=== PATIENT | female | born 1970 | race Caucasian/White ===

== ENCOUNTER → 2018-05-07 11:30 | Outpatient (CLI) | payer BC, SELFPAY ==
--- NOTE | 2018-05-07 11:35 | XR_ITS ---
XR chest 2V HISTORY: ITS.REASON: COUGH, SORE THROAT, FACIAL PAIN ORDERING PHYSICIAN: Perla Berman PATIENT AGE: 48 years COMPARISON: 08/26/2016 FINDINGS: The cardiomediastinal silhouette and pulmonary vascularity are within normal limits. The lungs are clear without infiltrates, suspicious nodules, or pleural effusions. No acute bony abnormalities. IMPRESSION: Negative chest, no acute finding
--- NOTE | 2018-05-07 11:35 | XR_ITS ---
XR sinus min 3V CLINICAL INDICATION: ITS.REASON: COUGH, SORE THROAT, FACIAL PAIN ORDERING PHYSICIAN: Perla Berman PATIENT AGE: 48 years Comparison: None FINDINGS: There is an air-fluid level in the right maxillary sinus. There is moderate mucosal thickening of the left maxillary sinus. The frontal and sphenoid sinuses have an unremarkable appearance. IMPRESSION: Maxillary sinusitis
[2018-05-07 12:01] LABS: Adenovirus,PCR Not Detected (NotDetected); Bordetella Pertussis Not Detected (NotDetected); Chlamydophila Pneumoniae, PCR Not Detected (NotDetected); Coronavirus 229E Not Detected (NotDetected); Coronavirus NL63 Not Detected (NotDetected); Coronavirus OC43 Not Detected (NotDetected); Coronovirus HKU1,PCR Not Detected (NotDetected); Human Metapneumovirus Not Detected (NotDetected); Influenza A, PCR Not Detected (NotDetected); Influenza AH1, 2009 Not Detected (NotDetected); Influenza AH1, PCR Not Detected (NotDetected); Influenza AH3,PCR Not Detected (NotDetected); Influenza B, PCR Not Detected (NotDetected); Mycoplasma Pneumoniae, PCR Not Detected (NotDected); Parainfluenza 1, PCR Not Detected (NotDetected); Parainfluenza 2, PCR Not Detected (NotDetected); Parainfluenza 3, PCR Not Detected (NotDetected); Parainfluenza 4, PCR Not Detected (NotDetected); Respiratory Syncytial Virus Not Detected (NotDetected)
[2018-05-07 18:16] LABS: Rhinovirus/Enterovirus Detected (NotDetected)
== END ==
PROVIDERS: PCP Nurse Practitioner Family; Visit Provider Nurse Practitioner Family
DX: R05 Cough (principal); J02.9 Acute pharyngitis, unspecified; R51 Headache
CPT/HCPCS: 70220; 71046; 87486; 87581; 87633; 87798

== ENCOUNTER → 2018-09-26 08:55 | Outpatient (CLI) | payer BC, SELFPAY ==
--- NOTE | 2018-09-26 08:59 | US_ITS ---
US Arterial Ankle Brachial Ind History: Bilateral leg pain at rest and with exercise, previous smoker, breast pain, claudication ORDERING PHYSICIAN: Bianca Wong PATIENT AGE: 48 years TECHNIQUE: Segmental pressures obtained of both right and left leg. These are compared to brachial blood pressure to yield index at each level sampled including summary NANNETTE. The data sheets from the procedure are available in PACS FINDINGS Rest study only performed today No prior studies available for comparison. Blood pressures reported are in millimeters mercury. RIGHT LEG NANNETTE = 1.3. RIGHT LEG TBI=0.8 Brachial BP: 110 Thigh BP: 126 Calf BP: 140 Ankle PT: 137 Ankle DP : 132 Digit =87 LEFT LEG NANNETTE = 1.2 LEFT LEG TBI= 0.8 Brachial BPD: 98 Thigh BP: 131 Calf BP: 131 Ankle PT:133 Ankle DP: 120 Digit = 82 Pulses and waveforms: Normal IMPRESSION: The ABIs and TBI's as reported above are within normal limits. Waveforms and pulses are also unremarkable. There is some discrepancy in the brachial blood pressure with the left being 12 point slower than the right. This could be seen with a stenotic lesion of the left subclavian, axillary, or brachial arteries. Suggest rechecking brachial blood pressures. If there remains discrepancy then CT angiogram of the subclavian and axillary arteries may be of further value.
== END ==
PROVIDERS: PCP Nurse Practitioner Family; Visit Provider Nurse Practitioner Family
DX: I70.223 Atherosclerosis of native arteries of extremities with rest pain, bilateral legs (principal)
CPT/HCPCS: 93922

== ENCOUNTER → 2018-10-07 10:33 | Outpatient (CLI) | payer BC, SELFPAY ==
--- NOTE | 2018-10-07 10:42 | CT_ITS ---
CT angio chest HISTORY: Discrepancy in blood pressure in the upper extremities, anomalous subclavian artery ITS.REASON: ANOMALOUS ORIGIN OF SUBCLAVIAN ARTERY ORDERING PHYSICIAN: Bianca Wong PATIENT AGE: 48 years COMPARISON: 09/26/2018 TECHNIQUE: Axial images obtained following the administration of 75 mL of Isovue 370 . Sagittal, and coronal reformatted images are also generated and reviewed. All CT scans at the facility use one or more dose reduction, viz: automated exposure control, ma/kV adjustment per patient size (including targeted exams where dose is matched to indication, i.e. head), or iterative reconstruction technique. FINDINGS: The aortic arch and great vessels have an unremarkable appearance. There is no evidence of subclavian artery stenosis. Only a small amount of calcific plaque is present at the origin of the left subclavian artery. The left axillary artery and proximal brachial artery have an unremarkable appearance as well. There is some mild bronchial thickening with patchy density in the left upper lobe posteriorly which suggests an area of infiltrate. No evidence of thoracic outlet obstruction of the subclavian or axillary artery. No acute bony anomalies. IMPRESSION: 1. Negative CT angiogram of the great vessels and left subclavian and axillary artery. No evidence of left subclavian, axillary or proximal brachial stenosis. No evidence of aberrant subclavian artery. 2. Patchy infiltrate with mild bronchial thickening in the left upper lobe posteriorly
== END ==
PROVIDERS: PCP Nurse Practitioner Family; Visit Provider Nurse Practitioner Family
DX: Q25.48 Anomalous origin of subclavian artery (principal)
CPT/HCPCS: 71275; Q9967

== ENCOUNTER → 2018-11-13 09:59 | Outpatient (CLI) | payer BC, SELFPAY ==
--- NOTE | 2018-11-13 10:03 | MR_ITS ---
MR cervical spine wo con, MR 3-d myelogram/MRCP HISTORY: PT states neck pain and left shoulder pain X 3-4 months. LT arm numbness and tingling. ITS.REASON: CERVICALGIA ORDERING PHYSICIAN: Bianca Wong PATIENT AGE: 48 years Comparison: None TECHNIQUE: Standard multiplanar multiecho sequences are performed without contrast. 3-D MIP and myelographic images are also rendered and reviewed FINDINGS: There is normal alignment. There is mild right-sided cerebellar ectopia of approximately 3 mm. Tiny area of slight increased T2 signal the franklyn on the right nonspecific C2-C3: Unremarkable. C3-C4: Mild left-sided foraminal narrowing from facet and uncovertebral hypertrophy C4-C5: Unremarkable. C5-C6: Minimal right foraminal narrowing. C6-C7: Minimal bulging disc with minimal degenerative disc disease with 1 to 2 mm anterolisthesis of C6. C7-T1: Unremarkable. No canal stenosis or disc herniation. Unremarkable signal intensity of the cervical cord. IMPRESSION: 1. Mild cervical spondylosis as detailed above. 2. No canal stenosis or disc herniation
== END ==
PROVIDERS: PCP Nurse Practitioner Family; Visit Provider Nurse Practitioner Family
DX: M54.2 Cervicalgia (principal)
CPT/HCPCS: 72141; 76376

== ENCOUNTER → 2018-12-16 12:09 | Outpatient (POV) | payer BC, SELFPAY | PROVIDERS: Visit Provider Specialist | DX: M54.2 Cervicalgia (principal) | CPT/HCPCS: 95886; 95908 ==

== ENCOUNTER → 2019-11-27 17:01 | Outpatient (CLI) | payer BC, SELFPAY | PROVIDERS: Visit Provider Podiatrist | DX: L08.9 Local infection of the skin and subcutaneous tissue, unspecified (principal); Z83.3 Family history of diabetes mellitus | CPT/HCPCS: 87102; 87206; 87220 ==

== ENCOUNTER → 2019-12-08 12:17 | Outpatient (CLI) | payer BC, SELFPAY ==
--- NOTE | 2019-12-08 12:22 | XR_ITS ---
PROCEDURE: XR FOOT WT BEARING RT 3V CLINICAL INDICATION: PAIN COMPARISON: No exams were available for comparison FINDINGS: No fracture or dislocation. No lytic or blastic change. There is normal mineralization. There is mild osteoarthritis at the 1st metatarsophalangeal joint and talonavicular joint. 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 A small degenerative plantar calcaneal spur is noted. Other findings: IMPRESSION: No acute bone findings. Dictated by: Hayes Aayla 12/08/2019 14:34 Electronically signed by Hayse Ayala in [place] 12/08/2019 14:34
--- NOTE | 2019-12-08 12:22 | XR_ITS ---
PROCEDURE: XR FOOT WT BEARING LT 3V CLINICAL INDICATION: PAIN COMPARISON: No exams were available for comparison FINDINGS: No fracture or dislocation. No lytic or blastic change. There is normal mineralization. There is mild osteoarthritis at 1st metatarsophalangeal and talonavicular joints. A 3 millimeters sclerotic focus involving the 3rd cuneiform is likely a benign bone island. Other findings:There is Freiberg's infraction of the distal 2nd metatarsal. IMPRESSION: No acute findings. Dictated by: Hayes Ayala 12/08/2019 14:31 Electronically signed by Hayes Ayala in [place] 12/08/2019 14:31
--- NOTE | 2019-12-08 12:22 | XR_ITS ---
PROCEDURE: XR ANKLE WT BEARING LT MIN 3V CLINICAL INDICATION: PAIN COMPARISON: No exams were available for comparison FINDINGS: There is no acute fracture dislocation or destructive bone lesion. Ankle mortise is intact. IMPRESSION: No acute findings. Dictated by: Hayes Ayala 12/08/2019 14:35 Electronically signed by Hayes Ayala in [place] 12/08/2019 14:35
--- NOTE | 2019-12-08 12:22 | XR_ITS ---
PROCEDURE: XR ANKLE WT BEARING RT MIN 3V CLINICAL INDICATION: PAIN COMPARISON: No exams were available for comparison FINDINGS: There is no acute fracture dislocation or destructive lesion. A small degenerative plantar calcaneal spur is noted. Soft tissue swelling is seen over the lateral malleolus. IMPRESSION: No acute bone pathology. Dictated by: Hayes Ayala 12/08/2019 14:29 Electronically signed by Hayes Ayala in [place] 12/08/2019 14:29
== END ==
PROVIDERS: PCP Emergency Medicine; Visit Provider Podiatrist
DX: R52 Pain, unspecified (principal); M79.672 Pain in left foot; M79.671 Pain in right foot; M25.572 Pain in left ankle and joints of left foot; M25.571 Pain in right ankle and joints of right foot
CPT/HCPCS: 73610; 73630

== ENCOUNTER → 2019-12-19 15:40 | Outpatient (CLI) | payer BC, SELFPAY ==
[2019-12-19 18:05] LABS: Hemoglobin A1C 5.5 % (4.0-6.0)
== END ==
PROVIDERS: Visit Provider Nurse Practitioner Family
DX: E11.9 Type 2 diabetes mellitus without complications (principal)
CPT/HCPCS: 83036

== ENCOUNTER → 2020-01-08 11:07 | Outpatient (CLI) | payer BC, SELFPAY ==
--- NOTE | 2020-01-08 11:30 | XR_ITS ---
PROCEDURE: XR LUMBAR SPINE MIN 4V CLINICAL INDICATION: back pain COMPARISON: AGCHEST CT angio chest from 10/07/2018 FINDINGS: Minimal lumbar curvature convex right. There is spina bifida occulta of S1 as a normal variant. Mild facet arthritic changes are present at L5-S1. There is normal alignment. No acute fracture or dislocation. There is minimal vascular calcification and there are surgical clips in the right upper quadrant. 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 IMPRESSION: No acute finding. Mild facet arthritic changes at L5-S1 Dictated by: Dash Duarte MD 01/08/2020 11:57 Electronically signed by Dash Duarte MD in [place] 01/08/2020 11:57
[2020-01-08 12:15] LABS: Basophils % 0.4 % (0.1-2.0); Eosinophils # 0.1 K/mm3 (0.0-0.4); Eosinophils % 1.4 % (0.1-12.0); Hematocrit 42.2 % (37.0-47.0); Hemoglobin 13.3 g/dL (12.2-16.2); Lymphocytes # 2.9 K/mm3 (0.7-4.5); Lymphocytes % 29.4 % (10-50); Mean Corpuscular HGB Conc 31.5 g/dL (31.8-35.4); Mean Corpuscular Hemoglobin 27.4 pg (27.0-31.2); Mean Corpuscular Volume 87.2 fl (81-99); Mean Platelet Volume 8.1 fl (7.4-10.4); Monocytes # 0.5 K/mm3 (0.1-1.0); Monocytes % 5.1 % (1.7-9.3); Neutrophils # 6.2 K/mm3 (1.8-7.8); Neutrophils % 63.6 % (37.0-80.0); Platelet Count 268 K/mm3 (142-424); Red Blood Count 4.84 M/mm3 (4.20-5.40); White Blood Count 9.7 K/mm3 (4.8-10.8)
[2020-01-08 12:22] LABS: Anion Gap 11.1 mEq/L (5-15); Blood Urea Nitrogen 14 mg/dl (7-17); Calcium 9.3 mg/dl (8.4-10.2); Carbon Dioxide 28 mmol/L (22.0-30.0); Chloride 104 mmol/L (98-107); Chol/HDL Ratio 2.2 (1-3.5); Cholesterol 135 mg/dl (140-200); Estimated Glomerular Filt Rate 76 ml/min (>60); GFR (African American) 92 ML/MIN (>60); Glucose 103 mg/dl (74-100); HDL Cholesterol 61 mg/dl (40-60); Potassium 4.1 mmoL/L (3.5-5.1); Sodium 139 mmol/L (136-145); Triglycerides 134 mg/dl (30-150); VLDL Cholesterol 27 mg/dL (0-40)
[2020-01-08 12:33] LABS: Direct LDL Cholesterol 75.28 mg/dL (100-129)
[2020-01-08 12:39] LABS: T4 (Thyroxine) 9.7 ug/dl (5.53-11.0)
[2020-01-08 12:53] LABS: Thyroid Stimulating Hormone 0.66 uIU/mL (0.465-4.68)
== END ==
PROVIDERS: Visit Provider Nurse Practitioner Family
DX: E11.9 Type 2 diabetes mellitus without complications (principal); E66.9 Obesity, unspecified; M54.5 Low back pain; M54.9 Dorsalgia, unspecified
CPT/HCPCS: 36415; 72110; 80048; 80061; 84436; 84443; 85025

== ENCOUNTER → 2020-01-12 11:03 | Outpatient (POV) | payer BC, SELFPAY | PROVIDERS: PCP Nurse Practitioner Family; Visit Provider Specialist | DX: M79.604 Pain in right leg (principal); M79.605 Pain in left leg | CPT/HCPCS: 95886; 95909 ==

== ENCOUNTER → 2020-02-23 08:16 | Outpatient (CLI) | payer MEDICAID, SELFPAY ==
--- NOTE | 2020-02-23 08:19 | XR_ITS ---
PROCEDURE: XR WRIST RT MIN 3V CLINICAL INDICATION: CTS COMPARISON: No exams were available for comparison FINDINGS: No fracture or dislocation. No lytic or blastic change. There is minimal cortical regularity involving the distal and lateral aspect of the scaphoid nonspecific. Minimal osteoarthritic change 1st metacarpal carpal joint. IMPRESSION: Minimal degenerative changes, no acute finding Dictated by: Dash Duarte MD 02/23/2020 16:55 Electronically signed by Dash Duarte MD in [place] 02/23/2020 16:55
== END ==
PROVIDERS: PCP Nurse Practitioner Family; Visit Provider Orthopaedic Surgery
DX: G56.01 Carpal tunnel syndrome, right upper limb (principal)
CPT/HCPCS: 73110

== ENCOUNTER → 2020-03-03 10:28 | Outpatient (CLI) | payer MEDICAID, SELFPAY ==
[2020-03-03 11:37] LABS: Basophils % 0.4 % (0.1-2.0); Eosinophils # 0.2 K/mm3 (0.0-0.4); Eosinophils % 2.2 % (0.1-12.0); Hematocrit 42.5 % (37.0-47.0); Hemoglobin 13.9 g/dL (12.2-16.2); Lymphocytes # 2.8 K/mm3 (0.7-4.5); Lymphocytes % 35.5 % (10-50); Mean Corpuscular HGB Conc 32.6 g/dL (31.8-35.4); Mean Corpuscular Hemoglobin 28.8 pg (27.0-31.2); Mean Corpuscular Volume 88.1 fl (81-99); Mean Platelet Volume 8.3 fl (7.4-10.4); Monocytes # 0.4 K/mm3 (0.1-1.0); Monocytes % 4.4 % (1.7-9.3); Neutrophils # 4.6 K/mm3 (1.8-7.8); Neutrophils % 57.5 % (37.0-80.0); Platelet Count 249 K/mm3 (142-424); Red Blood Count 4.82 M/mm3 (4.20-5.40); Red Cell Distribution Width 15.1 % (11.5-17.5)
[2020-03-03 12:03] LABS: Anion Gap 12.4 mEq/L (5-15); Blood Urea Nitrogen 12 mg/dl (7-17); Calcium 9.9 mg/dl (8.4-10.2); Carbon Dioxide 28 mmol/L (22.0-30.0); Chloride 102 mmol/L (98-107); Estimated Glomerular Filt Rate 59 ml/min (>60); GFR (African American) 71 ML/MIN (>60); Glucose 131 mg/dl (74-100); Potassium 4.4 mmoL/L (3.5-5.1); Sodium 138 mmol/L (136-145)
[2020-03-03 16:00] LABS: Coronavirus 19 IgG Antibody Negative (Negative)
[2020-03-03 16:01] LABS: Coronavirus 19 IgM Antibody Negative (Negative)
== END ==
PROVIDERS: Visit Provider Orthopaedic Surgery
DX: Z01.818 Encounter for other preprocedural examination (principal)
CPT/HCPCS: 36415; 80048; 85025; 86328

== ENCOUNTER 2020-03-04 10:50 | Day surgery (SDC) | payer MEDICAID, SELFPAY ==
--- NOTE | 2020-03-02 09:00 | SUR.PREOP ---
03/02/2020 @ 0900--PHONE CALL MADE TO PATIENT. PATIENT UNDERSTANDS THAT LAB WORK AND COVID TESTING NEEDS TO BE COMPLETED @ 1100 ON 03/03/2020. PATIENT UNDERSTANDS IF LAB WORK AND COVID-19 TESTS ARE NOT COMPLETED BY 12PM ON THAT DATE, THE SURGERY SCHEDULED WILL BE CANCELLED AND RESCHEDULED FOR ANOTHER TIME.
[2020-03-02 09:51] VITALS: BMI 34.9
[2020-03-04 11:04] VITALS: BP 113/77; PULSE 76; RESP 20; TEMP 36.2; O2SAT 98
--- NOTE | 2020-03-04 12:06 | P.PN_ITS ---
[facility] Anesthesia Checklist - Patient Identification Patient Identification: Arm Band, Verbal (Name & ) - Structural Data Admitted From: Home Planned Operative Procedure/s: r ctr Consent for Planned Operative Procedure(s) Verified: Yes Verified Documents: History and Physical - NPO Status Verified Time NPO: 00:00 - Additional verifications Patient : No Anesthesia Reactions: No Hx Blood Transfusions: No Blood Transfusion Reaction: No Cephalosporin Allergy: No Previous Colonoscopy: Yes - Cardiovascular Assessment Heart Sounds: S1 & S2 Pulse Strength: Baseline Pulse Rhythm: Regular Peripheral Edema: No - Airway Assessment C-Spine Mobility Assessed: Yes TMJ Mobility Assessed: Yes Dentition: Dentures-good fit - Neurological Assessment Level of Consciousness: Awake, Alert, Appropriate Hx Seizures: No - Anesthesia Plan Anesthesia Risk discussed: Yes Anesthesia Plan: Verified ASA Class: III Anesthesia Type: MAC [facility] History I have reviewed the patient's past medical history: Yes Medical History: Reports:: Asthma, Chronic Obstructive Pulmonary Disease (COPD), Gastroesophageal Reflux Disease(GERD), Hyperlipidemia, Hypertension, Lung Disease, Migraine Denies:: Cancer, Diabetes Mellitus Type 1, Diabetes Mellitus Type 2, Internal Pacemaker, MRSA, Seizures *Have you ever received a pneumonia vaccine?: Yes *Have you received a flu vaccine this season?: Yes Other Medical History: Reports: Sinus Problems, Other. Denies: Blood Transfusion Reaction Anesthesia experience/problems:: none Laterality Cases: Left: Carpal Tunnel Release Other Surgeries: Yes: Appendectomy, Cholecystectomy, Colonoscopy, EGD, Hysterectomy-Total, Other. No: Pacemaker Amputation: No Fractures: No - *Social History Educational Level: Attended High School Smoking Status: Former smoker Alcohol Intake: never Alcohol Intake Frequency:: other Substance Use Type: denies use *Occupational Status:: unemployed *Travel in the last 8 weeks: None Family Hx:: Diabetes, Cancer, Heart Attack, Stroke, Hypertension, Hyperlipidemia, Asthma
[2020-03-04 14:10] VITALS: BP 116/75; PULSE 85; RESP 18; TEMP 36.2; O2SAT 95
--- NOTE | 2020-03-04 14:10 | SUR.PHASEII ---
Large blue bruise noted to upper, inner R arm shaped like tourniquet from OR when arm secured to table. pt C/O soreness. Encouraged use of Ice to area for comfort at home, verbalized understanding. Also pt C/O lower back pain, Dr. Godinez aware of back pain. Encouraged repositiong and improved pain. Says deal with back pain at home.
[2020-03-04 14:20] VITALS: BP 108/69; PULSE 64; RESP 18; O2SAT 98
[2020-03-04 14:30] VITALS: BP 104/76; PULSE 65; RESP 18; O2SAT 99
--- NOTE | 2020-03-04 14:54 | SUR.OPER ---
Time out and start time r/t time out given before local injection at 1308. Time of incision was 1329. IPC only applied to right leg r/t BP cuff on left calf.
[2020-03-04 14:58] VITALS: BP 113/73; PULSE 63; RESP 18; O2SAT 99
--- NOTE | 2020-03-04 17:34 | HMH.OPNOTE ---
Date of procedure: 03/04/20 Pre-op Diagnosis:: Right carpal tunnel syndrome Post-op Diagnosis:: Right carpal tunnel syndrome Procedure performed:: Right carpal tunnel release Surgeon:: Madyson Godinez MD Stroke Program Coordinator(s):: LILY Frazier VENEER SAWYER:: Scott Sommer Anesthesia: MAC, local Estimated blood loss (mL): 5 Clinical Note:: 49yo [id number] female with a chief complaint of right hand pain, numbness and tingling. She underwent carpal tunnel release and de Quervain's release on the left hand within the last year at . She did well after that surgery but is having persistent symptoms on the right side. They have been present for several years but have worsened in severity over recent months. She has tried bracing on the right hand without significant relief. She is not currently working; she left her job to help take care of her brother who is on dialysis. Her own medical history is significant for COPD and borderline diabetes. She is a former smoker and quit 3 years ago. She is allergic to morphine and penicillin. Home medicines include include albuterol, atorvastatin, Breo, gabapentin, pantoprazole, sumatriptan. She is not on a beta-graham or any anticoagulation. Symptoms are predominantly over the radial side of the right hand, with nearly constant numbness. She has had increasing difficulty with lifting objects and manipulating small things like coins or buttons. EMG-NCS RUE at [facility] performed 01/12/20 was consistent with median nerve compression at the wrist (carpal tunnel syndrome), electrophysiologically moderate with chronic neuropathic changes in the R APB muscle. I discussed treatment options with the patient, including both operative and nonoperative treatments, with the respective risks and benefits. Her carpal tunnel symptoms have been present for several years and have not improved with bracing; I do not feel they are likely to improve with continued conservative treatment. The patient would like to have carpal tunnel release performed on this hand. I discussed the risks of surgery with the patient, including but not limited to: bleeding, infection, neurovascular damage, wound dehiscence, persistence of symptoms despite surgery, recurrence of CTS and need for revision surgery in the future. The patient vocalized understanding and provided informed consent for the procedure. Operative findings:: median nerve compression at R wrist Operative note:: The patient was identified in preoperative holding and the R wrist signed by myself. I reviewed the consent with the patient, answering all questions. She was then seen by anesthesia and the decision made to perform the surgery under local analgesia with intravenous sedation (MAC). The patient was then taken to the OR and placed supine on the operative table with a hand table attached under the right upper extremity. 900mg clindamycin was was infused and intravenous sedation administered. Timeout was performed, identifying the correct patient, correct procedure, and correct site. The volar aspect of the right wrist was prepped with chlorhexidine and local anesthetic administered at the site of desired carpal tunnel incision. This was done with a mixture of 0.5% marcaine and 1% lidocaine, neither with epinephrine, in a 50:50 mixture, 10cc total. A non-sterile tourniquet was then placed on the upper R arm and the arm prepped and draped in the usual sterile fashion. The procedure was begun by exsanguinating the patient's R upper extremity with an Esmarch and elevating the tourniquet to 250 mmHg. The planned surgical incision was drawn in marking pen, using anatomic landmarks, specifically the intersection of Martinez's cardinal line and the radial border of the ring finger, extending proximally to the wrist flexion crease. Incision was made over this line using a 15 blade. After the skin was incised, tenotomy scissors were used to bluntly spread the subcutaneous tissue. Tissue was spread
== END 2020-03-04 14:45 | disposition home or self-care (01) ==
LOC: OR 10:51
PROVIDERS: PCP Nurse Practitioner Family; Visit Provider Orthopaedic Surgery
PROC: (CPT 64721; principal; 2020-03-04 13:00)
DX: G56.01 Carpal tunnel syndrome, right upper limb (principal)
CPT/HCPCS: 64721; 96374

== ENCOUNTER 2020-07-26 08:54 | Emergency (ER) | payer MEDICAID, SELFPAY ==
[2020-07-26] VITALS (7 sets, daily range): BP systolic 117–158; BP diastolic 87–107; PULSE 92–116; RESP 18; TEMP 36.9; O2SAT 97–99; BMI 33.4
--- NOTE | 2020-07-26 09:15 | XR_ITS ---
PROCEDURE: XR KNEE RT 3V CLINICAL INDICATION: fall pain COMPARISON: No exams were available for comparison FINDINGS: No fracture or dislocation. No lytic or blastic change. There is normal mineralization. Minimal osteoarthritic changes involve the medial compartment and patellofemoral joint. Other findings:None. IMPRESSION: No acute findings. Dictated by: Dash Duarte MD 07/26/2020 12:17 Dash Duarte MD in [place] 07/26/2020 12:17
--- NOTE | 2020-07-26 09:15 | XR_ITS ---
PROCEDURE: XR ANKLE RT MIN 3V CLINICAL INDICATION: fall pain Posttraumatic pain COMPARISON: CR XR ANKLE WT BEARING RT MIN 3V from 12/08/2019 CR XR FOOT WT BEARING RT 3V from 12/08/2019 CR XR ANKLE WT BEARING LT MIN 3V from 12/08/2019 FINDINGS: No fracture or dislocation. No lytic or blastic change. There is an os trigonum as a normal variant. IMPRESSION: No acute findings. Dictated by: Dash Duarte MD 07/26/2020 10:40 Dash Duarte MD in [place] 07/26/2020 10:40
--- NOTE | 2020-07-26 09:43 | PC.NURSE ---
pt in radiology
--- NOTE | 2020-07-26 10:00 | HMH.EDFALL ---
ED Disposition Clinical Impression: Sprained ankle Qualifiers: Encounter type: initial encounter Involved ligament of ankle: unspecified ligament Laterality: right Qualified Code(s): S93.401A - Sprain of unspecified ligament of right ankle, initial encounter Knee sprain Qualifiers: Encounter type: initial encounter Involved ligament of knee: unspecified ligament Laterality: right Qualified Code(s): S83.91XA - Sprain of unspecified site of right knee, initial encounter Disposition: Home, Self-Care Condition on Discharge: Fair Instructions: DI for Knee Sprain, DI for Ankle Sprain Additional Instructions: To let you know that we will check x-rays of your ankle as well as knee and see no acute fractures or dislocations however you could have sprains that will not show up in x-rays rest ice elevation and anti-inflammatory medications are advised please follow-up as needed Prescriptions: Ibuprofen [Motrin 600mg Tablet] 600 mg PO Q6HP PRN #20 tab PRN Reason: Mild To Moderate Pain Transmission Status: Pending to [facility] methylPREDNISolone [Medrol 4mg tab] 4 mg PO DIRECTED #21 tab Transmission Status: Pending to [facility] Diclofenac Sodium [Voltaren 100gm Topical Gel] 1 applicatio TP Q4-6H PRN #100 gm PRN Reason: Moderate Pain [facility] Referrals: Michelle Lazaro APRN [Primary Care Provider] - Forms: Work/School Release Time of Disposition: 11:41 - Critical Care Critical Care Time: No Attestation: On 07/26/20, the high probability of a clinically significant, sudden or life threatening deterioration of the following system(s) required my full and direct attention, intervention and personal management. The time I documented below is in addition to time spent performing reported procedures but includes the following listed in this critical care notation. Medical Decision Making - Medical Records Medical records reviewed: Yes: I reviewed the patient's medical records. MR Comment: 50-year-old female here with a complaint that she fell and twisted her knee and ankle right ankle and would like to have it examined. X-rays of the knee as well as the right ankle see no acute fractures or dislocations a sprain however could not be ruled out on her shots of Toradol and Depo-Medrol plan is to discharge her home with Theron bandages for the right knee as well as the right ankle also rest ice elevation and anti-inflammatory medications are being advised we will also give her a prescription for Medrol Dosepak will keep her off from work today she wants to go back to work after that - [place] Inquiry Pt receiving controlled substance: No Vital Signs: 07/26/20 09:10 07/26/20 09:30 07/26/20 10:00 Temperature 98.4 F Temperature Source Oral Pulse Rate [Left Radial] 116 H 92 H 102 H Respiratory Rate 18 Blood Pressure [Left Arm] 117/87 158/107 H 137/91 H Blood Pressure Mean [Left Arm] 97 124 106 Blood Pressure Source [Left Arm] Automatic Cuff Automatic Cuff Automatic Cuff Blood Pressure Position [Left Arm] Sitting Sitting 02 Sat by Pulse Oximetry 97 97 98 Oxygen Delivery Method Room Air Room Air Room Air 07/26/20 10:30 07/26/20 11:00 Temperature Temperature Source Pulse Rate [Left Radial] 100 H 103 H Respiratory Rate Blood Pressure [Left Arm] 122/99 H 120/100 H Blood Pressure Mean [Left Arm] 106 106 Blood Pressure Source [Left Arm] Blood Pressure Position [Left Arm] Sitting Sitting 02 Sat by Pulse Oximetry 98 98 Oxygen Delivery Method Room Air Room Air Orders (Tests/Meds): ED MEDICATIONS Discontinued Medications Generic Name Dose Route Start Last Admin Trade Name Freq PRN Reason Stop Dose Admin Ketorolac Tromethamine 60 mg 07/26/20 10:58 07/26/20 11:12 Ketorolac 60mg/2ml Vial IM 07/26/20 10:59 60 mg ONCE ONE Administration Methylprednisolone Acetate 80 mg 07/26/20 10:59 07/26/20 11:14 Methylprednisol
--- NOTE | 2020-07-26 10:03 | PC.NURSE ---
pt has returned from radiology
--- NOTE | 2020-07-26 11:36 | PC.NURSE ---
olman wrap applied to rt knee and rt ankle
== END 2020-07-26 11:53 | disposition home or self-care (01) ==
PROVIDERS: Emergency Provider Emergency Medicine; PCP Nurse Practitioner Family
DX: S93.401A Sprain of unspecified ligament of right ankle, initial encounter (principal); S83.91XA Sprain of unspecified site of right knee, initial encounter; W01.0XXA Fall on same level from slipping, tripping and stumbling without subsequent striking against object, initial encounter; Y92.017 Garden or yard in single-family (private) house as the place of occurrence of the external cause; J45.909 Unspecified asthma, uncomplicated; E78.5 Hyperlipidemia, unspecified; I10 Essential (primary) hypertension; K21.9 Gastro-esophageal reflux disease without esophagitis; G43.709 Chronic migraine without aura, not intractable, without status migrainosus; F17.290 Nicotine dependence, other tobacco product, uncomplicated; Z88.0 Allergy status to penicillin; Z88.5 Allergy status to narcotic agent
CPT/HCPCS: 73562; 73610; 96372; 99283; J1040

== ENCOUNTER 2020-08-12 12:27 | Emergency (ER) | payer MEDICAID, SELFPAY ==
[2020-08-12 12:40] VITALS: BP 122/86; PULSE 86; RESP 16; TEMP 36.6; O2SAT 98; BMI 31.4
--- NOTE | 2020-08-12 12:50 | HMH.EDUTC ---
[facility] [place] Disposition Clinical Impression: Exposure to COVID-19 virus Disposition: Home, Self-Care Condition on Discharge: Good Instructions: Preventing the Spread of Coronavirus Discharge Instructions Additional Instructions: *Monitor Temp, Over the counter Motrin or Tylenol as directed/as needed Tylenol every 4 hours and Motrin every 6 hours (as long as your family doctor has told you that you can take it) for fever or pain. and straight to ER if unable to lower temp less than 101.0 after medication given *Warm salt water gargles may help to soothe the throat *Throat Lozenges *Warm fluids like tea with honey may help to soothe the throat *Sleep elevated *Humidifier/Vaporizer Follow up IMMEDIATELY for new or worsening symptoms or no Noticeable improvement over the next 48-72 hours. 911 for difficulty breathing or swallowing You were tested for today for COVID19 your test result should be back in the next 24-48 hours, you may call to the [facility] to see if your test results are back in the next 48 hours [phone] [facility] hours are 9am-9pm You was given a handout with instructions for Self Quarantine and Self isolation for while you wait on test results and what to do if they are positive If you are positive the Health Dept will be contacting you also Referrals: Michelle Lazaro APRN [Primary Care Provider] - As needed Forms: Work/School Release Time of Disposition: 12:56 Medical Decision Making - Irving Inquiry Pt receiving controlled substance: No Irving was queried for this patient: No Vital Signs: 08/12/20 12:40 Temperature 97.8 F Temperature Source Oral Pulse Rate [Right] 86 Respiratory Rate 16 Blood Pressure [Right Arm] 122/86 Blood Pressure Mean [Right Arm] 98 Blood Pressure Source [Right Arm] Automatic Cuff Blood Pressure Position [Right Arm] Sitting 02 Sat by Pulse Oximetry 98 Oxygen Delivery Method Room Air Orders (Tests/Meds): ORDERS Category Date Time Status Covid-19 Nasal PCR Sendout Ry Stat Lab 08/12/20 12:35 Ordered [facility] [place] HPI - General Stated complaint: covid exposure Time Seen by Provider: 08/12/20 12:50 Mode of Arrival: Ambulatory Source of Information: Patient Limitations: No Limitations Description of Symptoms (Recalled from Triage Doc. by RN): direct exposure to covid. 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 - Related Data Home Medications Medication Instructions Recorded Confirmed Multivit-Minerals/Folic/Ginkgo 1 each PO DAILY 03/02/20 07/28/20 [One Daily For Women 50+ Adv Tb] Previous Rx's Medication Instructions Recorded albuterol sulfate 90 mcg/actuation 1 inh INHALATION Q4-6H PRN #1 each 02/05/20 breath activated powder inhaler diclofenac sodium 1 % topical gel 4 g TOPICAL QID PRN 30 Days #100 g 02/23/20 budesonide-formoterol HFA 80 2 puff INHALATION BID #6.9 g 05/07/20 mcg-4.5 mcg/actuation aerosol inhaler phentermine 37.5 mg capsule 37.5 mg PO DAILY #30 cap 07/02/20 fluticasone propionate 50 See Rx Instructions .ROUTE 07/14/20 mcg/actuation nasal .COMPLEX #16 gram spray,suspension Ibuprofen [Motrin 600mg 600 mg PO Q6HP PRN #20 tab 07/26/20 Tablet] gabapentin 400 mg capsule 400 mg PO TID 30 Days #90 cap 07/28/20 Allergies Allergy/AdvReac Type Severity Reaction Status Date / Time morphine [MORPHINE] Allergy Severe S-DIFF. Verified 07/28/20 13:34 BREATHING Penicillins [PENICILLINS] Allergy Unknown V
[2020-08-12 13:01] VITALS: BP 132/70; PULSE 74; RESP 16; TEMP 36.7; O2SAT 98
[2020-08-13 13:32] LABS: Covid-19 Nasal PCR Sendout Lex NOT DETECTED
== END 2020-08-12 13:02 | disposition home or self-care (01) ==
PROVIDERS: Emergency Provider Nurse Practitioner; PCP Nurse Practitioner Family
DX: Z20.828 Contact with and (suspected) exposure to other viral communicable diseases (principal); J44.9 Chronic obstructive pulmonary disease, unspecified; K21.9 Gastro-esophageal reflux disease without esophagitis; E78.5 Hyperlipidemia, unspecified; I10 Essential (primary) hypertension; F17.290 Nicotine dependence, other tobacco product, uncomplicated; Z88.0 Allergy status to penicillin; Z88.5 Allergy status to narcotic agent; Z79.899 Other long term (current) drug therapy
CPT/HCPCS: 99201; U0004

== ENCOUNTER → 2020-12-10 15:04 | Outpatient (CLI) | payer MEDICAID, SELFPAY ==
[2020-12-10 15:11] LABS: Basophils # 0.1 K/mm3 (0-0.2); Basophils % 0.6 % (0.1-2.0); Eosinophils # 0.2 K/mm3 (0.0-0.4); Eosinophils % 1.9 % (0.1-12.0); Hematocrit 47.1 % (37.0-47.0); Hemoglobin 14.9 g/dL (12.2-16.2); Lymphocytes # 3.1 K/mm3 (0.7-4.5); Lymphocytes % 32.4 % (10-50); Mean Corpuscular HGB Conc 31.6 g/dL (31.8-35.4); Mean Corpuscular Hemoglobin 28.8 pg (27.0-31.2); Mean Corpuscular Volume 91.1 fl (81-99); Mean Platelet Volume 8.3 fl (7.4-10.4); Monocytes # 0.5 K/mm3 (0.1-1.0); Neutrophils # 5.8 K/mm3 (1.8-7.8); Neutrophils % 60.1 % (37.0-80.0); Platelet Count 298 K/mm3 (142-424); Red Blood Count 5.17 M/mm3 (4.20-5.40); Red Cell Distribution Width 13.1 % (11.5-17.5); White Blood Count 9.6 K/mm3 (4.8-10.8)
[2020-12-10 15:30] LABS: Creatinine,Urine Random 53 mg/dL (Not Estab.); Microalbumin/Creatinine Ratio 12.4
[2020-12-10 15:34] LABS: Alanine Aminotransferase 23 U/L (12-78); Albumin Level 4.3 g/dl (3.5-5.0); Albumin/Globulin Ratio 1.3 (1.1-1.8); Alkaline Phosphatase 89 U/L (38-126); Anion Gap 15.4 mEq/L (5-15); Aspartate Amino Transferase 34 U/L (14-36); Bilirubin,Total 0.4 mg/dl (0.2-1.3); Blood Urea Nitrogen 15 mg/dl (7-17); Carbon Dioxide 22 mmol/L (22.0-30.0); Chloride 106 mmol/L (98-107); Chol/HDL Ratio 4.5 (1-3.5); Cholesterol 212 mg/dl (140-200); Estimated Glomerular Filt Rate 76 ml/min (>60); GFR (African American) 92 ML/MIN (>60); Globulin 3.2 g/dL (1.3-3.2); Glucose 94 mg/dl (74-100); HDL Cholesterol 47 mg/dl (40-60); Potassium 4.4 mmoL/L (3.5-5.1); Sodium 139 mmol/L (136-145); Total Protein,Serum 7.5 g/dl (6.3-8.2); Triglycerides 226 mg/dl (30-150); VLDL Cholesterol 45 mg/dL (0-40)
[2020-12-10 15:51] LABS: 25-OH Vitamin D, Total 28.6 ng/mL (30-100)
[2020-12-10 15:52] LABS: T4 (Thyroxine) 10.2 ug/dl (5.53-11.0)
[2020-12-10 16:05] LABS: Thyroid Stimulating Hormone 1.35 uIU/mL (0.465-4.68)
[2020-12-10 17:29] LABS: Hemoglobin A1C 5.2 % (4.0-6.0)
== END ==
PROVIDERS: Visit Provider Nurse Practitioner Family
DX: E11.9 Type 2 diabetes mellitus without complications (principal); E66.9 Obesity, unspecified; E55.9 Vitamin D deficiency, unspecified; Z79.899 Other long term (current) drug therapy
CPT/HCPCS: 80053; 80061; 82043; 82306; 82570; 83036; 84436; 84443; 85025

== ENCOUNTER → 2020-12-22 08:08 | Outpatient (CLI) | payer MEDICAID, SELFPAY ==
--- NOTE | 2020-12-22 08:09 | CA_ITS ---
APPROVED REPORT Exam: Exercise Treadmill Technologist: Ami Camacho Ht: 5 ft 9 in Wt: 208 lbs BSA: 2.10 m2 HR: 94 bpm BP: 127/84 mmHg Indications: Chest pain Medical History Medications: Gabapentin,,,,, SyMBICORT,,,,, Albuterol,,,,, Ibuprofen,,,,, FluTICASONE,,,,, ADIPEX,,,,, Multivitamin,,,,, Stress Test Details Test: Manual Treadmill HR Resting HR: 100 bpm Max Heart Rate (APMHR): 169.394329 bpm Max HR Achieved: 129 bpm Target HR (85% APMHR): 143.736182 bpm % of APMHR: 76.33 Recovery HR: 93 bpm BP Resting BP: 127.0/84.0 mmHg Max BP: 129.0/89.0 mmHg Recovery BP: 120.0/88.0 mmHg ECG Resting ECG: Normal sinus rhythm Clinical Exercise duration: 04:17 min Highest Stage Achieved: Exercise capacity: 4.6 METs Stress ECG Conclusion Speed had to be decreased to 1.2 mph and grade to 0% for patient to walk more than 1:30 (started out in Stage I Rian Protocol). Patient exercised 4:17 on manual protocol. Test stopped due to shortness of air, fatigue. Symptoms: complained of chest heaviness, shortness of air, leg pain Arrhythmias/Ectopy: None ST-T Changes: Normal ST response to exercise. Conclusion: Normal GXT to heart rate achieved (only 76% of PM). Very poor exercise tolerance. GXT only (no imaging). Test Summary RECOVERY . . . . . . . . REST . . . . . . . Standing REST 02:58 0.0 0.0 100 . 127/ 84 . . Stage 1 . . . . . . . Protocol changed to Manual Treadmill Stage 1 01:00 5.0 1.7 121 . . . . Stage 1 02:00 0.0 1.2 127 . . . . Stage 1 03:00 0.0 1.2 120 . . . . Stage 1 04:00 0.0 1.2 118 . . . . Stage 1 04:17 0.0 1.2 117 . . . Stop exercise at 04:17 RECOVERY 01:00 0.0 0.0 121 . 108/ 80 . . RECOVERY 02:00 0.0 0.0 104 . 108/ 80 . . RECOVERY 03:00 0.0 0.0 97 . 129/ 89 . . RECOVERY . . . . . . . chest pressure RECOVERY 04:00 0.0 0.0 96 . 129/ 89 . . RECOVERY 05:00 0.0 0.0 97 . 129/ 89 . . RECOVERY 05:34 0.0 0.0 94 . 120/ 88 . . Electronically signed by : Dillan Avalos, 12/23/2020 13:56:29
== END ==
PROVIDERS: PCP Nurse Practitioner Family; Visit Provider Nurse Practitioner Family
DX: R07.9 Chest pain, unspecified (principal)
CPT/HCPCS: 93017

== ENCOUNTER → 2020-12-27 14:11 | Outpatient (CLI) | payer MEDICAID, SELFPAY ==
--- NOTE | 2020-12-27 14:13 | CA_ITS ---
APPROVED REPORT EXAM: Comprehensive 2D, Doppler, and color-flow Echocardiogram Cath Lab Manager: Delmis Prince RVT Ht: 5 ft 9 in Wt: 208lbs BSA: 2.10 BP: 110/80 mmHg Indications: CP,EX SMOKER,OBESITY,HTN,HLD,GERD 2D Dimensions LVOT 1.91 cm (M/F) 1.5-2.5 M-Mode Dimensions RVDd 2.58 cm (0.9-2.6) LA Diam 2.94 cm (1.9-4.0) LVDd 4.59 cm (3.5-5.7) Ao Diam 2.52 cm (2.0-3.7) LVDs 3.35 cm (3.5-5.7) IVSd 0.40 cm (0.6-1.1) PWd 0.50 cm (0.6-1.1) EF (Teich) 52.70% FS 27.00% EDV (Teich) 96.80 mL TAPSE 1.52 (<1.7) ESV (Teich) 45.80 mL LV Diastology E Decel Time 233.00 (160-240 msec) E/A Ratio 0.9 MED E' 6.60 (< 7 cm/sec) E'/MED E' Ratio 7.65 (>14) LAT E' 11.10 (<10 cm/sec) E/LAT E' Ratio 4.55 (>14) Mitral Valve MV E Max Tyrone. 50.00 (40-130 cm/s) MV A Velocity 54.00 (40-130 cm/s) E/A Ratio 0.94 MV Decel. Time 233.00 (160-240 ms) MV PHT 68.00 ms Pulmonary Valve PV Peak Velocity 59.00 (50-150 cm/s) Left Ventricle Left atrium is mildly enlarged, left ventricle is normal size, mild concentric left ventricular hypertrophy, visually estimated ejection fraction 55% with no regional wall motion abnormality. Grade 1 diastolic dysfunction seen without tissue Doppler evidence of raise left atrial pressure. Right Ventricle Right atrium and right ventricle are mildly enlarged with normal contractility. Aortic Valve Aortic valve is minimally thickened and fibrosed, there is no aortic stenosis or aortic insufficiency. Mitral Valve Mitral valve is grossly normal, there is trace mitral regurgitation. Tricuspid Valve Tricuspid grossly normal, there is trace tricuspid regurgitation, tricuspid regurgitation jet velocity is inadequate for calculation of the right ventricular systolic pressure. Pulmonic Valve Pulmonic valve is poorly visualized. Great Vessels Aortic root is normal size. Pericardium No significant pericardial effusion noted. Conclusion 1. Mild biatrial enlargement, normal left ventricular size, mild concentric left ventricular hypertrophy, visually estimated ejection fraction 55% with no regional wall motion abnormality, grade 1 diastolic dysfunction seen without tissue Doppler evidence of raise left atrial pressure. 2. Trace mitral and tricuspid regurgitation. 3. No significant pericardial effusion noted. Electronically signed by : Tahir Godfrey, 12/27/2020 21:18:03
== END ==
PROVIDERS: PCP Nurse Practitioner Family; Visit Provider Nurse Practitioner Family
DX: R07.9 Chest pain, unspecified (principal)
CPT/HCPCS: 93306

== ENCOUNTER → 2020-12-30 14:27 | Outpatient (CLI) | payer MEDICAID, SELFPAY ==
[2020-12-30 16:34] LABS: Coronavirus 19 IgG Antibody Negative (Negative); Coronavirus 19 IgM Antibody Negative (Negative)
== END ==
PROVIDERS: PCP Nurse Practitioner Family; Visit Provider Internal Medicine Cardiovascular Disease
DX: Z01.812 Encounter for preprocedural laboratory examination (principal); Z20.822 Contact with and (suspected) exposure to COVID-19
CPT/HCPCS: 36415; 86328; U0003

== ENCOUNTER → 2021-03-18 10:42 | Outpatient (CLI) | payer MEDICAID, SELFPAY ==
--- NOTE | 2021-03-18 10:43 | MM_ITS ---
PROCEDURE: MM DIG SCREENING MAMM BI W/CAD Digital Breast Tomosynthesis Included CLINICAL INDICATION: breast cancer screening COMPARISON: MG MA MAMMO SCRN DIGITL BILAT from 09/27/2015 MG Screening-Bilateral Mammography from 09/22/2019 TECHNIQUE: Standard CC and MLO images and 3D Tomosynthesis was obtained. R2 CAD reviewed. FINDINGS: Dense fibroglandular tissue located in the upper outer aspect of both breasts. No malignant appearing mass or malignant-appearing microcalcification. 9 mm nodular density upper aspect left breast central 1/3 seen only on the MLO view possibly due to overlapping fibroglandular tissue. Spot compression views straight mL and rolled CC views suggested along with left breast ultrasound. On the 3D tomography images there is a 6 mm opacity in the retroareolar region on the MLO view for which spot compression MLO and CC views are suggested.The right breast has an unremarkable appearance. IMPRESSION: Incomplete evaluation of the left breast. Additional images suggested. Unremarkable right breast. BI-RAD Category: 0 Need Additional Imaging Evaluation FOLLOW-UP: IMM Immediate Follow-up Recommended (A letter has been sent to the patient regarding results of the study.) Dictated by: Dash Duarte MD 04/08/2021 17:30 Dash Duarte MD in [place] 04/08/2021 17:30
== END ==
PROVIDERS: PCP Nurse Practitioner Family; Visit Provider Nurse Practitioner Family
DX: Z12.31 Encounter for screening mammogram for malignant neoplasm of breast (principal)
CPT/HCPCS: 77063; 77067

== ENCOUNTER → 2021-05-02 13:34 | Outpatient (CLI) | payer MEDICAID, SELFPAY ==
--- NOTE | 2021-05-02 13:35 | MM_ITS ---
PROCEDURE: MM DIG MAMM DX UNILAT LT CAD Digital Breast Tomosynthesis Included Left breast ultrasound complete CLINICAL INDICATION: abn mamm Follow-up abnormal screening mammogram COMPARISON: MG MA MAMMO SCRN DIGITL BILAT from 09/27/2015 MG Screening-Bilateral Mammography from 09/22/2019 MG MM DIG SCREENING MAMM BI W/CAD from 03/18/2021 US US BREAST LT COMPLETE from 05/02/2021 TECHNIQUE: Standard CC and MLO images and 3D Tomosynthesis was obtained. R2 CAD reviewed. FINDINGS: Asymmetric nodular densities in the upper left breast retroareolar region appear to compress out.. There is a small asymmetric density with faint calcification in the upper aspect of the left breast posterior 1/3 as seen on the spot compression view probably unchanged and probably benign. Left breast ultrasound: No solid or cystic nodules demonstrated IMPRESSION: No suspicious abnormalities apparent. Probably benign 3 mm nodular opacity upper left breast posterior 1/3. Recommend six-month mammographic follow-up regarding asymmetric densities and the small small parenchymal opacity with faint calcification. BI-RAD Category: 3 Probably Benign Finding Short Term Follow-Up FOLLOW-UP: 6M 6 Month Follow-up (A letter has been sent to the patient regarding results of the study.) Dictated by: Dash Duarte MD 05/06/2021 09:56 Dash Duarte MD in [place] 05/06/2021 09:56
== END ==
PROVIDERS: PCP Nurse Practitioner Family; Visit Provider Nurse Practitioner Family
DX: R92.8 Other abnormal and inconclusive findings on diagnostic imaging of breast (principal)
CPT/HCPCS: 76641; 77061; 77065; G0279

== ENCOUNTER → 2021-05-18 19:36 | Outpatient (CLI) | payer MEDICAID, SELFPAY | PROVIDERS: Visit Provider Nurse Practitioner Family | DX: Z20.822 Contact with and (suspected) exposure to COVID-19 (principal); U07.1 COVID-19 | CPT/HCPCS: U0003 ==

== ENCOUNTER → 2021-05-27 14:39 | Outpatient (CLI) | payer MEDICAID, SELFPAY ==
[2021-05-27 16:08] LABS: Basophils % 0.6 % (0.1-2.0); Eosinophils # 0.1 K/mm3 (0.0-0.4); Eosinophils % 1.7 % (0.1-12.0); Hematocrit 46.1 % (37.0-47.0); Hemoglobin 15.5 g/dL (12.2-16.2); Lymphocytes # 2.8 K/mm3 (0.7-4.5); Lymphocytes % 41.4 % (10-50); Mean Corpuscular HGB Conc 33.6 g/dL (31.8-35.4); Mean Corpuscular Hemoglobin 29.7 pg (27.0-31.2); Mean Corpuscular Volume 88.2 fl (81-99); Mean Platelet Volume 8.9 fl (7.4-10.4); Monocytes # 0.5 K/mm3 (0.1-1.0); Monocytes % 7.1 % (1.7-9.3); Neutrophils # 3.4 K/mm3 (1.8-7.8); Neutrophils % 49.2 % (37.0-80.0); Platelet Count 341 K/mm3 (142-424); Red Blood Count 5.23 M/mm3 (4.20-5.40); Red Cell Distribution Width 13.2 % (11.5-17.5); White Blood Count 6.8 K/mm3 (4.8-10.8)
[2021-05-27 16:13] LABS: Alanine Aminotransferase 24 U/L (12-78); Albumin Level 3.8 g/dl (3.5-5.0); Albumin/Globulin Ratio 1.2 (1.1-1.8); Alkaline Phosphatase 93 U/L (38-126); Aspartate Amino Transferase 30 U/L (14-36); Bilirubin,Total 0.5 mg/dl (0.2-1.3); Blood Urea Nitrogen 14 mg/dl (7-17); Calcium 9.2 mg/dl (8.4-10.2); Carbon Dioxide 20 mmol/L (22.0-30.0); Chloride 108 mmol/L (98-107); Chol/HDL Ratio 4.7 (1-3.5); Cholesterol 207 mg/dl (140-200); Estimated Glomerular Filt Rate 105 ml/min (>60); GFR (African American) 127 ML/MIN (>60); Globulin 3.1 g/dL (1.3-3.2); Glucose 99 mg/dl (74-100); HDL Cholesterol 44 mg/dl (40-60); Sodium 141 mmol/L (136-145); Total Protein,Serum 6.9 g/dl (6.3-8.2); Triglycerides 166 mg/dl (30-150); VLDL Cholesterol 33 mg/dL (0-40)
[2021-05-27 16:24] LABS: Direct LDL Cholesterol 132.35 mg/dL (100-129)
[2021-05-27 16:30] LABS: 25-OH Vitamin D, Total 35.1 ng/mL (30-100)
[2021-05-27 16:31] LABS: T4 (Thyroxine) 13.5 ug/dl (5.53-11.0)
[2021-05-27 16:44] LABS: Thyroid Stimulating Hormone 1.02 uIU/mL (0.465-4.68)
[2021-05-27 17:26] LABS: Hemoglobin A1C 5.4 % (4.0-6.0)
== END ==
PROVIDERS: Visit Provider Nurse Practitioner Family
DX: E11.9 Type 2 diabetes mellitus without complications (principal); E66.9 Obesity, unspecified; I10 Essential (primary) hypertension; J44.9 Chronic obstructive pulmonary disease, unspecified; Z68.30 Body mass index [BMI] 30.0-30.9, adult
CPT/HCPCS: 80053; 80061; 82306; 83036; 84436; 84443; 85025

== ENCOUNTER → 2021-10-17 16:00 | Outpatient (CLI) | payer MEDICAID, SELFPAY ==
[2021-10-17 15:03] LABS: Amphetamine/Metha Screen,Urine Negative ng/ml (<1000)
[2021-10-17 15:04] LABS: Barbiturates Screen,Urine Negative ng/ml (<200); Benzodiazepines Screen,Urine Negative ng/ml (<200)
[2021-10-17 15:05] LABS: Cannabinoid Screen,Urine Negative ng/ml (<50)
[2021-10-17 15:06] LABS: Cocaine Screen,Urine Negative ng/ml (<300)
[2021-10-17 15:07] LABS: Methadone Screen,Urine Negative ng/ml (<300); Opiate Screen,Urine Negative ng/ml (<300)
[2021-10-17 15:09] LABS: Phencyclidine Screen,Urine Negative ng/ml (<25)
== END ==
PROVIDERS: Visit Provider Nurse Practitioner Family
DX: Z79.899 Other long term (current) drug therapy (principal)
CPT/HCPCS: 80305

== ENCOUNTER → 2021-11-03 13:39 | Outpatient (CLI) | payer MEDICAID, SELFPAY ==
--- NOTE | 2021-11-03 13:40 | MM_ITS ---
PROCEDURE INFORMATION: Exam: MG Left Diagnostic Breast Tomosynthesis Exam date and time: 11/03/2021 1:40 PM Age: 51 years old Clinical indication: 6 mth f/u lt breast density TECHNIQUE: Imaging protocol: Left Diagnostic tomosynthesis and 2D mammography including computer-aided detection (CAD) when performed. Unilateral or bilateral exam. COMPARISON: 1. MG MM DIG MAMM DX UNILAT LT CAD 05/02/2021 1:50 PM 2. MG MM DIG SCREENING MAMM BI W/CAD 03/18/2021 10:44 AM FINDINGS: MAMMOGRAPHY: The breast tissue is heterogeneously dense, which may obscure small masses. There is no stellate mass, architectural distortion or suspicious microcalcifications in either breast to suggest malignancy. No skin thickening or axillary adenopathy. Additional spot compression views of the posterior left upper breast do not demonstrate any persistent masses. IMPRESSION: No mammographic evidence of malignancy. Annual bilateral mammographic screening is recommended in March 2022 unless otherwise clinically indicated. ASSESSMENT: BI-RADS Category 1: Negative
== END ==
PROVIDERS: PCP Nurse Practitioner Family; Visit Provider Nurse Practitioner Family
DX: R92.8 Other abnormal and inconclusive findings on diagnostic imaging of breast (principal)
CPT/HCPCS: 77061; 77065; G0279

== ENCOUNTER → 2021-11-23 07:47 | Outpatient (CLI) | payer SELFPAY ==
--- NOTE | 2021-11-23 07:47 | CT_ITS ---
FINAL REPORT CLINICAL HISTORY: calcium score FINDINGS: CT CORONARY CALCIUM SCORE W/O TECHNIQUE: Thin-section axial images were obtained through the heart and coronary arteries per CT coronary calcium score protocol. This study was performed with techniques to keep radiation doses as low as reasonably achievable (ALARA). Individualized dose reduction techniques using automated exposure control or adjustment of mA and/or kV according to the patient's size were employed. FINDINGS: On the axial images, there is calcification within the right coronary artery. This gives a coronary artery calcium score of 18 based on the Agatston scale. This coronary artery calcium score places the patient within the 85th percentile based on age and gender. The heart size is normal. There is no pleural or pericardial effusion. Limited evaluation of the lungs reveal no suspicious nodule. There is a calcified granuloma in the left lung base. There is fatty infiltration of the liver. IMPRESSION: Coronary artery calcium score of 18 which places the patient within the 85th percentile based on age and gender.. Reviewed, Interpreted and Dictated by Asif Tran III, MD Transcribed by Dara Luu Authenticated by Asif Tran III, MD on 11/23/2021 09:45:42 AM [facility]
== END ==
PROVIDERS: PCP Nurse Practitioner Family; Visit Provider Internal Medicine Cardiovascular Disease
DX: Z13.6 Encounter for screening for cardiovascular disorders (principal); I10 Essential (primary) hypertension
CPT/HCPCS: 75571

== ENCOUNTER → 2021-11-23 09:09 | Outpatient (CLI) | payer SELFPAY ==
--- NOTE | 2021-11-23 09:15 | CT_ITS ---
FINAL REPORT TECHNIQUE: Axial images were obtained from the lung apex to the mid abdomen by computed tomography. Coronal reformatted images were obtained. This study was performed with techniques to keep radiation doses as low as reasonably achievable, (ALARA). Individualized dose reduction techniques using automated exposure control or adjustment of mA and/or kV according to the patient''s size were employed. CLINICAL HISTORY: C/O CHEST TIGHTNESS COMPARISON: October 07, 2018 FINDINGS: There is no axillary adenopathy. There are calcified left hilar lymph nodes. There is no mediastinal adenopathy. Heart size is normal. There is no pericardial or pleural effusion. Limited images of the upper abdomen show postoperative changes from cholecystectomy. The liver is fatty infiltrated. No suspicious infiltrate or nodule is identified. There are mild changes of emphysema. There is mild scarring at the lung bases. There is calcified granuloma in the left lung base IMPRESSION: Fatty infiltrated liver. Mild changes of emphysema with mild scarring at the lung bases. Reviewed, Interpreted and Dictated by Asif Tran III, MD Transcribed by Dara Luu Authenticated by Asif Tran III, MD on 11/23/2021 10:55:[address] [facility]
== END ==
PROVIDERS: PCP Nurse Practitioner Family; Visit Provider Internal Medicine Cardiovascular Disease
DX: R94.31 Abnormal electrocardiogram [ECG] [EKG] (principal)
CPT/HCPCS: 71250

== ENCOUNTER → 2022-01-05 09:41 | Outpatient (CLI) | payer MEDICAID, SELFPAY ==
[2022-01-05 10:30] VITALS: BP 112/82; PULSE 82; PULSE 86; PULSE 92; RESP 16; O2SAT 98
[2022-01-05 10:54] LABS: Basophils # 0.1 K/mm3 (0-0.2); Basophils % 0.5 % (0.1-2.0); Eosinophils # 0.1 K/mm3 (0.0-0.4); Eosinophils % 1.3 % (0.1-12.0); Hematocrit 44.6 % (37.0-47.0); Hemoglobin 14.4 g/dL (12.2-16.2); Lymphocytes % 31.6 % (10-50); Mean Corpuscular HGB Conc 32.2 g/dL (31.8-35.4); Mean Corpuscular Hemoglobin 29.1 pg (27.0-31.2); Mean Corpuscular Volume 90.3 fl (81-99); Mean Platelet Volume 7.6 fl (7.4-10.4); Monocytes # 0.5 K/mm3 (0.1-1.0); Monocytes % 5.6 % (1.7-9.3); Neutrophils # 5.7 K/mm3 (1.8-7.8); Neutrophils % 61.1 % (37.0-80.0); Platelet Count 278 K/mm3 (142-424); Red Blood Count 4.93 M/mm3 (4.20-5.40); Red Cell Distribution Width 13.3 % (11.5-17.5); White Blood Count 9.4 K/mm3 (4.8-10.8)
[2022-01-05 11:26] LABS: Alanine Aminotransferase 23 U/L (12-78); Albumin Level 3.9 g/dl (3.5-5.0); Alkaline Phosphatase 85 U/L (38-126); Aspartate Amino Transferase 33 U/L (14-36); Bilirubin,Direct 0.2 mg/dl (0.0-0.4); Bilirubin,Indirect 0.6 mg/dL (0.0-0.9); Bilirubin,Total 0.8 mg/dl (0.2-1.3); Bilirubin,Unconjugated 0.6 mg/dL (0.0-1.1); Chol/HDL Ratio 2.4 (1-3.5); Cholesterol 136 mg/dl (140-200); HDL Cholesterol 57 mg/dl (40-60); Total Protein,Serum 6.6 g/dl (6.3-8.2); Triglycerides 85 mg/dl (30-150); VLDL Cholesterol 17 mg/dL (0-40)
[2022-01-05 11:37] LABS: Direct LDL Cholesterol 58.35 mg/dL (100-129)
[2022-01-13 03:42] LABS: D001-IgE D pteronyssinus <0.10 kU/L (Class 0); D002-IgE D farinae <0.10 kU/L (Class 0); E001-IgE Cat Dander <0.10 kU/L (Class 0); E005-IgE Dog Dander <0.10 kU/L (Class 0); E072-IgE Mouse Urine <0.10 kU/L (Class 0); G002-IgE Bermuda Grass <0.10 kU/L (Class 0); G006-IgE Timothy Grass <0.10 kU/L (Class 0); I006-IgE Cockroach, German <0.10 kU/L (Class 0); Immunoglobulin E, Total 6 IU/mL (6-495); M001-IgE Penicillium chrysogen <0.10 kU/L (Class 0); M002-IgE Cladosporium herbarum <0.10 kU/L (Class 0); M003-IgE Aspergillus fumigatus <0.10 kU/L (Class 0); M006-IgE Alternaria alternata <0.10 kU/L (Class 0); T001-IgE Maple/Box Elder <0.10 kU/L (Class 0); T003-IgE Common Silver Birch <0.10 kU/L (Class 0); T006-IgE Cedar, Mountain <0.10 kU/L (Class 0); T007-IgE Oak, White <0.10 kU/L (Class 0); T008-IgE Elm, American <0.10 kU/L (Class 0); T010-IgE Walnut <0.10 kU/L (Class 0); T011-IgE Maple Leaf Sycamore <0.10 kU/L (Class 0); T014-IgE Cottonwood <0.10 kU/L (Class 0); T015-IgE Ash, White <0.10 kU/L (Class 0); T022-IgE Pecan, Hickory <0.10 kU/L (Class 0); T070-IgE White Mulberry <0.10 kU/L (Class 0); W001-IgE Ragweed, Short <0.10 kU/L (Class 0); W011-IgE Thistle, Russian <0.10 kU/L (Class 0); W014-IgE Pigweed, Common <0.10 kU/L (Class 0); W018-IgE Sheep Sorrel <0.10 kU/L (Class 0)
== END ==
PROVIDERS: Internal Medicine Cardiovascular Disease; PCP Nurse Practitioner Family; Visit Provider Internal Medicine Pulmonary Disease
DX: R06.00 Dyspnea, unspecified (principal); R07.9 Chest pain, unspecified; J45.909 Unspecified asthma, uncomplicated; E78.5 Hyperlipidemia, unspecified; R94.31 Abnormal electrocardiogram [ECG] [EKG]
CPT/HCPCS: 36415; 80061; 80076; 82785; 85025; 86003; 94060; 94618; 94640; 94726; 94729

== ENCOUNTER 2022-01-16 10:52 | Emergency (ER) | payer MEDICAID, SELFPAY ==
[2022-01-16 10:53] VITALS: BP 143/95; PULSE 84; RESP 16; TEMP 36.7; O2SAT 99; BMI 32.3
[2022-01-16 11:01] VITALS: BP 143/95; PULSE 89; RESP 19; O2SAT 100
[2022-01-16 11:30] VITALS: BP 150/98; PULSE 83; RESP 18; O2SAT 99
--- NOTE | 2022-01-16 11:58 | HMH.EDGENADL ---
ED Disposition Clinical Impression: Tick bite of back Qualifiers: Encounter type: initial encounter Qualified Code(s): S30.860A - Insect bite (nonvenomous) of lower back and pelvis, initial encounter; W57.XXXA - Bitten or stung by nonvenomous insect and other nonvenomous arthropods, initial encounter Disposition: Home, Self-Care Condition on Discharge: Fair Instructions: How to Remove a Tick Additional Instructions: Return to the emergency department immediately if you feel worse in any way. Follow-up with your primary care doctor in about 2 to 3 days if you do not feel better. Take all medications as prescribed. The antibiotic I am prescribing you makes you burn more easily in the sun. Therefore I highly recommend that you stay out of the sun and use sunblock. Prescriptions: Doxycycline Hyclate [Doxycycline Hyclate 100mg Tablet] 100 mg PO BID #20 tab Transmission Status: Pending to [facility] Referrals: Dillan Avalos MD [Primary Care Provider] - - Critical Care Critical Care Time: No Attestation: On 01/16/22, the high probability of a clinically significant, sudden or life threatening deterioration of the following system(s) required my full and direct attention, intervention and personal management. The time I documented below is in addition to time spent performing reported procedures but includes the following listed in this critical care notation. Medical Decision Making - Medical Records Medical records reviewed: Yes: I reviewed the patient's medical records. - Irving Inquiry Pt receiving controlled substance: No Vital Signs: 01/16/22 10:53 01/16/22 11:01 01/16/22 11:30 Temperature 98.0 F Temperature Source Oral Pulse Rate 89 83 Pulse Rate [Left Radial] 84 Respiratory Rate 16 19 18 Blood Pressure 143/95 H 150/98 H Blood Pressure [Left Arm] 143/95 H Blood Pressure Mean 109 Blood Pressure Mean [Left Arm] 111 Blood Pressure Source [Left Arm] Automatic Cuff Blood Pressure Position Sitting Blood Pressure Position [Left Arm] Sitting 02 Sat by Pulse Oximetry 99 100 99 Oxygen Delivery Method Room Air Room Air Medical Decision Narrative: The patient's history and physical examination are consistent with a recent tick/arthropod bite. There may be some mild cellulitis surrounding the area. The patient will be discharged home in stable condition with a prescription for doxycycline and instructions to follow-up with her primary care physician in a few days. General Adult HPI - General Chief complaint: Recheck/Abnormal Lab/Rx Stated complaint: tick bite Time Seen by Provider: 01/16/22 11:58 Mode of Arrival: Ambulatory Limitations: No Limitations Description of Symptoms (Recalled from ER Triage Doc. by RN): Pt c/o redness/swelling on upper back r/t tick bite on . Pt also states that she has had a small knot to lt shoulder that has moved closer to the neck. - History of Present Illness HPI narrative: The patient presents to the emergency department complaining of some neck pain after having been bitten by a tick approximately 5 days ago. Her removed the tick. Therefore the tick bite is confirmed. Not just suspected. The patient denies any fevers. - Related Data Home Medications Medication Instructions Recorded Confirmed Multivit-Minerals/Folic/Ginkgo 1 each PO DAILY 03/02/20 01/16/22 [One Daily For Women 50+ Adv Tb] Previous Rx's Medication Instructions Recorded loratadine 10 mg tablet 10 mg PO DAILY #90 tab 10/25/21 blood sugar diagnostic See Rx Instructions .ROUTE 11/08/21 .MEDSUPPLY #10 each blood-glucose meter See Rx Instructions .ROUTE 11/08/21 .MEDSUPPLY #1 each lancets 30 gauge See Rx Instructions .ROUTE 11/08/21 .MEDSUPPLY #100 each famotidine 20 mg tablet 20 mg PO HS #90 tab 11/11/21 fluticasone propionate 50 1 spray INTRANASAL DAILY #16 g 11/11/21 mcg/actuation nasal spray,suspension pantoprazole 40
[2022-01-16 12:00] VITALS: BP 151/94; PULSE 88; RESP 16; O2SAT 100
[2022-01-16 12:15] VITALS: BP 150/92; PULSE 88; RESP 16; TEMP 37; O2SAT 98
== END 2022-01-16 12:17 | disposition home or self-care (01) ==
PROVIDERS: Emergency Provider Emergency Medicine; PCP Internal Medicine Adolescent Medicine
DX: S30.860A Insect bite (nonvenomous) of lower back and pelvis, initial encounter (principal); W57.XXXA Bitten or stung by nonvenomous insect and other nonvenomous arthropods, initial encounter; J45.909 Unspecified asthma, uncomplicated; I10 Essential (primary) hypertension; E78.5 Hyperlipidemia, unspecified; K21.9 Gastro-esophageal reflux disease without esophagitis; Z79.899 Other long term (current) drug therapy
CPT/HCPCS: 99283

== ENCOUNTER → 2022-05-30 15:38 | Outpatient (CLI) | payer MEDICAID, SELFPAY ==
[2022-05-30 16:19] LABS: Basophils # 0.1 K/mm3 (0-0.2); Basophils % 1.4 % (0.1-2.0); Eosinophils # 0.2 K/mm3 (0.0-0.4); Hematocrit 46.9 % (37.0-47.0); Hemoglobin 14.7 g/dL (12.2-16.2); Lymphocytes # 2.8 K/mm3 (0.7-4.5); Lymphocytes % 32.9 % (10-50); Mean Corpuscular HGB Conc 31.4 g/dL (31.8-35.4); Mean Corpuscular Hemoglobin 29.3 pg (27.0-31.2); Mean Corpuscular Volume 93.4 fl (81-99); Mean Platelet Volume 9.5 fl (7.4-10.4); Monocytes # 0.5 K/mm3 (0.1-1.0); Monocytes % 5.6 % (1.7-9.3); Neutrophils % 58.1 % (37.0-80.0); Platelet Count 328 K/mm3 (142-424); Red Blood Count 5.02 M/mm3 (4.20-5.40); Red Cell Distribution Width 14.4 % (11.5-17.5); White Blood Count 8.5 K/mm3 (4.8-10.8)
[2022-05-30 17:04] LABS: Alanine Aminotransferase 25 U/L (12-78); Albumin Level 3.9 g/dl (3.5-5.0); Albumin/Globulin Ratio 1.3 (1.1-1.8); Alkaline Phosphatase 104 U/L (38-126); Anion Gap 15.3 mEq/L (5-15); Aspartate Amino Transferase 35 U/L (14-36); Bilirubin,Total 0.3 mg/dl (0.2-1.3); Blood Urea Nitrogen 17 mg/dl (7-17); Calcium 9.1 mg/dl (8.4-10.2); Carbon Dioxide 24 mmol/L (22.0-30.0); Chloride 104 mmol/L (98-107); Cholesterol 169 mg/dl (140-200); Estimated Glomerular Filt Rate 88 ml/min (>60); GFR (African American) 106 ML/MIN (>60); Globulin 2.9 g/dL (1.3-3.2); Glucose 98 mg/dl (74-100); HDL Cholesterol 57 mg/dl (40-60); Potassium 4.3 mmoL/L (3.5-5.1); Sodium 139 mmol/L (136-145); Total Protein,Serum 6.8 g/dl (6.3-8.2); Triglycerides 153 mg/dl (30-150); VLDL Cholesterol 31 mg/dL (0-40)
[2022-05-30 17:15] LABS: Direct LDL Cholesterol 89.28 mg/dL (100-129)
[2022-05-30 17:20] LABS: 25-OH Vitamin D, Total 16.9 ng/mL (30-100)
[2022-05-30 17:35] LABS: Thyroid Stimulating Hormone 0.65 uIU/mL (0.465-4.68)
[2022-05-30 17:54] LABS: Vitamin B12 970 pg/mL (239-931)
[2022-06-05 13:22] LABS: Lyme B. burgdorferi PCR Blood Negative (Negative)
== END ==
PROVIDERS: PCP Physician Assistant; Visit Provider Physician Assistant
DX: R53.83 Other fatigue (principal); E66.9 Obesity, unspecified; Z68.38 Body mass index [BMI] 38.0-38.9, adult; Z79.899 Other long term (current) drug therapy
CPT/HCPCS: 80053; 80061; 82306; 82607; 84443; 85025; 87476

== ENCOUNTER → 2022-06-02 13:07 | Outpatient (CLI) | payer MEDICAID, SELFPAY ==
[2022-06-07 15:10] LABS: Lyme B. burgdorferi PCR Blood Negative (Negative)
== END ==
PROVIDERS: PCP Physician Assistant; Visit Provider Physician Assistant
DX: R53.83 Other fatigue (principal); W57.XXXD Bitten or stung by nonvenomous insect and other nonvenomous arthropods, subsequent encounter; S20.469D Insect bite (nonvenomous) of unspecified back wall of thorax, subsequent encounter
CPT/HCPCS: 36415; 87476

== ENCOUNTER 2022-08-20 22:01 | Emergency (ER) | payer MEDICAID, SELFPAY ==
--- NOTE | 2022-08-20 21:59 | ECG_ITS ---
APPROVED REPORT Exam: Resting ECG HR:109 bpm ECG Measurements Heart Rate 109 AXES TX 141 P 57 QRSd 76 QRS 55 QT 318 T 61 QTc 382 Conclusion SINUS TACHYCARDIA LOW QRS VOLTAGE IN PRECORDIAL LEADS [QRS DEFLECTION < 1.0 mV IN CHEST LEADS] MINIMAL ST DEPRESSION [0.025+ mV ST DEPRESSION] ABNORMAL RHYTHM ECG UNCONFIRMED REPORT Electronically signed by : Dillan Avalos MD 08/21/2022 19:56:35
[2022-08-20 22:02] VITALS: BP 134/95; PULSE 115; RESP 18; TEMP 37.1; O2SAT 98; BMI 33.4
--- NOTE | 2022-08-20 22:10 | XR_ITS ---
PROCEDURE INFORMATION: Exam: XR Chest Exam date and time: 08/20/2022 11:12 PM Age: 52 years old Clinical indication: Cough with hemorrhage; Additional info: Cp TECHNIQUE: Imaging protocol: Radiologic exam of the chest. Views: 2 views. COMPARISON: CT CHEST WO CON 11/23/2021 9:23 AM FINDINGS: Lungs: Unremarkable. No consolidation. Pleural spaces: Unremarkable. No pleural effusion. No pneumothorax. Heart/Mediastinum: Unremarkable. No cardiomegaly. Vasculature: Unremarkable. Bones/joints: Unremarkable. IMPRESSION: No acute findings.
--- NOTE | 2022-08-20 22:11 | HMH.EDCP ---
Discharge Plan Disposition Patient Disposition: Home, Self-Care Chief Complaint: Chest Pain Prescriptions Prescriptions: No Action albuterol sulfate 90 mcg/actuation aerosol powdr breath activated 2 inh INHALATION Q4-6H PRN (Reason: shortness of breath or wheezing) 90 Days Qty: 3 3RF fluticasone propionate 50 mcg/actuation spray,suspension 2 spray INTRANASAL DAILY 90 Days Qty: 15.8 3RF Rx Instructions: administer into each nostril Linzess 145 mcg capsule 145 mcg PO DAILY Qty: 30 2RF pantoprazole 40 mg tablet,delayed release (DR/EC) 40 mg PO DAILY Qty: 90 3RF rosuvastatin 20 mg tablet See Rx Instructions .ROUTE .COMPLEX Qty: 30 5RF Dose Instruction: TAKE ONE TABLET BY MOUTH ONCE A DAY Rx Instructions: TAKE ONE TABLET BY MOUTH ONCE A DAY azelastine 205.5 mcg (0.15 %) spray,non-aerosol 1 spray INTRANASAL HS 90 Days Qty: 30 2RF Rx Instructions: administer into each nostril budesonide-formoterol [Symbicort] 160-4.5 mcg/actuation HFA aerosol inhaler 2 puff INHALATION BID 90 Days Qty: 10.2 3RF famotidine [Pepcid] 20 mg tablet 20 mg PO HS Qty: 90 3RF (DME) lancets [Droplet Lancets] 30 gauge misc See Rx Instructions .ROUTE .MEDSUPPLY Qty: 100 0RF Rx Instructions: As directed phentermine [Adipex-P] 37.5 mg tablet 37.5 mg PO DAILY Qty: 30 0RF Rx Instructions: must administer 30 minutes before or 1-2 hours after breakfast loratadine [Claritin] 10 mg tablet 10 mg PO DAILY Qty: 90 3RF aspirin 81 mg tablet,delayed release (DR/EC) See Rx Instructions .ROUTE .COMPLEX Qty: 30 3RF Dose Instruction: TAKE ONE TABLET BY MOUTH ONCE A DAY Rx Instructions: TAKE ONE TABLET BY MOUTH ONCE A DAY ergocalciferol (vitamin D2) 1,250 mcg (50,000 unit) capsule 1,250 mcg PO WEEKLY Qty: 14 3RF gabapentin 400 mg capsule 400 mg PO TID 30 Days Qty: 90 0RF (DME) OneTouch Ultra Test Strip See Rx Instructions .ROUTE .COMPLEX Qty: 50 0RF Dose Instruction: USE DIRECTED Rx Instructions: USE DIRECTED (DME) lancets [OneTouch Delica Plus Lancet] 33 gauge misc See Rx Instructions .ROUTE .COMPLEX Qty: 100 0RF Dose Instruction: USE DIRECTED Rx Instructions: USE DIRECTED cholecalciferol (vitamin D3) 25 mcg (1,000 unit) tablet See Rx Instructions .ROUTE .COMPLEX Qty: 30 0RF Dose Instruction: TAKE ONE TABLET BY MOUTH ONCE A DAY Rx Instructions: TAKE ONE TABLET BY MOUTH ONCE A DAY [id number] 1 EACH tablet 1 each PO DAILY Clinical Impressions Clinical Impression: Chest pain, COVID-19 Stand Alone Forms Stand Alone Forms: Work/School Release Instructions Patient Instructions: DI for COVID-19 (Suspected or Confirmed ) Discharge ED Provider: Augustin Medina Chest Pain HPI General Chief Complaint: Chest Pain Stated Complaint: CP Time Seen by Provider: 08/20/22 22:11 Mode of Arrival: Ambulatory Source of Information: Patient and Medical Record Limitations: No Limitations Description of Symptoms (Recalled from ER Triage Doc. by RN): pt c/o chest tightness in center of chest and under lt breast that radiates up neck and down lt arm that began this afternoon. pt states yesterday she ran a fever and body aches. History of Present Illness HPI narrative: pt with fever and body aches yesterday and now with chest pain with rad to neck and back - MD complaint: chest pain indicative of cardiac Onset (ago): hour(s) Duration: intermittent Activity at onset: during rest Pain location: left chest Severity: moderate Quality: sharp Pain radiation: LUE and neck Risk Factors for CAD: Hypertension and Family Hx of CAD Treatments prior to or on arrival for Cardiac Chest Pain: none JOSE Score for Non-Stemi Age of Patient: 50-59 years old Heart Rate: 90-109 bpm Systolic Blood Pressure: 100-119 mmHg Serum Creatinine: 1.20-1.59 mg/dl CHF Killip Class: I-No C
[2022-08-20 22:14] LABS: Influenza A, PCR Not Detected (NotDetected); Influenza B, PCR Not Detected (NotDetected)
[2022-08-20 22:21] LABS: Basophils # 0.1 K/mm3 (0-0.2); Basophils % 0.8 % (0.1-2.0); Blood Urea Nitrogen 21 mg/dl (7-17); Calcium 9.7 mg/dl (8.4-10.2); Carbon Dioxide 26 mmol/L (22.0-30.0); Chloride 106 mmol/L (98-107); Creatinine Clearance Estimated 85 mL/min (50-200); Eosinophils # 0.2 K/mm3 (0.0-0.4); Eosinophils % 1.4 % (0.1-12.0); Estimated Glomerular Filt Rate 47 ml/min (>60); GFR (African American) 57 ML/MIN (>60); Glucose 104 mg/dl (74-100); Hematocrit 44.8 % (37.0-47.0); Hemoglobin 14.6 g/dL (12.2-16.2); Lymphocytes # 1.4 K/mm3 (0.7-4.5); Lymphocytes % 12.1 % (10-50); Mean Corpuscular HGB Conc 32.6 g/dL (31.8-35.4); Mean Corpuscular Hemoglobin 28.4 pg (27.0-31.2); Mean Platelet Volume 8.1 fl (7.4-10.4); Monocytes # 0.6 K/mm3 (0.1-1.0); Monocytes % 5.4 % (1.7-9.3); Neutrophils % 80.3 % (37.0-80.0); Platelet Count 259 K/mm3 (142-424); Red Blood Count 5.15 M/mm3 (4.20-5.40); Red Cell Distribution Width 13.7 % (11.5-17.5); Sodium 140 mmol/L (136-145); White Blood Count 11.3 K/mm3 (4.8-10.8)
[2022-08-20 22:31] VITALS: BP 123/93; PULSE 107; RESP 14; O2SAT 95
[2022-08-20 22:35] LABS: Troponin I < 0.01 ng/ml (0.00-0.034)
[2022-08-20 22:43] LABS: Coronavirus 19, PCR Detected (NotDetected)
[2022-08-20 23:00] VITALS: BP 122/80; PULSE 101; RESP 16; O2SAT 97
--- NOTE | 2022-08-20 23:13 | PC.NURSE ---
Dr. Medina at
[2022-08-20 23:30] VITALS: BP 100/61; PULSE 99; RESP 18; O2SAT 96
--- NOTE | 2022-08-21 00:52 | PC.NURSE ---
second trop drawn and sent to lab
[2022-08-21 01:19] LABS: Troponin I < 0.01 ng/ml (0.00-0.034)
[2022-08-21 01:41] VITALS: BP 111/62; PULSE 90; PULSE 99; RESP 16; TEMP 37.1; O2SAT 97
== END 2022-08-21 02:10 | disposition home or self-care (01) ==
PROVIDERS: Emergency Provider Emergency Medicine; PCP Physician Assistant
DX: U07.1 COVID-19 (principal); R07.89 Other chest pain; R50.9 Fever, unspecified; M54.2 Cervicalgia; M54.50 Low back pain, unspecified; M79.10 Myalgia, unspecified site; I10 Essential (primary) hypertension; K59.00 Constipation, unspecified; G62.9 Polyneuropathy, unspecified; J44.9 Chronic obstructive pulmonary disease, unspecified; E66.9 Obesity, unspecified; F17.290 Nicotine dependence, other tobacco product, uncomplicated; Z79.51 Long term (current) use of inhaled steroids; Z79.82 Long term (current) use of aspirin; Z79.899 Other long term (current) drug therapy; Z88.0 Allergy status to penicillin; Z88.5 Allergy status to narcotic agent; Z68.35 Body mass index [BMI] 35.0-35.9, adult; Z82.49 Family history of ischemic heart disease and other diseases of the circulatory system
CPT/HCPCS: 71046; 80048; 84484; 85025; 93005; 99284; C9803; U0003; U0005

== ENCOUNTER → 2022-08-23 10:16 | Outpatient (CLI) | payer MEDICAID, SELFPAY ==
[2022-08-23 14:57] LABS: Amphetamine/Metha Screen,Urine Negative ng/ml (<1000)
[2022-08-23 14:59] LABS: Barbiturates Screen,Urine Negative ng/ml (<200)
[2022-08-23 15:00] LABS: Benzodiazepines Screen,Urine Negative ng/ml (<200)
[2022-08-23 15:01] LABS: Cannabinoid Screen,Urine Negative ng/ml (<50); Cocaine Screen,Urine Negative ng/ml (<300)
[2022-08-23 15:02] LABS: Methadone Screen,Urine Negative ng/ml (<300); Opiate Screen,Urine Negative ng/ml (<300)
[2022-08-23 15:03] LABS: Phencyclidine Screen,Urine Negative ng/ml (<25)
== END ==
PROVIDERS: PCP Physician Assistant; Visit Provider Physician Assistant
DX: Z79.899 Other long term (current) drug therapy (principal)
CPT/HCPCS: 80305

== ENCOUNTER → 2022-09-29 12:44 | Outpatient (CLI) | payer MEDICAID, SELFPAY ==
--- NOTE | 2022-09-29 12:47 | US_ITS ---
FINAL REPORT CLINICAL HISTORY: CLAUDICATION,BURNING CRYSTAL FEET,REST PAIN,EX SMOKER,HTN FINDINGS: COMPLETE ANKLE/BRACHIAL INDICES BILATERAL Complete a ankle/branchial indices were obtained. The right NANNETTE is 0.91. The left NANNETTE is 0.91. There is decreased pressure in the left brachial vein compared to the right region of uncertain etiology. IMPRESSION: ABIs are borderline bilaterally. Decreased pressure in the left brachial in comparison to the right. If there is concern for subclavian steal, consider CTA. Reviewed, Interpreted and Dictated by Anabell Mora MD Transcribed by Brenda Emerson Authenticated and . [facility]
== END ==
PROVIDERS: PCP Physician Assistant; Visit Provider Physician Assistant
DX: G62.9 Polyneuropathy, unspecified (principal)
CPT/HCPCS: 93923

== ENCOUNTER → 2022-10-24 12:45 | Outpatient (CLI) | payer MEDICAID, SELFPAY ==
--- NOTE | 2022-10-24 13:07 | CT_ITS ---
FINAL REPORT TECHNIQUE: Thin section axial images are obtained through the brain after intravenous contrast injection. Multiplanar reconstructions were obtained from the axial data. Exam was performed using dose reduction technique per the ALARA principal. CLINICAL HISTORY: abnl ana rosa suggestive of subclavian steal FINDINGS: The intracerebral portions of the carotid arteries are patent. The anterior and middle cerebral arteries are patent. The basilar artery is patent but small. There is persistent origin of the bilateral cafe cook.. There is no significant stenosis, aneurysm, or AVM. IMPRESSION: No evidence of vessel occlusion, significant stenosis, or aneurysm. Authenticated and [facility]
--- NOTE | 2022-10-24 13:07 | CT_ITS ---
FINAL REPORT TECHNIQUE: Thin section axial CT with IV contrast supplemented with multiplanar reconstruction under CT angiogram protocol. This study was performed with techniques to keep radiation doses as low as reasonably achievable (ALARA). Individualized dose reduction techniques using automated exposure control or adjustment of mA and/or kV according to the patient''s size were employed. NASCET criteria was utilized during interpretation. CLINICAL HISTORY: abnl ana rosa suggestive of subclavian steal FINDINGS: Aortic arch: Arch shows no significant narrowing. There is 3 vessel configuration to the arch. Great vessel origins are widely patent. Specifically, the subclavian arteries are patent without stenosis. Right carotid: No significant stenosis is seen of the cervical common or internal carotid artery. Left carotid: No significant stenosis is seen of the cervical common or internal carotid artery. Vertebral: The vertebral arteries are code dominant. No significant stenosis is present. Other: There are multiple small cervical lymph nodes bilaterally abnormal in number rather than size, favor reactive. There is an air-fluid level in the left sphenoid sinus. There is no acute osseous abnormality. IMPRESSION: No evidence of subclavian steal. Patent vertebral and subclavian arteries. No subclavian stenosis. Mild prominent bilateral cervical nodes, favor reactive. Reviewed, Interpreted and Dictated by Anabell Mora MD Transcribed by Brenda Emerson Authenticated and . [facility]
[2022-10-24 13:23] LABS: Blood Urea Nitrogen 11 mg/dl (7-17); Estimated Glomerular Filt Rate 75 ml/min (>60); GFR (African American) 91 ML/MIN (>60)
== END ==
PROVIDERS: PCP Physician Assistant; Visit Provider Internal Medicine Cardiovascular Disease
DX: R06.00 Dyspnea, unspecified (principal); I10 Essential (primary) hypertension; I51.89 Other ill-defined heart diseases; R68.89 Other general symptoms and signs
CPT/HCPCS: 36415; 70496; 70498; 82565; 84520; Q9967

== ENCOUNTER 2022-11-01 08:24 | Emergency (ER) | payer MEDICAID, SELFPAY ==
[2022-11-01] VITALS (9 sets, daily range): BP systolic 111–127; BP diastolic 69–88; PULSE 66–92; RESP 17–18; TEMP 36.6; O2SAT 96–99; BMI 36.1
--- NOTE | 2022-11-01 08:22 | ECG_ITS ---
APPROVED REPORT Exam: Resting ECG HR:90 bpm ECG Measurements Heart Rate 90 AXES IL 141 P 48 QRSd 80 QRS 19 QT 357 T 57 QTc 405 Conclusion SINUS RHYTHM LOW QRS VOLTAGE IN PRECORDIAL LEADS [QRS DEFLECTION < 1.0 mV IN CHEST LEADS] MINIMAL ST DEPRESSION [0.025+ mV ST DEPRESSION] BORDERLINE ECG UNCONFIRMED REPORT Electronically signed by : Dillan Avalos MD 11/01/2022 14:12:36
--- NOTE | 2022-11-01 08:31 | XR_ITS ---
FINAL REPORT CLINICAL HISTORY: CHEST PAIN COMPARISON: 08/21/2022 FINDINGS: A single portable view of the chest was obtained. The heart size and pulmonary vascularity are within normal limits. The mediastinum is within normal limits. No acute pulmonary abnormality is identified. The bony thorax is intact. IMPRESSION: No active cardiopulmonary disease. Reviewed, Interpreted and Dictated by Asif Tran III, MD Transcribed by Maria D Mccollum Authenticated and [facility]
[2022-11-01 08:37] LABS: Basophils # 0.1 K/mm3 (0-0.2); Basophils % 1.2 % (0.1-2.0); Eosinophils # 0.4 K/mm3 (0.0-0.4); Eosinophils % 3.8 % (0.1-12.0); Hematocrit 44.4 % (37.0-47.0); Hemoglobin 14.5 g/dL (12.2-16.2); Lymphocytes # 3.4 K/mm3 (0.7-4.5); Lymphocytes % 34.1 % (10-50); Mean Corpuscular HGB Conc 32.7 g/dL (31.8-35.4); Mean Corpuscular Volume 88.7 fl (81-99); Mean Platelet Volume 8.1 fl (7.4-10.4); Monocytes # 0.6 K/mm3 (0.1-1.0); Monocytes % 5.7 % (1.7-9.3); Neutrophils # 5.4 K/mm3 (1.8-7.8); Neutrophils % 55.3 % (37.0-80.0); Platelet Count 264 K/mm3 (142-424); Red Blood Count 5.01 M/mm3 (4.20-5.40); Red Cell Distribution Width 13.9 % (11.5-17.5); White Blood Count 9.8 K/mm3 (4.8-10.8)
--- NOTE | 2022-11-01 08:46 | PC.NURSE ---
XR AT BEDSIDE
[2022-11-01 08:52] LABS: Chloride 113 mmol/L (98-107); Potassium 4.1 mmoL/L (3.5-5.1); Sodium 142 mmol/L (136-145)
[2022-11-01 08:55] LABS: Anion Gap 10.1 mEq/L (5-15); Blood Urea Nitrogen 17 mg/dl (7-17); Calcium 8.5 mg/dl (8.4-10.2); Carbon Dioxide 23 mmol/L (22.0-30.0); Creatinine Clearance Estimated 158 mL/min (50-200); Estimated Glomerular Filt Rate 88 ml/min (>60); GFR (African American) 106 ML/MIN (>60); Glucose 133 mg/dl (74-100)
[2022-11-01 09:11] LABS: Troponin I < 0.01 ng/ml (0.00-0.034)
--- NOTE | 2022-11-01 09:15 | PC.NURSE ---
ROUNDED ON PT, NO NEEDS AT THIS TIME. FAMILY AT BEDSIDE
--- NOTE | 2022-11-01 09:26 | HMH.EDGENADL ---
Discharge Plan Disposition Patient Disposition: Home, Self-Care Condition: Good Prescriptions Prescriptions: No Action albuterol sulfate 90 mcg/actuation aerosol powdr breath activated 2 inh INHALATION Q4-6H PRN (Reason: shortness of breath or wheezing) 90 Days Qty: 3 3RF fluticasone propionate 50 mcg/actuation spray,suspension 2 spray INTRANASAL DAILY 90 Days Qty: 15.8 3RF Rx Instructions: administer into each nostril gabapentin 400 mg capsule 400 mg PO TID 30 Days Qty: 90 2RF pantoprazole 40 mg tablet,delayed release (DR/EC) 40 mg PO DAILY Qty: 90 3RF rosuvastatin 20 mg tablet See Rx Instructions .ROUTE .COMPLEX Qty: 30 5RF Dose Instruction: TAKE ONE TABLET BY MOUTH ONCE A DAY Rx Instructions: TAKE ONE TABLET BY MOUTH ONCE A DAY azelastine 205.5 mcg (0.15 %) spray,non-aerosol 1 spray INTRANASAL HS 90 Days Qty: 30 2RF Rx Instructions: administer into each nostril budesonide-formoterol [Symbicort] 160-4.5 mcg/actuation HFA aerosol inhaler 2 puff INHALATION BID 90 Days Qty: 10.2 3RF famotidine [Pepcid] 20 mg tablet 20 mg PO HS Qty: 90 3RF (DME) lancets [Droplet Lancets] 30 gauge misc See Rx Instructions .ROUTE .MEDSUPPLY Qty: 100 0RF Rx Instructions: As directed loratadine [Claritin] 10 mg tablet 10 mg PO DAILY Qty: 90 3RF ergocalciferol (vitamin D2) 1,250 mcg (50,000 unit) capsule 1,250 mcg PO WEEKLY Qty: 14 3RF (DME) lancets [OneTouch Delica Plus Lancet] 33 gauge misc See Rx Instructions .ROUTE .COMPLEX Qty: 100 0RF Dose Instruction: USE DIRECTED Rx Instructions: USE DIRECTED Linzess 145 mcg capsule See Rx Instructions .ROUTE .COMPLEX Qty: 30 3RF Dose Instruction: TAKE ONE CAPSULE BY MOUTH ONCE A DAY Rx Instructions: TAKE ONE CAPSULE BY MOUTH ONCE A DAY tizanidine 4 mg tablet See Rx Instructions .ROUTE .COMPLEX Qty: 30 3RF Dose Instruction: TAKE ONE TABLET BY MOUTH EVERY 8 HOURS NEEDED FOR MUSCLE SPASTICITY Rx Instructions: TAKE ONE TABLET BY MOUTH EVERY 8 HOURS NEEDED FOR MUSCLE SPASTICITY cholecalciferol (vitamin D3) 25 mcg (1,000 unit) tablet See Rx Instructions .ROUTE .COMPLEX Qty: 30 3RF Dose Instruction: TAKE ONE TABLET BY MOUTH ONCE A DAY Rx Instructions: TAKE ONE TABLET BY MOUTH ONCE A DAY (DME) OneTouch Ultra Test Strip See Rx Instructions .ROUTE .COMPLEX Qty: 50 3RF Dose Instruction: USE DIRECTED Rx Instructions: USE DIRECTED aspirin 81 mg tablet,delayed release (DR/EC) See Rx Instructions .ROUTE .COMPLEX Qty: 90 1RF Dose Instruction: TAKE ONE TABLET BY MOUTH ONCE A DAY Rx Instructions: TAKE ONE TABLET BY MOUTH ONCE A DAY [id number] 1 EACH tablet 1 each PO DAILY Activity Restrictions/Add. Instructions Additional Instructions/Restrictions: Tylenol or ibuprofen for pain. Additional instructions for CHEST PAIN: See your physician as soon as possible for further evaluation. Return immediately if worsening chest pain, vomiting, shortness of breath, fever, coughing of blood. Clinical Impressions Clinical Impression: Atypical chest pain Instructions Patient Instructions: DI for Atypical Chest Pain Discharge ED Provider: Juan Cobian General Adult HPI General Chief complaint: Chest Pain Stated complaint: chest pain Time Seen by Provider: 11/01/22 09:26 Mode of Arrival: Ambulatory Limitations: No Limitations Description of Symptoms (Recalled from ER Triage Doc. by RN): PT REPORTS MIDSTERNAL CHEST PAIN THAT RADIATES UNDER LEFT BREAST THAT STARTED THIS AM. PAIN IS ACHY. DENIES NAUSEA. C/O RIGHT SHOULDER PAIN THAT OCCURED THIS AM AFTER STRETCHING IN BED. PT WITH HX OF COPD AND ASTHMA, NO INCREASED SHORTNESS OF BREATH History of Present Illness HPI narrative: Patient states that she stretched this morning and her posterior right shoulder popped in
--- NOTE | 2022-11-01 09:38 | PC.NURSE ---
DR TUTTLE AT BEDSIDE TO EVALUATE PT
--- NOTE | 2022-11-01 09:50 | PC.NURSE ---
pt medicated per mar, given warm blanket, call light within reach, family at BS
--- NOTE | 2022-11-01 10:10 | PC.NURSE ---
PT ASSISTED TO BR
--- NOTE | 2022-11-01 10:10 | PC.NURSE ---
Unhooked patient, gone to bathroom
--- NOTE | 2022-11-01 10:49 | PC.NURSE ---
per ER MD plan to get a second troponin on pt, updated pt on POC second troponin due at 1145 pt verbalized understanding of POC call light within reach, states no needs at this time
[2022-11-01 12:25] LABS: Troponin I < 0.01 ng/ml (0.00-0.034)
--- NOTE | 2022-11-01 12:34 | PC.NURSE ---
DR TUTTLE AT BEDSIDE TO UPDATE PT
== END 2022-11-01 12:50 | disposition home or self-care (01) ==
PROVIDERS: Emergency Provider Emergency Medicine; PCP Physician Assistant
DX: R07.89 Other chest pain (principal); J44.9 Chronic obstructive pulmonary disease, unspecified; J45.909 Unspecified asthma, uncomplicated; K59.00 Constipation, unspecified; K21.9 Gastro-esophageal reflux disease without esophagitis; I10 Essential (primary) hypertension; M54.16 Radiculopathy, lumbar region; G62.9 Polyneuropathy, unspecified; Z87.891 Personal history of nicotine dependence; Z82.49 Family history of ischemic heart disease and other diseases of the circulatory system
CPT/HCPCS: 71045; 80048; 84484; 85025; 93005; 96374; 99285

== ENCOUNTER → 2022-11-13 11:39 | Outpatient (CLI) | payer MEDICAID, SELFPAY | PROVIDERS: PCP Physician Assistant; Visit Provider Physician Assistant | DX: R07.9 Chest pain, unspecified (principal) | CPT/HCPCS: 78452; 93017; A9502; J2785 ==

== ENCOUNTER → 2022-11-27 13:27 | Outpatient (CLI) | payer MEDICAID, SELFPAY ==
--- NOTE | 2022-11-27 13:27 | CA_ITS ---
FINAL REPORT TECHNIQUE: Bilateral lower extremity venous duplex was performed with augmentation and compression. CLINICAL HISTORY: edema FINDINGS: Proper flow is seen throughout the deep venous systems bilaterally. There is no evidence of deep venous thrombosis. IMPRESSION: No evidence of deep venous thrombosis. Reviewed, Interpreted and Dictated by West Thompson MD Transcribed by Olivia Hollins Authenticated and [facility]
--- NOTE | 2022-11-27 13:27 | CA_ITS ---
APPROVED REPORT EXAM: Comprehensive 2D, Doppler, and color-flow Echocardiogram Bank Examiner: Annetta Daniel RT(R) Ht: 5 ft 8 in Wt: 240lbs BSA: 2.21 BP: 122/89 mmHg Indications: Chest Pain, COPD, Shortness of Breath, Obesity, Hyperlipidemia, Hypertension/HDD, Ex smoker, edema 2D Dimensions LVOT 1.85 cm (M/F) 1.5-2.5 M-Mode Dimensions RVDd 2.38 cm (0.9-2.6) LA Diam 3.41 cm (1.9-4.0) LVDd 4.00 cm (3.5-5.7) Ao Diam 2.47 cm (2.0-3.7) LVDs 3.06 cm (3.5-5.7) IVSd 1.02 cm (0.6-1.1) PWd 0.85 cm (0.6-1.1) EF (Teich) 47.60% FS 23.50% EDV (Teich) 70.00 mL ESV (Teich) 36.70 mL LV Diastology E Decel Time 207.00 (160-240 msec) E/A Ratio 1.0 Mitral Valve MV E Max Tyrone. 56.00 (40-130 cm/s) MV A Velocity 55.00 (40-130 cm/s) E/A Ratio 1.02 MV Decel. Time 207.00 (160-240 ms) MV PHT 61.00 ms Left Ventricle Left atrium is mildly enlarged, left ventricle is normal size mild concentric left ventricular hypertrophy, estimated ejection fraction of 55% with no regional wall motion abnormality, Doppler evidence of impaired LV relaxation seen. Right Ventricle Right atrium and right ventricle are mildly enlarged with normal contractility. Aortic Valve Aortic valve is minimally thickened and fibrosed there is no aortic stenosis or aortic insufficiency. Mitral Valve Mitral valve is grossly normal, there is trace mitral regurgitation. Tricuspid Valve Tricuspid valve grossly normal, there is trace tricuspid regurgitation, tricuspid regurgitation jet velocity is inadequate for calculation of the right ventricular systolic pressure. Pulmonic Valve Pulmonic valve is poorly visualized. Great Vessels Aortic root is normal size. Inferior vena cava is poorly visualized. Pericardium No significant pericardial effusion noted. Conclusion 1. Mild biatrial enlargement, normal left ventricular size, estimated ejection fraction 55% with no regional wall motion abnormality, Doppler evidence of impaired LV relaxation seen. 2. Mildly enlarged right ventricle with normal contractility. 3. Trace mitral and tricuspid regurgitation. 4. No significant pericardial effusion noted. 5. Inferior vena cava is poorly visualized. Electronically signed by : Tahir Godfrey MD 11/27/2022 16:16:08
[2022-11-27 14:38] LABS: Anion Gap 13.1 mEq/L (5-15); Blood Urea Nitrogen 21 mg/dl (7-17); Carbon Dioxide 26 mmol/L (22.0-30.0); Chloride 105 mmol/L (98-107); Estimated Glomerular Filt Rate 75 ml/min (>60); GFR (African American) 91 ML/MIN (>60); Glucose 109 mg/dl (74-100); Potassium 4.1 mmoL/L (3.5-5.1); Sodium 140 mmol/L (136-145)
== END ==
PROVIDERS: PCP Physician Assistant; Visit Provider Nurse Practitioner Family
DX: R06.02 Shortness of breath (principal); R60.0 Localized edema
CPT/HCPCS: 36415; 80048; 93306; 93970

== ENCOUNTER → 2022-12-04 13:55 | Outpatient (CLI) | payer MEDICAID, SELFPAY ==
[2022-12-04 15:12] LABS: Anion Gap 15.3 mEq/L (5-15); Blood Urea Nitrogen 17 mg/dl (7-17); Calcium 9.6 mg/dl (8.4-10.2); Carbon Dioxide 28 mmol/L (22.0-30.0); Chloride 100 mmol/L (98-107); Estimated Glomerular Filt Rate 65 ml/min (>60); GFR (African American) 79 ML/MIN (>60); Glucose 83 mg/dl (74-100); Potassium 4.3 mmoL/L (3.5-5.1); Sodium 139 mmol/L (136-145)
== END ==
PROVIDERS: PCP Physician Assistant; Visit Provider Physician Assistant
DX: I11.9 Hypertensive heart disease without heart failure (principal)
CPT/HCPCS: 80048

== ENCOUNTER → 2023-01-16 08:09 | Outpatient (CLI) | payer MEDICAID, SELFPAY ==
--- NOTE | 2023-01-16 08:10 | CT_ITS ---
FINAL REPORT TECHNIQUE: Axial images were obtained from the lung apex to the mid abdomen by computed tomography. This study was performed with techniques to keep radiation doses as low as reasonably achievable (ALARA). Individualized dose reduction techniques using automated exposure control or adjustment of mA and/or kV according to the patient's size were employed. CLINICAL HISTORY: lung cancer screening former smoker quit 8 years ago, 1ppd x32 years when smoking COMPARISON: 11/23/2021 FINDINGS: CHEST CT LOW DOSE CTDI vol (mGy): 2.90 DLP (mGy-cm): 101.60 There is no axillary adenopathy. There is no hilar or mediastinal adenopathy. The heart is normal in size. There is no pericardial or pleural effusion. Lung window images demonstrate no suspicious infiltrate or nodule. Limited images of the upper abdomen are unremarkable. IMPRESSION: Lung RADS category 1. Recommend 12 month follow-up low-dose chest CT. Reviewed, Interpreted and Dictated by Xochilt Cárdenas MD Transcribed by Brenda Emerson Authenticated and [facility]
== END ==
PROVIDERS: PCP Physician Assistant; Visit Provider Internal Medicine Pulmonary Disease
DX: Z87.891 Personal history of nicotine dependence (principal); Z12.2 Encounter for screening for malignant neoplasm of respiratory organs
CPT/HCPCS: 71271

== ENCOUNTER → 2023-05-30 11:10 | Outpatient (CLI) | payer MEDICAID, SELFPAY ==
[2023-05-30 20:37] LABS: Amphetamine/Metha Screen,Urine Negative ng/ml (<1000)
[2023-05-30 20:38] LABS: Barbiturates Screen,Urine Negative ng/ml (<200); Benzodiazepines Screen,Urine Negative ng/ml (<200)
[2023-05-30 20:39] LABS: Cannabinoid Screen,Urine Negative ng/ml (<50)
[2023-05-30 20:41] LABS: Cocaine Screen,Urine Negative ng/ml (<300); Methadone Screen,Urine Negative ng/ml (<300)
[2023-05-30 20:42] LABS: Opiate Screen,Urine Negative ng/ml (<300)
[2023-05-30 20:43] LABS: Phencyclidine Screen,Urine Negative ng/ml (<25)
== END ==
PROVIDERS: PCP Physician Assistant; Visit Provider Physician Assistant
DX: G62.9 Polyneuropathy, unspecified (principal); Z79.899 Other long term (current) drug therapy
CPT/HCPCS: 80305

== ENCOUNTER → 2023-08-27 13:25 | Outpatient (CLI) | payer MEDICAID, SELFPAY ==
[2023-08-27 21:32] LABS: Benzodiazepines Screen,Urine Negative ng/ml (<200)
[2023-08-27 21:33] LABS: Amphetamine/Metha Screen,Urine Negative ng/ml (<1000); Barbiturates Screen,Urine Negative ng/ml (<200)
[2023-08-27 21:34] LABS: Methadone Screen,Urine Negative ng/ml (<300)
[2023-08-27 21:37] LABS: Opiate Screen,Urine Negative ng/ml (<300); Phencyclidine Screen,Urine Negative ng/ml (<25)
[2023-08-27 21:43] LABS: Cannabinoid Screen,Urine Negative ng/ml (<50)
[2023-08-27 21:47] LABS: Cocaine Screen,Urine Negative ng/ml (<300)
== END ==
PROVIDERS: PCP Family Medicine; Visit Provider Family Medicine
DX: F41.9 Anxiety disorder, unspecified (principal); Z79.899 Other long term (current) drug therapy
CPT/HCPCS: 80305

== ENCOUNTER 2023-10-01 13:55 | Outpatient (CLI) | payer MEDICAID, SELFPAY ==
[2023-10-01 15:15] LABS: Anion Gap 11.7 mEq/L (5-15); Blood Urea Nitrogen 20 mg/dl (7-17); Calcium 8.8 mg/dl (8.4-10.2); Carbon Dioxide 26 mmol/L (22.0-30.0); Chloride 108 mmol/L (98-107); Estimated Glomerular Filt Rate 58 ml/min (>60); GFR (African American) 70 ML/MIN (>60); Glucose 99 mg/dl (74-100); Potassium 3.7 mmoL/L (3.5-5.1); Sodium 142 mmol/L (136-145)
[2023-10-01 23:15] LABS: Amphetamine/Metha Screen,Urine Negative ng/ml (<1000); Barbiturates Screen,Urine Negative ng/ml (<200); Benzodiazepines Screen,Urine Negative ng/ml (<200); Cannabinoid Screen,Urine Negative ng/ml (<50); Cocaine Screen,Urine Negative ng/ml (<300); Methadone Screen,Urine Negative ng/ml (<300); Opiate Screen,Urine Negative ng/ml (<300); Phencyclidine Screen,Urine Negative ng/ml (<25)
== END 2023-10-01 23:59 ==
PROVIDERS: Family Medicine; PCP Physician Assistant; Visit Provider Nurse Practitioner Family
DX: I10 Essential (primary) hypertension (principal); F41.9 Anxiety disorder, unspecified; Z79.899 Other long term (current) drug therapy
CPT/HCPCS: 36415; 80048; 80307

== ENCOUNTER 2023-11-13 12:57 | Outpatient (CLI) | payer MEDICAID, SELFPAY ==
[2023-11-13 14:22] LABS: Blood Urea Nitrogen 15 mg/dl (7-17); Carbon Dioxide 27 mmol/L (22.0-30.0); Chloride 102 mmol/L (98-107); Estimated Glomerular Filt Rate 75 ml/min (>60); GFR (African American) 90 ML/MIN (>60); Glucose 92 mg/dl (74-100); Sodium 140 mmol/L (136-145)
== END 2023-11-13 23:59 ==
LOC: LAB 12:58
PROVIDERS: PCP Physician Assistant; Visit Provider Nurse Practitioner Family
DX: R60.0 Localized edema (principal)
CPT/HCPCS: 36415; 80048

== ENCOUNTER 2023-12-06 21:46 | Observation (INO) | payer MEDICAID, SELFPAY ==
--- NOTE | 2023-12-06 21:50 | ECG_ITS ---
APPROVED REPORT Exam: Resting ECG HR:100 bpm ECG Measurements Heart Rate 100 AXES [place] 143 P 54 QRSd 85 QRS 27 QT 348 T 58 QTc 405 Conclusion SINUS TACHYCARDIA LOW QRS VOLTAGE IN PRECORDIAL LEADS [QRS DEFLECTION < 1.0 mV IN CHEST LEADS] ABNORMAL RHYTHM ECG Electronically signed by : ROLLY MONTAÑO, 12/06/2023 23:34:32
[2023-12-06 21:52] VITALS: BP 117/83; PULSE 99; RESP 20; TEMP 36.6; O2SAT 95; BMI 30.4
--- NOTE | 2023-12-06 22:06 | XR_ITS ---
PROCEDURE INFORMATION: Exam: XR Chest Exam date and time: 12/06/2023 10:05 PM Age: 53 years old Clinical indication: Pain; Chest pressure; Additional info: Cp TECHNIQUE: Imaging protocol: Radiologic exam of the chest. Views: 1 view. COMPARISON: CT LUNG SCREENING 01/16/2023 8:16 AM FINDINGS: Lungs: Unremarkable. No consolidation. Pleural spaces: Unremarkable. No pleural effusion. No pneumothorax. Heart/Mediastinum: Unremarkable. No cardiomegaly. Bones/joints: Unremarkable. IMPRESSION: No acute findings.
[2023-12-06 22:10] LABS: Basophils # 0.2 K/mm3 (0-0.2); Basophils % 1.5 % (0.1-2.0); Eosinophils # 0.4 K/mm3 (0.0-0.4); Hematocrit 43.9 % (37.0-47.0); Hemoglobin 14.4 g/dL (12.2-16.2); Lymphocytes # 4.4 K/mm3 (0.7-4.5); Lymphocytes % 37.3 % (10-50); Mean Corpuscular HGB Conc 32.9 g/dL (31.8-35.4); Mean Corpuscular Hemoglobin 29.3 pg (27.0-31.2); Mean Corpuscular Volume 88.9 fl (81-99); Mean Platelet Volume 8.1 fl (7.4-10.4); Monocytes # 0.7 K/mm3 (0.1-1.0); Monocytes % 5.9 % (1.7-9.3); Neutrophils # 6.2 K/mm3 (1.8-7.8); Neutrophils % 52.4 % (37.0-80.0); Platelet Count 296 K/mm3 (142-424); Red Blood Count 4.94 M/mm3 (4.20-5.40); Red Cell Distribution Width 13.8 % (11.5-17.5); White Blood Count 11.9 K/mm3 (4.8-10.8)
--- NOTE | 2023-12-06 22:15 | ED_ITS ---
Discharge Plan Disposition Patient Disposition: Admitted Clinical Impressions Clinical Impression: Chest pain, Acute hypokalemia, Weakness Discharge ED Provider: Prem Driscoll HPI General Chief Complaint: Chest Pain Stated Complaint: CP Time Seen by Provider: 12/06/23 21:50 Mode of Arrival: Ambulatory Source of Information: Patient Limitations: No Limitations Description of Symptoms (Recalled from ER Triage Doc. by RN): Pt ambulatory to ED with C/O intermittent midsternal CP and SOA X3 days. Pt reports that she has fluid around her heart. Pain does not radiate. pt has not taken medication for pain. History of Present Illness HPI narrative: Patient is a 53-year-old female with past medical history of hypertension, hyperlipidemia, COPD not on home oxygen, xxp-zehwzsp-lwpncyyjr diabetes, diastolic heart failure who presents emergency department for evaluation of multiple complaints. Over the last 3 days patient has had myalgias, waxing and waning chest pain, weakness, nausea causing her to present here for continued evaluation. Patient was seen at outside hospital and diagnosed with viral syndrome however due to persistent symptoms she presents here. It is hard to tell if patient has diarrhea as she takes Linzess at baseline. Nonbloody bowel movements. Related Data Home Medications Medication Instructions Recorded Confirmed multivitamin with [id number] 1 each PO DAILY Supplement 03/02/20 11/13/23 400 mcg-120 mg tablet Previous Rx's Medication Instructions Recorded aspirin 81 mg tablet,delayed See Rx Instructions .Route 08/27/23 release .COMPLEX #100 tabs azelastine 205.5 mcg (0.15 %) 1 spray intranasal HS 90 days #30 08/27/23 nasal spray mL blood sugar diagnostic ([employer] World[employer] ServicesTouch #50 strips 08/27/23 Ultra Test strips) famotidine 20 mg tablet (Pepcid) 20 mg PO HS #90 tabs 08/27/23 gabapentin 400 mg capsule 400 mg PO TID Pain 30 days #90 caps 08/27/23 lancets 30 gauge (Droplet Lancets) #100 ea 08/27/23 lancets 33 gauge (OneTouch Delica #100 ea 08/27/23 Plus Lancet) loratadine 10 mg tablet (Claritin) 10 mg PO DAILY #90 tabs 08/27/23 furosemide 40 mg tablet (Lasix) 80 mg (2 x 40 mg) PO DAILY #180 10/01/23 tabs metformin 500 mg tablet 500 mg PO BID #60 tabs 10/01/23 spironolactone 25 mg tablet 50 mg (2 x 25 mg) PO DAILY #180 10/01/23 (Aldactone) tabs budesonide-formoterol HFA 160 See Rx Instructions .Route 11/12/23 mcg-4.5 mcg/actuation aerosol .COMPLEX #10.2 grams inhaler (Symbicort) linaclotide 145 mcg capsule See Rx Instructions .Route 11/12/23 (Linzess) .COMPLEX #30 caps pantoprazole 40 mg tablet,delayed See Rx Instructions .Route 11/12/23 release .COMPLEX #30 tabs cariprazine 1.5 mg capsule 1.5 mg PO DAILY #30 caps 11/13/23 (Vraylar) cholecalciferol (vitamin D3) 25 See Rx Instructions .Route 12/05/23 mcg (1,000 unit) tablet .COMPLEX #30 tabs ergocalciferol (vitamin D2) 1,250 See Rx Instructions .Route 12/05/23 mcg (50,000 unit) capsule .COMPLEX #4 caps rosuvastatin 20 mg tablet See Rx Instructions .Route 12/05/23 .COMPLEX #30 tabs tizanidine 4 mg tablet See Rx Instructions .Route 12/05/23 .COMPLEX #30 tabs Allergies Allergy/AdvReac Type Severity Reaction Status Date / Time morphine [MORPHINE] Allergy Severe S-DIFF. Verified 11/13/23 14:31 BREATHING Penicillins [PENICILLINS] Allergy Unknown Verified 11/13/23 14:31 [facility] Disclaimer: The information contained in this section may have been updated after the patient was seen, as this information can be updated by other users. Medical History Abnormal ankle brachial index (NANNETTE) Abnormal electrocardiography Anxiety Chest pain Chronic cough Constipation COPD (chronic obstructive pulmonary disease) Dizziness Dyspnea Dyspnea on exertion Edema of both lower extremities Ex-smoker Family history of asthma Family history of heart disease Gastroesophageal reflux disease History of rectal bleeding HTN (hypertension) Hyperlipidemia Hypertensive heart disease Leg edema Lumbar radicular pain Mild persistent asthma Neuropathy Nightmare Non-seasonal allergic rhinitis Obesity, Class II, BMI 35-39.9 Screening for lung cancer SOB (shortness of breath) on exertion Stopped smoking with greater than 30 pack year history Surgical History History of carpal tunnel release History of colonoscopy Family History Other Asthma Cancer Diabetes Family history of asthma Heart attack Hyperlipidemia Hypertension Stroke Social History Smoking Status: Never smoker alcohol intake: never substance use type: denies use current occupational status: unemployed Travel in the last 8 weeks: None caffeine: Yes ROS Obtained: Yes Systems reviewed as appropriate & no additional complaints except as documented Physical Exam General General appearance: alert and in no apparent distress Head Head exam: atraumatic and normocephalic Eye Eye exam: Present PERRL and EOMI ENT ENT exam: Present mucous membranes moist Neck Neck exam: Present normal inspection Chest Chest inspection: Present normal inspection and symmetric chest wall rise Respiratory Respiratory exam: Present normal lung sounds bilaterally; Absent respiratory distress Cardiovascular Cardiovascular exam: Present regular rate and normal rhythm Abdominal Exam Abdominal exam: Present soft; Absent tenderness Extremities Exam Extremities exam: Present normal inspection Neurological Exam Neurological exam: Present alert Psychiatric Psychiatric exam: Present normal affect Skin Skin exam: Present warm and dry HEART Score HEART Score HEART Score assessment performed?: Yes History (anamnesis): Slightly suspicious ECG: Normal Age: 45-65 years Risk factors: Atherosclerosis history Troponin: </= normal limit HEART Score: 3 Critical Care Critical Care Time Critical Care Time: Yes Attestation: On 12/06/23, the high probability of a clinically significant, sudden or life threatening deterioration of the following system(s) required my full and direct attention, intervention and personal management. The time I documented below is in addition to time spent performing reported procedures but includes the following listed in this critical care notation. Total Time Total Critical Care Time: 30 Medical Decision Making [place] Inquiry Pt receiving controlled substance: No Vital Signs Vital Signs: 12/06/23 21:52 12/06/23 23:18 Temperature 97.9 F 97.9 F Temperature Source Oral Oral Pulse Rate 81 Pulse Rate [Left Radial] 99 H Respiratory Rate 20 20 Blood Pressure 99/66 L Blood Pressure [Right Arm] 117/83 Blood Pressure Mean [Right Arm] 94 Blood Pressure Source Automatic Cuff Blood Pressure Source [Right Arm] Automatic Cuff Blood Pressure Position [Right Arm] Sitting 02 Sat by Pulse Oximetry 95 Oxygen Delivery Method Room Air Room Air Lab Data Labs: Lab Results 12/06/23 21:54: WBC 11.9 H, RBC 4.94, Hgb 14.4, Hct 43.9, MCV 88.9, MCH 29.3, MCHC 32.9, RDW 13.8, Plt Count 296, MPV 8.1, Neut % (Auto) 52.4, Lymph % (Auto) 37.3, Hendry % (Auto) 5.9, Eos % (Auto) 3.0, Baso % (Auto) 1.5, Neut # (Auto) 6.2, Lymph # (Auto) 4.4, Hendry # (Auto) 0.7, Eos # (Auto) 0.4, Baso # (Auto) 0.2, D- Dimer 0.73 H, Sodium 138, Potassium 2.8 L*, Chloride 102, Carbon Dioxide 31 H, Anion Gap 7.8, BUN 19 H, Creatinine 0.90, Estimated Creat Clear 102, Estimated GFR 65, Est GFR ( Amer) 79, Glucose 120 H, Calcium 9.5, Total Bilirubin 0.4, AST 45 H, ALT 40, Alkaline Phosphatase 101, Total Creatine Kinase 73, Troponin I < 0.01, Total Protein 7.3, Albumin 4.1, Globulin 3.2, Albumin/Globulin Ratio 1.3, Lipase 228 12/06/23 21:54 12/06/23 21:54 Response Orders (Tests/Meds): ED MEDICATIONS Generic Name Dose Route Start Last Admin Trade Name Freq PRN Reason Stop Dose Admin Acetaminophen 650 mg 12/06/23 22:55 Acetaminophen 325mg Tab PO 01/05/24 22:54 Q4HP PRN Fever or Mild Pain (1-3) Enoxaparin Sodium 40 mg 12/07/23 09:00 Enoxaparin 40mg/0.4ml Syringe SQ 01/06/24 08:59 DAILY CASSIE Potassium Chloride/Water 100 mls @ 50 mls/hr 12/06/23 22:30 12/06/23 22:51 Potassium Chloride 20meq/100ml Ivpb IV 12/07/23 02:29 50 mls/hr Q2H CASSIE Administration Nicotine 21 mg 12/06/23 22:55 Nicotine 21mg/24hr Patch TD 01/05/24 22:54 DAILYP PRN Nicotine Cravings Ondansetron HCl 4 mg 12/06/23 22:55 Ondansetron 4mg/2ml Vial IV 01/05/24 22:54 Q8HP PRN Nausea Pantoprazole Sodium 40 mg 12/07/23 09:00 Pantoprazole 40mg Tablet PO 01/06/24 08:59 DAILY CASSIE Discontinued Medications Generic Name Dose Route Start Last Admin Trade Name Freq PRN Reason Stop Dose Admin Acetaminophen 1,000 mg 12/06/23 22:13 12/06/23 22:17 Acetaminophen 1,000mg/100ml Vial IV 12/06/23 22:14 1,000 mg ONCE ONE Administration Aspirin 324 mg 12/06/23 22:13 12/06/23 22:18 Aspirin 81mg Chewable Tablet PO 12/06/23 22:14 324 mg ONCE ONE Administration Belladonna Alkaloids 60 ml 12/06/23 22:15 12/06/23 22:29 Belladonna Alkaloids 60 Ml Ml PO 12/06/23 22:16 60 ml ONCE ONE Administration Lactated Ringer's 500 mls @ 999 mls/hr 12/06/23 22:14 12/06/23 22:18 Lactated Ringer's 500ml IV 12/06/23 22:44 999 mls/hr .Q31M ONE Administration Ondansetron HCl 4 mg 12/06/23 22:13 12/06/23 22:18 Ondansetron 4mg/2ml Vial IV 12/06/23 22:14 4 mg ONCE ONE Administration Potassium Chloride 40 meq 12/06/23 22:27 12/06/23 22:51 Potassium Chloride 20meq Tab PO 12/06/23 22:28 40 meq ONCE ONE Administration ORDERS Category Date Time Status CXR --portable [XR chest portable] Stat Exams 12/06/23 22:06 Completed POCUS Point of Care (ER Only) Stat Exams 12/06/23 22:04 Taken CBC w/Auto Diff [Complete Blood Count Auto Diff] Stat Lab 12/06/23 21:54 Completed CK [Creatine Kinase] Stat Lab 12/06/23 21:54 Completed CMP [Comprehensive Metabolic Panel] Stat Lab 12/06/23 21:54 Completed Complete Blood Count Auto Diff AMLAB Lab 12/07/23 06:00 Ordered Comprehensive Metabolic Panel AMLAB Lab 12/07/23 06:00 Ordered D-Dimer Stat Lab 12/06/23 21:54 Completed Lipase Stat Lab 12/06/23 21:54 Completed Magnesium AMLAB Lab 12/07/23 06:00 Ordered Rapid PCR Covid and Flu A/B Stat Lab 12/06/23 23:14 Ordered Trop I [Troponin I] Stat Lab 12/06/23 21:54 Completed Troponin I Q3H Lab 12/07/23 01:15 Ordered Troponin I Q3H Lab 12/07/23 04:15 Ordered CA echo doppler complete Routine Y 12/06/23 22:57 Ordered ECG Data Tracing #1: ECG Narrative: Independently interpreted by me, rate is 100, rhythm is regular, axis is normal, no ST elevation in anatomical contiguous leads, QTc 405. MDM Narrative Medical Decision Narrative: Patient is a 53-year-old female with past medical history described above presents emergency department for evaluation of chest pain, myalgias, nausea. Patient is hemodynamically stable and nontoxic-appearing upon arrival, borderline tachycardia. Patient has borderline tachycardia at baseline per chart review. Differential diagnosis includes viral syndrome, ACS, pulmonary embolism, among others. Workup will be conducted with hematologic labs, chest x-ray, EKG, troponin, D-dimer. Initial interventions include IV Tylenol, aspirin, Zofran, 500 cc crystalloid bolus. Initial workup reviewed by me, hematologic labs remarkable for severe hypokalemia which will be repleted orally and IV. D-dimer is elevated however pulmonary emboli can be excluded per years criteria, initial troponin undetectably low. Given her global weakness in the setting of hypokalemia the case was discussed with hospital medicine who admit the patient their service for continued evaluation at this time.
[2023-12-06] MEDS: ACETAMINOPHEN 1,000MG/100ML VIAL 1000 MG IV (22:17)
[2023-12-06 22:18] LABS: Chloride 102 mmol/L (98-107); Sodium 138 mmol/L (136-145)
[2023-12-06] MEDS: ASPIRIN 81MG CHEWABLE TABLET 324 MG PO (22:18)
[2023-12-06] MEDS: RINGERS SOLUTION,LACTATED 500 ML 999 ML IV (22:18)
[2023-12-06] MEDS: ONDANSETRON 4MG/2ML VIAL 4 MG IV (22:18)
[2023-12-06 22:20] LABS: Alanine Aminotransferase 40 U/L (12-78); Alkaline Phosphatase 101 U/L (38-126); Aspartate Amino Transferase 45 U/L (14-36); Bilirubin,Total 0.4 mg/dl (0.2-1.3); Blood Urea Nitrogen 19 mg/dl (7-17); Creatinine Clearance Estimated 102 mL/min (50-200); Estimated Glomerular Filt Rate 65 ml/min (>60); GFR (African American) 79 ML/MIN (>60)
[2023-12-06 22:21] LABS: Albumin Level 4.1 g/dl (3.5-5.0); Albumin/Globulin Ratio 1.3 (1.1-1.8); Anion Gap 7.8 mEq/L (5-15); Calcium 9.5 mg/dl (8.4-10.2); Carbon Dioxide 31 mmol/L (22.0-30.0); Globulin 3.2 g/dL (1.3-3.2); Glucose 120 mg/dl (74-100); Total Protein,Serum 7.3 g/dl (6.3-8.2)
[2023-12-06 22:25] LABS: Potassium 2.8 mmoL/L (3.5-5.1)
[2023-12-06 22:26] LABS: Creatine Kinase 73 U/L (30-135)
[2023-12-06 22:27] LABS: Lipase 228 U/L (23-300)
[2023-12-06] MEDS: BELLADONNA ALKALOIDS 60 ML ML PO (22:29)
[2023-12-06 22:34] LABS: D-Dimer 0.73 ug/mL (0.0-0.5); Troponin I < 0.01 ng/ml (0.00-0.034)
[2023-12-06] MEDS: KCl 20mEq/100ml 100 ML 50 MEQ IV (22:51)
[2023-12-06] MEDS: POTASSIUM CHLORIDE 20MEQ TAB 40 MEQ PO (22:51)
--- NOTE | 2023-12-06 22:57 | P.HP_ITS ---
History of Present Illness *Admission Date: 12/06/23 *Reason for visit:: weakness *History of present illness: This is a 53-year-old female with PMHx of hypertension, hyperlipidemia, COPD not on home oxygen, jmb-tguebej-thedldama diabetes, diastolic heart failure who presented emergency department for evaluation of multiple complaints. Over the last 3 days patient has had myalgias, waxing and waning chest pain, weakness, nausea causing her to present here for continued evaluation. Patient was seen at outside hospital and diagnosed with viral syndrome however due to persistent symptoms she presents here. Patient reported being on Linzess at baseline, for chronic constipation, therefore being having excessive lose stools. Nonbloody bowel movements. Admitted for further treatment. [facility] Disclaimer: The information contained in this section may have been updated after the patient was seen, as this information can be updated by other users. Medical History Abnormal ankle brachial index (NANNETTE) Abnormal electrocardiography Anxiety Chest pain Chronic cough Constipation COPD (chronic obstructive pulmonary disease) Dizziness Dyspnea Dyspnea on exertion Edema of both lower extremities Ex-smoker Family history of asthma Family history of heart disease Gastroesophageal reflux disease History of rectal bleeding HTN (hypertension) Hyperlipidemia Hypertensive heart disease Leg edema Lumbar radicular pain Mild persistent asthma Neuropathy Nightmare Non-seasonal allergic rhinitis Obesity, Class II, BMI 35-39.9 Screening for lung cancer SOB (shortness of breath) on exertion Stopped smoking with greater than 30 pack year history Surgical History History of carpal tunnel release History of colonoscopy Family History Other Asthma Cancer Diabetes Family history of asthma Heart attack Hyperlipidemia Hypertension Stroke Social History (Updated 12/06/23 @ 23:51 by Luz Gavin RN) Smoking Status: Never smoker alcohol intake: never substance use type: denies use current occupational status: unemployed Travel in the last 8 weeks: Inside the [place] caffeine: Yes Review of Systems Review of Systems Review of systems:: pertinent systems reviewed and negative unless documented below Meds Home Medications and Allergies Home Medications Medication Instructions Recorded Confirmed Type multivitamin with [id number] 1 each PO DAILY Supplement 03/02/20 12/06/23 History 400 mcg-120 mg tablet azelastine 205.5 mcg (0.15 %) 1 spray intranasal HS 90 days #30 08/27/23 12/06/23 Rx nasal spray mL famotidine 20 mg tablet (Pepcid) 20 mg PO HS #90 tabs 08/27/23 12/06/23 Rx gabapentin 400 mg capsule 400 mg PO TID Pain 30 days #90 caps 08/27/23 12/06/23 Rx loratadine 10 mg tablet (Claritin) 10 mg PO DAILY #90 tabs 08/27/23 12/06/23 Rx cariprazine 1.5 mg capsule 1.5 mg PO DAILY #30 caps 11/13/23 12/06/23 Rx (Vraylar) furosemide 40 mg tablet (Lasix) 80 mg PO DAILY 12/06/23 12/06/23 History spironolactone 25 mg tablet 50 mg PO DAILY 12/06/23 12/06/23 History (Aldactone) aspirin 81 mg tablet,delayed 81 mg PO DAILY 12/07/23 12/07/23 History release budesonide-formoterol HFA 160 2 puff inhalation BID 12/07/23 12/07/23 History mcg-4.5 mcg/actuation aerosol inhaler (Symbicort) cholecalciferol (vitamin D3) 25 1,000 unit PO DAILY 12/07/23 12/07/23 History mcg (1,000 unit) tablet ergocalciferol (vitamin D2) 1,250 50,000 unit PO WEEKLY 12/07/23 12/07/23 History mcg (50,000 unit) capsule linaclotide 145 mcg capsule 145 mcg PO DAILY 12/07/23 12/07/23 History (Linzess) metformin 500 mg tablet 500 mg PO BID 12/07/23 12/07/23 History pantoprazole 40 mg tablet,delayed 40 mg PO HS 12/07/23 12/07/23 History release potassium chloride 20 mEq 20 meq PO DAILY 5 days #5 tabs 12/07/23 Rx tablet,extended release(part/cryst) (Klor-Con M) rosuvastatin 20 mg tablet 20 mg PO HS 12/07/23 12/07/23 History tizanidine 4 mg tablet 4 mg PO Q8HP PRN muscle spasms 12/07/23 12/07/23 History New Prescriptions to Start Prescriptions: potassium chloride [Klor-Con M20] Alessio Wooten Allergies Allergy/AdvReac Type Severity Reaction Status Date / Time morphine [MORPHINE] Allergy Severe S-DIFF. Verified 11/13/23 14:31 BREATHING Penicillins [PENICILLINS] Allergy Unknown Verified 11/13/23 14:31 Exam Data for Last 24 hours Vital signs and Labs for Last 24 Hours: Temp Pulse Resp BP Pulse Ox O2 Del Method 97.9 F 99 H 20 117/83 95 Room Air 12/06/23 21:52 12/06/23 21:52 12/06/23 21:52 12/06/23 21:52 12/06/23 21:52 12/06/23 21:52 Laboratory Results - last 24 hr 12/06/23 21:54: WBC 11.9 H, RBC 4.94, Hgb 14.4, Hct 43.9, MCV 88.9, MCH 29.3, MCHC 32.9, RDW 13.8, Plt Count 296, MPV 8.1, Neut % (Auto) 52.4, Lymph % (Auto) 37.3, Emmons % (Auto) 5.9, Eos % (Auto) 3.0, Baso % (Auto) 1.5, Neut # (Auto) 6.2, Lymph # (Auto) 4.4, Emmons # (Auto) 0.7, Eos # (Auto) 0.4, Baso # (Auto) 0.2, D- Dimer 0.73 H, Sodium 138, Potassium 2.8 L*, Chloride 102, Carbon Dioxide 31 H, Anion Gap 7.8, BUN 19 H, Creatinine 0.90, Estimated Creat Clear 102, Estimated GFR 65, Est GFR ( Amer) 79, Glucose 120 H, Calcium 9.5, Total Bilirubin 0 .4, AST 45 H, ALT 40, Alkaline Phosphatase 101, Total Creatine Kinase 73, Troponin I < 0.01, Total Protein 7.3, Albumin 4.1, Globulin 3.2, Albumin/Globulin Ratio 1.3, Lipase 228 I & O for Last 24 hours: Intake & Output 12/03/23 12/04/23 12/05/23 12/06/23 23:59 23:59 23:59 23:59 Weight 90.718 kg Constitutional Constitutional: mild distress and cooperative *Routine HEENT Exam Head: Present normocephalic Eye: Present EOMI and PERRL ENT: Present mucous membranes moist *Routine Neck Exam Neck: Present supple; Absent lymphadenopathy *Routine Respiratory Exam Respiratory: Present CTA bilaterally *Routine Cardiovascular Exam Cardiovascular: Present RRR, Normal S1, Normal S2 and tachycardia *Routine Abdominal Exam Abdominal: Present soft and normoactive bowel sounds; Absent tenderness *Routine Rectal Exam Rectal:: deferred *Routine Genitalia Exam Genitalia:: deferred *Routine Extremities Exam Extremities: Absent cyanosis, clubbing or edema *Routine Skin Exam Skin: Present warm; Absent rash *Routine Neurological Exam Neurological: Present alert, oriented X3, moving all extremities and normal speech Routine Psychiatric Exam Psychiatric: Present good insight H&P: Result Imaging and Cardiology Chest x-ray: Status: image reviewed by me, Preliminary report and final report EKG: Status: image reviewed by me, Preliminary report and final report Assessment and Plan *Assessment and plan (1) Acute hypokalemia: Status: Acute Category: Medical Code(s): E87.6 - Hypokalemia (2) Weakness: Status: Acute Category: Medical Code(s): R53.1 - Weakness (3) HTN (hypertension): Status: Acute Qualifiers: Hypertension type: essential hypertension Qualified Code(s): I10 - Essential (primary) hypertension Category: Medical Code(s): I10 - Essential (primary) hypertension (4) COPD (chronic obstructive pulmonary disease): Status: Chronic Qualifiers: COPD type: unspecified COPD Qualified Code(s): J44.9 - Chronic obstructive pulmonary disease, unspecified Category: Medical Code(s): J44.9 - Chronic obstructive pulmonary disease, unspecified (5) Diet-controlled type 2 diabetes mellitus: Status: Chronic Category: Medical Code(s): E11.9 - Type 2 diabetes mellitus without complications (6) Major depression: Status: Chronic Qualifiers: Active/Remission status: remission status unspecified Major depression recurrence: unspecified whether recurrent Qualified Code(s): F32.9 - Major depressive disorder, single episode, unspecified Category: Medical Code(s): F32.9 - Major depressive disorder, single episode, unspecified (7) BMI 34.0-34.9,adult: Status: Chronic Category: Medical Code(s): Z68.34 - Body mass index [BMI] 34.0-34.9, adult Plan 53-year-old female with PMHx of hypertension, hyperlipidemia, COPD not on home oxygen, dcq-arjmqcd-jqqhgolqk diabetes, diastolic heart failure who presented emergency department for evaluation of multiple complaints. Over the last 3 days patient has had myalgias, waxing and waning chest pain, weakness, nausea. presented with tachycardia and chest pressure. Initial work up pasitive for hypokalemia. the rest of the labs and imaging are inactionable. Findings were discussed with ER. Since patient had significant cardiac history. Medicine was consulted for admission. Agreed to admit patient. Plan as follow: -Acute symptomatic hypokalemia, likely secondary to excessive loss, either by diuresis or loose stool: Generalized weakness: Tachycardia Admit patient for continued management. Dispo MedSurg Start continuous cardiac monitoring Replace electrolytes per protocol. Potassium chloride IV infusion x 3 Hold diuresis Repeat labs in the morning. Monitor CMP. Watch for another electrolyte imbalance Monitor for heart rate and vital signs per unit. We deferred the cardiac consult at this time since condition might be related to low potassium -Other chronic conditions hypertension, diastolic CHF, COPD: Diet-controlled diabetes. History of major depression: Conditions reviewed. Stable. Reconcile and review home regimen medication Containing echocardiogram to assess CHF Patient have a follow-up with GI later on this month for colonoscopy to address bowel movement changes Abnormal BMI: Educated on weight management Lovenox for DVT prophylaxis. On Protonix Full code Rounded on patient after nurse practitioner. Personally examined and interviewed patient. Agree with exam findings and care plan as documented.
--- NOTE | 2023-12-06 22:58 | PC.NURSE ---
Admitting notified for admission: OBS, 212, Hospitalist, Dx: Hypokalemia
[2023-12-06 23:02] LABS: Coronavirus 19, PCR Not Detected (NotDetected); Influenza A, PCR Not Detected (NotDetected); Influenza B, PCR Not Detected (NotDetected)
--- NOTE | 2023-12-06 23:11 | PC.NURSE ---
attempted to call report to 2nd floor at this time. no answer
--- NOTE | 2023-12-06 23:17 | PC.NURSE ---
attempted to call report to second floor again
[2023-12-06 23:18] VITALS: BP 104/73; PULSE 81; RESP 14; TEMP 36.5; O2SAT 97
--- NOTE | 2023-12-06 23:24 | PC.NURSE ---
report called to dipak no on 2nd floor at this time
[2023-12-07] VITALS: PULSE 100
--- NOTE | 2023-12-07 | PC.NURSE ---
Contacted EQ, METAL ROLLING MILL OPERATOR at this time to report pt complaint of IV potassium burning, EQ advised to run IV infusion at 15ml a hr for comfort
[2023-12-07 00:09] VITALS: BP 104/73; PULSE 97; RESP 15; TEMP 36.3; O2SAT 98; BMI 32.5
--- NOTE | 2023-12-07 00:50 | PC.NURSE ---
Pt c/o IV potassium burning, IV pump set to 10 ml a hour at this time.
[2023-12-07 01:37] LABS: Troponin I < 0.01 ng/ml (0.00-0.034)
[2023-12-07 04:00] VITALS: BP 109/78; PULSE 60; PULSE 68; RESP 20; TEMP 36.5; O2SAT 98; BMI 32.5
[2023-12-07] MEDS: KCl 20mEq/100ml 100 ML 50 MEQ IV (04:34)
[2023-12-07 04:36] LABS: Basophils # 0.1 K/mm3 (0-0.2); Basophils % 1.3 % (0.1-2.0); Eosinophils # 0.3 K/mm3 (0.0-0.4); Eosinophils % 2.8 % (0.1-12.0); Hematocrit 39.1 % (37.0-47.0); Lymphocytes # 4.2 K/mm3 (0.7-4.5); Lymphocytes % 46.9 % (10-50); Mean Corpuscular HGB Conc 32.6 g/dL (31.8-35.4); Mean Corpuscular Hemoglobin 28.8 pg (27.0-31.2); Mean Corpuscular Volume 88.3 fl (81-99); Mean Platelet Volume 8.3 fl (7.4-10.4); Monocytes # 0.5 K/mm3 (0.1-1.0); Monocytes % 6.1 % (1.7-9.3); Neutrophils # 3.8 K/mm3 (1.8-7.8); Neutrophils % 42.9 % (37.0-80.0); Platelet Count 242 K/mm3 (142-424); Red Blood Count 4.43 M/mm3 (4.20-5.40); Red Cell Distribution Width 13.9 % (11.5-17.5); White Blood Count 8.9 K/mm3 (4.8-10.8)
[2023-12-07 04:42] LABS: Hemoglobin 12.7 g/dL (12.2-16.2)
[2023-12-07 04:44] LABS: Alanine Aminotransferase 29 U/L (12-78); Albumin Level 3.4 g/dl (3.5-5.0); Albumin/Globulin Ratio 1.2 (1.1-1.8); Alkaline Phosphatase 77 U/L (38-126); Anion Gap 7.8 mEq/L (5-15); Aspartate Amino Transferase 34 U/L (14-36); Bilirubin,Total 0.5 mg/dl (0.2-1.3); Blood Urea Nitrogen 19 mg/dl (7-17); Calcium 8.9 mg/dl (8.4-10.2); Carbon Dioxide 27 mmol/L (22.0-30.0); Chloride 106 mmol/L (98-107); Creatinine Clearance Estimated 110 mL/min (50-200); Estimated Glomerular Filt Rate 65 ml/min (>60); GFR (African American) 79 ML/MIN (>60); Globulin 2.8 g/dL (1.3-3.2); Glucose 133 mg/dl (74-100); Magnesium 2.1 mg/dl (1.6-2.3); Potassium 3.8 mmoL/L (3.5-5.1); Sodium 137 mmol/L (136-145); Total Protein,Serum 6.2 g/dl (6.3-8.2)
[2023-12-07 04:55] LABS: Troponin I < 0.01 ng/ml (0.00-0.034)
[2023-12-07 05:51] LABS: Hemoglobin A1C 5.3 % (4.0-6.0)
--- NOTE | 2023-12-07 06:17 | PC.NURSE ---
Pt is alert and oriented x4, and currently tolerating RA. Pt was admitted to the unit with hypokalemia and has c/o IV burning at times from potassium admin. EQ, DATA REPORTING ANALYST has been made aware of pt complaints and advised to lower rate to 15ml hr for comfort. Pt denies any other pain. New IV placed in right wrist as existing IV had become uncomfortable and pt stated it burned. Pt is independent and denies needs.
[2023-12-07 08:00] VITALS: BP 107/70; PULSE 76; PULSE 90; RESP 22; TEMP 36.6; O2SAT 97
--- NOTE | 2023-12-07 08:00 | HMH.PHAINT1 ---
Pharmacy Intervention Comments: home medication list verified using list from outpatient pharmacy
--- NOTE | 2023-12-07 09:47 | EXP.DC.SUM ---
General Admission date:: 12/06/23 Discharge date: 12/07/23 HPI HPI HPI: This is a 53-year-old female with PMHx of hypertension, hyperlipidemia, COPD not on home oxygen, [id number] diabetes, diastolic heart failure who presented emergency department for evaluation of multiple complaints. Over the last 3 days patient has had myalgias, waxing and waning chest pain, weakness, nausea causing her to present here for continued evaluation. Patient was seen at outside hospital and diagnosed with viral syndrome however due to persistent symptoms she presents here. Patient reported being on Linzess at baseline, for chronic constipation, therefore being having excessive lose stools. Nonbloody bowel movements. Admitted for further treatment. Hospital Course Hospital Course Hospital Course: 53-year-old female with PMHx of hypertension, hyperlipidemia, COPD not on home oxygen, [id number] diabetes, diastolic heart failure who presented emergency department for evaluation of multiple complaints. Over the last 3 days patient has had myalgias, waxing and waning chest pain, weakness, nausea. presented with tachycardia and chest pressure. Initial work up pasitive for hypokalemia. the rest of the labs and imaging are inactionable. Findings were discussed with ER. Given gross abnormality and need to monitor serial troponins, patient admitted for further medical management. Potassium normalized by morning. Symptoms improved. Stable to discharge home with close outpatient follow-up. Problems addressed as follows: - Acute symptomatic hypokalemia, likely secondary to excessive loss, either by diuresis or loose stool: - Generalized weakness: - Tachycardia Patient admitted for monitoring overnight. Serial troponins negative. Diuretics were held. Electrolytes replaced. Potassium improved by morning to 3.8. Magnesium is 2.1. Given improvement, make adjustments to medications with holding of diuretics. Will continue oral supplementation daily for a week. Recommend close follow-up with cardiology and PCP this coming week for further evaluation. Continue remainder of patient's home medications. Of note, chest pain reproducible on exam. Continuing home patient's chronic addition to including CAD, hypertension, COPD, diabetes, constipation, GERD, hyperlipidemia. Patient has a follow-up with GI later on this month for colonoscopy to address bowel movement changes Exam Data for Last 24 hours Vital signs and Labs for Last 24 Hours: Temp Pulse Resp BP Pulse Ox O2 Del Method 97.9 F 76 22 107/70 L 97 Room Air 12/07/23 08:00 12/07/23 08:00 12/07/23 08:00 12/07/23 08:00 12/07/23 08:00 12/07/23 09:00 Laboratory Results - last 24 hr 12/06/23 21:54: WBC 11.9 H, RBC 4.94, Hgb 14.4, Hct 43.9, MCV 88.9, MCH 29.3, MCHC 32.9, RDW 13.8, Plt Count 296, MPV 8.1, Neut % (Auto) 52.4, Lymph % (Auto) 37.3, [place] % (Auto) 5.9, Eos % (Auto) 3.0, Baso % (Auto) 1.5, Neut # (Auto) 6.2, Lymph # (Auto) 4.4, [place] # (Auto) 0.7, Eos # (Auto) 0.4, Baso # (Auto) 0.2, D-Dimer 0.73 H, Sodium 138, Potassium 2.8 L*, Chloride 102, Carbon Dioxide 31 H, Anion Gap 7.8, BUN 19 H, Creatinine 0.90, Estimated Creat Clear 102, Estimated GFR 65, Est GFR ( Amer) 79, Glucose 120 H, Calcium 9.5, Total Bilirubin 0.4, AST 45 H, ALT 40, Alkaline Phosphatase 101, Total Creatine Kinase 73, Troponin I < 0.01, Total Protein 7.3, Albumin 4.1, Globulin 3.2, Albumin/Globulin Ratio 1.3, Lipase 228 12/06/23 22:58: SARS-CoV-2 (PCR) Not detected, Influenza A Untype (PCR) Not detected, Influenza Type B (PCR) Not detected 12/07/23 01:05: Troponin I < 0.01 12/07/23 04:20: WBC 8.9 D, RBC 4.43, Hgb 12.7 D, Hct 39.1, MCV 88.3, MCH 28.8, MCHC 32.6, RDW 13.9, Plt Count 242, MPV 8.3, Neut % (Auto) 42.9, Lymph % (Auto) 46.9, [place] % (Auto) 6.1, Eos % (Auto) 2.8, Baso % (Auto) 1.3, Neut # (Auto) 3.8, Lymph # (Auto) 4.2, [place] # (Auto) 0.5, Eos # (Auto) 0.3, Baso # (Auto) 0.1, Sodium 137, Potassium 3.8 D, Chloride 106, Carbon Dioxide 27, Anion Gap 7.8, BUN 19 H, Creatinine 0.90, Estimated Creat Clear 110, Estimated GFR 65, Est GFR ( Amer) 79, Glucose 133 H, Hemoglobin A1c 5.3, Calcium 8.9, Magnesium 2.1, Total Bilirubin 0.5, AST 34, ALT 29 D, Alkaline Phosphatase 77, Troponin I < 0.01, Total Protein 6.2 L, Albumin 3.4 L D, Globulin 2.8, Albumin/Globulin Ratio 1.2 I & O for Last 24 hours: Intake & Output 12/04/23 12/05/23 12/06/23 12/07/23 23:59 23:59 23:59 23:59 Intake Total 390 / 390 Output Total 0 / 0 Balance 390 / 390 Weight 90.718 kg 97.55 kg Constitutional Constitutional: no acute distress, obese and cooperative *Routine HEENT Exam Head: Present normocephalic Eye: Present EOMI and PERRL ENT: Present mucous membranes moist *Routine Neck Exam Neck: Present supple; Absent lymphadenopathy Routine Chest/Breast/Axilla Exam Chest wall: Present tenderness (minor in upper chest bilaterally) *Routine Respiratory Exam Respiratory: Present CTA bilaterally; Absent rhonchi, wheezes or crackles *Routine Cardiovascular Exam Cardiovascular: Present RRR *Routine Abdominal Exam Abdominal: Present soft and normoactive bowel sounds; Absent tenderness *Routine Rectal Exam Patient deferred: visual exam *Routine Exam Patient deferred: external exam *Routine Extremities Exam Extremities: Absent cyanosis, clubbing or edema *Routine Skin Exam Skin: Present warm; Absent rash *Routine Neurological Exam Neurological: Present alert, oriented X3 and moving all extremities; Absent altered mental status Routine Psychiatric Exam Psychiatric: Present normal affect Results Data Completed and Pending Labs on day of discharge: Labs from last 24 hours 12/07/23 12/07/23 12/06/23 04:20 01:05 22:58 WBC 8.9 D RBC 4.43 Hgb 12.7 D Hct 39.1 MCV 88.3 MCH 28.8 MCHC 32.6 RDW 13.9 Plt Count 242 MPV 8.3 Neut % (Auto) 42.9 Lymph % (Auto) 46.9 [place] % (Auto) 6.1 Eos % (Auto) 2.8 Baso % (Auto) 1.3 Neut # (Auto) 3.8 Lymph # (Auto) 4.2 [place] # (Auto) 0.5 Eos # (Auto) 0.3 Baso # (Auto) 0.1 D-Dimer Sodium 137 Potassium 3.8 D Chloride 106 Carbon Dioxide 27 Anion Gap 7.8 BUN 19 H Creatinine 0.90 Estimated Creat Clear 110 Estimated GFR 65 Est GFR ( Amer) 79 Glucose 133 H Hemoglobin A1c 5.3 Calcium 8.9 Magnesium 2.1 Total Bilirubin 0.5 AST 34 ALT 29 D Alkaline Phosphatase 77 Total Creatine Kinase Troponin I < 0.01 < 0.01 Total Protein 6.2 L Albumin 3.4 L D Globulin 2.8 Albumin/Globulin Ratio 1.2 Lipase SARS-CoV-2 (PCR) Not detected Influenza A Untype (PCR) Not detected Influenza Type B (PCR) Not detected 12/06/23 21:54 WBC 11.9 H RBC 4.94 Hgb 14.4 Hct 43.9 MCV 88.9 MCH 29.3 MCHC 32.9 RDW 13.8 Plt Count 296 MPV 8.1 Neut % (Auto) 52.4 Lymph % (Auto) 37.3 [place] % (Auto) 5.9 Eos % (Auto) 3.0 Baso % (Auto) 1.5 Neut # (Auto) 6.2 Lymph # (Auto) 4.4 [place] # (Auto) 0.7 Eos # (Auto) 0.4 Baso # (Auto) 0.2 D-Dimer 0.73 H Sodium 138 Potassium 2.8 L* Chloride 102 Carbon Dioxide 31 H Anion Gap 7.8 BUN 19 H Creatinine 0.90 Estimated Creat Clear 102 Estimated GFR 65 Est GFR ( Amer) 79 Glucose 120 H Hemoglobin A1c Calcium 9.5 Magnesium Total Bilirubin 0.4 AST 45 H ALT 40 Alkaline Phosphatase 101 Total Creatine Kinase 73 Troponin I < 0.01 Total Protein 7.3 Albumin 4.1 Globulin 3.2 Albumin/Globulin Ratio 1.3 Lipase 228 SARS-CoV-2 (PCR) Influenza A Untype (PCR) Influenza Type B (PCR) DS: Diagnosis Discharge Diagnosis (1) Acute hypokalemia: Status: Acute Code(s): E87.6 - Hypokalemia (2) Weakness: Status: Acute Code(s): R53.1 - Weakness (3) HTN (hypertension): Status: Acute Code(s): I10 - Essential (primary) hypertension Qualifiers: Hypertension type: essential hypertension Qualified Code(s): I10 - Essential (primary) hypertension (4) COPD (chronic obstructive pulmonary disease): Status: Chronic Code(s): J44.9 - Chronic obstructive pulmonary disease, unspecified Qualifiers: COPD type: unspecified COPD Qualified Code(s): J44.9 - Chronic obstructive pulmonary disease, unspecified (5) Diet-controlled type 2 diabetes mellitus: Status: Chronic Code(s): E11.9 - Type 2 diabetes mellitus without complications (6) Major depression: Status: Chronic Code(s): F32.9 - Major depressive disorder, single episode, unspecified Qualifiers: Active/Remission status: remission status unspecified Major depression recurrence: unspecified whether recurrent Qualified Code(s): F32.9 - Major depressive disorder, single episode, unspecified (7) Class 1 obesity: Status: Acute Code(s): E66.9 - Obesity, unspecified (8) Hyperlipidemia: Status: Acute Code(s): E78.5 - Hyperlipidemia, unspecified Qualifiers: Hyperlipidemia type: mixed hyperlipidemia Qualified Code(s): E78.2 - Mixed hyperlipidemia Meds Home Medications and Allergies Home Medications Medication Instructions Recorded Confirmed Type multivitamin with [id number] 1 each PO DAILY Supplement 03/02/20 12/06/23 History 400 mcg-120 mg tablet azelastine 205.5 mcg (0.15 %) 1 spray intranasal HS 90 days #30 08/27/23 12/06/23 Rx nasal spray mL famotidine 20 mg tablet (Pepcid) 20 mg PO HS #90 tabs 08/27/23 12/06/23 Rx gabapentin 400 mg capsule 400 mg PO TID Pain 30 days #90 caps 08/27/23 12/06/23 Rx loratadine 10 mg tablet (Claritin) 10 mg PO DAILY #90 tabs 08/27/23 12/06/23 Rx cariprazine 1.5 mg capsule 1.5 mg PO DAILY #30 caps 11/13/23 12/06/23 Rx (Vraylar) furosemide 40 mg tablet (Lasix) 80 mg PO DAILY 12/06/23 12/06/23 History spironolactone 25 mg tablet 50 mg PO DAILY 12/06/23 12/06/23 History (Aldactone) aspirin 81 mg tablet,delayed 81 mg PO DAILY 12/07/23 12/07/23 History release budesonide-formoterol HFA 160 2 puff inhalation BID 12/07/23 12/07/23 History mcg-4.5 mcg/actuation aerosol inhaler (Symbicort) cholecalciferol (vitamin D3) 25 1,000 unit PO DAILY 12/07/23 12/07/23 History mcg (1,000 unit) tablet ergocalciferol (vitamin D2) 1,250 50,000 unit PO WEEKLY 12/07/23 12/07/23 History mcg (50,000 unit) capsule linaclotide 145 mcg capsule 145 mcg PO DAILY 12/07/23 12/07/23 History (Linzess) metformin 500 mg tablet 500 mg PO BID 12/07/23 12/07/23 History pantoprazole 40 mg tablet,delayed 40 mg PO HS 12/07/23 12/07/23 History release potassium chloride 20 mEq 20 meq PO DAILY 5 days #5 tabs 12/07/23 Rx tablet,extended release(part/cryst) (Klor-Con M) rosuvastatin 20 mg tablet 20 mg PO HS 12/07/23 12/07/23 History tizanidine 4 mg tablet 4 mg PO Q8HP PRN muscle spasms 12/07/23 12/07/23 History New Prescriptions to Start Prescriptions: potassium chloride [Klor-Con M20] Alessio Wooten Allergies Allergy/AdvReac Type Severity Reaction Status Date / Time morphine [MORPHINE] Allergy Severe S-DIFF. Verified 11/13/23 14:31 BREATHING Penicillins [PENICILLINS] Allergy Unknown Verified 11/13/23 14:31 Discharge Plan Disposition Patient Disposition: Home, Self-Care Condition: Good Follow up Plan Follow up with: Daphne Gonzalez APRN [Nurse Practitioner] - 12/17/23 11:00 am Bhumi Wild PA [Primary Care Provider] - 12/17/23 2:45 pm Prescriptions/Medication Reconciliation: New potassium chloride [Klor-Con M20] 20 mEq Tablet,Er Particles/Crystals 20 meq PO DAILY 5 Days Qty: 5 0RF Continued Vraylar 1.5 mg capsule 1.5 mg PO DAILY Qty: 30 2RF loratadine [Claritin] 10 mg tablet 10 mg PO DAILY Qty: 90 3RF azelastine 205.5 mcg (0.15 %) spray,non-aerosol 1 spray INTRANASAL HS 90 Days Qty: 30 2RF Rx Instructions: administer into each nostril famotidine [Pepcid] 20 mg tablet 20 mg PO HS Qty: 90 3RF gabapentin 400 mg capsule 400 mg PO TID 30 Days Qty: 90 2RF [id number] 1 EACH tablet 1 each PO DAILY spironolactone [Aldactone] 25 mg tablet 50 mg PO DAILY aspirin 81 mg Tablet,Delayed Release (Dr/Ec) 81 mg PO DAILY metformin 500 mg tablet 500 mg PO BID tizanidine 4 mg tablet 4 mg PO Q8HP PRN (Reason: muscle spasms) Patient Comments: TAKE ONE TABLET BY MOUTH EVERY 8 HOURS NEEDED FOR MUSCLE SPASTICITY ergocalciferol (vitamin D2) 1,250 mcg (50,000 unit) capsule 50,000 unit PO WEEKLY rosuvastatin 20 mg tablet 20 mg PO HS Patient Comments: TAKE ONE TABLET BY MOUTH ONCE A DAY cholecalciferol (vitamin D3) 25 mcg (1,000 unit) tablet 1,000 unit PO DAILY Linzess 145 mcg capsule 145 mcg PO DAILY Patient Comments: TAKE ONE CAPSULE BY MOUTH ONCE A DAY pantoprazole 40 mg tablet,delayed release (DR/EC) 40 mg PO HS Rx Instructions: TAKE ONE TABLET BY MOUTH ONCE A DAY FOR GERD budesonide-formoterol [Symbicort] 160-4.5 mcg/actuation HFA aerosol inhaler 2 puff inhalation BID Rx Instructions: INHALE 2 PUFFSBY MOUTH 2 TIMES A DAY Held furosemide [Lasix] 40 mg tablet 80 mg PO DAILY Hold Instructions: pending follow-up with Cardiology Problem Reconciliation Problems Reviewed?: Yes Patient Discharge Instructions ACTIVITY: Continue current activity DIET: continue same diet Patient Instructions: DI for Hypokalemia Providers Primary Care Provider: Bhumi Wild Admit Provider: Alessio Wooten Attending Provider: Alessio Wooten
[2023-12-07] MEDS: POTASSIUM CHLORIDE 20MEQ TAB 20 MEQ PO (10:38)
--- NOTE | 2023-12-07 22:57 | CA_ITS ---
APPROVED REPORT EXAM: Comprehensive 2D, Doppler, and color-flow Echocardiogram [employer] Coach: Alda Carbajal CRT Ht: 5 ft 8 in Wt: 215lbs BSA: 2.11 BP: 99/66 mmHg Indications: Chest Pain, Congestive Heart Failure, Shortness of Breath, Diabetes, Obesity, Hyperlipidemia, Hypertension/HDD M-Mode Dimensions RVDd 2.92 cm (0.9-2.6) LA Diam 3.02 cm (1.9-4.0) LVDd 4.31 cm (3.5-5.7) LVDs 2.14 cm (3.5-5.7) IVSd 1.00 cm (0.6-1.1) PWd 0.75 cm (0.6-1.1) EF (Teich) 81.90% FS 50.30% EDV (Teich) 83.50 mL TAPSE 2.21 (<1.7) ESV (Teich) 15.10 mL LV Diastology E Decel Time 150 (160-240 msec) E/A Ratio 1.07 MED A' 5.70 cm/s LAT A' 8.80 cm/s Aortic Valve AO Peak GR. 5.10 mmHg Mitral Valve MV E Max [place]. 74.0 (40-130 cm/s) MV A Velocity 69.0 (40-130 cm/s) E/A Ratio 1.07 MV PHT 44.0 ms Pulmonary Valve PV Peak Velocity 147.0 (50-150 cm/s) Tricuspid Valve TR P. Velocity 166.00 cm/s RAP Estimate 10.00 mmHg RVSP 21.10 mmHg Left Ventricle The left ventricle is normal size. The left ventricular systolic function is normal. The left ventricular ejection fraction is within the normal range. There is normal left ventricular wall thickness. There is normal LV segmental wall motion. The left ventricular diastolic function is normal. LVEF is 60%. Right Ventricle The right ventricle is normal size. The right ventricular systolic function is normal. Atria The left atrium size is normal. The right atrium size is normal. There is no Doppler evidence of interatrial shunt. Aortic Valve The aortic valve opens well. There is no aortic valvular stenosis. No aortic regurgitation is present. Mitral Valve The mitral valve is normal in structure. No evidence of mitral valve stenosis. Mild mitral regurgitation. Tricuspid Valve The tricuspid valve leaflets are thin and pliable. Trace tricuspid regurgitation. There is insufficient TR jet to estimate RVSP. Pulmonic Valve The pulmonary valve is normal in structure. Trace pulmonic regurgitation. Great Vessels The aortic root is normal in size. The ascending aorta is not well-visualized. IVC is normal in size and collapses >50% with inspiration. Pericardium There is no pericardial effusion. Other Information Study Quality: Fair Conclusion Normal biventricular systolic function. Mild MR. Electronically signed by : Josefina Garcia MD 12/10/2023 09:28:16
== END 2023-12-07 11:18 | disposition home or self-care (01) ==
LOC: ER 22:06 → 2ND 23:00 → ER 12-07 04:48 → 2ND 12-07 04:48
PROVIDERS: Nurse Practitioner Family; Admitting Provider Internal Medicine Adolescent Medicine; Emergency Provider Emergency Medicine; PCP Physician Assistant; Visit Provider Internal Medicine Adolescent Medicine
DX: E87.6 Hypokalemia (principal); I11.0 Hypertensive heart disease with heart failure; J44.9 Chronic obstructive pulmonary disease, unspecified; E11.9 Type 2 diabetes mellitus without complications; F32.9 Major depressive disorder, single episode, unspecified; E78.5 Hyperlipidemia, unspecified; E66.9 Obesity, unspecified; Z68.34 Body mass index [BMI] 34.0-34.9, adult; Z79.899 Other long term (current) drug therapy; Z79.4 Long term (current) use of insulin; I50.30 Unspecified diastolic (congestive) heart failure; R06.02 Shortness of breath
CPT/HCPCS: 36415; 71045; 80053; 82550; 83036; 83690; 83735; 84484; 85025; 85378; 87636; 93005; 93306; 99291; G0378; J0131; J2405

== ENCOUNTER 2023-12-17 11:51 | Outpatient (CLI) | payer MEDICAID, SELFPAY ==
[2023-12-17 12:34] LABS: Anion Gap 14.1 mEq/L (5-15); Blood Urea Nitrogen 16 mg/dl (7-17); Calcium 10.1 mg/dl (8.4-10.2); Carbon Dioxide 25 mmol/L (22.0-30.0); Chloride 104 mmol/L (98-107); Estimated Glomerular Filt Rate 65 ml/min (>60); GFR (African American) 79 ML/MIN (>60); Glucose 91 mg/dl (74-100); Potassium 4.1 mmoL/L (3.5-5.1); Sodium 139 mmol/L (136-145)
== END 2023-12-17 23:59 ==
LOC: LAB 11:51
PROVIDERS: PCP Physician Assistant; Visit Provider Nurse Practitioner
DX: E87.6 Hypokalemia (principal); R60.0 Localized edema
CPT/HCPCS: 36415; 80048; 83735

== ENCOUNTER 2023-12-17 15:17 | Outpatient (CLI) | payer MEDICAID, SELFPAY ==
--- NOTE | 2023-12-17 15:20 | XR_ITS ---
FINAL REPORT CLINICAL HISTORY: low back pain s/p fall FINDINGS: LUMBAR SPINE Five views demonstrate no acute fracture. There are mild degenerative changes. Mild leftward curvature is identified. There is no malalignment. IMPRESSION: No acute process. Reviewed, Interpreted and Dictated by Asif Tran III, MD Transcribed by Brenda Emerson Authenticated and [facility]
--- NOTE | 2023-12-17 15:20 | XR_ITS ---
FINAL REPORT CLINICAL HISTORY: right hip pain fall FINDINGS: RIGHT HIP Three views were obtained. There is no acute fracture or dislocation. There are mild degenerative changes. No soft tissue abnormality is identified. IMPRESSION: No acute process. Reviewed, Interpreted and Dictated by Asif Tran III, MD Transcribed by Brenda Emerson Authenticated and [facility]
== END 2023-12-17 23:59 | disposition home or self-care (01) ==
LOC: RAD 15:18
PROVIDERS: PCP Physician Assistant; Visit Provider Physician Assistant
DX: M54.50 Low back pain, unspecified (principal); M25.551 Pain in right hip
CPT/HCPCS: 72110; 73502

== ENCOUNTER 2024-01-21 09:54 | Outpatient (CLI) | payer MEDICAID, SELFPAY ==
[2024-01-21 11:21] LABS: Chloride 104 mmol/L (98-107); Potassium 4.3 mmoL/L (3.5-5.1); Sodium 139 mmol/L (136-145)
[2024-01-21 11:23] LABS: Blood Urea Nitrogen 16 mg/dl (7-17); Estimated Glomerular Filt Rate 75 ml/min (>60); GFR (African American) 90 ML/MIN (>60)
[2024-01-21 11:24] LABS: Anion Gap 11.3 mEq/L (5-15); Calcium 9.6 mg/dl (8.4-10.2); Carbon Dioxide 28 mmol/L (22.0-30.0); Glucose 93 mg/dl (74-100)
== END 2024-01-21 23:59 | disposition home or self-care (01) ==
LOC: LAB 09:55
PROVIDERS: PCP Physician Assistant; Visit Provider Nurse Practitioner Family
DX: R60.0 Localized edema (principal); E87.6 Hypokalemia
CPT/HCPCS: 36415; 80048

== ENCOUNTER 2024-03-26 20:08 | Emergency (ER) | payer MEDICAID, SELFPAY ==
--- NOTE | 2024-03-26 20:06 | ECG_ITS ---
APPROVED REPORT Exam: Resting ECG HR:85 bpm ECG Measurements Heart Rate 85 AXES PA 133 P 47 QRSd 80 QRS 34 QT 380 T 46 QTc 422 Conclusion SINUS RHYTHM LOW QRS VOLTAGE IN PRECORDIAL LEADS [QRS DEFLECTION < 1.0 mV IN CHEST LEADS] BORDERLINE ECG UNCONFIRMED REPORT Electronically signed by : Alessio Kaiser, 03/26/2024 23:06:02
[2024-03-26 20:09] VITALS: BP 115/81; PULSE 82; RESP 18; TEMP 36.9; O2SAT 98; BMI 35.4
--- NOTE | 2024-03-26 20:14 | ED_ITS ---
<Statement entered by Yun Kaiser MD - 03/26/24 22:58> I was consulted by the JACKIE, and we discussed the complexity of the problems being addressed. I approved the treatment and management plan for this patient's care in the emergency department, thus performing a substantive portion of the medical decision making. Yun Kaiser MD, ALYCE, FACEP Discharge Plan Disposition Patient Disposition: Home, Self-Care Condition: Good Chief Complaint: Chest Pain Prescriptions Prescriptions: No Action Vraylar 1.5 mg capsule 1.5 mg PO DAILY Qty: 30 2RF cefuroxime axetil 500 mg tablet 500 mg PO BID albuterol sulfate 1.25 mg/3 mL solution for nebulization 1.25 mg inhalation QID PRN (Reason: shortness of breath or wheezing) Qty: 90 0RF loratadine [Claritin] 10 mg tablet 10 mg PO DAILY Qty: 90 3RF azelastine 205.5 mcg (0.15 %) spray,non-aerosol 1 spray INTRANASAL HS 90 Days Qty: 30 2RF Rx Instructions: administer into each nostril famotidine [Pepcid] 20 mg tablet 20 mg PO HS Qty: 90 3RF furosemide [Lasix] 80 mg tablet 80 mg PO DAILY Qty: 90 1RF metoprolol succinate [Toprol XL] 25 mg tablet extended release 24 hr 25 mg PO DAILY Qty: 30 5RF ergocalciferol (vitamin D2) 1,250 mcg (50,000 unit) capsule See Rx Instructions .ROUTE .COMPLEX Qty: 14 3RF Dose Instruction: TAKE ONE CAPSULE BY MOUTH EVERY WEEK Rx Instructions: TAKE ONE CAPSULE BY MOUTH EVERY WEEK tizanidine 4 mg tablet See Rx Instructions .ROUTE .COMPLEX Qty: 30 2RF Dose Instruction: TAKE ONE TABLET BY MOUTH EVERY 8 HOURS NEEDED FOR MUSCLE SPASTICITY Rx Instructions: TAKE ONE TABLET BY MOUTH EVERY 8 HOURS NEEDED FOR MUSCLE SPASTICITY rosuvastatin 20 mg tablet See Rx Instructions .ROUTE .COMPLEX Qty: 90 3RF Dose Instruction: TAKE ONE TABLET BY MOUTH ONCE A DAY Rx Instructions: TAKE ONE TABLET BY MOUTH ONCE A DAY Linzess 145 mcg capsule See Rx Instructions .ROUTE .COMPLEX Qty: 30 3RF Dose Instruction: TAKE ONE CAPSULE BY MOUTH ONCE A DAY Rx Instructions: TAKE ONE CAPSULE BY MOUTH ONCE A DAY (DME) OneTouch Ultra Test Strip See Rx Instructions .ROUTE .COMPLEX Qty: 50 0RF Dose Instruction: USE DIRECTED Rx Instructions: USE DIRECTED metformin 500 mg tablet See Rx Instructions .ROUTE .COMPLEX Qty: 60 5RF Dose Instruction: TAKE ONE TABLET BY MOUTH 2 TIMES A DAY Rx Instructions: TAKE ONE TABLET BY MOUTH 2 TIMES A DAY cholecalciferol (vitamin D3) 25 mcg (1,000 unit) tablet See Rx Instructions .ROUTE .COMPLEX Qty: 90 3RF Dose Instruction: TAKE ONE TABLET BY MOUTH ONCE A DAY Rx Instructions: TAKE ONE TABLET BY MOUTH ONCE A DAY gabapentin 400 mg capsule 400 mg PO TID Qty: 90 0RF [id number] 1 EACH tablet 1 each PO DAILY spironolactone [Aldactone] 25 mg tablet 50 mg PO DAILY aspirin 81 mg Tablet,Delayed Release (Dr/Ec) 81 mg PO DAILY pantoprazole 40 mg tablet,delayed release (DR/EC) 40 mg PO HS Rx Instructions: TAKE ONE TABLET BY MOUTH ONCE A DAY FOR GERD budesonide-formoterol [Symbicort] 160-4.5 mcg/actuation HFA aerosol inhaler 2 puff inhalation BID Rx Instructions: INHALE 2 PUFFSBY MOUTH 2 TIMES A DAY potassium chloride [Klor-Con M20] 20 mEq Tablet,Er Particles/Crystals 20 meq PO DAILY 5 Days Qty: 5 0RF Referrals Follow up/Referrals: Provider,Referral, MD [Primary Care Provider] - See instructions Activity Restrictions/Add. Instructions Additional Instructions/Restrictions: Please keep your appointment tomorrow for your nuc med stress test. Follow-up with your PCP as scheduled. Return to ER for any worsening signs or symptoms as needed Clinical Impressions Clinical Impression: Chest pain Qualifiers: Chest pain type: unspecified Qualified Code(s): R07.9 - Chest pain, unspecified Instructions Patient Instructions: DI for Chest Pain Discharge ED Provider: Yun Kaiser HPI General Chief Complaint: Chest Pain Stated Complaint: CP Time Seen by Provider: 03/26/24 20:13 History of Present Illness HPI narrative: Patient presents for evaluation of chest pain. Patient states that she began having back pain between her shoulder blades that then rotated to the anterior chest. Patient then reported numbness in her left upper arm and lower extremity that is since resolved. Patient reports nausea but no vomiting. She has had a significant cardiac history of chest pain but has had multiple echocardiograms and cardiology workups that thus far have revealed no cardiac disease. She is scheduled for a nuclear medicine stress test tomorrow. She currently denies shortness of breath fever chills hemoptysis hematochezia melena nausea vomit diarrhea. Related Data Home Medications Medication Instructions Recorded Confirmed multivitamin with [id number] 1 each PO DAILY Supplement 03/02/20 03/17/24 400 mcg-120 mg tablet spironolactone 25 mg tablet 50 mg PO DAILY 12/06/23 03/17/24 (Aldactone) aspirin 81 mg tablet,delayed 81 mg PO DAILY 12/07/23 03/17/24 release budesonide-formoterol HFA 160 2 puff inhalation BID 12/07/23 03/17/24 mcg-4.5 mcg/actuation aerosol inhaler (Symbicort) pantoprazole 40 mg tablet,delayed 40 mg PO HS 12/07/23 03/17/24 release cefuroxime axetil 500 mg tablet 500 mg PO BID 12/17/23 03/17/24 Previous Rx's Medication Instructions Recorded azelastine 205.5 mcg (0.15 %) 1 spray intranasal HS 90 days #30 08/27/23 nasal spray mL famotidine 20 mg tablet (Pepcid) 20 mg PO HS #90 tabs 08/27/23 loratadine 10 mg tablet (Claritin) 10 mg PO DAILY #90 tabs 08/27/23 cariprazine 1.5 mg capsule 1.5 mg PO DAILY #30 caps 11/13/23 (Vraylar) potassium chloride 20 mEq 20 meq PO DAILY 5 days #5 tabs 12/07/23 tablet,extended release(part/cryst) (Klor-Con M) albuterol sulfate 1.25 mg/3 mL 1.25 mg (3 mL) inhalation QID PRN 12/17/23 solution for nebulization shortness of breath or wheezing #90 mL furosemide 80 mg tablet (Lasix) 80 mg PO DAILY #90 tabs 01/16/24 ergocalciferol (vitamin D2) 1,250 See Rx Instructions .Route 02/07/24 mcg (50,000 unit) capsule .COMPLEX #14 caps rosuvastatin 20 mg tablet See Rx Instructions .Route 02/07/24 .COMPLEX #90 tabs tizanidine 4 mg tablet See Rx Instructions .Route 02/07/24 .COMPLEX #30 tabs linaclotide 145 mcg capsule See Rx Instructions .Route 02/25/24 (Linzess) .COMPLEX #30 caps blood sugar diagnostic (OneTouch #50 strips 03/10/24 Ultra Test strips) cholecalciferol (vitamin D3) 25 See Rx Instructions .Route 03/10/24 mcg (1,000 unit) tablet .COMPLEX #90 tabs metformin 500 mg tablet See Rx Instructions .Route 03/10/24 .COMPLEX #60 tabs metoprolol succinate 25 mg 25 mg PO DAILY #30 tabs 03/17/24 tablet,extended release 24 hr (Toprol XL) gabapentin 400 mg capsule 400 mg PO TID #90 caps 03/20/24 Allergies Allergy/AdvReac Type Severity Reaction Status Date / Time morphine [MORPHINE] Allergy Severe S-DIFF. Verified 03/17/24 09:11 BREATHING Penicillins [PENICILLINS] Allergy Unknown Verified 03/17/24 09:11 [facility] Disclaimer: The information contained in this section may have been updated after the patient was seen, as this information can be updated by other users. Medical History Anxiety Nightmare Edema of both lower extremities Dizziness Screening for lung cancer Chronic cough Mild persistent asthma Non-seasonal allergic rhinitis Stopped smoking with greater than 30 pack year history Family history of asthma Dyspnea on exertion Hyperlipidemia Hypertensive heart disease SOB (shortness of breath) on exertion Leg edema Abnormal ankle brachial index (NANNETTE) History of rectal bleeding Constipation Abnormal electrocardiography Family history of heart disease Ex-smoker Gastroesophageal reflux disease COPD (chronic obstructive pulmonary disease) HTN (hypertension) Dyspnea Chest pain Lumbar radicular pain Neuropathy Obesity, Class II, BMI 35-39.9 Surgical History History of colonoscopy History of carpal tunnel release Family History Other Asthma Cancer Diabetes Family history of asthma Heart attack Hyperlipidemia Hypertension Stroke Social History Smoking Status: Former smoker tobacco type: e-cigarettes alcohol intake: never substance use type: denies use current occupational status: unemployed Travel in the last 8 weeks: Inside the [place] caffeine: Yes ROS Obtained: Yes Systems reviewed as appropriate & no additional complaints except as documented Physical Exam General General appearance: alert and in no apparent distress Respiratory Respiratory exam: Present normal lung sounds bilaterally Cardiovascular Cardiovascular exam: Present regular rate and normal rhythm Neurological Exam Neurological exam: Present alert and oriented X3 HEART Score HEART Score HEART Score assessment performed?: Yes History (anamnesis): Slightly suspicious ECG: Non-specific disturbance Age: 45-65 years Risk factors: 1-2 risk factors Troponin: </= normal limit HEART Score: 3 Critical Care Critical Care Time Critical Care Time: No Medical Decision Making Medical Records Medical records reviewed: Yes I reviewed the patient's medical records. [place] Inquiry Pt receiving controlled substance: No Vital Signs Vital Signs: 03/26/24 20:09 03/26/24 21:01 03/26/24 21:34 Temperature 98.4 F Temperature Source Oral Pulse Rate 75 76 Pulse Rate [Left] 82 Respiratory Rate 18 21 Blood Pressure 109/66 L Blood Pressure [Right Arm] 115/81 Blood Pressure Mean [Right Arm] 92 02 Sat by Pulse Oximetry 98 96 Oxygen Delivery Method Room Air Lab Data Lab results reviewed: Yes I reviewed the patient's lab results. Labs: Lab Results 03/26/24 20:05: WBC 12.6 H, RBC 4.87, Hgb 14.1, Hct 41.4, MCV 85.0, MCH 28.9, MCHC 34.0, RDW 15.1, Plt Count 280, MPV 7.9, Neut % (Auto) 58.8, Lymph % (Auto) 30.6, [place] % (Auto) 6.0, Eos % (Auto) 3.6, Baso % (Auto) 0.9, Neut # (Auto) 7.4, Lymph # (Auto) 3.9, [place] # (Auto) 0.8, Eos # (Auto) 0.5 H, Baso # (Auto) 0.1, Sodium 139, Potassium 3.5, Chloride 105, Carbon Dioxide 26, Anion Gap 11.5, BUN 23 H, Creatinine 1.00, Estimated Creat Clear 107, Estimated GFR 58 L, Est GFR ( Amer) 70, Glucose 99, Calcium 9.4, Magnesium 1.7, Total Bilirubin 0.4, AST 31, ALT 25, Alkaline Phosphatase 90, Troponin I < 0.01, Total Protein 7.2, Albumin 3.8, Globulin 3.4 H, Albumin/Globulin Ratio 1.1 03/26/24 20:05 03/26/24 20:05 Response Orders (Tests/Meds): ED MEDICATIONS Discontinued Medications Generic Name Dose Route Start Last Admin Trade Name Willian PRN Reason Stop Dose Admin Acetaminophen 1,000 mg 03/26/24 20:14 03/26/24 20:56 Acetaminophen 1,000mg/100ml Vial IV 03/26/24 20:15 1,000 mg ONCE ONE Administration Belladonna Alkaloids 60 ml 03/26/24 20:14 03/26/24 20:50 Belladonna Alkaloids 60 Ml Ml PO 03/26/24 20:15 60 ml ONCE ONE Administration Lactated Ringer's 1,000 mls @ 999 mls/hr 03/26/24 20:14 03/26/24 20:55 Lactated Ringer's 1000 Ml Bag IV 03/26/24 21:14 999 mls/hr .Q1H1M ONE Administration Ketorolac Tromethamine 15 mg 03/26/24 20:14 03/26/24 20:53 Ketorolac 30mg/Ml Vial IV 03/26/24 20:15 15 mg ONCE ONE Administration Ondansetron HCl 4 mg 03/26/24 20:14 03/26/24 20:53 Ondansetron 4mg/2ml Vial IV 03/26/24 20:15 4 mg ONCE ONE Administration ORDERS Category Date Time Status CBC w/Auto Diff [Complete Blood Count Auto Diff] Stat Lab 03/26/24 20:05 Completed CMP [Comprehensive Metabolic Panel] Stat Lab 03/26/24 20:05 Completed Magnesium Stat Lab 03/26/24 20:05 Completed Trop I [Troponin I] Stat Lab 03/26/24 20:05 Completed Troponin I Q3H Lab 03/26/24 23:15 Ordered Troponin I Q3H Lab 03/27/24 02:15 Ordered MDM Narrative Medical Decision Narrative: In summary patient is a 53-year-old female who presents to the emergency department for evaluation of chest pain. Patient is hemodynamically stable upon arrival, afebrile. Physical exam is unremarkable and nonfocal including on repeat producible chest pain on palpation normal breath sounds normal heart sounds.. Differential diagnosis includes ACS versus GERD versus ulcer disease etc. Initial workup will be conducted with hematologic labs twelve-lead EKG plain film chest x-ray. Initial interventions include crystalloid bolus Toradol Tylenol GI cocktail. Results of initial intervention show that her hematologic labs are nonactionable and patient has a negative troponin and normal EKG normal plain film chest x-ray via my informal interpretation. Upon reevaluation patient reports that her discomfort is still present but no worse. Given this I had interactive discussion with the patient and the patient directed decision making she feels comfortable going home with follow-up tomorrow for her nuclear medicine stress test and thus is appropriate for discharge now.
[2024-03-26 20:29] LABS: Basophils # 0.1 K/mm3 (0-0.2); Basophils % 0.9 % (0.1-2.0); Eosinophils # 0.5 K/mm3 (0.0-0.4); Eosinophils % 3.6 % (0.1-12.0); Hematocrit 41.4 % (37.0-47.0); Hemoglobin 14.1 g/dL (12.2-16.2); Lymphocytes # 3.9 K/mm3 (0.7-4.5); Lymphocytes % 30.6 % (10-50); Mean Corpuscular Hemoglobin 28.9 pg (27.0-31.2); Mean Platelet Volume 7.9 fl (7.4-10.4); Monocytes # 0.8 K/mm3 (0.1-1.0); Neutrophils # 7.4 K/mm3 (1.8-7.8); Neutrophils % 58.8 % (37.0-80.0); Platelet Count 280 K/mm3 (142-424); Red Blood Count 4.87 M/mm3 (4.20-5.40); Red Cell Distribution Width 15.1 % (11.5-17.5); White Blood Count 12.6 K/mm3 (4.8-10.8)
[2024-03-26 20:35] LABS: Chloride 105 mmol/L (98-107)
[2024-03-26 20:36] LABS: Potassium 3.5 mmoL/L (3.5-5.1); Sodium 139 mmol/L (136-145)
[2024-03-26 20:38] LABS: Alanine Aminotransferase 25 U/L (12-78); Alkaline Phosphatase 90 U/L (38-126); Anion Gap 11.5 mEq/L (5-15); Aspartate Amino Transferase 31 U/L (14-36); Bilirubin,Total 0.4 mg/dl (0.2-1.3); Blood Urea Nitrogen 23 mg/dl (7-17); Carbon Dioxide 26 mmol/L (22.0-30.0); Creatinine Clearance Estimated 107 mL/min (50-200); Estimated Glomerular Filt Rate 58 ml/min (>60); GFR (African American) 70 ML/MIN (>60)
[2024-03-26 20:39] LABS: Albumin Level 3.8 g/dl (3.5-5.0); Albumin/Globulin Ratio 1.1 (1.1-1.8); Calcium 9.4 mg/dl (8.4-10.2); Globulin 3.4 g/dL (1.3-3.2); Glucose 99 mg/dl (74-100); Magnesium 1.7 mg/dl (1.6-2.3); Total Protein,Serum 7.2 g/dl (6.3-8.2)
[2024-03-26] MEDS: BELLADONNA ALKALOIDS 60 ML ML PO (20:50)
[2024-03-26 20:51] LABS: Troponin I < 0.01 ng/ml (0.00-0.034)
[2024-03-26] MEDS: KETOROLAC 30MG/ML VIAL 15 MG IV (20:53)
[2024-03-26] MEDS: ONDANSETRON 4MG/2ML VIAL 4 MG IV (20:53)
[2024-03-26] MEDS: LACTATED RINGERS 1000ML 1,000 ML 999 ML IV (20:55)
[2024-03-26] MEDS: ACETAMINOPHEN 1,000MG/100ML VIAL 1000 MG IV (20:56)
[2024-03-26 21:01] VITALS: PULSE 75
[2024-03-26 21:34] VITALS: BP 109/66; PULSE 76; RESP 21; O2SAT 96
[2024-03-26 22:24] VITALS: BP 110/56; PULSE 78; RESP 18; TEMP 36.7; O2SAT 100
== END 2024-03-26 22:27 | disposition home or self-care (01) ==
PROVIDERS: Physician Assistant; Emergency Provider Student in an Organized Health Care Education/Training Program
DX: R07.9 Chest pain, unspecified (principal); R11.0 Nausea; I10 Essential (primary) hypertension; E78.5 Hyperlipidemia, unspecified; J44.9 Chronic obstructive pulmonary disease, unspecified; K21.9 Gastro-esophageal reflux disease without esophagitis; Z87.891 Personal history of nicotine dependence
CPT/HCPCS: 80053; 83735; 84484; 85025; 93005; 96361; 96374; 96375; 99284; J0131; J1885; J2405; J7120

== ENCOUNTER 2024-03-27 07:04 | Outpatient (CLI) | payer MEDICAID, SELFPAY ==
[2024-03-27] VITALS (13 sets, daily range): BP systolic 79–244; BP diastolic 39–115; PULSE 50–70; RESP 16–18; TEMP 36.1; O2SAT 94–98; BMI 35.4
[2024-03-27] MEDS: METOPROLOL TARTRATE 25MG TABLET 25 MG (07:30)
[2024-03-27] MEDS: NITROGLYCERIN 0.4MG SL TABLET SL (08:18)
[2024-03-27] MEDS: 0.9 % SODIUM CHLORIDE 50 ML VIAL IV (08:43)
[2024-03-27] MEDS: SODIUM CHLORIDE 0.9% 10ML SYR (RAD ONLY) 10 ML IV (08:43)
[2024-03-27] MEDS: IOPAMIDOL-370 (76%);100ML BOTTLE 85 ML IV (08:43)
--- NOTE | 2024-03-27 08:59 | PC.NURSE ---
patient taken to CT scanner at 0812. pre procedure BP 135/115. nitroglycerin .8mg given at 0818 per protocol. post nitro BP 244/173. patient remains asymptomatic. no c/o of chest pain or dizziness. patient is alert and oriented. RN to monitor patient in CT scanner. post procedure BP 124/67. patient to remain in observation with RN to monitor symptoms and BP.
== END 2024-03-27 09:30 | disposition home or self-care (01) ==
PROVIDERS: PCP Physician Assistant; Visit Provider Physician Assistant
DX: R06.09 Other forms of dyspnea (principal); R07.89 Other chest pain
CPT/HCPCS: 75574; Q9967

== ENCOUNTER 2024-12-19 09:25 | Outpatient (CLI) | payer MEDICAID, SELFPAY ==
--- NOTE | 2024-12-19 09:27 | MM_ITS ---
PROCEDURE INFORMATION: Exam: MG Bilateral Screening 3D Mammography Exam date and time: 12/19/2024 9:49 AM Age: 54 years old Clinical indication: Screening examination TECHNIQUE: Imaging protocol: Bilateral Screening tomosynthesis and 2D mammography including computer-aided detection (CAD) when performed. COMPARISON: 1. MG MM DIG MAMM DX UNILAT LT CAD 11/03/2021 1:34 PM 2. MG MM DIG MAMM DX UNILAT LT CAD 05/02/2021 1:50 PM FINDINGS: MAMMOGRAPHY: Breast composition: There are scattered areas of fibroglandular density. Mass: None. Architectural distortion: None. Calcifications: No suspicious calcifications. Asymmetric density: None. Skin thickening: None. Axillary adenopathy: None. IMPRESSION: No mammographic evidence of malignancy. Annual screening is recommended unless otherwise clinically indicated. ASSESSMENT: BI-RADS Category 1: Negative.
== END 2024-12-19 23:59 | disposition home or self-care (01) ==
LOC: RAD 09:25
PROVIDERS: PCP Physician Assistant; Visit Provider Physician Assistant
DX: Z12.31 Encounter for screening mammogram for malignant neoplasm of breast (principal)
CPT/HCPCS: 77063; 77067

== ENCOUNTER 2024-12-31 09:00 | Outpatient (RCR) | payer MEDICAID, SELFPAY | END 2024-12-31 23:59 | disposition home or self-care (01) | LOC: PT 09:00 | PROVIDERS: PCP Physician Assistant; Visit Provider Physician Assistant | DX: S82.852A Displaced trimalleolar fracture of left lower leg, initial encounter for closed fracture (principal) | CPT/HCPCS: 97110; 97163 ==

== ENCOUNTER 2025-01-29 09:00 | Outpatient (RCR) | payer MEDICAID, SELFPAY | END 2025-01-29 23:59 | disposition home or self-care (01) | LOC: PT 09:00 | PROVIDERS: PCP Physician Assistant; Visit Provider Physician Assistant | DX: S82.852A Displaced trimalleolar fracture of left lower leg, initial encounter for closed fracture (principal) | CPT/HCPCS: 97110; 97140; 97164 ==

== ENCOUNTER 2025-02-24 13:43 | Outpatient (RCR) | payer MEDICAID, SELFPAY | END 2025-02-24 23:59 | disposition home or self-care (01) | LOC: PT 13:43 | PROVIDERS: Visit Provider Physician Assistant | DX: R60.0 Localized edema (principal) | CPT/HCPCS: 97163 ==

== ENCOUNTER 2025-03-09 11:00 | Outpatient (RCR) | payer MEDICAID, SELFPAY | END 2025-03-09 23:59 | disposition home or self-care (01) | LOC: PT 11:00 | PROVIDERS: Visit Provider Physician Assistant | DX: S82.852A Displaced trimalleolar fracture of left lower leg, initial encounter for closed fracture (principal); X58.XXXA Exposure to other specified factors, initial encounter | CPT/HCPCS: 97014; 97110; 97140; 97164; 97530; G0283 ==

== ENCOUNTER 2025-03-19 11:00 | Outpatient (RCR) | payer MEDICAID, SELFPAY | END 2025-03-19 23:59 | disposition home or self-care (01) | LOC: PT 11:00 | PROVIDERS: Visit Provider Physician Assistant | DX: S82.852A Displaced trimalleolar fracture of left lower leg, initial encounter for closed fracture (principal) | CPT/HCPCS: 97110; 97140; 97164; 97530 ==

== ENCOUNTER 2025-04-08 09:00 | Outpatient (RCR) | payer MEDICAID, SELFPAY | END 2025-04-08 23:59 | disposition home or self-care (01) | LOC: PT 09:00 | PROVIDERS: Visit Provider Physician Assistant | DX: R60.0 Localized edema (principal) | CPT/HCPCS: 97140 ==

== ENCOUNTER → 2025-04-13 09:32 | Outpatient (RCR) | payer MEDICAID, SELFPAY | LOC: PT 09:32 | PROVIDERS: Visit Provider Physician Assistant | DX: G89.29 Other chronic pain (principal); M25.561 Pain in right knee | CPT/HCPCS: 97760 ==

== ENCOUNTER 2025-04-14 09:34 | Outpatient (CLI) | payer MEDICAID, SELFPAY ==
[2025-04-14 10:21] LABS: Hematocrit 41.9 % (37.0-47.0); Hemoglobin 13.6 g/dL (12.2-16.2); Immature Granulocytes % 0.2 %; Mean Corpuscular HGB Conc 32.5 g/dL (31.8-35.4); Mean Corpuscular Hemoglobin 26.4 pg (27.0-31.2); Mean Corpuscular Volume 81.2 fl (81-99); Nucleated Red Blood Cells % 0 %; Platelet Count 295 K/mm3 (142-424); Red Blood Count 5.16 M/mm3 (4.20-5.40); Red Cell Distribution Width-SD 44.9 fL; White Blood Count 8.5 K/mm3 (4.8-10.8)
[2025-04-14 10:41] LABS: Albumin Level 3.5 g/dl (3.5-5.0); Chloride 105 mmol/L (98-107); Sodium 138 mmol/L (136-145)
[2025-04-14 10:42] LABS: Potassium 3.9 mmoL/L (3.5-5.1)
[2025-04-14 10:44] LABS: Alanine Aminotransferase 36 U/L (12-78); Alkaline Phosphatase 106 U/L (38-126); Anion Gap 10.9 mEq/L (5-15); Aspartate Amino Transferase 38 U/L (14-36); Bilirubin,Direct 0.1 mg/dl (0.0-0.4); Bilirubin,Indirect 0.2 mg/dL (0.0-0.9); Bilirubin,Total 0.3 mg/dl (0.2-1.3); Bilirubin,Unconjugated 0.2 mg/dL (0.0-1.1); Blood Urea Nitrogen 18 mg/dl (7-17); Calcium 9.8 mg/dl (8.4-10.2); Carbon Dioxide 26 mmol/L (22.0-30.0); Cholesterol 191 mg/dl (140-200); Creatinine,Serum 0.90 mg/dl (0.52-1.04); Estimated Glomerular Filt Rate 65 ml/min (>60); GFR (African American) 78 ML/MIN (>60); Glucose 113 mg/dl (74-100); Total Protein,Serum 7.3 g/dl (6.3-8.2); Triglycerides 153 mg/dl (30-150)
[2025-04-14 10:45] LABS: HDL Cholesterol 41 mg/dl (40-60); Magnesium 2.0 mg/dl (1.6-2.3)
[2025-04-14 10:50] LABS: NT Pro Brain Natriuretic Pep. 40.9 pg/mL (0-125)
[2025-04-14 10:58] LABS: Free T4 (Free Thyroxine) 1.35 ng/dl (0.78-2.19)
[2025-04-14 12:00] LABS: Thyroid Stimulating Hormone 1.24 uIU/mL (0.465-4.68)
== END 2025-04-14 23:59 | disposition home or self-care (01) ==
PROVIDERS: PCP Physician Assistant; Visit Provider Physician Assistant
DX: I11.9 Hypertensive heart disease without heart failure (principal); R60.0 Localized edema; E78.2 Mixed hyperlipidemia; R42 Dizziness and giddiness
CPT/HCPCS: 36415; 80048; 80061; 80076; 83735; 83880; 84439; 84443; 85025

== ENCOUNTER 2025-05-04 10:00 | Outpatient (RCR) | payer MEDICAID, SELFPAY | END 2025-05-04 23:59 | disposition home or self-care (01) | LOC: PT 10:00 | PROVIDERS: Visit Provider Physician Assistant | DX: R60.0 Localized edema (principal) | CPT/HCPCS: 97140; 97164; 97760 ==

== ENCOUNTER 2025-06-03 08:00 | Outpatient (RCR) | payer MEDICAID, SELFPAY | END 2025-06-03 23:59 | disposition home or self-care (01) | LOC: PT 08:00 | PROVIDERS: PCP Physician Assistant; Visit Provider Physician Assistant | DX: R60.0 Localized edema (principal) | CPT/HCPCS: 97140; 97164 ==

== ENCOUNTER 2025-06-25 09:00 | Outpatient (RCR) | payer MEDICAID, SELFPAY | END 2025-06-25 23:59 | disposition home or self-care (01) | LOC: PT 09:00 | PROVIDERS: PCP Physician Assistant; Visit Provider Physician Assistant | DX: I89.0 Lymphedema, not elsewhere classified (principal) | CPT/HCPCS: 97140 ==

== ENCOUNTER 2025-06-25 09:48 | Outpatient (CLI) | payer MEDICAID, SELFPAY ==
--- OUTSIDE RECORDS SUMMARY | 2025-06-25 10:01 | XMS_ITS | Continuity of Care Document ---
Author Organization [place] - [employer] [employer] [facility] Address [address] [place] [address] Assessment No assessment recorded. Plan of Treatment Reminders Order Date Submit Date Provider Last Modified By Organization Details Last Modified Time Details Appointments FOLLOW UP 15 2024 10:45A M Bhumi Wild PA-C Not available Not available Not available Lab HbA1c (hemoglob in A1c), blood 2024 025 [email or web address] [facility], [address] [facility] ([facility] [place], [address], 05/21/2025 11:48:51 Referral lymphedem a consult 2024 025 ZOEMary [facility], [address], [place], [address], 06/05/2025 09:14:19 Procedures None recorded. Surgeries None recorded. Imaging None recorded. Medication Orders None recorded. Patient TargetsNo targets recorded. Patient Instructions Encounter Date Encounter Id Patient Instructions Last Modified By Organization Details Last Modified Time 05/19/2025 [id number] type 2 diabetes: care instructions [email or web address] Not available 05/21/2025 11:48:51 Reason for Referral Lymphedema Consult for Lymph edema of bilateral lower limbs Referring Physician: Bhumi Wild, Family Medicine, Encounter Date: 05/19/2025 Results Created Date Observation Date Name Description Value Unit Range Abnormal Flag Note LastModifiedBy Organization Detail LastModifiedTime 05/19/2005/19/2025 HbA1c (hemo globi n A1c), blood HbA1c 5.6 Not Available [place] [address] [facility], [place], [address], 05/19/2025 11:19:30 Result Notes None recorded. Problems Name Problem SNOMED Code Status Onset Date Resolution Date Notes Provider Name and Address Organization Details Recorded Time Gastroes ophageal reflux disease without esophagi tis 643404310 Active 2018 Not Available [facility] 21:06:22 Precordi al pain [id number] Completed 201811/15/2018 Problem Code: R07.2; Problem Code Type: ICD-10; Not Available [facility] 21:06:22 Acute pharyngi tis 406075364 Completed 201811/13/2024 ANA M Sanchez [address] [place] [address], [address] , [facility] 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 955474186 Active 2018 Problem Code: Q25.48; Problem Code Type: ICD-10; Not Available [facility] 21:06:23 Asthenia 74426781 Active 2018 Problem Code: R53.1; Problem Code Type: ICD-10; Not Available [facility] 21:06:22 Mixed hyperlip idemia 135824375 Active 2018 Problem Code: E78.2; Problem Code Type: ICD-10; Not Available [facility] 21:06:22 Abnormal weight gain 788928037 Active 2018 Problem Code: R63.5; Problem Code Type: ICD-10; Not Available [facility] 21:06:23 Median nerve entrapme nt 926821754 Active 2018 Not Available [facility] 21:06:22 Melena 8105506 Active 2018 Problem Code: K92.1; Problem Code Type: ICD-10; Not Available [facility] 2 21:06:22 Acute sinusiti s 48922883 Completed 201811/13/2024 Problem Code: J01.90; Problem Code Type: ICD-10; ANA M Sanchez [address] [place] [address], [address] , [employer] 5 17:43:02 Heartbur n 37971527 Active 2018 Problem Code: R12; Problem Code Type: ICD-10; Not Available [facility] 2 21:06:22 Neck pain 79774787 Active 2018 Not Available [facility] 2 21:06:22 Influenz a vaccine needed 09046380101 06 Active 2018 Problem Code: Z23; Problem Code Type: ICD-10; Not Available [facility] 2 21:06:23 Restless legs syndrome 45086897 Active 2018 Problem Code: G25.81; Problem Code Type: ICD-10; Not Available [facility] 2 21:06:22 Body mass index 30+ - obesity 158738183 Active 2018 Problem Code: Z68.37; Problem Code Type: ICD-10; Not Available [facility] 2 21:06:23 Closed trimalle olar fracture of left ankle 97888657917 580785 Active 2023 ANA M Sanchez [address] [place] [address], [address] , [employer] 4 09:19:19 Hyperlip idemia 96573735 Active 2023 ANA M Sanchez [address] [place] [address], [address] , [employer] 5 17:43:42 Constipa tion 44696170 Active 2023 ANA M Sanchez [address] [place] [address], [address] , [employer] 5 17:43:15 Vitamin D deficien 38795760 Active 2023 ANA M Sanchez [address] [place] [address], [address] , [place] [employer] 5 17:43:25 Osteoart hritis 507788719 Active 2023 ANA M Sanchez [address] [place] [address], [address] , [place] [employer] 5 17:43:28 Essentia l hyperten idno 28679603 Active 2023 ANA M Sanchez [address] [place] [address], [address] , [place] [employer] 5 17:43:36 Type 2 diabetes mellitus without complica tion 769059682 Active 2023 ANA M Sanchez [address] [place] [address], [address] , [employer] 5 17:43:27 Chronic obstruct duglas pulmonar y disease 43063307 Active 2023 ANA M Sanchez [address] [place] [address], [address] , [employer] 5 17:43:20 Spasm of back muscles 775474646 Active 2023 ANA M Sanchez [address] [place] [address], [address] , [employer] 4 09:40:02 Congesti ve heart failure 32615330 Active 2023 ANA M Sanchez [address] [place] [address], [address] , [employer] 5 17:43:18 Gastroes ophageal reflux disease 463090984 Active 2023 ANA M Sanchez [address] [place] [address], [address] , [employer] 5 17:43:39 Allergic rhinitis 12231572 Active 2023 ANA M Sanchez [address] [place] [address], [address] , [employer] 17:43:22 Depressi ve disorder 30138248 Active 2023 ANA M Sanchez [address] [place] [address], [address] [place] [address] , [employer] 17:43:13 Neuropat hy 484026183 Active 2023 ANA M Sanchez [address] [place] [address], [address] [place] [address] , [employer] 17:43:31 Pain of left ankle joint 74214748150 296168 Active 2024 ANA M Sanchez [address] [place] [address], [address] [place] [address] , [employer] 10:44:58 Hypergly cemia 82677760 Active 2024 ANA M Sanchez [address] [place] [address], [address] [place] [address] , [employer] 10:45:16 Snoring 63943089 Active 2024 ANA M Sanchez [address] [place] [address], [address] [place] [address] , [employer] 10:46:49 Edema of lower extremit y 017303569 Active 2024 ANA M Sanchez [address] [place] [address], [address] [place] [address] , [employer] 13:48:46 Instabil ity of joint of right knee 95196842323 07249 Active 2024 ANA M Sanchez [address] [place] [address], [address] [place] [address] , [employer] 10:26:38 Pain of knee region 4950925794 Active 2024 ANA M Sanchez [address] [place] [address], [address] [place] [address] , [employer] 14:09:23 Lymphede ma of bilatera l lower limbs 46897994702 757728 Active 2024 ANA M Sanchez [address] [place] [address], [address] , [email or web address] 10:49:47 Notes:*Problem Name: Other s pecified disorders of tendon, left wrist *Problem Status: Chronic *Comments: *Problem Code: M67.834 *Problem Code Type: ICD-10 *Note Date: 05/06/2019 *Problem Name: Strain of muscle, fascia and tendon of long head of biceps, left arm, subsequent encounter *Problem Status: Chronic *Comments: *Problem Code: S46.112D *Problem Code Type: ICD-10 *Note Date: 04/08/2019 Problem Notes None recorded. Procedures Surgical History Date Name Laterality Status Provider Name and Address Organization Details Recorded Time 12/20/19 25 Most Recent Mammogram completed [facility] [employer] 02/09/2025 13:29:03 09/16/19 19 appendectomy completed Not Available [facility] 05/16/2022 22:56:05 09/16/19 19 hysterectomy completed Not Available [facility] 05/16/2022 22:56:05 09/16/19 19 cholecystectomy completed Not Available [facility] 05/16/2022 22:56:06 Appendectomy completed [employer] 07/29/2024 08:52:18 Hysterectomy completed [employer] 07/29/2024 08:52:18 Tubal Ligation completed [employer] 07/29/2024 08:52:18 Gallbladder Surgery completed [employer] 07/29/2024 08:52:18 Imaging Results None recorded. Procedure Notes None recorded. Medical Equipment None Reported. Allergies Allergen ID Allergen Name Allergen Category Reaction Reaction Severity Criticality Documentation Date Start Date Code Code System Note Provider Name and Address Organization Details Recorded Time 13030 morphine sulfate medicatio n other Not available Not available 05/16/2022 [id number] RxNorm Not Available [facility] 22:56:50 90196 Product containin g penicilli n (product) medicatio n other Not available Not available 05/16/2022 02915 8001 SNOMED Daphnejanis henning [facility] [employer], [facility]. 4 08:52:15 Medications Name Sig Start Date Stop Date Status Note LastModified by Organization Details LastModified Time furosemide 40 mg tablet TAKE TWO TABLETS BY MOUTH ONCE A DAY 02/09 completed Not Available Not Available Not Available atorvastati n 40 mg tablet Take 1 tablet every day by oral route at bedtime. active Not Available Not Available No t Available metformin 500 mg tablet 11/13 completed Not Available Not Available Not Available promethazin e-DM 6.25 mg-15 mg/5 mL oral syrup Take 1 teaspoon by mouth q 4 to 6 hr 11/30 completed Not Available Not Available Not Available cetirizine 10 mg tablet take 1 tablet (10 mg) by oral route once daily 08/13 completed Not Available Not Available Not Available ibuprofen 800 mg tablet Take 1 tablet(s) by mouth q8h prn 07/01 completed Not Available Not Available Not Available tizanidine 4 mg tablet take 1 tablet (4 mg) by oral route q hs active Not Available Not Available No t Available albuterol sulfate 1.25 mg/3 mL solution for nebulizatio n 08/13 completed Not Available Not Available Not Available hydrocodone 5 mg-acetamin ophen 325 mg tablet TAKE ONE TABLET BY MOUTH EVERY SIX HOURS NEEDED 11/13 completed Not Available Not Available Not Available gabapentin 400 mg capsule TAKE ONE CAPSULE BY MOUTH 3 TIMES A DAY FOR NERVE PAIN active Not Available Not Available No t Available prednisone 5 mg tablet 10 pills po today and decrease by one pill each day 12/12 completed Not Available Not Available Not Available Requip 1 mg tablet 1 po q HS 05/27 completed Not Available Not Available Not Available phentermine 37.5 mg tablet 08/13 completed Not Available Not Available Not Available dextrometho carlin-kayf enesin 10 mg-100 mg/5 mL oral syrup Take 1 teaspoon by mouth q4h prn for cough 04/01 completed Not Available Not Available Not Available aspirin 81 mg tablet,faby yed release TAKE ONE TABLET BY MOUTH ONCE A DAY FOR HEART HEALTH active Not Available Not Available No t Available spironolact one 25 mg tablet TAKE TWO TABLETS BY MOUTH ONCE A DAY active Not Available Not Available No t Available oxycodone-a cetaminophe n 5 mg-325 mg tablet TAKE ONE TABLET BY MOUTH EVERY 4 HOURS NEEDED FOR PAIN 12/09 completed Not Available Not Available Not Available potassium chloride ER 20 mEq tablet,exte nded release(par t/cryst) TAKE ONE TABLET BY MOUTH EVERY DAY FOR 5 DAYS 08/13 completed Not Available Not Available Not Available famotidine 20 mg tablet Take 1 tablet twice a day by oral route as directed for 90 days, for heartburn . 08/13 completed Not Available Not Available Not Available lorazepam 0.5 mg tablet 08/13 completed Not Available Not Available Not Available OneTouch Ultra Test strips USE DIRECTED active Not Available Not Available No t Available Requip 0.5 mg tablet take one a day at q hs then take 2 a day after a week 02/27 completed Not Available Not Available Not Available ropinirole 2 mg tablet TAKE ONE TABLET BY MOUTH ONCE A DAY 1 TO 3 HOURS BEFORE BEDTIME active Not Available Not Available No t Available pantoprazol e 40 mg tablet,faby yed release TAKE 1 TABLET BY MOUTH ONCE A DAY FOR HEARTBURN active Not Available Not Available No t Available ranitidine 150 mg tablet take 1 tablet (150 mg) by oral route 2 times per day 08/13 completed Not Available Not Available Not Available gabapentin 300 mg capsule TAKE ONE CAPSULE BY MOUTH THREE TIMES DAILY 08/13 completed Not Available Not Available Not Available diclofenac sodium 75 mg tablet,faby yed release TAKE 1 TABLET BY MOUTH 2 TIMES A DAY active Not Available Not Available No t Available bumetanide 1 mg tablet Take 1 tablet every day by oral route for 30 days, for fluid. 2024 active Not Available Not Available Not Avai lable bisacodyl 5 mg tablet,faby yed release 07/29 completed Not Available Not Available Not Available ranitidine 150 mg capsule take 1 capsule (150 mg) by oral route 2 times per day 08/13 completed Not Available Not Available Not Available furosemide 20 mg tablet 07/29 completed Not Available Not Available Not Available metoprolol succinate ER 25 mg tablet,exte nded release 24 hr TAKE 1 TABLET BY MOUTH ONCE A DAY FOR HIGH BLOOD PRESSURE active Not Available Not Available No t Available ergocalcife rol (vitamin D2) 1,250 mcg (50,000 unit) capsule Take 1 capsule every week by oral route as directed for 90 days, for Vitamin D deficienc y. 2023 active Not Available Not Available Not Avai lable cefuroxime axetil 500 mg tablet 07/29 completed Not Available Not Available Not Available polyethylen e glycol 3350 17 gram/dose oral powder 08/13 completed Not Available Not Available Not Available cefdinir 300 mg capsule 2 po after the evening meal 04/01 completed Not Available Not Available Not Available metformin ER 500 mg tablet,exte nded release 24 hr Take 1 tablet every day by oral route as directed for 90 days, for diabetes. 08/13 completed Not Available Not Available Not Available loratadine 10 mg tablet TAKE ONE TABLET BY MOUTH ONCE A DAY active Not Available Not Available No t Available rosuvastati n 20 mg tablet active Not Available Not Available Not Available rosuvastati n 40 mg tablet TAKE 1 TABLET BY MOUTH ONCE A DAY active Not Available Not Available No t Available oxycodone 5-325mg 07/29 completed Not Available Not Available Not Available cholecalcif donato (vitamin D3) 25 mcg (1,000 unit) tablet TAKE ONE TABLET BY MOUTH ONCE A DAY active Not Available Not Available No t Available Symbicort 160 mcg-4.5 mcg/actuati on HFA aerosol inhaler 08/13 completed Not Available Not Available Not Available Havrix (PF) 1,440 BRIDGER unit/mL intramuscul ar suspension one injection now IM and repeat in 6 month 05/06 completed Not Available Not Available Not Available Linzess 145 mcg capsule TAKE 1 CAPSULE BY MOUTH ONCE A DAY FOR CONSTIPAT ION active Not Available Not Available No t Available Vraylar 1.5 mg capsule Take 1 capsule every day by oral route as directed for 90 days, for depressio n. 08/13 completed Not Available Not Available Not Available Proctosol HC 2.5 % topical cream perineal applicator apply a thin layer to the affected area(s) by topical route 4 times per day 08/13 completed Not Available Not Available Not Available OneTouch Delica Plus Lancet 33 gauge active Not Available Not Available Not Available Ozempic 0.25 mg or 0.5 mg (2 mg/3 mL) subcutaneou s pen injector inject 0.5 MG SUBCUTANE OUSLY ONCE WEEKLY active Not Available Not Available No t Available Zepbound 2.5 mg/0.5 mL subcutaneou s pen injector Inject 0.5 mL every week by subcutane ous route for 28 days, for weight loss. 02/09 completed Not Available Not Available Not Available Vitals Date Recorded Body height Body mass index (BMI) Body weight Heart rate Oxygen saturation Oxygen saturation in Arterial blood by Pulse oximetry Systolic And Diastolic Provider Name and Address Organization Details Last Updated DateTime 5 172.72 cm 37.9 kg/m2 868688. 3 g 91 /min 95 % 95 % 112/79 mm[Hg] Wendy [facility] 5 10:39:50 Social History Question Answer Notes LastModified by Organizat ion Details LastModified Time Tobacco Smoking Status Former Smoker Mitchell guerrero: 'Tobacco /Alcohol /Supplem ents'; Mitchell [email or web address]: 'Former Smoker'; Not Available [facility] 05/16/2022 22:58:54 Do You Have An Advance Directive? No [email or web address] Information not available 07/29/2024 Is Your Home Air Conditioned? Yes Information not available 07/29/2024 Do You Wear A Helmet When Biking? Yes [email or web address] Information not available 07/29/2024 Are You Blind Or Do You Have Difficulty Seeing? No [email or web address] Information not available 07/29/2024 What Is Your Level Of Caffeine Consumption? Occasional [email or web address] Information not available 07/29/2024 What Type Of Terminal Computer Operator Do You Use? None [email or web address] Information not available 07/29/2024 In The 14 Days Before Symptom Onset, Have You Had Close Contact With A [facility] COVID-19 While That Case Was Ill? No [email or web address] Information not available 07/29/2024 In The 14 Days Before Symptom Onset, Have You Had Close Contact With A Person Who Is Under Investigation For COVID-19 While That Person Was Ill? No [email or web address] Information not available 07/29/2024 Have You Been To An Area Known To Be High Risk For COVID-19? No [email or web address] Information not available 07/29/2024 Are You Deaf Or Do You Have Serious Difficulty Hearing? Yes Information not available 07/29/2024 What Type Of Diet Are You Following? REGULAR Information not available 07/29/2024 Have There Been Any Changes To Your Family Or Social Situation? No [email or web address] Information not available 07/29/2024 When Did You Quit Smoking? 11-15yearssincel octavia Stop Date 2014 Information not available 02/09/2025 Are There Any Guns Present In Your Home? Yes [email or web address] Information not available 07/29/2024 Which Of Your Hands Is Dominant? Right [email or web address] Information not available 07/29/2024 What Is Your Home Situation? Other Information not available 07/29/2024 Do You Have A Medical Power Of Personnel Coordinator? No Information not available 07/29/2024 What Was The Date Of Your Most Recent Tobacco Screening? 05/19/2025 Information not available 05/19/2025 Do You Have Any Pets? Yes [email or web address] Information not available 07/29/2024 What Is Your Relationship Status? [email or web address] Information not available 07/29/2024 Have You Repeated Any Grades? No [email or web address] Information not available 07/29/2024 Do You Use Your Seat Belt Or Car Seat Routinely? Yes [email or web address] Information not available 07/29/2024 Are You Sexually Active? No [email or web address] Information not available 07/29/2024 Do You Have Any Siblings? Yes [email or web address] Information not available 07/29/2024 Do You Have Smoke And Carbon Monoxide Detectors In Your Home? Yes [email or web address] Information not available 07/29/2024 At What Age Did You Start Smoking Tobacco? 12 Information not available 02/09/2025 Are You Passively Exposed To Smoke? No [email or web address] Information not available 07/29/2024 Are There Any Smokers In Your House? No [email or web address] Information not available 07/29/2024 Do You Participate In Social Media? Yes Information not available 11/13/2024 Do You Use Sunscreen Routinely? No [email or web address] Information not available 07/29/2024 Has Tobacco Cessation Counseling Been Provided? No Information not available 11/13/2024 Have You Recently Traveled Abroad? No Information not available 07/29/2024 Do You Have Difficulty Walking Or Climbing Stairs? No Information not available 07/29/2024 Are You Currently In School? No Information not available 11/13/2024 What Contraceptive Method Was Reported At Start Of This Visit? Female Sterilization Information not available 11/13/2024 Do You Have Any Dietary Restrictions? No Information not available 11/13/2024 Sex: Female Functional Status Question Answer Note LastModified by Organizat ion Details LastModified Time Do you use any illicit or recreational drugs? No Information not available 11/13/2024 Do you or have you ever used any other forms of tobacco or nicotine? Yes [email or web address] Information not available 05/19/2025 Do you or have you ever used smokeless tobacco? Never used smokeless tobacco SocialHistor yQuestion: 'Tobacco/Alc ohol/Supplem ents'; SocialHistor yResponse: 'Current smokeless tobacco user (eg, chew, snuff) (PV)1'; Information not available 11/13/2024 Are you currently employed? No [email or web address] Information not available 07/29/2024 Do you have transportation difficulties? No Information not available 11/13/2024 Are you able to walk independently without assistance or assistive devices? [email or web address] Information not available 11/13/2024 Do you have difficulty doing errands alone? No [email or web address] Information not available 07/29/2024 Are you able to care for yourself independently? Yes [email or web address] Information not available 07/29/2024 Do you have difficulty dressing, bathing, grooming, or toileting? No [email or web address] Information not available 07/29/2024 Do you or have you ever used e-cigarettes or vape? Current user of electronic cigarettes [email or web address] Information not available 05/19/2025 What is your exercise level? None Information not available 07/29/2024 Mental Status Question Answer Note LastModified by Organizat ion Details LastModified Time Do you feel stressed (tense, restless, nervous, or anxious, or unable to sleep at night)? [id number] Information not available 11/13/2024 Do you have difficulty concentrating, remembering or making decisions? No [email or web address] Information no t available 07/29/2024 Are you or have you been involved with bullying? No [email or web address] Information not available 07/29/2024 Family History Relationship Description Onset Age of this Age Resolved Age Notes LastModified by Organization Details LastModified Time Unspecified Relation Family history of cirrhosis of liver Relati ve: ''; Not available 07/29/2024 08:52:15 Unspecified Relation Family history of diabetes mellitus type 2 Relati ve: ''; [email or web address] Not available 07/29/2024 08:52:15 Unspecified Relation Family history of alcoholism Relati ve: ''; Not available 07/29/2024 08:52:15 Unspecified Relation Family history of Hypertension Relati ve: ''; [email or web address] Not available 07/29/2024 08:52:15 Unspecified Relation Family history of Hypothyroidi sm Relati ve: ''; [email or web address] Not available 07/29/2024 08:52:15 Unspecified Relation Family history of Myocardial infarction Relati ve: ''; [email or web address] Not available 07/29/2024 08:52:15 Unspecified Relation Asthma [email or web address] Not available 024 08:52:15 Mother Arthritis Not availab le 07/29/2024 08:52:15 Brother Malignant neoplasm of colon [email or web address] Not available 2023 08:52:15 Brother Arthritis [email or web address] Not availa ble 07/29/2024 08:52:15 Father Arthritis [email or web address] Not availab le 07/29/2024 08:52:15 Father Heart disease [email or web address] Not available 2023 08:52:15 Notes:*Procedure Description : Documented family medical history in father*Relative: Father *Procedure Description: Documented family medical history in sister*Relative: Sister *Procedure Description: Documented family medical history in brother*Relative: Brother Medical History Condition Response Depression Y COPD Y Headaches Y Asthma Y Heart Disease Y Gynecological History Statement/Question Response Menses Monthly N Date of Last Pap Smear Current Control Method Hysterectom y Most Recent Mammogram 12/19/2024 Obstetrics History GPAL:G 3 P 2 0 1 2 Type Value Multiple Births 0 Full Term 2 Induced 0 Spontaneous 1 Premature 0 Living 2 Ectopics 0 Total 3 Immunizations Vaccine Type Date Status Note Provider Nam e and Address Organization Details Recorded Time Hep A, adult 05/06/2019 completed Not Available [employer] 05/16/2022 23:31:17 Past Encounters Encounter ID Performer Location Encounter Start Date Encounter Closed Date Diagnosis/Indication Diagnosis SNOMED-CT Code Diagnosis ICD10 Code Diagnosis IMO Codes Diagnosis Note [id number] ANA M Sanchez [address] [address] 05/19/2025 10:27:20 05/19/2025 10:57:53 Lymphedema of bilateral lower limbs [id number] I89.0 [id number] Type 2 zahra betes mellitus without complication [id number] E11.9 Health Concerns Section Related Observation LastModified by Organization Detai ls LastModified Time None Recorded Concern Status LastModified by Organization Details LastModified Time None Recorded Payers Encounter Date Sequence Insurance Name Policy Number Policy Schwartz Covered Member ID Schwartz Member ID Guarantor Name 05/19/2025 1 [facility] (MEDICAID REPLACEMENT - HMO) Kylah Hickman [id number] Kylah Gabriela Hickman Notes Date Note Type Note Provider Name and Address Organization Details Recorded Time 05/19/2025 text/html ROS as noted in the HPI Patient presents for followup.Had left ankle fracture approximately one year ago with ORIF. She has been going to PT to gain strength and ROM back. Has lymphedema bilaterally. Has been doing PT and using lymphedema pump at PT with great relief but edema recurs at home. Needs lymphedema pumps at home to maintain. ANA M Sanchez [address] [place] [address], [id number], [facility] [employer] 05/21/2025 11:49:29 OBGyn Episode No OBEpisode recorded.
--- OUTSIDE RECORDS SUMMARY | 2025-06-25 10:02 | XMS_ITS | Data Portability ---
Author Organization [facility] Awan ADMIN Address [address] [place] [address] Care Team Providers Care Owner Consulting Engineer Name Role Phone CYNTHIA FELIPE Community Relations Director [facility] Primary Care Provide r Assessment No assessment recorded. Plan of Treatment Reminders Order Date Submit Date Provider Last Modified By Organization Details Last Modified Time Details Appointments None recorded. Lab None recorded. Referral None recorded. Procedures None recorded. Surgeries None recorded. Imaging XR, foot 2024 025 [email or web address] [facility], [address] [place] [address] [place], [address], 5 09:13:11 XR, ankle 2024 025 [email or web address] [facility], [address] [place] [address] [place], [address], 5 09:49:32 XR, ankle 2024 025 [email or web address] [facility], [address] [place] [address] [place], [address], 5 08:45:27 XR, ankle 2024 025 alis [facility], [address] [place] [address] [place], [address], 5 15:29:54 Medication Orders hydrocodone 5 mg-acetamin ophen 325 mg tablet 2023 024 ZOE [facility] Giovanni [address] [place] [address] [place], [id number], 4 17:03:19 hydrocodone 5 mg-acetamin ophen 325 mg tablet 2023 024 ZOE [facility] Giovanni [address] [place] [address] , [place], [id number], 4 13:37:11 Patient TargetsNo targets recorded. Patient InstructionsNo instructions recorded. Reason for Referral None Reported. Results Created Date Observation Date Name Description Value Unit Range Abnormal Flag Note LastModifiedBy Organization Detail LastModifiedTime 07/24/2007/24/2024 CBC W/O DIFF note See Note Order ing Provi marlen: Kermit Murillo MD Not Available [address] , [place], [address], 07/24/2024 22:38:22 07/24/20 24 07/24/2024 CBC W/O DIFF white blood cell 13.4 10e3/ uL 4.5-13 .0 high Not Available [address] , [place], [address], 07/24/2024 22:38:22 07/24/20 24 07/24/2024 CBC W/O DIFF red blood cell 4.74 10e6/ uL 3.80-5 .10 normal Not Available [address] [place]mann, [place], [address], 07/24/2024 22:38:22 07/24/20 24 07/24/2024 CBC W/O DIFF hemoglobin 13.4 g/dL 11.5-1 5.3 normal Not Available [address] [place], [place], [address], 07/24/2024 22:38:22 07/24/20 24 07/24/2024 CBC W/O DIFF hematocrit 39.6 % 34.0-4 6.0 normal Not Available [address] [place], [place], [address], 07/24/2024 22:38:22 07/24/20 24 07/24/2024 CBC W/O DIFF mean cell volume 84 fL 78.0-9 8.0 normal Not Available [address] [place], [place], [address], 07/24/2024 22:38:22 07/24/20 24 07/24/2024 CBC W/O DIFF mean cell HGB 28.3 pg 25.0-3 5.0 normal Not Available [address] [place], [place], [address], 07/24/2024 22:38:22 07/24/20 24 07/24/2024 CBC W/O DIFF mean cell HGB concentratio n 33.8 g/dL 31.0-3 6.0 normal Not Available [address] [place], [place], [address], 07/24/2024 22:38:22 07/24/20 24 07/24/2024 CBC W/O DIFF red cell distribution width 13.9 % 11.0-1 5.0 normal Not Available [address] [place], [place], [address], 07/24/2024 22:38:22 07/24/20 24 07/24/2024 CBC W/O DIFF platelet count 284 10e3/ uL 150-40 0 normal Not Available [address] [place], [place], [address], 07/24/2024 22:38:22 07/24/20 24 07/24/2024 CBC W/O DIFF performing lab see note - [facility] [address] [facility] [address] Not Available [address] [place], [place], [address], 07/24/2024 22:38:22 07/24/20 24 07/24/2024 GLYCO HEMOG LOBIN (HGB A1C) note See Note Order ing Provi marlen: Kermit Murillo MD Not Available [address] [place], [place], [address], 07/24/2024 22:38:23 07/24/20 24 07/24/2024 GLYCO HEMOG LOBIN (HGB A1C) glycohemoglo bin (HGB A1C) 5.5 % 4.5-6. 2 normal Predi abete s: 5.7 - 6.4 Diabe alisa: >6.4 Glyce bette contr ol for adult s with diabe alisa: <7.0 Not Available [address] [place], [place], [address], 07/24/2024 22:38:23 07/24/20 24 07/24/2024 GLYCO HEMOG LOBIN (HGB A1C) performing lab see note ML - [facility] [address] [facility] [address] [facility] [address] Not Available [address] [place], [place], [address], 07/24/2024 22:38:23 07/24/20 24 07/24/2024 ELECT ROLYT ES PANEL note See Note Order ing Provi marlen: Kermit Murillo MD Not Available [address] [place], [place], [address], 07/24/2024 22:38:24 07/24/20 24 07/24/2024 ELECT ROLYT ES PANEL sodium 140 mmol/ L 136-14 5 normal Not Available [address] [place], [place], [address], 07/24/2024 22:38:24 07/24/20 24 07/24/2024 ELECT ROLYT ES PANEL potassium 3.4 mmol/ L 3.5-5. 1 low Not Available [address] , [place], [address], 07/24/2024 22:38:24 07/24/20 24 07/24/2024 ELECT ROLYT ES PANEL chloride 99 mmol/ L 98-107 normal Not Available [address] , [place], [address], 07/24/2024 22:38:24 07/24/20 24 07/24/2024 ELECT ROLYT ES PANEL carbon dioxide 30 mmol/ L 24-33 normal Not Available [address] , [place], [address], 07/24/2024 22:38:24 07/24/20 24 07/24/2024 ELECT ROLYT ES PANEL anion gap 14.4 mmol/ L 10-20 normal Not Available [address] , [place], [address], 07/24/2024 22:38:24 07/24/20 24 07/24/2024 ELECT ROLYT ES PANEL performing lab see note - [address] [facility] [address] Not Available [address] , [place], [address], 07/24/2024 22:38:24 07/24/20 24 07/24/2024 BLOOD UREA NITRO GEN note See Note Order ing Provi marlen: Kermit Murillo MD Not Available [address] , [place], [address], 07/24/2024 22:38:24 07/24/20 24 07/24/2024 BLOOD UREA NITRO GEN blood urea nitrogen 22 mg/dL 7-18 high Not Available [address] , [place], [address], 07/24/2024 22:38:24 07/24/20 24 07/24/2024 BLOOD UREA NITRO GEN performing lab see note ML - [facility] [address] [facility] [address] Not Available [address] , [place], [address], 07/24/2024 22:38:24 07/24/20 24 07/24/2024 CREAT ININE W/GFR note See Note Order ing Provi marlen: Kermit Murillo MD Not Available [address] , [place], [address], 07/24/2024 22:38:25 07/24/20 24 07/24/2024 CREAT ININE W/GFR creatinine 1.18 mg/dL 0.55-1 .02 high Not Available [address] , [place], [address], 07/24/2024 22:38:25 07/24/20 24 07/24/2024 CREAT ININE W/GFR GFR (estimated) 55 mL/mi n >60 low [IM GINA NT]: The 2020 CKD-E PI equat ion is now the recom asad d stand lara. This versi on does not inclu de race, as do the 2008 and 2011 CKD-E PI creat inine and creat inine -cyst atin C equat ions. Stephanie e note that the eGFR now repor nurys is gener ated by the new 2020 CKD-E PI equat ion, which decre ases the eGFR for black s by up to 10% and incre ases the eGFR for non-b lacks by up to 10% in socrates rison to the old equat ion. To socrates re a legac y eGFR to a curre nt value , a 2009 CKD-E PI calcu lator is easil y seadarcie hable on the inter net. Calcu lated GFR: This calcu lated GFR is advoc ated by the Natio nal Kidne y Found ation to be used as an indic ator of Chron ic Kidne y Disea se (CKD) . 5 Stage s of Chron ic Kidne y Disea se. Stage 1 90 mL/mi n or more Healt hy kidne ys or Kidne y damag e with robert l or high GFR detai ls Stage 2 60 to 89 mL/mi n Kidne y damag e and mild decre ase in GFR detai ls Stage 3 30 to 59 mL/mi n Moder ate decre ase in GFR detai ls Stage 4 15 to 29 mL/mi n Sever e decre ase in GFR detai ls Stage 5 Less than 15 mL/mi n On dialy sis or Kidne y failu re Patie nt's clini antonio statu s must be consi dered for the care of your patie nt. Not Available [address] , [place], [address], 07/24/2024 22:38:25 07/24/20 24 07/24/2024 CREAT ININE W/GFR performing lab see note ML - [facility] [facility] [address] [facility] [address] [facility] [address] Not Available [address] , [place], [address], 07/24/2024 22:38:25 08/04/20 24 08/04/2024 GLUCO SE POINT OF CARE note See Note Order ing Provi marlen: Kermit Murillo MD Not Available [address] , [place], [address], 08/04/2024 10:29:24 08/04/20 24 08/04/2024 GLUCO SE POINT OF CARE glucose point of care 87 mg/dL 70-99 normal Not Available [address] , [place], [address], 08/04/2024 10:29:24 08/04/20 24 08/04/2024 GLUCO SE POINT OF CARE performing lab see note [facility] - [facility] [address] [place] [address] Not Available [address] [place], [address], 08/04/2024 10:29:24 07/24/20 24 07/24/2024 XR, chest , 2 view [place] [facility] [place] [facility] Ce Name: HALI OLIVER Formerly [facility] [employer] [address] Phys: [place]idi [place] [address] : 1969 Age: 54 Sex: F Acct: [id number] Loc: CAPRICE PHONE #: [phone] Exam Date: 2023 Status : PRE [facility] FAX #: Rad# [id number] Unit# [id number] Admit Date: 2023 EXAMS: CPT CODE: [id number] 969 CHEST 2 VIEWS 24217 PA AND LATERA L CHEST, 2023: CLINIC AL HISTOR Y: Preope rative examin ation for left ankle ORIF. Former smoker COMPAR CAROLYNN: None. FINDIN GS: The cardio medias tinal silhou ette is within normal limits . The lungs are clear bilate rally withou t pleura l fluid or focal consol idatio n. No acute osseou s abnorm ality is identi fied. IMPRES BRITTON: 1. No eviden ce of acute cardio pulmon kristle diseas e. Electr onical ly Signed by TERRENCE GARVEY MD on 2023 at 1408 Report ed and signed by: TERRENCE GARVEY MD CC: NO PRIMAR Y CARE PHYSIC AIMEE; Danish Murillo MD Dictat ed Date/T key: 2023 (4147) Techno logist : ALEJANDRA AKIN RT(R)( M)(CT) (MR) Transc ribed Date/T key: 2023 (1407) Transc riptio nist: DR.HAG MICHAEL Saha onic Signat ure Date/T key: 2023 (1408) Printe d Date/T key: 2023 (1412) BATCH NO: N/A PAGE 1 Signed Report CC'ed Logic: Orderi ng Provid er: CHIDI LYNCH Attend ing Provid er: CHIDI LYNCH Referr ing Provid er: CHIDI LYNCH Consul ting Provid er: PHYSIC AIMEE NICKY [facility] [address] , [place], [address], 07/25/2024 07:33:56 07/25/20 24 07/25/2024 - C-arm < 1 hour [place] [facility] [place] [facility] Name: HALI OLIVER Formerly [facility] [address]ica [employer] [address] Phys: Chidi DENG,[place] [address] : 1969 Age: 54 Sex: F Acct: [id number] Loc: Scott.DS PHONE #: [phone] Exam Date: 2023 Status : REG [facility] FAX #: Rad# [id number] Unit# [id number] Admit Date: 2023 EXAMS: CPT CODE: [id number] 044 C-ARM < 1 HOUR 15037 CLINIC AL INFORM ATION: Closed reduct ion ankle fractu re. COMPAR CAROLYNN: . FINDIN GS: C-arm fluoro scopy was provid ed by radiol ogy techno logist . 3 images presen nurys for review showin g closed reduct ion of a bimall eolar ankle fractu re. Alignm ent grossl y normal . Please see the clinic aimee's proced ure report for full detail . Total fluoro scopy time was 2 second s A total of 3 fluoro scopic image( s) are presen nurys for review . This report is genera nurys using voice recogn ition comput er softwa re. Inadve rtent errors may have occurr ed while dictat ing report . Common sense approa ch is apprec iated and do not hesita te to call for clarif icatio n when necess kristel. Electr onical ly Signed by Negin Parsons on 2023 at 1224 Report ed and signed by: VEA Parsons M.D. CC: NO PRIMAR Y CARE PHYSIC AIMEE; Danish Murillo MD Dictat ed Date/T key: 2023 (1224) Techno logist : NICOLE Segura CISNEROS Transc ribed Date/T key: 2023 (1224) Transc riptio nist: DR.HAR OLIVA Saha onic Signat ure Date/T key: 2023 (1224) Printe d Date/T key: 2023 (1228) BATCH NO: N/A PAGE 1 Signed Report CC'ed Logic: Orderi ng Provid er: CHIDI LYNCH Attend ing Provid er: CHIDI LYNCH Referr ing Provid er: CHIDI LYNCH Consul ting Provid er: PHYSIC AIMEE NO [facility] [address] [place], [address], 07/28/2024 07:36:30 08/04/20 24 08/04/2024 - C-arm extre mitie s [place] [facility] Ce Name: HALI OLIVER [address] [place] [address] Drive Phys: Chidi DENG,[place] [address] : 1969 Age: 54 Sex: F Acct: [id number] Loc: G.SURG PHONE #: [phone] Exam Date: 2023 Status : REG [facility] FAX #: Rad# [id number] Unit# [id number] Admit Date: 2023 EXAMS: CPT CODE: [id number] 003 C-ARM EXTREM ITIES 34751 CLINIC AL INFORM ATION: ORIF ankle fractu re COMPAR CAROLYNN: FINDIN GS: C-arm fluoro scopy was provid ed by radiol shnai techno logist . ORIF left ankle perfor med by Dr. Murillo. 3 images presen nurys for review showin g plate and screw repair distal fibula r fractu re with a syndes motic screw in place. 2 cannul ated screws secure the medial malleo carmela. No gross compli cation Please see the clinic aimee's proced ure report for full detail . Total fluoro scopy time was 37 second s A total of 3 fluoro scopic image( s) are presen nurys for review . This report is genera nurys using voice recogn ition comput er softwa re. Inadve rtent errors may have occurr ed while dictat ing report . Common sense approa ch is apprec iated and do not hesita te to call for clarif icatio n when necess kristel. Electr onical ly Signed by Negin Parsons on 2023 at 1519 Report ed and signed by: EVA Parsons M.D. CC: NO PRIMAR Y CARE PHYSIC AIMEE; Danish Murillo MD Dictat ed Date/T key: 2023 (1519) Techno logist : NICOLE CISNEROS Transc ribed Date/T key: 2023 (1519) Transc riptio nist: DR.HAR BAPTISTE Electr onic Signat ure Date/T key: 2023 (1519) Printe d Date/T key: 2023 (1522) BATCH NO: N/A PAGE 1 Signed Report CC'ed Logic: Orderi ng Provid er: CHIDI LYNCH Attend ing Provid er: CHIDI LYNCH Referr ing Provid er: CHIDI LYNCH Consul ting Provid er: PHYSIC AIMEE NICKY madden [address] [place], [address], 08/04/2024 15:27:46 09/18/19 25 XR, ankle No observ ation record ed. ZOE Hernandez [address] [place], [address], 09/18/2024 14:54:32 10/30/19 25 XR, ankle No observ ation record ed. ZOE Daphne [facility] [address] [facility] [place], [address], 10/30/2024 13:22:16 11/15/19 25 11/14/2024 - [facility] Medica l Ce Name: HALI OLIVER Formerly [facility] Medica [employer] Phys: Chidi DENG,[place] [address] : 1969 Age: 54 Sex: F Acct: [id number] Loc: G.SURG PHONE #: [phone] Exam Date: 2024 Status : REG [facility] FAX #: Rad# [id number] Unit# [id number] Admit Date: 2024 EXAMS: CPT CODE: [id number] 855 C-ARM EXTREM ITIES 18971 FL LESS THAN 1 HOUR Reason For Study: HARDWA RE REMOVA L FINDIN GS: Fluoro scopic assist ance was provid ed to the attend ing physic aimee by the radiog raphic techno logist . RADIAT ION DOSE: Radiat ion exposu re in refere nce to Air Kerma: 0.2408 mGy FLUORO SCOPY TIME: 5.3 second s . FLUORO SCOPY FILMS: 2 IMPRES BRITTON: Fluoro scopic assist ance provid ed. Please see operat duglas report . Electr onical ly signed by: Zaira Fung DO 2024 04:46 PM EST RP Workst ation: [id number] Electr onical ly Signed by ZAIRA FUNG DO on 2024 at 1341 Report ed and signed by: Yasmany FUNG DO CC: NO PRIMAR Y CARE PHYSIC AIMEE; Danish Murillo MD Dictat ed Date/T key: 2024 (1341) Techno logist : ONUR ANGULO Transc ribed Date/T key: 2024 (1341) Transc riptio nist: DR.HAL Head onalba Signat ure Date/T key: 2024 (1341) Printe d Date/T key: 2024 (6989) BATCH NO: N/A PAGE 1 Signed Report CC'ed Logic: Orderi ng Provid er: CHIDI LYNCH Attend ing Provid er: MURILLOENS LYNCH Referr ing Provid er: CHIDI LYNCH Consul ting Provid er: PHYSIC AIMEE NO [facility] [address] , [place], [address], 11/17/2024 07:35:32 11/28/19 25 XR, ankle No observ ation record ed. [address] [place], [address], 11/27/2024 09:01:01 11/28/19 25 XR, foot No observ ation record ed. [address] , [place], [address], 11/27/2024 09:06:34 Result Notes None recorded. Problems Name Problem SNOMED Code Status Onset Date Resolution Date Notes Provider Name and Address Organization Details Recorded Time Hematochezi a 182088352 Active 2021 Cynthia Felipe NP [address], [address], [place], [address], [place] - [facility] - [place] & [place] 2 15:54:31 Irritable bowel syndrome characteriz ed by constipatio n 512234978 Active 2021 Cynthia Felipe NP [address], [address], [place], [address], [place] - [facility] - [place] & [place] 2 15:56:34 Altered bowel function 78964281 Active 2021 Cynthia Felipe NP [address], [address], [place], [address], [place] - [facility] - [place] & [place] 2 15:56:34 Gastroesoph ageal reflux disease 671829261 Active 2022 Brittany [place], [place] - [facility] & [place] 3 13:06:43 Chronic obstructive pulmonary disease 65273876 Active 2022 Brittany [place], [place] - [facility] - [facility] & [place] 3 13:06:58 Gastro-esop hageal reflux disease with esophagitis 830250519 Active 2022 Cynthia Felipe NP [address], [address], [place], [address], [place] - [facility] - [facility] & [place] 3 13:40:19 Internal hemorrhoids 49202026 Active 2022 Cynthia Felipe NP [address], [address], [place], [address], [place] [facility] - [facility] & [place] 3 13:40:31 Oropharynge al dysphagia 71740463 Active 2023 Cynthia Felipe NP [address], [address], [place], [address], [place] [facility] - [facility] & [place] 4 13:50:30 Swelling of submandibul ar area Active 2023 Cynthia Felipe NP [address], [address], [place], [address], [place] [facility] - [facility] & [place] 4 13:52:26 Pain of left ankle joint 5737732338818 9103 Active 2023 Danish Murillo MD [address], [place], [address], [place] - [facility] - [facility] & [place] 4 10:26:52 Neuropathic pain 403618198 Active 2023 Danish Murillo MD [address] [facility] [address] [address], [place], [address], [place] - [facility] - [facility] & [place] 4 10:28:34 Notes:Some problems listed i n Document: #[id number] could not be added to this patient's chart. Please review this document and add these problems to the patient's chart manually as needed. Problem Notes None recorded. Procedures Surgical History Date Name Laterality Status Provider Name and Address Organization Details Recorded Time 4 Colonoscopy completed Humera Floyd [facility] & [place] 01/02/2024 15:07:35 2 colonoscopy completed Cynthia Felipe NP [address] [place] [address], [address], [place], [address] & [place] 09/20/2022 13:38:52 Imaging Results None recorded. Procedure Notes None recorded. Medical Equipment None Reported. Allergies Allergen ID Allergen Name Allergen Category Reaction Reaction Severity Criticality Documentation Date Start Date Code Code System Note Provider Name and Address Organization Details Recorded Time 43644 Product containin g penicilli n (product) medicatio n Not available Not available Not available 09/20/2022 80039 8001 SNOMED Brittany henning [facility] & [place] 3 13:06:18 40679 morphine medicatio n Not available Not available Not available 09/20/2022 7052 RxNorm Brittany henning [facility] & [place] 3 13:06:26 Medications Name Sig Start Date Stop Date Status Note LastModified by Organization Details LastModified Time furosemide 40 mg tablet active Not Available Not Available Not Available atorvastati n 40 mg tablet active Not Available Not Available Not Available metformin 500 mg tablet active Not Available Not Available Not Available cetirizine 10 mg tablet active Not Available Not Available Not Available tizanidine 4 mg tablet active Not Available Not Available Not Available albuterol sulfate 1.25 mg/3 mL solution for nebulizatio n active Not Available Not Available Not Available hydrocodone 5 mg-acetamin ophen 325 mg tablet TAKE ONE TABLET BY MOUTH EVERY SIX HOURS NEEDED active Not Available Not Available No t Available gabapentin 400 mg capsule active Not Available Not Available Not Available phentermine 37.5 mg tablet 12/09 completed Not Available Not Available Not Available aspirin 81 mg tablet,faby yed release active Not Available Not Available Not Available spironolact one 25 mg tablet active Not Available Not Available Not Available oxycodone-a cetaminophe n 5 mg-325 mg tablet TAKE ONE TABLET BY MOUTH EVERY 4 HOURS NEEDED FOR PAIN active Not Available Not Available No t Available potassium chloride ER 20 mEq tablet,exte nded release(par t/cryst) TAKE ONE TABLET BY MOUTH EVERY DAY FOR 5 DAYS active Not Available Not Available No t Available famotidine 20 mg tablet active Not Available Not Available Not Available lorazepam 0.5 mg tablet active Not Available Not Available Not Available furosemide 80 mg tablet active Not Available Not Available Not Available OneTouch Ultra Test strips active Not Available Not Available Not Available ropinirole 2 mg tablet active Not Available Not Available Not Available pantoprazol e 40 mg tablet,faby yed release TAKE ONE TABLET BY MOUTH EVERY DAY FOR 90 DAYS active Not Available Not Available No t Available gabapentin 300 mg capsule TAKE ONE CAPSULE BY MOUTH THREE TIMES DAILY active Not Available Not Available No t Available diclofenac sodium 75 mg tablet,faby yed release active Not Available Not Available Not Available bisacodyl 5 mg tablet,faby yed release TAKE TWO TABLETS (10 MG) BY MOUTH ONCE A DAY DIRECTED FOR BOWEL PREP FOR 1 DOSE active Not Available Not Available No t Available furosemide 20 mg tablet 12/09 completed Not Available Not Available Not Available metoprolol succinate ER 25 mg tablet,exte nded release 24 hr active Not Available Not Available Not Available ergocalcife rol (vitamin D2) 1,250 mcg (50,000 unit) capsule active Not Available Not Available Not Available azelastine 137 mcg (0.1 %) nasal spray 12/09 completed Not Available Not Available Not Available cefuroxime axetil 500 mg tablet Take 1 tablet every 12 hours by oral route for 10 days. active Not Available Not Available No t Available polyethylen e glycol 3350 17 gram/dose oral powder Take 17 g by oral route as directed for 2 days. active Not Available Not Available No t Available albuterol sulfate HFA 90 mcg/actuati on aerosol inhaler 12/09 completed Not Available Not Available Not Available fluticasone propionate 50 mcg/actuati on nasal spray,suspe nsion active Not Available Not Available Not Available metformin ER 500 mg tablet,exte nded release 24 hr active Not Available Not Available Not Available doxycycline hyclate 100 mg tablet 12/09 completed Not Available Not Available Not Available loratadine 10 mg tablet active Not Available Not Available Not Available rosuvastati n 20 mg tablet active Not Available Not Available Not Available cholecalcif donato (vitamin D3) 25 mcg (1,000 unit) tablet active Not Available Not Available Not Available Symbicort 160 mcg-4.5 mcg/actuati on HFA aerosol inhaler active Not Available Not Available Not Available Symbicort 80 mcg-4.5 mcg/actuati on HFA aerosol inhaler active Not Available Not Available Not Available azelastine 205.5 mcg (0.15 %) nasal spray active Not Available Not Available Not Available Linzess 145 mcg capsule active Not Available Not Available Not Available Vraylar 1.5 mg capsule active Not Available Not Available N ot Available OneTouch Ultra2 Meter active Not Available Not Available Not Available OneTouch Delica Plus Lancet 33 gauge active Not Available Not Available Not Available Vitals Date Recorded Body height Provider Name an d Address Organization Details Last Updated DateTime 09/18/2024 170.18 cm Jen Cooley [place] - [facility] - [facility] 09/18/2024 15:01:27 Social History None recorded. Functional Status Question Answer Note LastModified by Organizat ion Details LastModified Time What is your occupation? [email or web address] Information not available 07/24/2024 Mental Status None recorded. Family History Relationship Description Onset Age of this Age Resolved Age Notes LastModified by Organization Details LastModified Time Father Coronary arterioscler osis Not available 09/20 13:07:25 Sister Diabetes mellitus [email or web address] Not available 09/20 13:07:58 Sister Diabetes mellitus [email or web address] Not available 09/20 13:07:58 Sister Coronary arterioscler osis [email or web address] Not available 09/20 13:08:06 Sister Coronary arterioscler osis [email or web address] Not available 09/20 13:08:09 Brother Malignant neoplasm of colon [email or web address] Not available 2023 13:40:49 Medical History Condition Response Anemia Y Vision or Eye Problems Y Arthritis Y Ear or Hearing Problems Y GERD/Reflux Y Hyperlipidemia Y Heart Disease Y Headaches Y Back Problems Y Hypertension Y COPD Y Gynecological HistoryNo gynecological history recorded. Obstetrics History GPAL:G 0 P 0 0 0 0 Past Encounters Encounter ID Performer Location Encounter Start Date Encounter Closed Date Diagnosis/Indication Diagnosis SNOMED-CT Code Diagnosis ICD10 Code Diagnosis IMO Codes Diagnosis Note [id number] Cynthia Felipe NP [facility] [address] [place] [id number] 06/28/2022 14:10:05 06/30/2022 09:31:32 Hematochezia 254883970 K92.1 Episodes of hematochez ia off and on for the past 5 months. Most recent episode 6-8 weeks ago. Describes moderate amount mixed with stool. Reports labs to 3 weeks ago with PCP. Will obtain results to review personally . Recommend colonoscop y to further evaluate rule out internal hemorrhoid s, polyps, lesions, other. Last colonoscop y 2019 at outside facility. I do not have those records to review. She follows with Cardiology in [place], will obtain clearance prior to procedure. Altered maurilio wel function 99349666 R19.4 5 month history of change in bowel habits with increased constipati on episodes of diarrhea. Prior to this reports formed bowel movements daily. Recommend colonoscop y as above to further evaluate. Irritable bowel syndrome characterized by constipation 878398743 K58.1 Currently prescribed Linzess 145 mcg with improved symptoms at this time. [id number] Cynthia Felipe NP [facility] [address] [place] [address] [id number] 8 09/20/2022 12:49:16 09/20/2022 14:16:57 Gastro-esophageal reflux disease with esophagitis 558078716 K21.00 Controlled with use of daily PPI. Will send refills today. Internal hemorrhoids 904 58376 K64.8 Colonoscop y from 08/02/2022 with internal hemorrhoid s noted otherwise unremarkab le. Recommend continued treatment with Linzess as prescribed for treatment of constipati on as well as daily use of fiber supplement s. Irritable bowel syndrome characterized by constipation 958029696 K58.1 Controlled with Linzess 145 mcg. [id number] Cynthia Felipe NP [facility] [address] [place] [address] [id number] 8 11/14/2023 13:09:05 11/14/2023 14:05:41 Gastro-esophageal reflux disease with esophagitis 901779739 K21.00 Controlled with use of daily PPI. Will send refills today. Irritable bowel syndrome characterized by constipation 636738714 K58.1 Uncontroll ed with use of Linzess 145 mcg. Recommend trial of Linzess 290 mcg, samples provided to patient clinic today. We will send prescripti on based on response to sample medication . Hematochezia 905018921 K 92.1 Describes passing large amount of blood following bowel movement 1-2 weeks ago. Will obtain labs completed yesterday to review. Colonoscop y from 08/02/2022 with internal hemorrhoid s otherwise unremarkab le. Given recent episode of hematochez ia and family history colon cancer plan for colonoscop y to further evaluate. She follows with Cardiology in [place], will obtain clearance prior to procedure. Family his tory of cancer of colon 186065447 Z80.0 Patient's brother with history colon cancer. Plan for colonoscop y as above to further evaluate. Pt is scheduled for Colon 12/26/2023 @ 12:15 PM Oropharyng eal dysphagia 43113562 R13.12 Continued episodes of oropharyng eal dysphagia. EGD 2019 with empiric dilatation performed. Multiple swallow studies have been unremarkab le. Uncertain etiology. Will refer to ENT given continued complaints of submandibu lar swelling and dysphagia. Swelling o f submandibular area [id number] 9104 R22.1 continued episodes of submandibu lar swelling. Will refer to ENT to further evaluate. Previously evaluated by Dr. Valdez. [id number] Madyson Valdez MD [facility] [address] [place] [address] 12/10/2023 14:58:11 12/10/2023 16:12:27 Chronic rhinitis 17507210 J31.0 [id number] MD DAPHNE Zarco [address] [address] 07/24/2024 09:51:39 07/24/2024 11:01:33 Closed bimalleolar fracture of left ankle 4190709527 5114919 S82.842A [id number] MD DAPHNE Zarco [facility] [address] [place] [address] 9 07/31/2024 09:46:01 07/31/2024 10:41:03 Closed trimalleolar fracture of left ankle 6890871214 4239624 S82.855A [id number] Danish Murillo [facility] [place] [address] 9 08/13/2024 07:53:54 08/13/2024 09:00:27 Closed trimalleolar fracture of left ankle 0433805503 1154400 S82.852D Follow-up orthopedic assessment 486819546 Z47.89 [id number] Danish Murillo MD [facility] [place] [address] 9 08/18/2024 14:20:42 08/18/2024 15:39:29 Follow-up orthopedic assessment 917096846 Z47.[id number] [facility] [address] [place] [address] 9 09/18/2024 14:30:23 09/18/2024 15:08:48 Closed trimalleolar fracture of left ankle 4529521182 7528905 S82.852D Follow-up orthopedic assessment 708841239 Z47.89 [id number] SERAFIN TRAN NP [facility] [place] [address] 9 10/30/2024 12:51:39 10/30/2024 13:36:58 Closed trimalleolar fracture of left ankle 0138353057 [id number] S82.852D Follow-up orthopedic assessment 830692706 Z47.89 [id number] SERAFIN TRAN NP [facility] [address] [place] [address] 9 11/27/2024 08:43:39 11/27/2024 09:28:59 Follow-up orthopedic assessment 047332940 Z47.89 Injury of left foot 1185 266551 7164192 S99.922A 8558822 Fracture o f phalanx of foot 34838464 S92.919A [id number] 4TH TOE Health Concerns Section Related Observation LastModified by Organization Detai ls LastModified Time None Recorded Concern Status LastModified by Organization Details LastModified Time None Recorded Advance Directives Directive None Recorded Payers Insurance Date Sequence Insurance Name Policy Number Policy Schwartz Covered Member ID Schwartz Member ID Guarantor Name 10/15/2022 PAYMENT PLAN Hali Oliver 12/22/2024 1 [employer] [place] (MEDICAID REPLACEMENT - HMO) Hali Oliver [id number] Hali Oliver 11/30/2021 1 [employer] (MEDICARE REPLACEMENT/AD VANTAGE - HMO) Hali Yanes [id number] Raya Vick 03/29/2024 1 [employer] [place] - [place]) Hali Oliver [id number] Hali Oliver Notes Date Note Type Note Provider Name and Address Organization Details Recorded Time 08/13/2024 text/html ROS as noted in the HPI Pt presents today with left ankle swelling and burning on medial and lateral aspects of left ankle and states she feels like there is fluid in her splint. Pt had a left ankle ORIF on 08.04.24. Pt states the burning started about 5 days ago and states the fluid started around 2 days ago. Pt states her pain is so bad she cannot sleep. Pt is still in the same splint she was put in after surgery. Pt is ambulating by wheelchair. Pt was taking Hydrocodone but finished it this morning, she is also taking Gabapentin and Rapid Relief Tylenol.E3AT SERAFIN TRAN NP [address] [place] [address],[address], [place], [address], [place] - [facility] - [place] & [place] 08/13/2024 14:08:45 08/18/2024 text/html 2 weeks post op DOS: 08.04.24 Left trimalleolar ankle fracture with syndesmotic disruption. Patient was here Sunday because she was worried about incision bleeding in splint but looked good upon removal. Patient is here today for suture removal. Sutures intact. No visible signs of infection. Patient is taking Percocet. Wearing cam walker boot NWB. E5AP SERAFIN TRAN NP [address] [facility],[address], [place], [address], [facility] - [facility] & [place] 08/18/2024 15:44:31 09/18/2024 text/html ROS as noted in the HPI Pt is here for 6 weeks f/u of her left ankle ORIF.. She is doing well. Her incisions are w/o s/s of infection. Getting Xrays-E4SF SERAFIN TRAN NP [address] [facility],[address], [place], [address], [facility] - [facility] & [place] 09/18/2024 15:24:10 10/30/2024 text/html 54 y/o female here today for follow up with x-rays 12 weeks post op left ankle ORIF; DOS: 08.04.24. Patient has been ambulating in boot. Patient states she feels like she overdid it one day and had increased pain and swelling. E4AP Danish Murillo MD [address] [place] [address],[address], [place], [address], [facility] - [facility] & [place] 11/04/2024 14:34:10 11/27/2024 text/html ROS as noted in the HPI Pt presents today for 2 week post op DOS- 11/18/2024- syndesmosis screw removal. Pt states her pain is not too bad in her ankle.On 11.21.24 pt hurt her 4th toe when moving furniture. Pt went to [facility] ER and had x-rays: Nondisplaced fracture of proximal phalanx of left lesser toe(s).Pt does not have a disk of images. Pt was told in the ER to joselyn tape her toes together but pt states it hurts too bad to do so. Pt is fully weight-bearing and wearing normal shoes. Pt is taking tylenol and Gabapentin for pain. We will get new x-rays today in office.E3AF SERAFIN TRAN NP [address] [facility],[address], [place], [address], [facility] - [facility] & [place] 11/27/2024 09:50:26 OBGyn Episode No OBEpisode recorded.
--- OUTSIDE RECORDS SUMMARY | 2025-06-25 10:02 | XMS_ITS | Data Portability ---
Author Organization [facility] [facility] Address [address] [place] [address] Assessment Encounter Date Assessment Date Assessment LastModified by Organization Details LastModified Time 08/15/2024 08/15/2024 Patient presented for medication refill. Patient tolerating medication well at current dose without adverse effects. Refilled as below. Discussed plan with patient, who expressed understanding . Follow up as noted below. [email or web address] Not available 08/15/2024 16:48:13 Plan of Treatment Reminders Order Date Submit Date Provider Last Modified By Organization Details Last Modified Time Details Appointments FOLLOW UP 15 2024 10:45A Dagoberto Wild PA-C Not available Not available Not available Lab HbA1c (hemoglob in A1c), blood [address], [address] [facility], [place], [address], 05/21/2025 11:48:51 microalbu min/creat inine, mass ratio, urine [email or web address], [address] [place], [address], 02/09/2025 13:41:47 unlisted lab - toxassure flex 19, [id number] -[id number] 2024 025 ZOE [facility] ([facility], [address] [place] [address], [place], [address], 02/12/2025 10:08:28 HbA1c (hemoglob in A1c), blood [address], [address] [facility], [place], [address], 12/09/2024 10:46:34 Referral [email or web address] a consult [address] [facility], [address], [place], [address], 06/05/2025 09:14:19 lymphedem a consult [address] [facility], [address], [place], [address], 03/03/2025 11:02:19 Procedures None recorded. Surgeries None recorded. Imaging home sleep study 2024 025 [facility], [address] [facility], [place], [address], 01/20/2025 09:25:58 MAMMO, screening , bilateral - first available appt 2024 025 [facility] ([facility]), [address], [place], [place], [address], 12/25/2024 12:28:36 Medication Orders bumetanid e 1 mg tablet 2024 025 [facility], [address] [place] [address] [address], [place], [id number], 02/10/2025 12:16:28 Ozempic 0.25 mg or 0.5 mg (2 mg/3 mL) subcutane ous pen injector 2024 025 [facility], [address] [place] [address] [address], [place], [id number], 02/10/2025 12:16:28 Zepbound 2.5 mg/0.5 mL subcutane ous pen injector 2024 025 [facility], [address] [place] [address] Sarah [place], [id number], 02/09/2025 13:41:21 gabapenti n 400 mg capsule 2024 025 [facility], [address] [place] [address] [place], [id number], 11/13/2024 16:07:54 gabapenti n 400 mg capsule 2023 024 [facility], [address] [place] [address] Sarah [place], [id number], 08/15/2024 16:25:38 Patient TargetsNo targets recorded. Patient Instructions Encounter Date Encounter Id Patient Instructions Last Modified By Organization Details Last Modified Time 08/15/2024 [id number] neuropathic pain : care instructions Not available 08/15/2024 16:24:51 11/13/2024 [id number] mammogram: about this test [email or web address] Not available 11/13/2024 16:40:06 restless legs syndrome: care instructions [email or web address] Not available 11/13/2024 16:06:51 body mass index: care instructions [email or web address] Not available 11/13/2024 17:43:56 learning about healthy weight [email or web address] Not available 11/13/2024 17:43:56 12/09/2024 [id number] learning about high blood sugar Not available 12/09/2024 10:46:34 snoring: care instructions [email or web address] Not available 12/09/2024 10:48:33 02/09/2025 [id number] leg and ankle edema: care instructions [email or web address] Not available 02/09/2025 13:49:14 learning about type 2 diabetes Not available 02/09/2025 13:41:47 type 2 diabetes: care instructions [email or web address] Not available 02/09/2025 13:41:47 05/19/2025 [id number] type 2 diabetes: care instructions [email or web address] Not available 05/21/2025 11:48:51 Reason for Referral Lymphedema Consult for Edema of lower extremity Referring Physician: Bhumi Wild [facility], Encounter Date: 02/09/2025 Lymphedema Consult for Lymph edema of bilateral lower limbs Referring Physician: Bhumi Wild [facility], Encounter Date: 05/19/2025 Results Created Date Observation Date Name Description Value Unit Range Abnormal Flag Note LastModifiedBy Organization Detail LastModifiedTime 12/10/19 25 12/09/2024 HbA1c (hemo globi n A1c), blood HbA1c 5.5 % Not Available [facility] [address] [place], [place] [address]ther [facility], [place], [address], 12/09/2024 10:17:57 02/10/20 25 02/12/2025 TOXAS SURE FLEX 19, UR summary report FINAL ===== ===== ===== ===== ===== ===== ===== ===== ===== ===== ===== ===== ===== === Gabap entin , MS, Ur RFX ToxAs sure Flex 19, Ur ===== ===== ===== ===== ===== ===== ===== ===== ===== ===== ===== ===== ===== === Test Resul t Flag Units Drug Prese nt Gabap entin PRESE NT ===== ===== ===== ===== ===== ===== ===== ===== ===== ===== ===== ===== ===== === Test Resul t Flag Units Ref Range Creat inine 50 mg/dL >=20 ===== ===== ===== ===== ===== ===== ===== ===== ===== ===== ===== ===== ===== === Decla red Medic ation s: Medic ation list was not provi ded. ===== ===== ===== ===== ===== ===== ===== ===== ===== ===== ===== ===== ===== === For clini antonio consu ltati on, pleas e call . ===== ===== ===== ===== ===== ===== ===== ===== ===== ===== ===== ===== ===== === Not Available [facility] ([facility]) [address] [place], [address], 02/12/2025 10:08:28 02/10/2002/12/2025 TOXAS SURE FLEX 19, UR pdf . Not Available [facility] ([facility]) [address] [place], [address], 02/12/2025 10:08:28 02/10/2002/12/2025 TOXAS SURE FLEX 19, UR creatinine 50 mg/dL >=20 REFER ENCE RANGE : Ref Range >=20 Not Available [facility] ([facility]) [address] [place], [address], 02/12/2025 10:08:28 02/10/2002/12/2025 TOXAS SURE FLEX 19, UR amphetamines ia Negati ve NG/mL cutoff :300 Not Available [facility] ([facility]) [address] [place], [address], 02/12/2025 10:08:28 02/10/20 25 02/12/2025 TOXAS SURE FLEX 19, UR benzodiazepi joseph Negati ve Not Available [facility] ([facility]) [address] [place], [address], 02/12/2025 10:08:28 02/10/20 25 02/12/2025 TOXAS SURE FLEX 19, UR diazepam Not Detect ed NG/mg _crea t Not Available [facility] ([facility]) [address] [place], [address], 02/12/2025 10:08:28 02/10/20 25 02/12/2025 TOXAS SURE FLEX 19, UR desmethyldia zepam Not Detect ed NG/mg _crea t Not Available [facility] ([facility]) [address] [place], [address], 02/12/2025 10:08:28 02/10/20 25 02/12/2025 TOXAS SURE FLEX 19, UR oxazepam Not Detect ed NG/mg _crea t Not Available [facility] ([facility]) [address] [place], [address], 02/12/2025 10:08:28 02/10/20 25 02/12/2025 TOXAS SURE FLEX 19, UR temazepam Not Detect ed NG/mg _crea t Expec nurys metab olism of benzo diaze pine class drugs : Paren t Drug Detec nurys Metab olite s ----- ----- - ----- ----- ----- ----- Diaze shree: Desme thyld iazep am, Temaz epam, Oxaze shree Chlor diaze poxid e: Desme thyld iazep am, Oxaze shree Clora zepat e: Desme thyld iazep am, Oxaze shree Halaz epam: Desme thyld iazep am, Oxaze shree Temaz epam: Oxaze shree Oxaze shree: None Not Available [facility] ([facility]) [address] [place], [address], 02/12/2025 10:08:28 02/10/20 25 02/12/2025 TOXAS SURE FLEX 19, UR alprazolam Not Detect ed NG/mg _crea t Not Available [facility] ([facility]) [address] [place], [address], 02/12/2025 10:08:28 02/10/20 25 02/12/2025 TOXAS SURE FLEX 19, UR alpha-hydrox yalprazolam Not Detect ed NG/mg _crea t Not Available [facility] ([facility]) [address] [place], [address], 02/12/2025 10:08:28 02/10/20 25 02/12/2025 TOXAS SURE FLEX 19, UR desalkylflur azepam Not Detect ed NG/mg _crea t Not Available [facility] ([facility]) [address] [place], [address], 02/12/2025 10:08:28 02/10/20 25 02/12/2025 TOXAS SURE FLEX 19, UR lorazepam Not Detect ed NG/mg _crea t Not Available [facility] ([facility]) [address] [place], [address], 02/12/2025 10:08:28 02/10/20 25 02/12/2025 TOXAS SURE FLEX 19, UR alpha-hydrox ytriazolam Not Detect ed NG/mg _crea t Not Available [facility] ([facility]) [address] [place], [address], 02/12/2025 10:08:28 02/10/20 25 02/12/2025 TOXAS SURE FLEX 19, UR clonazepam Not Detect ed NG/mg _crea t Not Available [facility] ([facility]) [address] [place], [address], 02/12/2025 10:08:28 02/10/20 25 02/12/2025 TOXAS SURE FLEX 19, UR 7-aminoclona zepam Not Detect ed NG/mg _crea t Not Available [facility] ([facility]) [address] [place], [address], 02/12/2025 10:08:28 02/10/20 25 02/12/2025 TOXAS SURE FLEX 19, UR midazolam Not Detect ed NG/mg _crea t Not Available [facility] ([facility]) [address] [place], [address], 02/12/2025 10:08:28 02/10/20 25 02/12/2025 TOXAS SURE FLEX 19, UR alpha-hydrox ymidazolam Not Detect ed NG/mg _crea t Not Available [facility] ([facility]) [address] [place], [address], 02/12/2025 10:08:28 02/10/20 25 02/12/2025 TOXAS SURE FLEX 19, UR flunitrazepa m Not Detect ed NG/mg _crea t Not Available [facility] ([facility]) [address] [place], [address], 02/12/2025 10:08:28 02/10/20 25 02/12/2025 TOXAS SURE FLEX 19, UR desmethylflu nitrazepam Not Detect ed NG/mg _crea t Not Available [facility] ([facility]) [address] [place], [address], 02/12/2025 10:08:28 02/10/20 25 02/12/2025 TOXAS SURE FLEX 19, UR cocaine metabolite ia Negati ve NG/mL cutoff :150 Not Available [facility] ([facility]) [address] [place], [address], 02/12/2025 10:08:28 02/10/20 25 02/12/2025 TOXAS SURE FLEX 19, UR ethanol biomarkers ia Negati ve NG/mL cutoff :500 Not Available [facility] ([facility]) [address] [place], [address], 02/12/2025 10:08:28 02/10/20 25 02/12/2025 TOXAS SURE FLEX 19, UR cannabinoids ia Negati ve NG/mL cutoff :20 Not Available [facility] ([facility]) [address] [place], [address], 02/12/2025 10:08:28 02/10/20 25 02/12/2025 TOXAS SURE FLEX 19, UR 6-acetylmorp haroon ia Negati ve NG/mL cutoff :10 Not Available [facility] ([facility]) [address] [place], [address], 02/12/2025 10:08:28 02/10/20 25 02/12/2025 TOXAS SURE FLEX 19, UR opiate class ia Negati ve NG/mL cutoff :100 Not Available [facility] ([facility]) [address] [place], [address], 02/12/2025 10:08:28 02/10/20 25 02/12/2025 TOXAS SURE FLEX 19, UR oxycodone class ia Negati ve NG/mL cutoff :100 Not Available [facility] ([facility]) [address] [place], [address], 02/12/2025 10:08:28 02/10/20 25 02/12/2025 TOXAS SURE FLEX 19, UR methadone ia Negati ve NG/mL cutoff :100 Not Available [facility] ([facility]) [address] [place], [address], 02/12/2025 10:08:28 02/10/20 25 02/12/2025 TOXAS SURE FLEX 19, UR methadone mtb ia Negati ve NG/mL cutoff :100 Not Available [facility] ([facility]) [address] [place], [address], 02/12/2025 10:08:28 02/10/20 25 02/12/2025 TOXAS SURE FLEX 19, UR buprenorphin e ia Negati ve NG/mL cutoff :5.0 Not Available [facility] ([facility]) [address] [place], [address], 02/12/2025 10:08:28 02/10/20 25 02/12/2025 TOXAS SURE FLEX 19, UR fentanyl ia Negati ve NG/mL cutoff :2.0 Not Available [facility] ([facility]) [address] [place], [address], 02/12/2025 10:08:28 02/10/20 25 02/12/2025 TOXAS SURE FLEX 19, UR tapentadol ia Negati ve NG/mL cutoff :200 Not Available [facility] ([facility]) [address] [place], [address], 02/12/2025 10:08:28 02/10/20 25 02/12/2025 TOXAS SURE FLEX 19, UR propoxyphene ia Negati ve NG/mL cutoff :300 Not Available [facility] ([facility]) [address] [place], [address], 02/12/2025 10:08:28 02/10/20 25 02/12/2025 TOXAS SURE FLEX 19, UR tramadol ia Negati ve NG/mL cutoff :200 Not Available [facility] ([facility]) [address] [place], [address], 02/12/2025 10:08:28 02/10/20 25 02/12/2025 TOXAS SURE FLEX 19, UR methylphenid ate ia Negati ve NG/mL cutoff :100 Not Available [facility] ([facility]) [address] [place], [address], 02/12/2025 10:08:28 02/10/20 25 02/12/2025 TOXAS SURE FLEX 19, UR barbiturates ia Negati ve NG/mL cutoff :200 Not Available [facility] ([facility]) [address] [place], [address], 02/12/2025 10:08:28 02/10/20 25 02/12/2025 TOXAS SURE FLEX 19, UR phencyclidin e ia Negati ve NG/mL cutoff :25 Not Available [facility] ([facility]) [address] [place], [address], 02/12/2025 10:08:28 02/10/20 25 02/12/2025 TOXAS SURE FLEX 19, UR gabapentin ia COMMEN T ug/mL cutoff :1.0 Furth er testi ng indic ated Not Available [facility] ([facility]) [address] [place], [address], 02/12/2025 10:08:28 02/10/20 25 02/12/2025 TOXAS SURE FLEX 19, UR anticonvulsa nts +POSIT VLADISLAV+ Not Available [facility] ([facility]) [address] [place], [address], 02/12/2025 10:08:28 02/10/20 25 02/12/2025 TOXAS SURE FLEX 19, UR pregabalin Not Detect ed Not Available [facility] ([facility]) [address] [place], [address], 02/12/2025 10:08:28 02/10/20 25 02/12/2025 TOXAS SURE FLEX 19, UR carisoprodol ia Negati ve NG/mL cutoff :100 Not Available [facility] ([facility]) [address] [place], [address], 02/12/2025 10:08:28 02/10/20 25 02/12/2025 GABAP ENTIN , MS, UR RFX anticonvulsa nts +POSIT VLADISLAV+ Not Available [facility] ([facility]) [address] [facility], [place], [address], 02/12/2025 10:08:29 02/10/20 25 02/12/2025 GABAP ENTIN , MS, UR RFX gabapentin PRESEN T Not Available [facility] ([facility]) [address] [facility], [place], [address], 02/12/2025 10:08:29 02/10/20 25 02/09/2025 micro album in/cr eatin ine, mass ratio , urine Microalbumin 10 mg/L Not Available [facility] [address] [place], [address], 02/09/2025 13:36:26 02/10/20 25 02/09/2025 micro album in/cr eatin ine, mass ratio , urine Creatinine 50 mg/dL Not Available [facility] [address] [place] [address], [address], 02/09/2025 13:36:26 02/10/20 25 02/09/2025 micro album in/cr eatin ine, mass ratio , urine Ratio <30 mg/g Not Available [facility] [address] [place] [address], [address], 02/09/2025 13:36:26 05/19/20 25 05/19/2025 HbA1c (hemo globi n A1c), blood HbA1c 5.6 Not Available [facility] [address] [place] [address], [address], 05/19/2025 11:19:30 11/14/19 25 03/18/2021 MAMMO , scree darcy, bilat eral No observ ation record ed. [email or web address] [facility] [address], [place], [address], 11/18/2024 15:02:10 11/14/19 25 11/03/2021 MAMMO , diagn ostic , digit al, unila teral No observ ation record ed. [email or web address] [facility] (Med Record) [address], [place], [address], 11/14/2024 13:59:28 11/14/19 25 05/02/2021 MAMMO , diagn ostic , digit al, bilat eral No observ ation record ed. [facility] [address], [place], [address], 11/14/2024 13:57:24 11/19/19 25 11/03/2021 MAMMO , diagn ostic , digit al, unila teral No observ ation record ed. [email or web address] [facility] (Med Record) [address], [place], [place], [address], 11/19/2024 09:13:20 12/26/19 25 12/19/2024 MAMMO , scree darcy, bilat eral No observ ation record ed. [facility] (Scheduling) [address], [place], [place], [address], 12/25/2024 16:31:36 01/21/20 25 01/06/2025 home sleep study No observ ation record ed. [facility] [address] [facility] [address], [place], [address], 01/22/2025 10:38:44 01/30/20 25 05/07/2019 colon oscop y proce dure (PROC ) No observ ation record ed. Not Available 2024 17:11:08 Result Notes None recorded. Problems Name Problem SNOMED Code Status Onset Date Resolution Date Notes Provider Name and Address Organization Details Recorded Time Gastroes ophageal reflux disease without esophagi tis 424890907 Active 2018 Not Available [facility] 2 21:06:22 Precordi al pain 32445009 Completed 201811/15/2018 Problem Code: R07.2; Problem Code Type: ICD-10; Not Available [facility] 2 21:06:22 Acute pharyngi tis 595268850 Completed 201811/13/2024 ANA M Sanchez [address] [place] [address], [address] , hetras. 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 085699484 Active 2018 Problem Code: Q25.48; Problem Code Type: ICD-10; Not Available [facility] 2 21:06:23 Asthenia 65366559 Active 2018 Problem Code: R53.1; Problem Code Type: ICD-10; Not Available [facility] 2 21:06:22 Mixed hyperlip idemia 425252683 Active 2018 Problem Code: E78.2; Problem Code Type: ICD-10; Not Available [facility] 2 21:06:22 Abnormal weight gain 704286943 Active 2018 Problem Code: R63.5; Problem Code Type: ICD-10; Not Available [facility] 2 21:06:23 Median nerve entrapme nt 958864365 Active 2018 Not Available [facility] 2 21:06:22 Melena 9350391 Active 2018 Problem Code: K92.1; Problem Code Type: ICD-10; Not Available [facility] 2 21:06:22 Acute sinusiti s 20232181 Completed 201811/13/2024 Problem Code: J01.90; Problem Code Type: ICD-10; ANA M Sanchez [address] [place] [address], [address] , hetras. 5 17:43:02 Heartbur n 07760216 Active 2018 Problem Code: R12; Problem Code Type: ICD-10; Not Available [facility] 2 21:06:22 Neck pain 21568217 Active 2018 Not Available [facility] 21:06:22 Influenz a vaccine needed 82267571326 06 Active 2018 Problem Code: Z23; Problem Code Type: ICD-10; Not Available [facility] 2 21:06:23 Restless legs syndrome 98477537 Active 2018 Problem Code: G25.81; Problem Code Type: ICD-10; Not Available [facility] 21:06:22 Body mass index 30+ - obesity 566127877 Active 2018 Problem Code: Z68.37; Problem Code Type: ICD-10; Not Available [facility] 21:06:23 Closed trimalle olar fracture of left ankle 41535381279 021847 Active 2023 ANA M Sanchez [address] [place] [address], [address] [place] [address] , [employer] 4 09:19:19 Hyperlip idemia 93174254 Active 2023 ANA M Sanchez [address] [place] [address], [address] [place] [address] , [employer] 17:43:42 Constipa tion 82085711 Active 2023 ANA M Sanchez [address] [place] [address], [address] [place] [address] , [employer] 5 17:43:15 Vitamin D deficien cy 92610674 Active 2023 ANA M Sanchez [address] [place] [address], [address] [place] [address] , [employer] 5 17:43:25 Osteoart hritis 762716718 Active 2023 ANA M Sanchez [address] [place] [address], [address] , [employer] 5 17:43:28 Essentia l hyperten dino 59950389 Active 2023 ANA M Sanchez [address] [place] [address], [address] , [place] [employer] 5 17:43:36 Type 2 diabetes mellitus without complica tion 150232453 Active 2023 ANA M Sanchez [address] [place] [address], [address] , [place] [employer] 5 17:43:27 Chronic obstruct vladislav pulmonar y disease 35528948 Active 2023 ANA M Sanchez [address] [place] [address], [address] , [place] [employer] 5 17:43:20 Spasm of back muscles 443343149 Active 2023 ANA M Sanchez [address] [place] [address], [address] , [employer] 4 09:40:02 Congesti ve heart failure 69408895 Active 2023 ANA M Sanchez [address] [place] [address], [address] , [place] [employer] 17:43:18 Gastroes ophageal reflux disease 073736274 Active 2023 ANA M Sanchez [address] [place] [address], [address] , [place] [employer] 5 17:43:39 Allergic rhinitis 67673901 Active 2023 ANA M Sanchez [address] [place] [address], [address] , [employer] 5 17:43:22 Depressi ve disorder 96376022 Active 2023 ANA M Sanchez [address] [place] [address], [address] , [employer] 5 17:43:13 Neuropat hy 584434172 Active 2023 ANA M Sanchez [address] [place] [address], [address] , [employer] 17:43:31 Pain of left ankle joint 45277670528 446016 Active 2024 ANA M Sanchez [address] [place] [address], [address] [place] [address] , [employer] 10:44:58 Hypergly cemia 08438444 Active 2024 ANA M Sanchez [address] [place] [address], [address] [place] [address] , [employer] 10:45:16 Snoring 02457346 Active 2024 ANA M Sanchez [address] [place] [address], [address] [place] [address] , [employer] 10:46:49 Edema of lower extremit y 046315681 Active 2024 ANA M Sanchez [address] [place] [address], [address] [place] [address] , [employer] 13:48:46 Instabil ity of joint of right knee 58164336389 04499 Active 2024 ANA M Sanchez [address] [place] [address], [address] [place] [address] , [employer] 10:26:38 Pain of knee region 6971074437 Active 2024 ANA M Sanchez [address] [place] [address], [address] , [employer] 14:09:23 Lymphede ma of bilatera l lower limbs 23520292939 838304 Active 2024 ANA M Sanchez [address] [place] [address], [address] [place] [address] , [employer] 10:49:47 Notes:*Problem Name: Other s pecified disorders [...] Time 12/20/19 25 Most Recent Mammogram completed [facility] 02/09/2025 13:29:03 09/16/19 19 appendectomy completed Not Available [facility] 05/16/2022 22:56:05 09/16/19 19 hysterectomy completed Not Available [facility] 05/16/2022 22:56:05 09/16/19 19 cholecystectomy completed Not Available [facility] 05/16/2022 22:56:06 Appendectomy completed [facility] 07/29/2024 08:52:18 Hysterectomy completed [facility] 07/29/2024 08:52:18 Tubal Ligation completed [facility] 07/29/2024 08:52:18 Gallbladder Surgery completed [facility] 07/29/2024 08:52:18 Imaging Results None recorded. Procedure Notes None recorded. Medical Equipment None Reported. Allergies Allergen ID Allergen Name Allergen Category Reaction Reaction Severity Criticality Documentation Date Start Date Code Code System Note Provider Name and Address Organization Details Recorded Time 67392 morphine sulfate medicatio n other Not available Not available 05/16/2022 39297 RxNorm Not Available [facility] 2 22:56:50 77862 Product containin g penicilli n (product) medicatio n other Not available Not available 05/16/2022 82634 8001 SNOMED [facility] 4 08:52:15 Medications Name Sig Start Date [...] Not Available Not Available Not Available dextrometho soni enesin 10 mg-100 mg/5 mL oral syrup [...] saturation in Arterial blood by Pulse oximetry Body temperature Systolic And Diastolic Provider Name and Address Organization Details Last Updated DateTime 5 172.72 cm 31.8 kg/m2 98500.8 1 g 92 /min 97 % 97 % 98.1 [degF] 132/82 mm[Hg] [employer] 5 15:44:24 Date Recorded Body height Body mass index (BMI) Body weight Oxygen saturation Oxygen saturation in Arterial blood by Pulse oximetry Heart rate Body temperature Systolic And Diastolic Provider Name and Address Organization Details Last Updated DateTime 5 172.72 cm 38.7 kg/m2 614594. 9 g 98 % 98 % 92 /min 97.9 [degF] 122/84 mm[Hg] [employer] 5 10:11:39 Date Recorded Body height Body mass index (BMI) Body weight Oxygen saturation Oxygen saturation in Arterial blood by Pulse oximetry Heart rate Body temperature Systolic And Diastolic Provider Name and Address Organization Details Last Updated DateTime 5 172.72 cm 39.5 kg/m2 108340. 02 g 97 % 97 % 86 /min 98.1 [degF] 116/80 mm[Hg] [employer] 5 13:26:54 Date Recorded Body height Body mass index (BMI) Body weight Heart rate Oxygen saturation Oxygen saturation in Arterial blood by Pulse oximetry Systolic And Diastolic Provider Name and Address Organization Details Last Updated DateTime 5 172.72 cm 37.9 kg/m2 179048. 3 g 91 /min 95 % 95 % 112/79 mm[Hg] Wendy Santana [employer] 5 10:39:50 Date Recorded Body height Body mass index (BMI) Body weight Heart rate Oxygen saturation Oxygen saturation in Arterial blood by Pulse oximetry Systolic And Diastolic Provider Name and Address Organization Details Last Updated DateTime 4 172.72 cm 30.4 kg/m2 50845.4 7 g 82 /min 96 % 96 % 110/77 mm[Hg] Daphne Bowen [facility] [employer] 4 16:09:56 Social History Question Answer Notes LastModified by Organizat ion Details LastModified Time Tobacco Smoking Status Former Smoker Jadon Weiss cesar: 'Tobacco /Alcohol /Supplem ents'; Mitchell Nicholson bruna: 'Former Smoker'; Not Available [facility] 05/16/2022 22:58:54 Do You Have An Advance Directive? No Information not available 07/29/2024 Is Your Home Air Conditioned? Yes [email or web address] Information not available 07/29/2024 Do You Wear A Helmet When Biking? Yes [email or web address] Information not available 07/29/2024 Are You Blind Or Do You Have Difficulty Seeing? No [email or web address] Information not available 07/29/2024 What Is Your Level Of Caffeine Consumption? Occasional [email or web address] Information not available 07/29/2024 What Type Of Air Pollution Compliance Inspector Do You Use? None [email or web address] Information not available 07/29/2024 In The 14 Days Before Symptom Onset, Have You Had Close Contact With A Laboratory-confi rmed COVID-19 While That Case Was Ill? No [email or web address] Information not available 07/29/2024 In The 14 Days Before Symptom Onset, Have You Had Close Contact With A Person Who Is Under Investigation For COVID-19 While That Person Was Ill? No [email or web address] Information not available 07/29/2024 Have You Been To An Area Known To Be High Risk For COVID-19? No [email or web address] Information not available 07/29/2024 Are You Deaf Or Do You Have Serious Difficulty Hearing? Yes [email or web address] Information not available 07/29/2024 What Type Of Diet Are You Following? REGULAR Information not available 07/29/2024 Have There Been Any Changes To Your Family Or Social Situation? No [email or web address] Information not available 07/29/2024 When Did You Quit Smoking? 11-15yearssinmike dudley Stop Date 2014 Information not available 02/09/2025 Are There Any Guns Present In Your Home? Yes [email or web address] Information not available 07/29/2024 Which Of Your Hands Is Dominant? Right [email or web address] Information not available 07/29/2024 What Is Your Home Situation? Other [email or web address] Information not available 07/29/2024 Do You Have A Medical Power Of [employer]? No [email or web address] Information not available 07/29/2024 What Was The Date Of Your Most Recent Tobacco Screening? 05/19/2025 [email or web address] Information not available 05/19/2025 Do You Have Any Pets? Yes [email or web address] Information not available 07/29/2024 What Is Your Relationship Status? [email or web address] Information not available 07/29/2024 Have You Repeated Any Grades? No Information not available 07/29/2024 Do You Use Your Seat Belt Or Car Seat Routinely? Yes [email or web address] Information not available 07/29/2024 Are You Sexually Active? No [email or web address] Information not available 07/29/2024 Do You Have Any Siblings? Yes [email or web address] Information not available 07/29/2024 Do You Have Smoke And Carbon Monoxide Detectors In Your Home? Yes Information not available 07/29/2024 At What Age Did You Start Smoking Tobacco? 12 Information not available 02/09/2025 Are You Passively Exposed To Smoke? No Information not available 07/29/2024 Are There Any Smokers In Your House? No [email or web address] Information not available 07/29/2024 Do You Participate In Social Media? Yes Information not available 11/13/2024 Do You Use Sunscreen Routinely? No [email or web address] Information not available 07/29/2024 Has Tobacco Cessation Counseling Been Provided? No Information not available 11/13/2024 Have You Recently Traveled Abroad? No [email or web address] Information not available 07/29/2024 Do You Have Difficulty Walking Or Climbing Stairs? No [email or web address] Information not available 07/29/2024 Are You Currently [...] other forms of tobacco or nicotine? Yes [email or web address] Information not available 05/19/2025 Do you or have you ever used smokeless tobacco? Never used smokeless tobacco SocialHistor yQuestion: 'Tobacco/Alc ohol/Supplem ents'; SocialHistor yResponse: 'Current smokeless tobacco user (eg, chew, snuff) (PV)1'; Information not available 11/13/2024 Are you currently employed? No [email or web address] Information not available 07/29/2024 Do you have transportation difficulties? No Information not available 11/13/2024 Are you able to walk independently without assistance or assistive devices? [email or web address] Information not available 11/13/2024 Do you have difficulty doing errands alone? No [email or web address] Information not available 07/29/2024 Are you able to care for yourself independently? Yes [email or web address] Information not available 07/29/2024 Do you have difficulty dressing, bathing, grooming, or toileting? No Information not available 07/29/2024 Do you or have you ever used e-cigarettes or vape? Current user of electronic cigarettes Information not available 05/19/2025 What is your exercise level? None [email or web address] Information not available 07/29/2024 Mental Status Question Answer Note LastModified by Organizat ion Details LastModified Time Do you feel stressed (tense, restless, nervous, or anxious, or unable to sleep at night)? [id number] Information not available 11/13/2024 Do you have difficulty concentrating, remembering or making decisions? No [email or web address] Information no t available 07/29/2024 Are you or have you been involved with bullying? No [email or web address] Information not available 07/29/2024 Family History Relationship Description Onset Age of this Age Resolved Age Notes LastModified by Organization Details LastModified Time Unspecified Relation Family history of cirrhosis of liver Relati ve: ''; [email or web address] Not available 07/29/2024 08:52:15 Unspecified Relation Family history of diabetes mellitus type 2 Relati ve: ''; [email or web address] Not available 07/29/2024 08:52:15 Unspecified Relation Family history of alcoholism Relati ve: ''; [email or web address] Not available 07/29/2024 08:52:15 Unspecified Relation Family history of Hypertension Relati ve: ''; Not available 07/29/2024 08:52:15 Unspecified Relation Family history of Hypothyroidi sm Relati ve: ''; [email or web address] Not available 07/29/2024 08:52:15 Unspecified Relation Family history of Myocardial infarction Relati ve: ''; [email or web address] Not available 07/29/2024 08:52:15 Unspecified Relation Asthma Not available 024 08:52:15 Mother Arthritis [email or web address] Not availab le 07/29/2024 08:52:15 Brother Malignant neoplasm of colon [email or web address] Not available 2023 08:52:15 Brother Arthritis [email or web address] Not availa ble 07/29/2024 08:52:15 Father Arthritis [email or web address] Not availab le 07/29/2024 08:52:15 Father Heart disease Not available 2023 08:52:15 Notes:*Procedure Description : Documented family medical history in father*Relative: Father *Procedure Description: Documented family medical history in sister*Relative: Sister *Procedure Description: Documented family medical history in brother*Relative: Brother Medical History Condition Response Heart Disease Y Headaches Y Depression Y COPD Y Asthma Y Gynecological History Statement/Question Response Menses Monthly [...] ICD10 Code Diagnosis IMO Codes Diagnosis Note [id number] ANA M Sanchez [facility] [address] [place] [address] 07/29/2024 08:28:56 07/29/2024 09:39:18 Closed trimalleolar fracture of left ankle 0819229529 8958042 S82.852A Patient sees ortho again later this week to schedule surgery. Order sent for wheelchair with elevated leg rest. Patient needs this to be mobile within the home and protect fracture pre and post surgery. Gastroesop hageal reflux disease 510593588 K21.9 Hyperlipidemia 90736316 E78.5 Constipation 55285293 K5 9.00 Vitamin D deficiency 347 38070 E55.9 Osteoarthritis 287677552 M19.90 Essential hypertension 22779305 I10 Type 2 zahra betes mellitus without complication 958094233 E11.9 Restless l egs syndrome 25685409 G25.81 Chronic ob structive pulmonary disease 97327096 J44.9 Spasm of back muscles 20 1437867 M62.830 Congestive heart failure 63859634 I50.9 Body mass index 30+ - obesity 040589792 Z68.30 Allergic rhinitis 464233 04 J30.9 Depressive disorder 3548 9007 F32.A [id number] ANA M Sanchez [place] [address] 08/15/2024 15:40:29 08/15/2024 16:24:36 Neuropathy 280362154 G62.9 [id number] ANA M Sanchez [address] [address] 11/13/2024 15:21:34 11/13/2024 17:18:17 Restless legs syndrome 83887530 G25.81 Neuropathy 282755631 G62 .9 Screening mammography 24 247194 Z12.31 Body mass index 30+ - obesity 935672003 Z68.30 Closed tri malleolar fracture of left ankle 3454853952 9420527 S82.852A Given handicap parking placard applicatio n [id number] ANA M Sanhcez [address] [address] 12/09/2024 10:06:10 12/09/2024 10:51:11 Pain of left ankle joint 3374141373 0651596 M25.572 s/p left trimalleol ar fracturePT previously ordered but on waiting list - will try [facility] instead Hyperglycemia 86076634 R 73.9 HgA1c 5.5 Body mass index 30+ - obesity 134152348 Z68.30 Snoring 87451902 R06.83 [id number] AAN M Sanchez [facility] [address] [place] [address] 02/09/2025 13:07:48 02/09/2025 13:48:35 Type 2 diabetes mellitus 93133979 E11.9 80274832 Long-term current use of drug therapy 541132474 Z79.899 31512571 Edema of l ower extremity 174305724 R60.0 80000 Trial Bumex instead of Lasix [id number] ANA M Sanchez [facility] [address] [place] [address] 05/19/2025 10:27:20 05/19/2025 10:57:53 Lymphedema of bilateral lower limbs 4203061176 7566467 I89.0 50713355 Type 2 zahra betes mellitus without complication 285742747 E11.9 Health Concerns Section Related Observation LastModified by Organization Detai ls LastModified Time None Recorded Concern Status LastModified by Organization Details LastModified Time None Recorded Advance Directives Directive N: Payers Insurance Date Sequence Insurance Name Policy Number Policy Schwartz Covered Member ID Schwartz Member ID Guarantor Name 05/25/2025 1 [facility] (MEDICAID REPLACEMENT - HMO) Kylah Hickman [id number] Kylah Hickman Notes Date Note Type Note Provider Name and Address Organization Details Recorded Time 08/15/2024 text/html Patient presents for followup. Due for refills on Gabapentin. History of neuropathy, DM, RLS.Recently had ORIF of the left ankle after falling down the steps of her RV ANA M Sanchez [address] [place] [address], [place], [address], [facility] 08/15/2024 16:48:51 11/13/2024 text/html ROS as noted in the HPI Patient presents for followup.History of neuropathy, RLS. Needs refills on Gabapentin. Had ORIF left ankle. Has surgery tomorrow to have some screws removed. Has started doing some ROM exercise.Has anxiety/depression related to the recent of her nephew. ANA M aSnchez [address] [place], [address], [employer]. 11/13/2024 17:45:26 12/09/2024 text/html ROS as noted in the HPI Patient suffered trimalleolar fracture of the left ankle in July. Underwent ORIF. Has been trying to start weight bearing again. Has significant pain in her left ankle. Would like to start PT.Glucose was high last visit - needs [id number] c/o snoring, apneic episodes, fatigue. ANA M Sanchez [address] [place], [address], [employer], [employer]. 12/09/2024 16:46:12 02/09/2025 text/html ROS as noted in the HPI Patient presents for followup. Suffered left ORIF several months ago. Has a lot of swelling in her left ankle. Going to PT and they recommended lymphedema therapy as well. Does not feel like furosemide is helping.Patient has history of diabetes. Previously on Metformin but it upset her stomach. ANA M Sanchez [address] [place], [address], [employer], [employer]. 02/09/2025 16:49:32 05/19/2025 text/html ROS as noted in the [...] at home to maintain. ANA M Sanchez [address] [place], [address], [employer], [employer]. 05/21/2025 11:49:29 OBGyn Episode No OBEpisode recorded.
[2025-06-25 10:48] LABS: Albumin Level 3.9 g/dl (3.5-5.0)
[2025-06-25 10:51] LABS: Alanine Aminotransferase 38 U/L (12-78); Alkaline Phosphatase 106 U/L (38-126); Aspartate Amino Transferase 46 U/L (14-36); Bilirubin,Direct 0.0 mg/dl (0.0-0.4); Bilirubin,Indirect 0.8 mg/dL (0.0-0.9); Bilirubin,Total 0.8 mg/dl (0.2-1.3); Bilirubin,Unconjugated 0.8 mg/dL (0.0-1.1); Cholesterol 227 mg/dl (140-200); Total Protein,Serum 7.0 g/dl (6.3-8.2); Triglycerides 160 mg/dl (30-150)
[2025-06-25 10:52] LABS: HDL Cholesterol 42 mg/dl (40-60)
== END 2025-06-25 23:59 | disposition home or self-care (01) ==
LOC: LAB 09:49
PROVIDERS: PCP Physician Assistant; Visit Provider Nurse Practitioner Family
DX: E78.5 Hyperlipidemia, unspecified (principal); I11.9 Hypertensive heart disease without heart failure
CPT/HCPCS: 36415; 80061; 80076

== ENCOUNTER 2025-07-18 19:56 | Emergency (ER) | payer MEDICAID, SELFPAY ==
[2025-07-18] VITALS (11 sets, daily range): BP systolic 90–125; BP diastolic 57–74; PULSE 70–91; RESP 13–23; TEMP 36.6–37.1; O2SAT 94–98; BMI 39.0
--- NOTE | 2025-07-18 20:02 | XR_ITS ---
PROCEDURE INFORMATION: Exam: XR Chest Exam date and time: 07/18/2025 8:22 PM Age: 55 years old Clinical indication: Shortness of breath and other: Chest pain; Additional info: Cp SOA TECHNIQUE: Imaging protocol: Radiologic exam of the chest. Views: 1 view. COMPARISON: CR XR CHEST PORTABLE 12/06/2023 10:05 PM FINDINGS: Lungs: The lungs are adequately inflated. No focal consolidation. Pleural spaces: No pneumothorax or pleural effusion. Heart/Mediastinum: The cardiomediastinal silhouette has normal size and contour. Bones/joints: No displaced fracture. Intraperitoneal space: The visualized abdomen is unremarkable. IMPRESSION: No acute cardiopulmonary disease.
--- NOTE | 2025-07-18 20:03 | ED_ITS ---
Discharge Plan Disposition Patient Disposition: Home, Self-Care Prescriptions Prescriptions: No Action Vraylar 1.5 mg capsule 1.5 mg PO DAILY Qty: 30 2RF albuterol sulfate 1.25 mg/3 mL solution for nebulization 1.25 mg inhalation QID PRN (Reason: shortness of breath or wheezing) Qty: 90 0RF bumetanide 1 mg tablet 1 mg PO DAILY Patient Comments: TAKE 1 TABLET BY MOUTH ONCE A DAY FOR FLUID Wegovy 0.25 mg/0.5 mL pen injector 0.5 mg SQ WEEKLY Rx Instructions: administer weeks 1 through 4 of therapy ropinirole 2 mg tablet 2 mg PO HS Patient Comments: TAKE ONE TABLET BY MOUTH ONCE A DAY 1 TO 3 HOURS BEFORE BEDTIME loratadine [Claritin] 10 mg tablet 10 mg PO DAILY Qty: 90 3RF azelastine 205.5 mcg (0.15 %) spray,non-aerosol 1 spray INTRANASAL HS 90 Days Qty: 30 2RF Rx Instructions: administer into each nostril famotidine [Pepcid] 20 mg tablet 20 mg PO HS Qty: 90 3RF metoprolol succinate [Toprol XL] 25 mg tablet extended release 24 hr 25 mg PO DAILY Qty: 30 5RF gabapentin 400 mg capsule 400 mg PO TID Qty: 90 2RF lorazepam [Ativan] 0.5 mg tablet 0.5 mg PO BID PRN (Reason: anxiety) Qty: 30 0RF cholecalciferol (vitamin D3) 25 mcg (1,000 unit) tablet See Rx Instructions .ROUTE .COMPLEX Qty: 90 3RF Dose Instruction: TAKE ONE TABLET BY MOUTH ONCE A DAY Rx Instructions: TAKE ONE TABLET BY MOUTH ONCE A DAY Linzess 145 mcg capsule See Rx Instructions .ROUTE .COMPLEX Qty: 90 0RF Dose Instruction: TAKE ONE CAPSULE BY MOUTH ONCE A DAY Rx Instructions: TAKE ONE CAPSULE BY MOUTH ONCE A DAY tizanidine 4 mg tablet See Rx Instructions .ROUTE .COMPLEX Qty: 90 0RF Dose Instruction: TAKE ONE TABLET BY MOUTH EVERY 8 HOURS NEEDED FOR MUSCLE SPASTICITY Rx Instructions: TAKE ONE TABLET BY MOUTH EVERY 8 HOURS NEEDED FOR MUSCLE SPASTICITY (DME) OneTouch Ultra Test Strip See Rx Instructions .ROUTE .COMPLEX Qty: 50 5RF Dose Instruction: USE DIRECTED Rx Instructions: USE DIRECTED rosuvastatin 40 mg tablet 40 mg PO DAILY Qty: 30 5RF spironolactone 25 mg tablet See Rx Instructions .ROUTE .COMPLEX Qty: 60 8RF Dose Instruction: TAKE TWO TABLETS BY MOUTH ONCE A DAY Rx Instructions: TAKE TWO TABLETS BY MOUTH ONCE A DAY Repatha SureClick 140 mg/mL pen injector 140 mg SQ Q2W Qty: 2 2RF hzytudbzukrw-dco-GK-[id number] 1 EACH tablet 1 each PO DAILY aspirin 81 mg Tablet,Delayed Release (Dr/Ec) 81 mg PO DAILY pantoprazole 40 mg tablet,delayed release (DR/EC) 40 mg PO HS Rx Instructions: TAKE ONE TABLET BY MOUTH ONCE A DAY FOR GERD budesonide-formoterol [Symbicort] 160-4.5 mcg/actuation HFA aerosol inhaler 2 puff inhalation BID Rx Instructions: INHALE 2 PUFFSBY MOUTH 2 TIMES A DAY Referrals Follow up/Referrals: Bhumi Wild PA [Primary Care Provider, Medical] - See instructions Jan Arzate MD [Staff Physician, Cardiology] - See instructions Lenore Andujar MD [Physician, Pulmonology] - See instructions Activity Restrictions/Add. Instructions Additional Instructions/Restrictions: Please follow-up with Dr. Arzate's team regarding your chest pain also there were incidental pulmonary nodules found on your CAT scan please follow-up with her marketing database coordinator who has a pulmonary nodule clinic to follow these incidental findings. Clinical Impressions Clinical Impression: Atypical chest pain, Pulmonary nodule Print Language Print Language: Iranian Discharge ED Provider: Camilo Phelps General Adult HPI <Adilia Contreras APRN - Last Filed: 07/18/25 21:56> General Chief complaint: Chest Pain Stated complaint: Chest Pain Time Seen by Provider: 07/18/25 19:57 History of Present Illness HPI narrative: patient is a 55-year-old female PMHx [place] (2023), hypokalemia, obesity, anxiety, history of tobacco use, hyperlipidemia, hypertensive heart disease, COPD, HTN, diabetes who presents to the ED for complaints of centrally located chest pain that she describes as a burning that started approximately 2 hours prior to arrival. Related Data Home Medications ?Medication ?Instructions ?Recorded ?Confirmed multivitamin with [id number] 1 each PO DAILY Supple ment 03/02/20 04/14/25 400 mcg-120 mg tablet aspirin 81 mg tablet,delayed 81 mg PO DAILY 12/07/23 0 04/14/25 release budesonide-formoterol HFA 160 2 puff inhalation BID 04/14/25 mcg-4.5 mcg/actuation aerosol inhaler (Symbicort) pantoprazole 40 mg tablet,delayed 40 mg PO HS 12/07/23 04/14/25 release bumetanide 1 mg tablet 1 mg PO DAILY 04/14/2504/14 ropinirole 2 mg tablet 2 mg PO HS 04/14/25 04/14/25 semaglutide (weight loss) 0.25 0.5 mg SQ WEEKLY 04/14/25 mg/0.5 mL subcutaneous pen injector (Vidal) Previous Rx's ?Medication ?Instructions ?Recorded azelastine 205.5 mcg (0.15 %) 1 spray intranasal HS 90 days #30 08/27/23 nasal spray mL famotidine 20 mg tablet (Pepcid) 20 mg PO HS #90 tabs 08/27/23 loratadine 10 mg tablet (Claritin) 10 mg PO DAILY #90 tabs 08/27/23 cariprazine 1.5 mg capsule 1.5 mg PO DAILY #30 caps (Vraylar) albuterol sulfate 1.25 mg/3 mL 1.25 mg (3 mL) inhalati on QID PRN 12/17/23 solution for nebulization shortness of breath or wheez ing #90 mL cholecalciferol (vitamin D3) 25 See Rx Instructions .R oute 03/10/24 mcg (1,000 unit) tablet .COMPLEX #90 tabs metoprolol succinate 25 mg 25 mg PO DAILY #30 tabs 05/03 tablet,extended release 24 hr (Toprol XL) gabapentin 400 mg capsule 400 mg PO TID #90 caps 04/14 lorazepam 0.5 mg tablet (Ativan) 0.5 mg PO BID PRN anx iety #30 tabs 04/14/24 linaclotide 145 mcg capsule See Rx Instructions .Route 07/11/24 (Linzess) .COMPLEX #90 caps tizanidine 4 mg tablet See Rx Instructions .Route 1 09/14/23 .COMPLEX #90 tabs blood sugar diagnostic (OneTouch #50 strips 01/07/25 Ultra Test strips) rosuvastatin 40 mg tablet 40 mg PO DAILY #30 tabs 02/01 spironolactone 25 mg tablet See Rx Instructions .Route 06/23/25 .COMPLEX #60 tabs evolocumab 140 mg/mL subcutaneous 140 mg SQ Q2W #2 mL 06/29/25 pen injector (Repatha SureClick) Allergies Allergy/AdvReac Type Severity Reaction Status Date / Time morphine (MORPHINE) Allergy Severe S-DIFF. Verified 04/14/25 08:55 BREATHING Penicillins (PENICILLINS) Allergy Unknown Verified 04/14/25 08:55 PFSH <Adilia Contreras APRN - Last Filed: 07/18/25 21:56> [facility] Disclaimer: The information contained in this section may have been updated after the patient was seen, as this information can be updated by other users. Medical History Anxiety Nightmare Edema of both lower extremities Dizziness Screening for lung cancer Chronic cough Mild persistent asthma Non-seasonal allergic rhinitis Stopped smoking with greater than 30 pack year history Family history of asthma Dyspnea on exertion Hyperlipidemia Hypertensive heart disease SOB (shortness of breath) on exertion Leg edema Abnormal ankle brachial index (NANNETTE) History of rectal bleeding Constipation Abnormal electrocardiography Family history of heart disease Ex-smoker Gastroesophageal reflux disease COPD (chronic obstructive pulmonary disease) HTN (hypertension) Dyspnea Chest pain Lumbar radicular pain Neuropathy Obesity, Class II, BMI 35-39.9 Surgical History History of colonoscopy History of carpal tunnel release Family History Other Asthma Cancer Diabetes Family history of asthma Heart attack Hyperlipidemia Hypertension Stroke Social History Smoking Status: Never smoker alcohol intake: never substance use type: denies use current occupational status: unemployed Travel in the last 8 weeks?: None caffeine: Yes Other Medical History Have you received the Flu Vaccine for this season: No Have you received the Pneumonia Vaccine: No <Adilia Contreras APRN - Last Filed: 07/18/25 21:56> ROS Obtained: Yes Systems reviewed as appropriate & no additional complaints except as documented Physical Exam <Adilia Contreras APRN - Last Filed: 07/18/25 21:56> General General appearance: alert Eye Eye exam: Present PERRL Chest Chest inspection: Present normal inspection Respiratory Respiratory exam: Present normal lung sounds bilaterally Cardiovascular Cardiovascular exam: Present regular rate Abdominal Exam Abdominal exam: Present soft; Absent tenderness Neurological Exam Neurological exam: Present alert, oriented X3 and normal gait; Absent motor sensory deficit Skin Skin exam: Present warm and dry Medical Decision Making <Adilia Contreras APRN - Last Filed: 07/18/25 21:56> Medical Records Screening: Per USPSTF and CDC recommendations, given the prevalence of disease in our region, it is our hospital?s policy to screen for HIV and viral Hepatitis for all patients aged 18 and over and those with ongoing risk factors. [place] Inquiry Pt receiving controlled substance: No Vital Signs: 07/18/25 20:00 07/18/25 20:07 07/18/25 20:30 Temperature 97.9 F Temperature Source Oral Pulse Rate 80 78 Pulse Rate [Right Radial] 80 Respiratory Rate 16 14 Blood Pressure Blood Pressure [Right Arm] 111/73 Blood Pressure Mean [Right Arm] 85 Blood Pressure Source [Right Arm] Automatic Cuff Blood Pressure Position [Right Arm] Supine 02 Sat by Pulse Oximetry 98 97 Oxygen Delivery Method Room Air Room Air 07/18/25 21:00 07/18/25 21:10 07/18/25 21:30 Temperature Temperature Source Pulse Rate 81 76 70 Pulse Rate [Right Radial] Respiratory Rate 13 23 15 Blood Pressure 105/66 L 99/67 L Blood Pressure [Right Arm] Blood Pressure Mean [Right Arm] Blood Pressure Source [Right Arm] Blood Pressure Position [Right Arm] 02 Sat by Pulse Oximetry 97 96 94 L Oxygen Delivery Method Room Air Room Air Room Air 07/18/25 22:15 07/18/25 22:30 07/18/25 23:01 Temperature Temperature Source Pulse Rate 91 H 71 74 Pulse Rate [Right Radial] Respiratory Rate 23 15 19 Blood Pressure 90/60 L 110/71 96/57 L Blood Pressure [Right Arm] Blood Pressure Mean [Right Arm] Blood Pressure Source [Right Arm] Blood Pressure Position [Right Arm] 02 Sat by Pulse Oximetry 95 98 97 Oxygen Delivery Method 07/18/25 23:30 07/18/25 23:52 Temperature 98.7 F Temperature Source Oral Pulse Rate 70 71 Pulse Rate [Right Radial] Respiratory Rate 15 18 Blood Pressure 92/64 L 125/74 Blood Pressure [Right Arm] Blood Pressure Mean [Right Arm] Blood Pressure Source [Right Arm] Blood Pressure Position [Right Arm] 02 Sat by Pulse Oximetry 96 Oxygen Delivery Method Room Air Lab Data Lab Results 07/18/25 20:02: Urine Color Yellow, Urine Appearance Clear, Urine pH 5.5, Ur Specific [place] 1.010, Urine Protein Negative, Urine Glucose (UA) Negative, Urine Ketones Negative, Urine Blood Negative, Urine Nitrate Negative, Urine Bilirubin Negative, Urine Urobilinogen 0.2, Ur Leukocyte Esterase 1+ A, Urine RBC None, Urine WBC Occasional, Ur Squamous Epith Cells Occasional, Urine Bacteria None 07/18/25 20:07: WBC 12.6 H, RBC 4.71, Hgb 13.0, Hct 39.3, MCV 83.4, MCH 27.6, MCHC 33.1, RDW 15.3, Plt Count 293, MPV 10.1, Neut % (Auto) 56.1, Lymph % (Auto) 32.9, [place] % (Auto) 8.0, Eos % (Auto) 2.3, Baso % (Auto) 0.5, Neut # (Auto) 7.1, Lymph # (Auto) 4.2, [place] # (Auto) 1.0, Eos # (Auto) 0.3, Baso # (Auto) 0.1, PT 10.5, INR 0.94, APTT 24.5, D-Dimer 0.94 H, Sodium 140, Potassium 3.7, Chloride 105, Carbon Dioxide 26, Anion Gap 12.7, BUN 19 H, Creatinine 1.30 H, Estimated Creat Clear 84, Estimated GFR 42 L, Est GFR ( Amer) 51 L, Glucose 83, Calcium 8.9, Total Bilirubin 0.6, AST 35, ALT 34, Alkaline Phosphatase 89, Troponin I < 0.01, NT-Pro-B Natriuret Pep 33.4, Total Protein 7.2, Albumin 4.7, Globulin 2.5, Albumin/Globulin Ratio 1.9 H 07/18/25 23:03: Troponin I < 0.01 07/18/25 20:07 07/18/25 20:07 Orders (Tests/Meds): ED MEDICATIONS Discontinued Medications Generic Name Dose Route Start Last Admin Trade Name Willian PRN Reason Stop Dose Admin Acetaminophen 1,000 mg 07/18/25 20:29 07/18/25 20:34 Acetaminophen 500mg Tab PO 07/18/25 20:30 1,000 mg ONCE ONE Administration Belladonna Alkaloids 60 ml 07/18/25 20:28 07/18/25 20:34 Belladonna Alkaloids 60 Ml Ml PO 07/18/25 20:29 60 ml ONCE ONE Administration Diphenhydramine HCl 25 mg 07/18/25 20:28 07/18/25 20:34 Diphenhydramine 50mg/Ml Vial IV 07/18/25 20:29 25 mg ONCE ONE Administration Iopamidol 75 ml 07/18/25 22:29 07/18/25 22:30 Iopamidol-370 (76%);100ml Bottle IV 07/18/25 22:30 75 ml ONCE ONE Administration Ondansetron HCl 4 mg 07/18/25 20:01 07/18/25 20:26 Ondansetron 4mg/2ml Vial IV 07/18/25 20:02 4 mg ONCE ONE Administration Sodium Chloride 10 ml 07/18/25 22:29 07/18/25 22:30 Sodium Chloride 0.9% 10ml Syr (Rad Only) IV 07/18/25 22:30 10 ml ONCE ONE Administration ORDERS Category Date Time Status CT chest w con Stat Cat Scan 07/18/25 21:18 Completed CXR --portable [XR chest portable] Stat Exams 07/18/25 20:02 Completed BNP [NT Pro Brain Natriuretic Pep.] Stat Lab 07/18/25 20:07 Completed CBC w/Auto Diff [Complete Blood Count Auto Diff] Stat Lab 07/18/25 20:07 Completed CMP [Comprehensive Metabolic Panel] Stat Lab 07/18/25 20:07 Completed D-Dimer Stat Lab 07/18/25 20:07 Completed PT/PTT Stat Lab 07/18/25 20:07 Completed Trop I [Troponin I] Stat Lab 07/18/25 20:07 Completed Troponin I Q3H Lab 07/18/25 23:03 Completed Troponin I Q3H Lab 07/19/25 02:15 Ordered Urinalysis and Microscopic Stat Lab 07/18/25 20:02 Completed Urine Culture Stat Micro 07/18/25 20:02 Received HEART Score History (anamnesis): Moderately suspicious ECG: Normal Age: 45-65 years Risk factors: 1-2 risk factors Troponin: </= normal limit HEART Score: 3 Medical Decision Narrative: In summary, patient is a 55-year-old female PMHx [place] (2023), hypokalemia, obesity, anxiety, history of tobacco use, hyperlipidemia, hypertensive heart disease, COPD, HTN, diabetes who presents to the ED for complaints of centrally located chest pain that she describes as a burning that started approximately 2 hours prior to arrival. Patient reports that her chest pain radiates down her left arm. She states she also has a headache. Advises she has had a red bull and Mountain Dew today, has been belching more than normal. Upon initial evaluation she is alert, oriented and cooperative. She is hemodynamically stable. Her physical exam is unremarkable. Differential diagnosis include ACS, dissection, pneumonia, pneumothorax, infectious process, among others. Will symptomatically managed with morphine and Zofran. Labs reviewed. CBC remarkable for WBC 12.6, stable H&H. Dimer 0.94, will proceed with CT of the chest. CMP remarkable for BUN 19, creatinine 1.30. GFR 42. Troponin < 0.01. Upon reassessment, patient's headache and chest pain have resolved, she is sleeping. Waiting on second troponin and CT scan to be performed. Care transferred to attending at this time <Yun Kaiser MD - Last Filed: 07/18/25 22:52> Vital Signs: 07/18/25 20:00 07/18/25 20:07 07/18/25 20:30 Temperature 97.9 F Temperature Source Oral Pulse Rate 80 78 Pulse Rate [Right Radial] 80 Respiratory Rate 16 14 Blood Pressure Blood Pressure [Right Arm] 111/73 Blood Pressure Mean [Right Arm] 85 Blood Pressure Source [Right Arm] Automatic Cuff Blood Pressure Position [Right Arm] Supine 02 Sat by Pulse Oximetry 98 97 Oxygen Delivery Method Room Air Room Air 07/18/25 21:00 07/18/25 21:10 07/18/25 21:30 Temperature Temperature Source Pulse Rate 81 76 70 Pulse Rate [Right Radial] Respiratory Rate 13 23 15 Blood Pressure 105/66 L 99/67 L Blood Pressure [Right Arm] Blood Pressure Mean [Right Arm] Blood Pressure Source [Right Arm] Blood Pressure Position [Right Arm] 02 Sat by Pulse Oximetry 97 96 94 L Oxygen Delivery Method Room Air Room Air Room Air 07/18/25 22:15 07/18/25 22:30 07/18/25 23:01 Temperature Temperature Source Pulse Rate 91 H 71 74 Pulse Rate [Right Radial] Respiratory Rate 23 15 19 Blood Pressure 90/60 L 110/71 96/57 L Blood Pressure [Right Arm] Blood Pressure Mean [Right Arm] Blood Pressure Source [Right Arm] Blood Pressure Position [Right Arm] 02 Sat by Pulse Oximetry 95 98 97 Oxygen Delivery Method 07/18/25 23:30 07/18/25 23:52 Temperature 98.7 F Temperature Source Oral Pulse Rate 70 71 Pulse Rate [Right Radial] Respiratory Rate 15 18 Blood Pressure 92/64 L 125/74 Blood Pressure [Right Arm] Blood Pressure Mean [Right Arm] Blood Pressure Source [Right Arm] Blood Pressure Position [Right Arm] 02 Sat by Pulse Oximetry 96 Oxygen Delivery Method Room Air Lab Data Lab results reviewed: Yes I reviewed the patient's lab results. Lab Results 07/18/25 20:02: Urine Color Yellow, Urine Appearance Clear, Urine pH 5.5, Ur Specific [place] 1.010, Urine Protein Negative, Urine Glucose (UA) Negative, Urine Ketones Negative, Urine Blood Negative, Urine Nitrate Negative, Urine Bilirubin Negative, Urine Urobilinogen 0.2, Ur Leukocyte Esterase 1+ A, Urine RBC None, Urine WBC Occasional, Ur Squamous Epith Cells Occasional, Urine Bacteria None 07/18/25 20:07: WBC 12.6 H, RBC 4.71, Hgb 13.0, Hct 39.3, MCV 83.4, MCH 27.6, MCHC 33.1, RDW 15.3, Plt Count 293, MPV 10.1, Neut % (Auto) 56.1, Lymph % (Auto) 32.9, [place] % (Auto) 8.0, Eos % (Auto) 2.3, Baso % (Auto) 0.5, Neut # (Auto) 7.1, Lymph # (Auto) 4.2, [place] # (Auto) 1.0, Eos # (Auto) 0.3, Baso # (Auto) 0.1, PT 10.5, INR 0.94, APTT 24.5, D-Dimer 0.94 H, Sodium 140, Potassium 3.7, Chloride 105, Carbon Dioxide 26, Anion Gap 12.7, BUN 19 H, Creatinine 1.30 H, Estimated Creat Clear 84, Estimated GFR 42 L, Est GFR ( Amer) 51 L, Glucose 83, Calcium 8.9, Total Bilirubin 0.6, AST 35, ALT 34, Alkaline Phosphatase 89, Troponin I < 0.01, NT-Pro-B Natriuret Pep 33.4, Total Protein 7.2, Albumin 4.7, Globulin 2.5, Albumin/Globulin Ratio 1.9 H 07/18/25 23:03: Troponin I < 0.01 Orders (Tests/Meds): ED MEDICATIONS Discontinued Medications Generic Name Dose Route Start Last Admin Trade Name Freq PRN Reason Stop Dose Admin Acetaminophen 1,000 mg 07/18/25 20:29 07/18/25 20:34 Acetaminophen 500mg Tab PO 07/18/25 20:30 1,000 mg ONCE ONE Administration Belladonna Alkaloids 60 ml 07/18/25 20:28 07/18/25 20:34 Belladonna Alkaloids 60 Ml Ml PO 07/18/25 20:29 60 ml ONCE ONE Administration Diphenhydramine HCl 25 mg 07/18/25 20:28 07/18/25 20:34 Diphenhydramine 50mg/Ml Vial IV 07/18/25 20:29 25 mg ONCE ONE Administration Iopamidol 75 ml 07/18/25 22:29 07/18/25 22:30 Iopamidol-370 (76%);100ml Bottle IV 07/18/25 22:30 75 ml ONCE ONE Administration Ondansetron HCl 4 mg 07/18/25 20:01 07/18/25 20:26 Ondansetron 4mg/2ml Vial IV 07/18/25 20:02 4 mg ONCE ONE Administration Sodium Chloride 10 ml 07/18/25 22:29 07/18/25 22:30 Sodium Chloride 0.9% 10ml Syr (Rad Only) IV 07/18/25 22:30 10 ml ONCE ONE Administration ORDERS Category Date Time Status CT chest w con Stat Cat Scan 07/18/25 21:18 Completed CXR --portable [XR chest portable] Stat Exams 07/18/25 20:02 Completed BNP [NT Pro Brain Natriuretic Pep.] Stat Lab 07/18/25 20:07 Completed CBC w/Auto Diff [Complete Blood Count Auto Diff] Stat Lab 07/18/25 20:07 Completed CMP [Comprehensive Metabolic Panel] Stat Lab 07/18/25 20:07 Completed D-Dimer Stat Lab 07/18/25 20:07 Completed PT/PTT Stat Lab 07/18/25 20:07 Completed Trop I [Troponin I] Stat Lab 07/18/25 20:07 Completed Troponin I Q3H Lab 07/18/25 23:03 Completed Troponin I Q3H Lab 07/19/25 02:15 Ordered Urinalysis and Microscopic Stat Lab 07/18/25 20:02 Completed Urine Culture Stat Micro 07/18/25 20:02 Received HEART Score HEART Score: 3 Medical Decision Narrative: In summary, patient is a 55-year-old female PMHx [place] (2023), hypokalemia, obesity, anxiety, history of tobacco use, hyperlipidemia, hypertensive heart disease, COPD, HTN, diabetes who presents to the ED for complaints of centrally located chest pain that she describes as a burning that started approximately 2 hours prior to arrival. Patient reports that her chest pain radiates down her left arm. She states she also has a headache. Advises she has had a red bull and Mountain Dew today, has been belching more than normal. Upon initial evaluation she is alert, oriented and cooperative. She is hemodynamically stable. Her physical exam is unremarkable. Differential diagnosis include ACS, dissection, pneumonia, pneumothorax, infectious process, among others. Will symptomatically managed with morphine and Zofran. Labs reviewed. CBC remarkable for WBC 12.6, stable H&H. Dimer 0.94, will proceed with CT of the chest. CMP remarkable for BUN 19, creatinine 1.30. GFR 42. Troponin < 0.01. Upon reassessment, patient's headache and chest pain have resolved, she is sleeping. Waiting on second troponin and CT scan to be performed. Care transferred to attending at this time Reassessment this is Dr. Kaiser at 1052 CT scan was performed which I personally interpreted shows no evidence of any acute cardiopulmonary emergency there are some incidental pulmonary nodules patient is been given a referral to her marketing database coordinator to have these followed up on. Awaiting second troponin at which point patient can follow-up outpatient with her real estate closer. Care will be transitioned to Dr. Phelps at 11 PM awaiting second troponin. <Camilo Phelps MD - Last Filed: 07/18/25 23:55> Vital Signs: 07/18/25 20:00 07/18/25 20:07 07/18/25 20:30 Temperature 97.9 F Temperature Source Oral Pulse Rate 80 78 Pulse Rate [Right Radial] 80 Respiratory Rate 16 14 Blood Pressure Blood Pressure [Right Arm] 111/73 Blood Pressure Mean [Right Arm] 85 Blood Pressure Source [Right Arm] Automatic Cuff Blood Pressure Position [Right Arm] Supine 02 Sat by Pulse Oximetry 98 97 Oxygen Delivery Method Room Air Room Air 07/18/25 21:00 07/18/25 21:10 07/18/25 21:30 Temperature Temperature Source Pulse Rate 81 76 70 Pulse Rate [Right Radial] Respiratory Rate 13 23 15 Blood Pressure 105/66 L 99/67 L Blood Pressure [Right Arm] Blood Pressure Mean [Right Arm] Blood Pressure Source [Right Arm] Blood Pressure Position [Right Arm] 02 Sat by Pulse Oximetry 97 96 94 L Oxygen Delivery Method Room Air Room Air Room Air 07/18/25 22:15 07/18/25 22:30 07/18/25 23:01 Temperature Temperature Source Pulse Rate 91 H 71 74 Pulse Rate [Right Radial] Respiratory Rate 23 15 19 Blood Pressure 90/60 L 110/71 96/57 L Blood Pressure [Right Arm] Blood Pressure Mean [Right Arm] Blood Pressure Source [Right Arm] Blood Pressure Position [Right Arm] 02 Sat by Pulse Oximetry 95 98 97 Oxygen Delivery Method 07/18/25 23:30 07/18/25 23:52 Temperature 98.7 F Temperature Source Oral Pulse Rate 70 71 Pulse Rate [Right Radial] Respiratory Rate 15 18 Blood Pressure 92/64 L 125/74 Blood Pressure [Right Arm] Blood Pressure Mean [Right Arm] Blood Pressure Source [Right Arm] Blood Pressure Position [Right Arm] 02 Sat by Pulse Oximetry 96 Oxygen Delivery Method Room Air Lab Data Lab Results 07/18/25 20:02: Urine Color Yellow, Urine Appearance Clear, Urine pH 5.5, Ur Specific [place] 1.010, Urine Protein Negative, Urine Glucose (UA) Negative, Urine Ketones Negative, Urine Blood Negative, Urine Nitrate Negative, Urine Bilirubin Negative, Urine Urobilinogen 0.2, Ur Leukocyte Esterase 1+ A, Urine RBC None, Urine WBC Occasional, Ur Squamous Epith Cells Occasional, Urine Bacteria None 07/18/25 20:07: WBC 12.6 H, RBC 4.71, Hgb 13.0, Hct 39.3, MCV 83.4, MCH 27.6, MCHC 33.1, RDW 15.3, Plt Count 293, MPV 10.1, Neut % (Auto) 56.1, Lymph % (Auto) 32.9, [place] % (Auto) 8.0, Eos % (Auto) 2.3, Baso % (Auto) 0.5, Neut # (Auto) 7.1, Lymph # (Auto) 4.2, [place] # (Auto) 1.0, Eos # (Auto) 0.3, Baso # (Auto) 0.1, PT 10.5, INR 0.94, APTT 24.5, D-Dimer 0.94 H, Sodium 140, Potassium 3.7, Chloride 105, Carbon Dioxide 26, Anion Gap 12.7, BUN 19 H, Creatinine 1.30 H, Estimated Creat Clear 84, Estimated GFR 42 L, Est GFR ( Amer) 51 L, Glucose 83, Calcium 8.9, Total Bilirubin 0.6, AST 35, ALT 34, Alkaline Phosphatase 89, Troponin I < 0.01, NT-Pro-B Natriuret Pep 33.4, Total Protein 7.2, Albumin 4.7, Globulin 2.5, Albumin/Globulin Ratio 1.9 H 07/18/25 23:03: Troponin I < 0.01 Orders (Tests/Meds): ED MEDICATIONS Discontinued Medications Generic Name Dose Route Start Last Admin Trade Name Chevyq PRN Reason Stop Dose Admin Acetaminophen 1,000 mg 07/18/25 20:29 07/18/25 20:34 Acetaminophen 500mg Tab PO 07/18/25 20:30 1,000 mg ONCE ONE Administration Belladonna Alkaloids 60 ml 07/18/25 20:28 07/18/25 20:34 Belladonna Alkaloids 60 Ml Ml PO 07/18/25 20:29 60 ml ONCE ONE Administration Diphenhydramine HCl 25 mg 07/18/25 20:28 07/18/25 20:34 Diphenhydramine 50mg/Ml Vial IV 07/18/25 20:29 25 mg ONCE ONE Administration Iopamidol 75 ml 07/18/25 22:29 07/18/25 22:30 Iopamidol-370 (76%);100ml Bottle IV 07/18/25 22:30 75 ml ONCE ONE Administration Ondansetron HCl 4 mg 07/18/25 20:01 07/18/25 20:26 Ondansetron 4mg/2ml Vial IV 07/18/25 20:02 4 mg ONCE ONE Administration Sodium Chloride 10 ml 07/18/25 22:29 07/18/25 22:30 Sodium Chloride 0.9% 10ml Syr (Rad Only) IV 07/18/25 22:30 10 ml ONCE ONE Administration ORDERS Category Date Time Status CT chest w con Stat Cat Scan 07/18/25 21:18 Completed CXR --portable [XR chest portable] Stat Exams 07/18/25 20:02 Completed BNP [NT Pro Brain Natriuretic Pep.] Stat Lab 07/18/25 20:07 Completed CBC w/Auto Diff [Complete Blood Count Auto Diff] Stat Lab 07/18/25 20:07 Completed CMP [Comprehensive Metabolic Panel] Stat Lab 07/18/25 20:07 Completed D-Dimer Stat Lab 07/18/25 20:07 Completed PT/PTT Stat Lab 07/18/25 20:07 Completed Trop I [Troponin I] Stat Lab 07/18/25 20:07 Completed Troponin I Q3H Lab 07/18/25 23:03 Completed Troponin I Q3H Lab 07/19/25 02:15 Ordered Urinalysis and Microscopic Stat Lab 07/18/25 20:02 Completed Urine Culture Stat Micro 07/18/25 20:02 Received HEART Score HEART Score: 3 Medical Decision Narrative: In summary, patient is a 55-year-old female PMHx [place] (2024), hypokalemia, obesity, anxiety, history of tobacco use, hyperlipidemia, hypertensive heart disease, COPD, HTN, diabetes who presents to the ED for complaints of centrally located chest pain that she describes as a burning that started approximately 2 hours prior to arrival. Patient reports that her chest pain radiates down her left arm. She states she also has a headache. Advises she has had a red bull and Mountain Dew today, has been belching more than normal. Upon initial evaluation she is alert, oriented and cooperative. She is hemodynamically stable. Her physical exam is unremarkable. Differential diagnosis include ACS, dissection, pneumonia, pneumothorax, infectious process, among others. Will symptomatically managed with morphine and Zofran. Labs reviewed. CBC remarkable for WBC 12.6, stable H&H. Dimer 0.94, will proceed with CT of the chest. CMP remarkable for BUN 19, creatinine 1.30. GFR 42. Troponin < 0.01. Upon reassessment, patient's headache and chest pain have resolved, she is sleeping. Waiting on second troponin and CT scan to be performed. Care transferred to attending at this time Reassessment this is Dr. Kaiser at 1052 CT scan was performed which I personally interpreted shows no evidence of any acute cardiopulmonary emergency there are some incidental pulmonary nodules patient is been given a referral to her marketing database coordinator to have these followed up on. Awaiting second troponin at which point patient can follow-up outpatient with her real estate closer. Care will be transitioned to Dr. Phelps at 11 PM awaiting second troponin. On reassessment patient sleeping comfortably and reports symptomatic improvement. Second troponin returned undetectably low. I discussed the findings of her CT scan including the pulmonary nodules and recommended follow- up. Patient was discharged in stable condition. Return precautions given. Critical Care <Adilia Contreras, PHOTOGRAMMETRIC STEREO COMPILER - Last Filed: 07/18/25 21:56> Critical Care Time Critical Care Time: No
--- NOTE | 2025-07-18 20:04 | ECG_ITS ---
APPROVED REPORT Exam: Resting ECG HR:79 bpm ECG Measurements Heart Rate 79 AXES SC 145 P 46 QRSd 76 QRS 34 QT 379 T 65 QTc 413 Conclusion SINUS RHYTHM LOW QRS VOLTAGE IN PRECORDIAL LEADS [QRS DEFLECTION < 1.0 mV IN CHEST LEADS] BORDERLINE ECG UNCONFIRMED REPORT Electronically signed by : Alessio Kaiser, 07/18/2025 23:12:18
--- OUTSIDE RECORDS SUMMARY | 2025-07-18 20:06 | XMS_ITS | Data Portability ---
Author Organization [facility] & [place] A[place] ADMIN Address [address] [place] [address] Care Team Providers Care Chemical Etching Processor Name Role Phone CYNTHIA FELIPE Branding Machine Tender [phone] [facility] Primary Care Provide r Assessment No assessment recorded. Plan of Treatment Reminders Order Date Submit Date Provider Last Modified By Organization Details Last Modified Time Details Appointments None recorded. Lab None recorded. Referral None recorded. Procedures None recorded. Surgeries None recorded. Imaging XR, foot 2024 025 alis [facility], [address] [place] [address] [place], [address], 5 09:13:11 XR, ankle 2024 025 [email or web address] [facility], [address] [place] [address] [place], [address], 5 09:49:32 XR, ankle 2024 025 [email or web address] [facility], [address] [place] [address] [place], [address], 5 08:45:27 XR, ankle 2024 025 alis [facility], [address] [place] [address] [place], [address], 5 15:29:54 Medication Orders hydrocodone 5 mg-acetamin ophen 325 mg tablet 2023 024 ZOE [facility] Giovanni [address] [place] [address] [place], [id number], 4 17:03:19 hydrocodone 5 mg-acetamin ophen 325 mg tablet 2023 024 ZOE [facility] Giovanni [address] [place] [address] , [place], [id number], 4 13:37:11 Patient TargetsNo targets recorded. Patient InstructionsNo instructions recorded. Reason for Referral None Reported. Results Created Date Observation Date Name Description Value Unit Range Abnormal Flag Note LastModifiedBy Organization Detail LastModifiedTime 07/24/2007/24/2024 CBC W/O DIFF note See Note Order ing Provi marlen: Kermit Murillo MD Not Available [address] , [place], [address], 07/24/2024 22:38:22 07/24/20 24 07/24/2024 CBC W/O DIFF white blood cell 13.4 10e3/ uL 4.5-13 .0 high Not Available [address] , [place], [address], 07/24/2024 22:38:22 07/24/20 24 07/24/2024 CBC W/O DIFF red blood cell 4.74 10e6/ uL 3.80-5 .10 normal Not Available [address] Shelley Herrmann, [place], [address], 07/24/2024 22:38:22 07/24/20 24 07/24/2024 CBC W/O DIFF hemoglobin 13.4 g/dL 11.5-1 5.3 normal Not Available [address] Shelley [place]mann, [place], [address], 07/24/2024 22:38:22 07/24/20 24 07/24/2024 CBC W/O DIFF hematocrit 39.6 % 34.0-4 6.0 normal Not Available [address] [place]mann, [place], [address], 07/24/2024 22:38:22 07/24/20 24 07/24/2024 CBC W/O DIFF mean cell volume 84 fL 78.0-9 8.0 normal Not Available [address] [place] Herrmann, [place], [address], 07/24/2024 22:38:22 07/24/20 24 07/24/2024 CBC W/O DIFF mean cell HGB 28.3 pg 25.0-3 5.0 normal Not Available [address] [place] Herrmann, [place], [address], 07/24/2024 22:38:22 07/24/20 24 07/24/2024 CBC W/O DIFF mean cell HGB concentratio n 33.8 g/dL 31.0-3 6.0 normal Not Available [address] Shelley Herrmann, [place], [address], 07/24/2024 22:38:22 07/24/20 24 07/24/2024 CBC W/O DIFF red cell distribution width 13.9 % 11.0-1 5.0 normal Not Available [address] [place] Herrmann, [place], [address], 07/24/2024 22:38:22 07/24/20 24 07/24/2024 CBC W/O DIFF platelet count 284 10e3/ uL 150-40 0 normal Not Available [address] [place]mann, [place], [address], 07/24/2024 22:38:22 07/24/20 24 07/24/2024 CBC W/O DIFF performing lab see note - [facility] [address] [place] [address] Not Available [address] Shelley Herrmann, [place], [address], 07/24/2024 22:38:22 07/24/20 24 07/24/2024 GLYCO HEMOG LOBIN (HGB A1C) note See Note Order ing Provi marlen: Kermit Murillo MD Not Available [address] [place] Herrmann, [place], [address], 07/24/2024 22:38:23 07/24/20 24 07/24/2024 GLYCO HEMOG LOBIN (HGB A1C) glycohemoglo bin (HGB A1C) 5.5 % 4.5-6. 2 normal Predi abete s: 5.7 - 6.4 Diabe alisa: >6.4 Glyce bette contr ol for adult s with diabe alisa: <7.0 Not Available [address] Shel[place] Herrmann, [place], [address], 07/24/2024 22:38:23 07/24/20 24 07/24/2024 GLYCO HEMOG LOBIN (HGB A1C) performing lab see note ML - [facility] [address] [facility] [address] [address] Not Available [address] Shelley Herrmann, [place], [address], 07/24/2024 22:38:23 07/24/20 24 07/24/2024 ELECT ROLYT ES PANEL note See Note Order ing Provi marlen: Kermit Murillo MD Not Available [address] [place] Herrmann, [place], [address], 07/24/2024 22:38:24 07/24/20 24 07/24/2024 ELECT ROLYT ES PANEL sodium 140 mmol/ L 136-14 5 normal Not Available [address] [place] Herrmann, [place], [address], 07/24/2024 22:38:24 07/24/20 24 07/24/2024 ELECT ROLYT ES PANEL potassium 3.4 mmol/ L 3.5-5. 1 low Not Available [address] , [place], [address], 07/24/2024 22:38:24 07/24/20 24 07/24/2024 ELECT ROLYT ES PANEL chloride 99 mmol/ L 98-107 normal Not Available [address] , [place], [address], 07/24/2024 22:38:24 07/24/20 24 07/24/2024 ELECT ROLYT ES PANEL carbon dioxide 30 mmol/ L 24-33 normal Not Available [address] , [place], [address], 07/24/2024 22:38:24 07/24/20 24 07/24/2024 ELECT ROLYT ES PANEL anion gap 14.4 mmol/ L 10-20 normal Not Available [address] , [place], [address], 07/24/2024 22:38:24 07/24/20 24 07/24/2024 ELECT ROLYT ES PANEL performing lab see note - [address] [facility] [address] Not Available [address] , [place], [address], 07/24/2024 22:38:24 07/24/20 24 07/24/2024 BLOOD UREA NITRO GEN note See Note Order ing Provi marlen: Kermit Murillo MD Not Available [address] , [place], [address], 07/24/2024 22:38:24 07/24/20 24 07/24/2024 BLOOD UREA NITRO GEN blood urea nitrogen 22 mg/dL 7-18 high Not Available [address] , [place], [address], 07/24/2024 22:38:24 07/24/20 24 07/24/2024 BLOOD UREA NITRO GEN performing lab see note ML - [facility] [address] [facility] [address] Not Available [address] , [place], [address], 07/24/2024 22:38:24 07/24/20 24 07/24/2024 CREAT ININE W/GFR note See Note Order ing Provi marlen: Kermit Murillo MD Not Available [address] , [place], [address], 07/24/2024 22:38:25 07/24/20 24 07/24/2024 CREAT ININE W/GFR creatinine 1.18 mg/dL 0.55-1 .02 high Not Available [address] , [place], [address], 07/24/2024 22:38:25 07/24/20 24 07/24/2024 CREAT ININE [...] care of your patie nt. Not Available [address] , [place], [address], 07/24/2024 22:38:25 07/24/20 24 07/24/2024 CREAT ININE W/GFR performing lab see note ML - [facility] [address] [facility] [address] [facility] [address] Not Available [address] , [place], [address], 07/24/2024 22:38:25 08/04/20 24 08/04/2024 GLUCO SE POINT OF CARE note See Note Order ing Provi marlen: Kermit Murillo MD Not Available [address] , [place], [address], 08/04/2024 10:29:24 08/04/20 24 08/04/2024 GLUCO SE POINT OF CARE glucose point of care 87 mg/dL 70-99 normal Not Available [address] , [place], [address], 08/04/2024 10:29:24 08/04/20 24 08/04/2024 GLUCO SE POINT OF CARE performing lab see note MWPO - [facility] [address] [place] [address] Not Available [address] [place], [address], 08/04/2024 10:29:24 07/24/20 24 07/24/2024 XR, chest , 2 view [facility] Name: [facility] [address] Phys: [place] [address] : 1969 Age: 54 Sex: F Acct: [id number] Loc: CAPRICE PHONE #: [phone] Exam Date: 2023 Status : [facility] FAX #: Rad# [id number] Unit# [id number] Admit Date: 2023 EXAMS: CPT CODE: [id number] 969 CHEST 2 VIEWS 66623 PA AND LATERA L CHEST, 2023: CLINIC [...] No eviden ce of acute cardio pulmon kristel diseas e. Electr onical ly Signed by TERRENCE GARVEY MD on 2023 at 1408 Report ed and signed by: TERRENCE GARVEY MD CC: NO PRIMAR Y CARE PHYSIC AIMEE; Danish Murillo MD Dictat ed Date/T key: 2023 ([id number]) Techno logist : ALEJANDRA AKIN RT(R)( M)(CT) [...] Consul ting Provid er: PHYSIC AIMEE NICKY [facility] [address] , [place], [address], 07/25/2024 07:33:56 07/25/20 24 07/25/2024 - C-arm < 1 hour [facility] Name[facility] [address] Phys: Chidi DENG,[place] [address] : 1969 Age: 54 Sex: F Acct: [id number] Loc: Scott.DS PHONE #: Exam Date: 2023 Status : [facility] FAX #: [phone] Rad# [id number] Unit# [id number] Admit Date: 2023 EXAMS: CPT CODE: [id number] [id number] C-ARM < 1 HOUR [address]5526 CLINIC AL INFORM ATION: Closed reduct ion [...] at 1224 Report ed and signed by: EVA Parsons [...] Consul ting Provid er: [facility] [address] [place], [address], 07/28/2024 07:36:30 08/04/20 24 08/04/2024 - C-arm extre mitie s [facility] Name: HALI OLIVER [address] [place] [address] Drive Phys: Chidi DENG,[place] [address] : 1969 Age: 54 Sex: F Acct: [id number] Loc: G.SURG PHONE #: [phone] Exam Date: 2023 Status : REG SDC FAX #: Rad# [id number] Unit# [id number] Admit Date: 2023 EXAMS: CPT CODE: [id number] C-ARM EXTREM ITIES 59112 CLINIC AL INFORM ATION: ORIF ankle fractu re COMPAR CAROLYNN: FINDIN GS: C-arm fluoro scopy was provid ed by radiol shani techno logist . ORIF left ankle perfor [...] ting Provid er: PHYSIC AIMEE NICKY madden [address] [place], [address], 08/04/2024 15:27:46 09/18/19 25 XR, ankle No observ ation record ed. ZOE Hernandez [address] [place], [address], 09/18/2024 14:54:32 10/30/19 25 XR, ankle No observ ation record ed. ZOE Daph[facility] [address] [place], [address], 10/30/2024 13:22:16 11/15/19 25 11/14/2024 - [facility] Name[facility] [address] Phys: Chidi DENG,[place] [address] : 1969 Age: 54 Sex: F Acct: [id number] Loc: G.SURG PHONE #: [phone] Exam Date: 2024 Status : REG [facility] FAX #: Rad# [id number] Unit# [id number] Admit Date: 2024 EXAMS: CPT CODE: [id number] 855 C-ARM EXTREM ITIES [address] FL LESS THAN 1 HOUR Reason For [...] 04:46 PM EST RP Workst ation: [id number] Electr onical ly Signed by ZAIRA FUNG [...] 2024 (1341) Printe d Date/T key: 2024 (3679) BATCH NO: N/A PAGE 1 Signed Report CC'ed Logic: Orderi ng Provid er: CHIDI LYCNH Attend ing Provid er: MURILLOENS LYNCH Referr ing Provid er: CHDII LYNCH Consul ting Provid er: PHYSIC AIMEE NO [facility] [address] , [place], [address], 11/17/2024 07:35:32 11/28/19 25 XR, ankle No observ ation record ed. [address] [place], [address], 11/27/2024 09:01:01 11/28/19 25 XR, foot No observ ation record ed. [address] , [place], [address], 11/27/2024 09:06:34 Result Notes None recorded. Problems Name Problem SNOMED Code Status Onset Date Resolution Date Notes Provider Name and Address Organization Details Recorded Time Hematochezi a 915265200 Active 2021 Cynthia Felipe NP [address], [address], [place], [address], [place] [facility] - [place] & [place] 2 15:54:31 Irritable bowel syndrome characteriz ed by constipatio n 679550809 Active 2021 Cynthia Felipe NP [address], [address], [place], [address], [place] [facility] [place] & [place] 2 15:56:34 Altered bowel function 88327005 Active 2021 Cynthia Felipe NP [address], [address], [place], [address], [place] [facility] [place] & [place] 2 15:56:34 Gastroesoph ageal reflux disease 762573970 Active 2022 Brittany henning, [place] [facility] & [place] 3 13:06:43 Chronic obstructive pulmonary disease 26392883 Active 2022 Brittany henning, [place] - [facility] & [place] 3 13:06:58 Gastro-esop hageal reflux disease with esophagitis 578670187 Active 2022 Cynthia Felipe NP [address], [address], [place], [address], [place] [facility] & [place] 3 13:40:19 Internal hemorrhoids 10840159 Active 2022 Cynthia Felipe NP [address], [address], [place], [address], [place] [facility] & [place] 3 13:40:31 Oropharynge al dysphagia 95132162 Active 2023 Cynthia Felipe NP [address], [address], [place], [address], [place] [facility] [place] [facility] & [place] 4 13:50:30 Swelling of submandibul ar area Active 2023 Cynthia Felipe NP [address], [address], [place], [address], [place] [facility] [place] [facility] & [place] 4 13:52:26 Pain of left ankle joint 9666668689177 9103 Active 2023 Danish Murillo MD [address], [place], [address], [place] [facility] [place] [facility] & [place] 4 10:26:52 Neuropathic pain 512689689 Active 2023 Danish Murillo MD [address] [facility] [address], [place], [address], [place] [facility] & [place] 4 10:28:34 Notes:Some problems listed i n Document: #[id number] could not be added to this patient's chart. Please review this document and add these problems to the patient's chart manually as needed. Problem Notes None recorded. Procedures Surgical History Date Name Laterality Status Provider Name and Address Organization Details Recorded Time 4 Colonoscopy completed Humera Floyd [facility] & [place] 01/02/2024 15:07:35 2 colonoscopy completed Cynthia Felipe NP [address] [place] [address], [address], [place], [address] & [place] 09/20/2022 13:38:52 Imaging Results None recorded. Procedure Notes None recorded. Medical Equipment None Reported. Allergies Allergen ID Allergen Name Allergen Category Reaction Reaction Severity Criticality Documentation Date Start Date Code Code System Note Provider Name and Address Organization Details Recorded Time 46751 Product containin g penicilli n (product) medicatio n Not available Not available Not available 09/20/2022 00848 8001 SNOMED Brittany henning [facility] & [place] 3 13:06:18 87093 morphine medicatio n Not available Not available Not available 09/20/2022 7052 RxNorm Brittany henning [facility] & [place] 3 13:06:26 Medications Name Sig Start Date [...] Jen Cooley [place] - [facility] - [facility] 09/18/2024 15:01:27 Social History None recorded. Functional Status Question Answer Note LastModified by Organizat ion Details LastModified Time What is your occupation? [email or web address] Information not available 07/24/2024 Mental Status None recorded. Family History Relationship Description Onset Age of this Age Resolved Age Notes LastModified by Organization Details LastModified Time Father Coronary arterioscler osis [email or web address] Not available 09/20 13:07:25 Sister Diabetes mellitus [email or web address] Not available 09/20 13:07:58 Sister Diabetes mellitus [email or web address] Not available 09/20 13:07:58 Sister Coronary arterioscler osis [email or web address] Not available 09/20 13:08:06 Sister Coronary arterioscler osis [email or web address] Not available 09/20 13:08:09 Brother Malignant neoplasm of colon [email or web address] Not available 2023 13:40:49 Medical History Condition Response Anemia Y Vision or Eye Problems Y Arthritis Y Ear or Hearing Problems Y GERD/Reflux Y Hyperlipidemia Y Heart Disease Y Back Problems Y Headaches Y Hypertension Y COPD Y Gynecological HistoryNo gynecological history recorded. Obstetrics History GPAL:G 0 P 0 0 0 0 Past Encounters Encounter ID Performer Location Encounter Start Date Encounter Closed Date Diagnosis/Indication Diagnosis SNOMED-CT Code Diagnosis ICD10 Code Diagnosis IMO Codes Diagnosis Note [id number] Cynthia Felipe NP [facility] [address] [place] [address] 06/28/2022 14:10:05 06/30/2022 09:31:32 Hematochezia 258071716 K92.1 Episodes of hematochez ia off and [...] to review. She follows with Cardiology in [place], will obtain clearance prior to procedure. Altered maurilio wel function 61314795 R19.4 5 month history of change in bowel habits with increased constipati on episodes of diarrhea. Prior to this reports formed bowel movements daily. Recommend colonoscop y as above to further evaluate. Irritable bowel syndrome characterized by constipation 652025805 K58.1 Currently prescribed Linzess 145 mcg with improved symptoms at this time. [id number] Cynthia Felipe NP [facility] [address] [place] [address] 09/20/2022 12:49:16 09/20/2022 14:16:57 Gastro-esophageal reflux disease with esophagitis 525186144 K21.00 Controlled with use of daily PPI. Will send refills today. Internal hemorrhoids 904 61827 K64.8 Colonoscop y from 08/02/2022 with internal hemorrhoid s noted otherwise unremarkab le. Recommend continued treatment with Linzess as prescribed for treatment of constipati on as well as daily use of fiber supplement s. Irritable bowel syndrome characterized by constipation 640888046 K58.1 Controlled with Linzess 145 mcg. [id number] Cynthia Felipe NP [facility] [address] [place] [address] 11/14/2023 13:09:05 11/14/2023 14:05:41 Gastro-esophageal reflux disease with esophagitis 785805213 K21.00 Controlled with use of daily PPI. Will send refills today. Irritable bowel syndrome characterized by constipation 033742591 K58.1 Uncontroll ed with use of Linzess 145 mcg. Recommend trial of Linzess 290 mcg, samples provided to patient clinic today. We will send prescripti on based on response to sample medication . Hematochezia 706779022 K 92.1 Describes passing large amount of blood following bowel movement 1-2 weeks ago. Will obtain labs completed yesterday to review. Colonoscop y from 08/02/2022 with internal hemorrhoid s otherwise unremarkab le. Given recent episode of hematochez ia and family history colon cancer plan for colonoscop y to further evaluate. She follows with Cardiology in [place], will obtain clearance prior to procedure. Family his tory of cancer of colon 485869038 Z80.0 Patient's brother with history colon cancer. Plan for colonoscop y as above to further evaluate. Pt is scheduled for Colon 12/26/2023 @ 12:15 PM Oropharyng eal dysphagia 96249999 R13.12 Continued episodes of oropharyng eal dysphagia. EGD 2019 with empiric dilatation performed. Multiple swallow studies have been unremarkab le. Uncertain etiology. Will refer to ENT given continued complaints of submandibu lar swelling and dysphagia. Swelling o f submandibular area 1568991516 9104 R22.1 continued episodes of submandibu lar swelling. Will refer to ENT to further evaluate. Previously evaluated by Dr. Valdez. [id number] Madyson Valdez MD [facility] [address] [place] [address] 12/10/2023 14:58:11 12/10/2023 16:12:27 Chronic rhinitis 31049585 J31.0 [id number] MD DAPHNE Zarco [address] [address] 07/24/2024 09:51:39 07/24/2024 11:01:33 Closed bimalleolar fracture of left ankle 4138380120 2126925 S82.842A [id number] MD DAPHNE [facility] [address] [place] [address] 9 07/31/2024 09:46:01 07/31/2024 10:41:03 Closed trimalleolar fracture of left ankle 8876883551 1388959 S82.855A [id number] [facility] [place] [address] 08/13/2024 07:53:54 08/13/2024 09:00:27 Closed trimalleolar fracture of left ankle 7447087453 9579807 S82.852D Follow-up orthopedic assessment 182005448 Z47.89 [id number] Danish Murillo MD [facility] [place] [address] 08/18/2024 14:20:42 08/18/2024 15:39:29 Follow-up orthopedic assessment 918688200 Z47.89 [id number] SERAFIN TRAN [facility] [address] [place] [address] 9 09/18/2024 14:30:23 09/18/2024 15:08:48 Closed trimalleolar fracture of left ankle 6176899709 9276554 S82.852D Follow-up orthopedic assessment 381189679 Z47.89 [id number] SERAFIN TRAN NP [facility] [place] [address] 10/30/2024 12:51:39 10/30/2024 13:36:58 Closed trimalleolar fracture of left ankle 0141701060 [id number] S82.852D Follow-up orthopedic assessment 947395754 Z47.89 [id number] SERAFIN TRAN NP [facility] [address] [place] [address] 9 11/27/2024 08:43:39 11/27/2024 09:28:59 Follow-up orthopedic assessment 752013889 Z47.89 Injury of left foot 1185 118958 2761167 S99.922A 9612793 Fracture o f phalanx of foot 59190127 S92.919A 06712015 4TH TOE Health Concerns Section Related Observation LastModified by Organization Detai ls LastModified Time None Recorded Concern Status LastModified by Organization Details LastModified Time None Recorded Advance Directives Directive None Recorded Payers Insurance Date Sequence Insurance Name Policy Number Policy Schwartz Covered Member ID Schwartz Member ID Guarantor Name 10/15/2022 PAYMENT PLAN Hali Oliver 12/22/2024 1 [employer] [place]MEDICAID REPLAC[place] - [place]MO) Hali Oliver [id number] Hali Oliver 11/30/2021 1 [employer] (MEDICARE REPLACEMENT/AD VANTAGE - HMO) Hali Yanes [id number] Raya Vick 03/29/2024 1 [employer] [place] (MEDICAID [place]AC[place] - HMO) Hali Oliver [id number] Hali Oliver Notes Date Note Type Note [...] and Rapid Relief Tylenol.E3AT SERAFIN TRAN NP [address] [place] [address],[address], [place], [address], [place] - [facility] - [place] & [place] 08/13/2024 14:08:45 08/18/2024 text/html 2 weeks post op DOS: 08.04.24 Left trimalleolar ankle fracture with syndesmotic disruption. Patient was here Sunday because she was worried about incision bleeding in splint but looked good upon removal. Patient is here today for suture removal. Sutures intact. No visible signs of infection. Patient is taking Percocet. Wearing cam walker boot NWB. E5AP SERAFIN TRAN NP [address] [facility],[address], [place], [address], [facility] - [facility] & [place] 08/18/2024 15:44:31 09/18/2024 text/html ROS as noted in the HPI Pt is here for 6 weeks f/u of her left ankle ORIF.. She is doing well. Her incisions are w/o s/s of infection. Getting Xrays-E4SF SERAFIN TRAN NP [address] [facility],[address], [place], [address], [facility] - [facility] & [place] 09/18/2024 15:24:10 10/30/2024 text/html 54 y/o female here today for follow up with x-rays 12 weeks post op left ankle ORIF; DOS: 08.04.24. Patient has been ambulating in boot. Patient states she feels like she overdid it one day and had increased pain and swelling. E4AP Danish Murillo MD [address] [place] [address],[address], [place], [address], [facility] - [facility] & [place] 11/04/2024 14:34:10 11/27/2024 text/html ROS as noted in the HPI Pt presents today for 2 week post op DOS- 11/18/2024- syndesmosis screw removal. Pt states her pain is not too bad in her ankle.On 11.21.24 pt hurt her 4th toe when moving furniture. Pt went to [facility] ER and had x-rays: Nondisplaced fracture [...] today in office.E3AF SERAFIN TRAN NP [address] [facility],[address], [place], [address], [facility] - [facility] & [place] 11/27/2024 09:50:26 OBGyn Episode No OBEpisode recorded.
--- OUTSIDE RECORDS SUMMARY | 2025-07-18 20:06 | XMS_ITS | Continuity of Care Document ---
Author Organization [place] - [employer] [facility] Address [address] [place] [address] Assessment No assessment recorded. Plan of Treatment Reminders Order Date Submit Date Provider Last Modified By Organization Details Last Modified Time Details Appointments FOLLOW UP 15 2024 10:45A M Bhumi Wild PA-C Not available Not available Not available Lab HbA1c (hemoglob in A1c), blood 2024 025 [facility], [address] [facility], [place], [address], 05/21/2025 11:48:51 Referral lymphedem a consult 2024 025 [facility], [address], [place], [address], 06/05/2025 09:14:19 Procedures None recorded. Surgeries None recorded. Imaging None recorded. Medication Orders None recorded. Patient TargetsNo targets recorded. Patient Instructions Encounter Date Encounter Id Patient Instructions Last Modified By Organization Details Last Modified Time 05/19/2025 [id number] type 2 diabetes: care instructions [email or web address] Not available 05/21/2025 11:48:51 Reason for Referral Lymphedema Consult for Lymph edema of bilateral lower limbs Referring Physician: Bhumi Wild, Family Medicine, Encounter Date: 05/19/2025 Results Created Date Observation Date Name Description Value Unit Range Abnormal Flag Note LastModifiedBy Organization Detail LastModifiedTime 05/19/2005/19/2025 HbA1c (hemo globi n A1c), blood HbA1c 5.6 Not Available [place] [address] [facility], [place], [address], 05/19/2025 11:19:30 Result Notes None recorded. Problems Name Problem SNOMED Code Status Onset Date Resolution Date Notes Provider Name and Address Organization Details Recorded Time Gastroes ophageal reflux disease without esophagi tis 831181981 Active 2018 Not Available [facility] 21:06:22 Precordi al pain 47658334 Completed 201811/15/2018 Problem Code: R07.2; Problem Code Type: ICD-10; Not Available [facility] 21:06:22 Acute pharyngi tis 063330553 Completed 201811/13/2024 ANA M Sanchez [address] [place] [address], [address] , [facility] 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 787354735 Active 2018 Problem Code: Q25.48; Problem Code Type: ICD-10; Not Available [facility] 21:06:23 Asthenia 07584520 Active 2018 Problem Code: R53.1; Problem Code Type: ICD-10; Not Available [facility] 21:06:22 Mixed hyperlip idemia 050717276 Active 2018 Problem Code: E78.2; Problem Code Type: ICD-10; Not Available [facility] 21:06:22 Abnormal weight gain 328861439 Active 2018 Problem Code: R63.5; Problem Code Type: ICD-10; Not Available [facility] 21:06:23 Median nerve entrapme nt 336343539 Active 2018 Not Available [facility] 21:06:22 Melena 8935154 Active 2018 Problem Code: K92.1; Problem Code Type: ICD-10; Not Available [facility] 2 21:06:22 Acute sinusiti s 64131855 Completed 201811/13/2024 Problem Code: J01.90; Problem Code Type: ICD-10; ANA M Sanchez [address] [place] [address], [address] , [employer] 5 17:43:02 Heartbur n 89254541 Active 2018 Problem Code: R12; Problem Code Type: ICD-10; Not Available [facility] 2 21:06:22 Neck pain 20922120 Active 2018 Not Available [facility] 2 21:06:22 Influenz a vaccine needed 82118547981 06 Active 2018 Problem Code: Z23; Problem Code Type: ICD-10; Not Available [facility] 2 21:06:23 Restless legs syndrome 40030500 Active 2018 Problem Code: G25.81; Problem Code Type: ICD-10; Not Available [facility] 2 21:06:22 Body mass index 30+ - obesity 702217706 Active 2018 Problem Code: Z68.37; Problem Code Type: ICD-10; Not Available [facility] 2 21:06:23 Closed trimalle olar fracture of left ankle 66301267967 613181 Active 2023 ANA M Sanchez [address] [place] [address], [address] , [facility] 4 09:19:19 Hyperlip idemia 75115862 Active 2023 ANA M Sanchez [address] [place] [address], [address] , [facility] 5 17:43:42 Constipa tion 13519133 Active 2023 ANA M Sanchez [address] [place] [address], [address] , [facility] 5 17:43:15 Vitamin D deficien 27034006 Active 2023 ANA M Sanchez [address] [place] [address], [address] , [place] [employer] 5 17:43:25 Osteoart hritis 541646965 Active 2023 ANA M Sanchez [address] [place] [address], [address] , [place] [employer] 5 17:43:28 Essentia l hyperten dino 16250045 Active 2023 ANA M Sanchez [address] [place] [address], [address] , [place] [employer] 5 17:43:36 Type 2 diabetes mellitus without complica tion 800769528 Active 2023 ANA M Sanchez [address] [place] [address], [address] , [facility] [employer] 5 17:43:27 Chronic obstruct duglas pulmonar y disease 82731057 Active 2023 ANA M Sanchez [address] [place] [address], [address] , [facility] [employer] 5 17:43:20 Spasm of back muscles 437054249 Active 2023 ANA M Sanchez [address] [place] [address], [address] , [facility] [employer] 4 09:40:02 Congesti ve heart failure 74434422 Active 2023 ANA M Sanchez [address] [place] [address], [address] , [facility] 5 17:43:18 Gastroes ophageal reflux disease 029072990 Active 2023 ANA M Sanchez [address] [place] [address], [address] , [facility] 5 17:43:39 Allergic rhinitis 78683109 Active 2023 ANA M Sanchez [address] [place] [address], [address] , [facility] 17:43:22 Depressi ve disorder 06657721 Active 2023 ANA M Sanchez [address] [place] [address], [address] [place] [address] , [employer] 17:43:13 Neuropat hy 671125443 Active 2023 ANA M Sanchez [address] [place] [address], [address] [place] [address] , [employer] 17:43:31 Pain of left ankle joint 70666704308 664172 Active 2024 ANA M Sanchez [address] [place] [address], [address] [place] [address] , [employer] 10:44:58 Hypergly cemia 34524134 Active 2024 ANA M Sanchez [address] [place] [address], [address] [place] [address] , [facility] 10:45:16 Snoring 10039116 Active 2024 ANA M Sanchez [address] [place] [address], [address] [place] [address] , [facility] 10:46:49 Edema of lower extremit y 792371851 Active 2024 ANA M Sanchez [address] [place] [address], [address] [place] [address] , [employer] 13:48:46 Instabil ity of joint of right knee 28340693977 12304 Active 2024 ANA M Sanchez [address] [place] [address], [address] [place] [address] , [facility] 10:26:38 Pain of knee region 7520545314 Active 2024 ANA M Sanchez [address] [place] [address], [address] [place] [address] , [employer] 14:09:23 Lymphede ma of bilatera l lower limbs 28249968367 441070 Active 2024 ANA M Sanchez [address] [place] [address], [address] , [email or web address] 10:49:47 Notes:*Problem Name: Other s pecified disorders [...] Time 12/20/19 25 Most Recent Mammogram completed [facility] 02/09/2025 13:29:03 09/16/19 19 appendectomy completed Not Available [facility] 05/16/2022 22:56:05 09/16/19 19 hysterectomy completed Not Available [facility] 05/16/2022 22:56:05 09/16/19 19 cholecystectomy completed Not Available [facility] 05/16/2022 22:56:06 Appendectomy completed [facility] 07/29/2024 08:52:18 Hysterectomy completed [facility] 07/29/2024 08:52:18 Tubal Ligation completed [facility]. 07/29/2024 08:52:18 Gallbladder Surgery completed [facility]. 07/29/2024 08:52:18 Imaging Results None recorded. Procedure Notes None recorded. Medical Equipment None Reported. Allergies Allergen ID Allergen Name Allergen Category Reaction Reaction Severity Criticality Documentation Date Start Date Code Code System Note Provider Name and Address Organization Details Recorded Time 94899 morphine sulfate medicatio n other Not available Not available 05/16/2022 66958 RxNorm Not Available [facility] 22:56:50 45347 Product containin g penicilli n (product) medicatio n other Not available Not available 05/16/2022 87075 8001 SNOMED Daphnejanis henning [facility] [employer], [facility]. 4 08:52:15 Medications Name Sig Start [...] No t Available bumetanide 1 mg tablet TAKE 1 TABLET BY MOUTH ONCE A DAY FOR fluid active Not Available Not Available No t Available bisacodyl 5 mg tablet,faby yed release 07/29 [...] Not Available Not Available No t Available [employer] SureClick 140 mg/mL subcutaneou s pen injector inject 1 prefilled syringe SUBCUTANE OUSLY ONCE every 2 WEEKS active Not Available Not Available No t [...] Updated DateTime 5 172.72 cm 37.9 kg/m2 511698. 3 g 91 /min 95 % 95 % 112/79 mm[Hg] Wendy Santana [place] [employer] 5 10:39:50 Social History Question Answer Notes LastModified by Organizat ion Details LastModified Time Tobacco Smoking Status Former Smoker [employer] Isela guerrero: 'Tobacco /Alcohol /Supplem ents'; [employer] Bharat [email or web address]: 'Former Smoker'; Not Available [facility] 05/16/2022 22:58:54 Do You Have An Advance Directive? No [email or web address] Information not available 07/29/2024 Is Your Home Air Conditioned? Yes [email or web address] Information not available 07/29/2024 Do You Wear A Helmet When Biking? Yes Information not available 07/29/2024 Are You Blind Or Do You Have Difficulty Seeing? No [email or web address] Information not available 07/29/2024 What Is Your Level Of Caffeine Consumption? Occasional [email or web address] Information not available 07/29/2024 What Type Of Rouge Sifter Do You Use? None [email or web address] Information not available 07/29/2024 In The 14 Days Before Symptom Onset, Have You Had Close Contact With A Laboratory-confi rmed COVID-19 While That Case Was Ill? No [email or web address] Information not available 07/29/2024 In The 14 Days Before Symptom Onset, Have You Had Close Contact With A Person Who Is Under Investigation For COVID-19 While That Person Was Ill? No Information not available 07/29/2024 Have You Been To An Area Known To Be High Risk For COVID-19? No Information not available 07/29/2024 Are You Deaf Or Do You Have Serious Difficulty Hearing? Yes [email or web address] Information not available 07/29/2024 What Type Of Diet Are You Following? REGULAR [email or web address] Information not available 07/29/2024 Have There Been Any Changes To Your Family Or Social Situation? No [email or web address] Information not available 07/29/2024 When Did You Quit Smoking? 11-15yearssincel octavia Stop Date 2014 Information not available 02/09/2025 Are There Any Guns Present In Your Home? Yes [email or web address] Information not available 07/29/2024 Which Of Your Hands Is Dominant? Right [email or web address] Information not available 07/29/2024 What Is Your Home Situation? Other [email or web address] Information not available 07/29/2024 Do You Have A Medical Power Of Handkerchief Folder? No [email or web address] Information not available 07/29/2024 What Was The Date Of Your Most Recent Tobacco Screening? 05/19/2025 [email or web address] Information not available 05/19/2025 Do You Have Any Pets? Yes [email or web address] Information not available 07/29/2024 What Is Your Relationship Status? [email or web address] Information not available 07/29/2024 Have You Repeated Any Grades? No [email or web address] Information not available 07/29/2024 Do You Use Your Seat Belt Or Car Seat Routinely? Yes Information not available 07/29/2024 Are You Sexually Active? No [email or web address] Information not available 07/29/2024 Do You Have Any Siblings? Yes [email or web address] Information not available 07/29/2024 Do You Have Smoke And Carbon Monoxide Detectors In Your Home? Yes Information not available 07/29/2024 At What Age Did You Start Smoking Tobacco? 12 Information not available 02/09/2025 Are You Passively Exposed To Smoke? No [email or web address] Information not available 07/29/2024 Are There Any Smokers In Your House? No Information not available 07/29/2024 Do You Participate In Social Media? Yes Information not available 11/13/2024 Do You Use Sunscreen Routinely? No Information not available 07/29/2024 Has Tobacco Cessation Counseling Been Provided? No Information not available 11/13/2024 Have You Recently Traveled Abroad? No [email or web address] Information not available 07/29/2024 Do You Have Difficulty Walking Or Climbing Stairs? No [email or web address] Information not available 07/29/2024 Are You Currently [...] other forms of tobacco or nicotine? Yes [email or web address] Information not available 05/19/2025 Do you or have you ever used smokeless tobacco? Never used smokeless tobacco SocialHistor yQuestion: 'Tobacco/Alc ohol/Supplem ents'; SocialHistor yResponse: 'Current smokeless tobacco user (eg, chew, snuff) (PV)1'; Information not available 11/13/2024 Are you currently employed? No [email or web address] Information not available 07/29/2024 Do you have transportation difficulties? No Information not available 11/13/2024 Are you able to walk independently without assistance or assistive devices? [email or web address] Information not available 11/13/2024 Do you have difficulty doing errands alone? No [email or web address] Information not available 07/29/2024 Are you able to care for yourself independently? Yes [email or web address] Information not available 07/29/2024 Do you have difficulty dressing, bathing, grooming, or toileting? No [email or web address] Information not available 07/29/2024 Do you or have you ever used e-cigarettes or vape? Current user of electronic cigarettes [email or web address] Information not available 05/19/2025 What is your exercise level? None [email or web address] Information not available 07/29/2024 Mental Status Question Answer Note LastModified by Organizat ion Details LastModified Time Do you feel stressed (tense, restless, nervous, or anxious, or unable to sleep at night)? [id number] Information not available 11/13/2024 Do you have difficulty concentrating, remembering or making decisions? No [email or web address] Information no t available 07/29/2024 Are you or have you been involved with bullying? No [email or web address] Information not available 07/29/2024 Family History Relationship Description Onset Age of this Age Resolved Age Notes LastModified by Organization Details LastModified Time Unspecified Relation Family history of cirrhosis of liver Relati ve: ''; [email or web address] Not available 07/29/2024 08:52:15 Unspecified Relation Family history of diabetes mellitus type 2 Relati ve: ''; [email or web address] Not available 07/29/2024 08:52:15 Unspecified Relation Family history of alcoholism Relati ve: ''; [email or web address] Not available 07/29/2024 08:52:15 Unspecified Relation Family history of Hypertension Relati ve: ''; [email or web address] Not available 07/29/2024 08:52:15 Unspecified Relation Family history of Hypothyroidi sm Relati ve: ''; [email or web address] Not available 07/29/2024 08:52:15 Unspecified Relation Family history of Myocardial infarction Relati ve: ''; [email or web address] Not available 07/29/2024 08:52:15 Unspecified Relation Asthma [email or web address] Not available 024 08:52:15 Mother Arthritis [email or web address] Not availab le 07/29/2024 08:52:15 Brother Malignant neoplasm of colon [email or web address] Not available 2023 08:52:15 Brother Arthritis [email or web address] Not availa ble 07/29/2024 08:52:15 Father Arthritis [email or web address] Not availab le 07/29/2024 08:52:15 Father Heart [...] ICD10 Code Diagnosis IMO Codes Diagnosis Note [id number] ANA M Sanchez [facility] [address] [place] [address] 05/19/2025 10:27:20 05/19/2025 10:57:53 Lymphedema of bilateral lower limbs 8720111514 2110019 I89.0 [id number] Type 2 zahra betes mellitus without complication [id number] E11.9 Health Concerns Section Related Observation LastModified by Organization Detai ls LastModified Time None Recorded Concern Status LastModified by Organization Details LastModified Time None Recorded Payers Encounter Date Sequence Insurance Name Policy Number Policy Schwartz Covered Member ID Schwartz Member ID Guarantor Name 05/19/2025 1 [facility] [email or web address] (MEDICAID REPLACEMENT - HMO) Kylah Hickman [id number] Kylah Hickman Notes Date Note Type Note [...] at home to maintain. ANA M Sanchez [address] [place] [address], [address], [facility] [employer] 05/21/2025 11:49:29 OBGyn Episode No OBEpisode recorded.
--- OUTSIDE RECORDS SUMMARY | 2025-07-18 20:07 | XMS_ITS | Data Portability ---
Author Organization [facility] [employer] [facility] Address [address] [place] [address] Assessment Encounter Date Assessment Date Assessment LastModified by Organization Details LastModified Time 08/15/2024 08/15/2024 Patient presented for medication refill. Patient tolerating medication well at current dose without adverse effects. Refilled as below. Discussed plan with patient, who expressed understanding . Follow up as noted below. [email or web address] Not available 08/15/2024 16:48:13 Plan of Treatment Reminders Order Date Submit Date Provider Last Modified By Organization Details Last Modified Time Details Appointments FOLLOW UP 15 2024 10:45A Dagoberto Wild PA-C Not available Not available Not available Lab HbA1c (hemoglob in A1c), blood [address], [address] [facility], [place], [address], 05/21/2025 11:48:51 microalbu min/creat inine, mass ratio, urine [email or web address], [address] [place], [address], 02/09/2025 13:41:47 unlisted lab - toxassure flex 19, [id number] -P 2024 025 ZOE [facility] ([facility], [address] [place] [address], [place], [address], 02/12/2025 10:08:28 HbA1c (hemoglob in A1c), blood [address], [address] [facility], [place], [address], 12/09/2024 10:46:34 Referral [email or web address] a consult 2024 025 [facility], [address], [place], [address], 06/05/2025 09:14:19 [email or web address] a consult 2024 025 [facility], [address], [place], [address], 03/03/2025 11:02:19 Procedures None recorded. Surgeries None recorded. Imaging home sleep study 2024 025 [facility] Studies, [address] [facility], [place], [address], 01/20/2025 09:25:58 MAMMO, screening , bilateral - first available appt 2024 025 [facility] ([facility]), [address], [place], [place], [address], 12/25/2024 12:28:36 Medication Orders bumetanid e 1 mg tablet 2024 025 [facility], [address] [place] [address] [address], [place], [id number], 02/10/2025 12:16:28 Ozempic 0.25 mg or 0.5 mg (2 mg/3 mL) subcutane ous pen injector 2024 025 [facility], [address] [place] [address] [address], [place], [id number], 02/10/2025 12:16:28 Zepbound 2.5 mg/0.5 mL subcutane ous pen injector 2024 025 [facility], [address] [place] [address] Sarah Garcia [place], [id number], 02/09/2025 13:41:21 gabapenti n 400 mg capsule 2024 025 [facility], [address] [place] [address] Sarah Garcia [place], [id number], 11/13/2024 16:07:54 gabapenti n 400 mg capsule 2023 024 [facility], [address] [place] [address] Sarah Garcia [place], [id number], 08/15/2024 16:25:38 Patient TargetsNo targets recorded. Patient Instructions Encounter Date Encounter Id Patient Instructions Last Modified By Organization Details Last Modified Time 08/15/2024 [id number] neuropathic pain : care instructions [email or web address] Not available 08/15/2024 16:24:51 11/13/2024 [id number] mammogram: about this test [email or web address] Not available 11/13/2024 16:40:06 restless legs syndrome: care instructions [email or web address] Not available 11/13/2024 16:06:51 body mass index: care instructions Not available 11/13/2024 17:43:56 learning about healthy weight Not available 11/13/2024 17:43:56 12/09/2024 [id number] learning about high blood sugar [email or web address] Not available 12/09/2024 10:46:34 snoring: care instructions [email or web address] Not available 12/09/2024 10:48:33 02/09/2025 [id number] leg and ankle edema: care instructions [email or web address] Not available 02/09/2025 13:49:14 learning about type 2 diabetes [email or web address] Not available 02/09/2025 13:41:47 type 2 diabetes: care instructions [email or web address] Not available 02/09/2025 13:41:47 05/19/2025 [id number] type 2 diabetes: care instructions [email or web address] Not available 05/21/2025 11:48:51 Reason for Referral Lymphedema Consult for Edema of lower extremity Referring Physician: Bhumi Wild [facility], Encounter Date: 02/09/2025 Lymphedema Consult for Lymph edema of bilateral lower limbs Referring Physician: Bhumi Wild [facility], Encounter Date: 05/19/2025 Results Created Date Observation Date Name Description Value Unit Range Abnormal Flag Note LastModifiedBy Organization Detail LastModifiedTime 12/10/19 25 12/09/2024 HbA1c (hemo globi n A1c), blood HbA1c 5.5 % Not Available [facility] [address] [place], [place] [address]ther [facility], [place], [address], 12/09/2024 10:17:57 02/10/20 25 02/12/2025 TOXAS SURE [...] antonio consu ltati on, pleas e call [phone]. ===== ===== ===== ===== ===== ===== ===== ===== ===== ===== ===== ===== ===== === Not Available [facility] ([facility]) [address] [place], [address], 02/12/2025 10:08:28 02/10/2002/12/2025 TOXAS SURE FLEX 19, UR pdf . Not Available [facility] ([facility]) [address] [place], [address], 02/12/2025 10:08:28 02/10/2002/12/2025 TOXAS SURE FLEX 19, UR creatinine 50 mg/dL >=20 REFER ENCE RANGE : Ref Range >=20 Not Available [facility] ([facility]) [address] [place], [address], 02/12/2025 10:08:28 02/10/2002/12/2025 TOXAS SURE FLEX 19, UR amphetamines ia Negati ve NG/mL cutoff :300 Not Available [facility] ([facility]) [address] [place], [address], 02/12/2025 10:08:28 02/10/20 25 02/12/2025 TOXAS SURE FLEX 19, UR benzodiazepi joseph Negati ve Not Available [facility] ([facility]) [address] [place], [address], 02/12/2025 10:08:28 02/10/20 25 02/12/2025 TOXAS SURE FLEX 19, UR diazepam Not Detect ed NG/mg _crea t Not Available [facility] ([facility]) [address] [place], [address], 02/12/2025 10:08:28 02/10/20 25 02/12/2025 TOXAS SURE FLEX 19, UR desmethyldia zepam Not Detect ed NG/mg _crea t Not Available [facility] ([facility]) [address] [place], [address], 02/12/2025 10:08:28 02/10/20 25 02/12/2025 TOXAS SURE FLEX 19, UR oxazepam Not Detect ed NG/mg _crea t Not Available [facility] ([facility]) [address] [place], [address], 02/12/2025 10:08:28 02/10/20 25 02/12/2025 TOXAS SURE [...] shree Oxaze shree: None Not Available [facility] ([facility]) [address] [place], [address], 02/12/2025 10:08:28 02/10/20 25 02/12/2025 TOXAS SURE FLEX 19, UR alprazolam Not Detect ed NG/mg _crea t Not Available [facility] ([facility]) [address] [place], [address], 02/12/2025 10:08:28 02/10/20 25 02/12/2025 TOXAS SURE FLEX 19, UR alpha-hydrox yalprazolam Not Detect ed NG/mg _crea t Not Available [facility] ([facility]) [address] [place], [address], 02/12/2025 10:08:28 02/10/20 25 02/12/2025 TOXAS SURE FLEX 19, UR desalkylflur azepam Not Detect ed NG/mg _crea t Not Available [facility] ([facility]) [address] [place], [address], 02/12/2025 10:08:28 02/10/20 25 02/12/2025 TOXAS SURE FLEX 19, UR lorazepam Not Detect ed NG/mg _crea t Not Available [facility] ([facility]) [address] [place], [address], 02/12/2025 10:08:28 02/10/20 25 02/12/2025 TOXAS SURE FLEX 19, UR alpha-hydrox ytriazolam Not Detect ed NG/mg _crea t Not Available [facility] ([facility]) [address] [place], [address], 02/12/2025 10:08:28 02/10/20 25 02/12/2025 TOXAS SURE FLEX 19, UR clonazepam Not Detect ed NG/mg _crea t Not Available [facility] ([facility]) [address] [place], [address], 02/12/2025 10:08:28 02/10/20 25 02/12/2025 TOXAS SURE FLEX 19, UR 7-aminoclona zepam Not Detect ed NG/mg _crea t Not Available [facility] ([facility]) [address] [place], [address], 02/12/2025 10:08:28 02/10/20 25 02/12/2025 TOXAS SURE FLEX 19, UR midazolam Not Detect ed NG/mg _crea t Not Available [facility] ([facility]) [address] [place], [address], 02/12/2025 10:08:28 02/10/20 25 02/12/2025 TOXAS SURE FLEX 19, UR alpha-hydrox ymidazolam Not Detect ed NG/mg _crea t Not Available [facility] ([facility]) [address] [place], [address], 02/12/2025 10:08:28 02/10/20 25 02/12/2025 TOXAS SURE FLEX 19, UR flunitrazepa m Not Detect ed NG/mg _crea t Not Available [facility] ([facility]) [address] [place], [address], 02/12/2025 10:08:28 02/10/20 25 02/12/2025 TOXAS SURE FLEX 19, UR desmethylflu nitrazepam Not Detect ed NG/mg _crea t Not Available [facility] ([facility]) [address] [place], [address], 02/12/2025 10:08:28 02/10/20 25 02/12/2025 TOXAS SURE FLEX 19, UR cocaine metabolite ia Negati ve NG/mL cutoff :150 Not Available [facility] ([facility]) [address] [place], [address], 02/12/2025 10:08:28 02/10/20 25 02/12/2025 TOXAS SURE FLEX 19, UR ethanol biomarkers ia Negati ve NG/mL cutoff :500 Not Available [facility] ([facility]) [address] [place], [address], 02/12/2025 10:08:28 02/10/20 25 02/12/2025 TOXAS SURE FLEX 19, UR cannabinoids ia Negati ve NG/mL cutoff :20 Not Available [facility] ([facility]) [address] [place], [address], 02/12/2025 10:08:28 02/10/20 25 02/12/2025 TOXAS SURE FLEX 19, UR 6-acetylmorp haroon ia Negati ve NG/mL cutoff :10 Not Available [facility] ([facility]) [address] [place], [address], 02/12/2025 10:08:28 02/10/20 25 02/12/2025 TOXAS SURE FLEX 19, UR opiate class ia Negati ve NG/mL cutoff :100 Not Available [facility] ([facility]) [address] [place], [address], 02/12/2025 10:08:28 02/10/20 25 02/12/2025 TOXAS SURE FLEX 19, UR oxycodone class ia Negati ve NG/mL cutoff :100 Not Available [facility] ([facility]) [address] [place], [address], 02/12/2025 10:08:28 02/10/20 25 02/12/2025 TOXAS SURE FLEX 19, UR methadone ia Negati ve NG/mL cutoff :100 Not Available [facility] ([facility]) [address] [place], [address], 02/12/2025 10:08:28 02/10/20 25 02/12/2025 TOXAS SURE FLEX 19, UR methadone mtb ia Negati ve NG/mL cutoff :100 Not Available [facility] ([facility]) [address] [place], [address], 02/12/2025 10:08:28 02/10/20 25 02/12/2025 TOXAS SURE FLEX 19, UR buprenorphin e ia Negati ve NG/mL cutoff :5.0 Not Available [facility] ([facility]) [address] [place], [address], 02/12/2025 10:08:28 02/10/20 25 02/12/2025 TOXAS SURE FLEX 19, UR fentanyl ia Negati ve NG/mL cutoff :2.0 Not Available [facility] ([facility]) [address] [place], [address], 02/12/2025 10:08:28 02/10/20 25 02/12/2025 TOXAS SURE FLEX 19, UR tapentadol ia Negati ve NG/mL cutoff :200 Not Available [facility] ([facility]) [address] [place], [address], 02/12/2025 10:08:28 02/10/20 25 02/12/2025 TOXAS SURE FLEX 19, UR propoxyphene ia Negati ve NG/mL cutoff :300 Not Available [facility] ([facility]) [address] [place], [address], 02/12/2025 10:08:28 02/10/20 25 02/12/2025 TOXAS SURE FLEX 19, UR tramadol ia Negati ve NG/mL cutoff :200 Not Available [facility] ([facility]) [address] [place], [address], 02/12/2025 10:08:28 02/10/20 25 02/12/2025 TOXAS SURE FLEX 19, UR methylphenid ate ia Negati ve NG/mL cutoff :100 Not Available [facility] ([facility]) [address] [place], [address], 02/12/2025 10:08:28 02/10/20 25 02/12/2025 TOXAS SURE FLEX 19, UR barbiturates ia Negati ve NG/mL cutoff :200 Not Available [facility] ([facility]) [address] [place], [address], 02/12/2025 10:08:28 02/10/20 25 02/12/2025 TOXAS SURE FLEX 19, UR phencyclidin e ia Negati ve NG/mL cutoff :25 Not Available [facility] ([facility]) [address] [place], [address], 02/12/2025 10:08:28 02/10/20 25 02/12/2025 TOXAS SURE FLEX 19, UR gabapentin ia COMMEN T ug/mL cutoff :1.0 Furth er testi ng indic ated Not Available [facility] ([facility]) [address] [place], [address], 02/12/2025 10:08:28 02/10/20 25 02/12/2025 TOXAS SURE FLEX 19, UR anticonvulsa nts +POSIT VLADISLAV+ Not Available [facility] ([facility]) [address] [place], [address], 02/12/2025 10:08:28 02/10/20 25 02/12/2025 TOXAS SURE FLEX 19, UR pregabalin Not Detect ed Not Available [facility] ([facility]) [address] [place], [address], 02/12/2025 10:08:28 02/10/20 25 02/12/2025 TOXAS SURE FLEX 19, UR carisoprodol ia Negati ve NG/mL cutoff :100 Not Available [facility] ([facility]) [address] [place], [address], 02/12/2025 10:08:28 02/10/20 25 02/12/2025 GABAP ENTIN , MS, UR RFX anticonvulsa nts +POSIT VLADISLAV+ Not Available [facility] ([facility]) [address] [facility], [place], [address], 02/12/2025 10:08:29 02/10/20 25 02/12/2025 GABAP ENTIN , MS, UR RFX gabapentin PRESEN T Not Available [facility] ([facility]) [address] [facility], [place], [address], 02/12/2025 10:08:29 02/10/20 25 02/09/2025 micro album in/cr eatin ine, mass ratio , urine Microalbumin 10 mg/L Not Available [facility] [address] [place], [address], 02/09/2025 13:36:26 02/10/20 25 02/09/2025 micro album in/cr eatin ine, mass ratio , urine Creatinine 50 mg/dL Not Available [facility] [address] [place] [address], [address], 02/09/2025 13:36:26 02/10/20 25 02/09/2025 micro album in/cr eatin ine, mass ratio , urine Ratio <30 mg/g Not Available [facility] [address] [place] [address], [address], 02/09/2025 13:36:26 05/19/20 25 05/19/2025 HbA1c (hemo globi n A1c), blood HbA1c 5.6 Not Available [facility] [address] [place] [address], [address], 05/19/2025 11:19:30 11/14/19 25 03/18/2021 MAMMO , scree darcy, bilat eral No observ ation record ed. [email or web address] [facility] [address], [place], [address], 11/18/2024 15:02:10 11/14/19 25 11/03/2021 MAMMO , diagn ostic , digit al, unila teral No observ ation record ed. [facility] (Med Record) [address], [place], [address], 11/14/2024 13:59:28 11/14/19 25 05/02/2021 MAMMO , diagn ostic , digit al, bilat eral No observ ation record ed. [email or web address] [facility] [address], [place], [address], 11/14/2024 13:57:24 11/19/19 25 11/03/2021 MAMMO , diagn ostic , digit al, unila teral No observ ation record ed. [email or web address] [facility] (Med Record) [address], [place], [place], [address], 11/19/2024 09:13:20 12/26/19 25 12/19/2024 MAMMO , scree darcy, bilat eral No observ ation record ed. [facility] (Scheduling) [address], [place], [place], [address], 12/25/2024 16:31:36 01/21/20 25 01/06/2025 home sleep study No observ ation record ed. [facility] Sleep [facility] [address] [facility] [address], [place], [address], 01/22/2025 10:38:44 01/30/20 25 05/07/2019 colon oscop y proce dure (PROC ) No observ ation record ed. [email or web address] Not Available 2024 17:11:08 Result Notes None recorded. Problems Name Problem SNOMED Code Status Onset Date Resolution Date Notes Provider Name and Address Organization Details Recorded Time Gastroes ophageal reflux disease without esophagi tis 566650592 Active 2018 Not Available [facility] 2 21:06:22 Precordi al pain 21832034 Completed 201811/15/2018 Problem Code: R07.2; Problem Code Type: ICD-10; Not Available [facility] 2 21:06:22 Acute pharyngi tis 220934719 Completed 201811/13/2024 ANA M Sanchez [address] [place] [address], [address] , [employer]. 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 573876933 Active 2018 Problem Code: Q25.48; Problem Code Type: ICD-10; Not Available [facility] 2 21:06:23 Asthenia 32883612 Active 2018 Problem Code: R53.1; Problem Code Type: ICD-10; Not Available [facility] 2 21:06:22 Mixed hyperlip idemia 374139094 Active 2018 Problem Code: E78.2; Problem Code Type: ICD-10; Not Available [facility] 2 21:06:22 Abnormal weight gain 802580527 Active 2018 Problem Code: R63.5; Problem Code Type: ICD-10; Not Available [facility] 2 21:06:23 Median nerve entrapme nt 974421889 Active 2018 Not Available [facility] 2 21:06:22 Melena 5242479 Active 2018 Problem Code: K92.1; Problem Code Type: ICD-10; Not Available [facility] 2 21:06:22 Acute sinusiti s 23850691 Completed 201811/13/2024 Problem Code: J01.90; Problem Code Type: ICD-10; ANA M Sanchez [address] [place] [address], [address] , [employer] 5 17:43:02 Heartbur n 86993940 Active 2018 Problem Code: R12; Problem Code Type: ICD-10; Not Available [facility] 2 21:06:22 Neck pain 23255652 Active 2018 Not Available [facility] 21:06:22 Influenz a vaccine needed 89392695654 06 Active 2018 Problem Code: Z23; Problem Code Type: ICD-10; Not Available [facility] 2 21:06:23 Restless legs syndrome 36198978 Active 2018 Problem Code: G25.81; Problem Code Type: ICD-10; Not Available [facility] 21:06:22 Body mass index 30+ - obesity 158997336 Active 2018 Problem Code: Z68.37; Problem Code Type: ICD-10; Not Available [facility] 21:06:23 Closed trimalle olar fracture of left ankle 69156130033 211458 Active 2023 ANA M Sanchez [address] [place] [address], [address] [place] [address] , [employer] 4 09:19:19 Hyperlip idemia 45008010 Active 2023 ANA M Sanchez [address] [place] [address], [address] [place] [address] , [employer] 17:43:42 Constipa tion 89753486 Active 2023 ANA M Sanchez [address] [place] [address], [address] [place] [address] , [employer] 5 17:43:15 Vitamin D deficien cy 47391876 Active 2023 ANA M Sanchez [address] [place] [address], [address] [place] [address] , [employer] 5 17:43:25 Osteoart hritis 118730907 Active 2023 ANA M Sanchez [address] [place] [address], [address] , [employer] 5 17:43:28 Essentia l hyperten dino 69637925 Active 2023 ANA M Sanchez [address] [place] [address], [address] , [employer] 5 17:43:36 Type 2 diabetes mellitus without complica tion 382628176 Active 2023 ANA M Sanchez [address] [place] [address], [address] , [employer] 5 17:43:27 Chronic obstruct vladislav pulmonar y disease 14995158 Active 2023 ANA M Sanchez [address] [place] [address], [address] , [employer] 5 17:43:20 Spasm of back muscles 656542446 Active 2023 ANA M Sanchez [address] [place] [address], [address] , [employer] 4 09:40:02 Congesti ve heart failure 89207756 Active 2023 ANA M Sanchez [address] [place] [address], [address] , [employer] 17:43:18 Gastroes ophageal reflux disease 550196457 Active 2023 ANA M Sanchez [address] [place] [address], [address] , [employer] 5 17:43:39 Allergic rhinitis 83561670 Active 2023 ANA M Sanchez [address] [place] [address], [address] , [employer] 5 17:43:22 Depressi ve disorder 58259764 Active 2023 ANA M Sanchez [address] [place] [address], [address] , [employer] 5 17:43:13 Neuropat hy 759478336 Active 2023 ANA M Sanchez [address] [place] [address], [address] , [employer] 17:43:31 Pain of left ankle joint 30058987847 807844 Active 2024 ANA M Sanchez [address] [place] [address], [address] [place] [address] , [employer] 10:44:58 Hypergly cemia 43709922 Active 2024 ANA M Sanchez [address] [place] [address], [address] [place] [address] , [employer] 10:45:16 Snoring 35614523 Active 2024 ANA M Sanchez [address] [place] [address], [address] [place] [address] , [employer] 10:46:49 Edema of lower extremit y 898531535 Active 2024 ANA M Sanchez [address] [place] [address], [address] [place] [address] , [employer] 13:48:46 Instabil ity of joint of right knee 02229355240 25023 Active 2024 ANA M Sanchez [address] [place] [address], [address] [place] [address] , [employer] 10:26:38 Pain of knee region 2970526124 Active 2024 ANA M Sanchez [address] [place] [address], [address] , [employer] 14:09:23 Lymphede ma of bilatera l lower limbs 62275636721 987138 Active 2024 ANA M Sanchez [address] [place] [address], [address] [place] [address] , [employer] 10:49:47 Notes:*Problem Name: Other s pecified [...] 12/20/19 25 Most Recent Mammogram completed Henny [facility] 02/09/2025 13:29:03 09/16/19 19 appendectomy completed Not Available [facility] 05/16/2022 22:56:05 09/16/19 19 hysterectomy completed Not Available [facility] 05/16/2022 22:56:05 09/16/19 19 cholecystectomy completed Not Available [facility] 05/16/2022 22:56:06 Appendectomy completed [employer] 07/29/2024 08:52:18 Hysterectomy completed [employer] 07/29/2024 08:52:18 Tubal Ligation completed [employer] 07/29/2024 08:52:18 Gallbladder Surgery completed [employer] 07/29/2024 08:52:18 Imaging Results None recorded. Procedure Notes None recorded. Medical Equipment None Reported. Allergies Allergen ID Allergen Name Allergen Category Reaction Reaction Severity Criticality Documentation Date Start Date Code Code System Note Provider Name and Address Organization Details Recorded Time 56035 morphine sulfate medicatio n other Not available Not available 05/16/2022 86444 RxNorm Not Available [facility] 2 22:56:50 20191 Product containin g penicilli n (product) medicatio n other Not available Not available 05/16/2022 40419 8001 SNOMED Hydrocapsule 4 08:52:15 Medications Name Sig Start Date [...] Not Available Not Available [facility] (PF) 1,440 RBIDGER unit/mL intramuscul ar suspension one injection now [...] Updated DateTime 5 172.72 cm 31.8 kg/m2 02188.8 1 g 92 /min 97 % 97 % 98.1 [degF] 132/82 mm[Hg] [employer] 5 15:44:24 Date Recorded Body height Body mass index (BMI) Body weight Oxygen saturation Oxygen saturation in Arterial blood by Pulse oximetry Heart rate Body temperature Systolic And Diastolic Provider Name and Address Organization Details Last Updated DateTime 5 172.72 cm 38.7 kg/m2 074112. 9 g 98 % 98 % 92 /min 97.9 [degF] 122/84 mm[Hg] [employer] 5 10:11:39 Date Recorded Body height Body mass index (BMI) Body weight Oxygen saturation Oxygen saturation in Arterial blood by Pulse oximetry Heart rate Body temperature Systolic And Diastolic Provider Name and Address Organization Details Last Updated DateTime 5 172.72 cm 39.5 kg/m2 000905. 02 g 97 % 97 % 86 /min 98.1 [degF] 116/80 mm[Hg] [employer] 5 13:26:54 Date Recorded Body height Body mass index (BMI) Body weight Heart rate Oxygen saturation Oxygen saturation in Arterial blood by Pulse oximetry Systolic And Diastolic Provider Name and Address Organization Details Last Updated DateTime 5 172.72 cm 37.9 kg/m2 618653. 3 g 91 /min 95 % 95 % 112/79 mm[Hg] Wendy Santana [employer] 5 10:39:50 Date Recorded Body height Body mass index (BMI) Body weight Heart rate Oxygen saturation Oxygen saturation in Arterial blood by Pulse oximetry Systolic And Diastolic Provider Name and Address Organization Details Last Updated DateTime 4 172.72 cm 30.4 kg/m2 16260.4 7 g 82 /min 96 % 96 % 110/77 mm[Hg] Daphne Bowen [facility] [employer] 4 16:09:56 Social History Question Answer Notes LastModified by Organizat ion Details LastModified Time Tobacco Smoking Status Former Smoker SocialMa Isela cesar: 'Tobacco /Alcohol /Supplem ents'; Mitchell Nicholson bruna: 'Former Smoker'; Not Available [facility] 05/16/2022 22:58:54 Do You Have An Advance Directive? No Information not available 07/29/2024 Is Your Home Air Conditioned? Yes [email or web address] Information not available 07/29/2024 Do You Wear A Helmet When Biking? Yes Information not available 07/29/2024 Are You Blind Or Do You Have Difficulty Seeing? No [email or web address] Information not available 07/29/2024 What Is Your Level Of Caffeine Consumption? Occasional [email or web address] Information not available 07/29/2024 What Type Of Ad Setter Do You Use? None Information not available 07/29/2024 In The 14 Days Before Symptom Onset, Have You Had Close Contact With A Laboratory-confi rmed COVID-19 While That Case Was Ill? No [email or web address] Information not available 07/29/2024 In The 14 Days Before Symptom Onset, Have You Had Close Contact With A Person Who Is Under Investigation For COVID-19 While That Person Was Ill? No Information not available 07/29/2024 Have You Been To An Area Known To Be High Risk For COVID-19? No [email or web address] Information not available 07/29/2024 Are You Deaf Or Do You Have Serious Difficulty Hearing? Yes [email or web address] Information not available 07/29/2024 What Type Of Diet Are You Following? REGULAR [email or web address] Information not available 07/29/2024 Have There Been Any Changes To Your Family Or Social Situation? No Information not available 07/29/2024 When Did You Quit Smoking? 11-15yearssincel octavia Stop Date 2014 Information not available 02/09/2025 Are There Any Guns Present In Your Home? Yes [email or web address] Information not available 07/29/2024 Which Of Your Hands Is Dominant? Right [email or web address] Information not available 07/29/2024 What Is Your Home Situation? Other Information not available 07/29/2024 Do You Have A Medical Power Of Glass Handler? No [email or web address] Information not available 07/29/2024 What Was The Date Of Your Most Recent Tobacco Screening? 05/19/2025 [email or web address] Information not available 05/19/2025 Do You Have Any Pets? Yes [email or web address] Information not available 07/29/2024 What Is Your Relationship Status? [email or web address] Information not available 07/29/2024 Have You Repeated Any Grades? No [email or web address] Information not available 07/29/2024 Do You Use Your Seat Belt Or Car Seat Routinely? Yes [email or web address] Information not available 07/29/2024 Are You Sexually Active? No [email or web address] Information not available 07/29/2024 Do You Have Any Siblings? Yes [email or web address] Information not available 07/29/2024 Do You Have Smoke And Carbon Monoxide Detectors In Your Home? Yes [email or web address] Information not available 07/29/2024 At What Age Did You Start Smoking Tobacco? 12 Information not available 02/09/2025 Are You Passively Exposed To Smoke? No [email or web address] Information not available 07/29/2024 Are There Any Smokers In Your House? No [email or web address] Information not available 07/29/2024 Do You Participate In Social Media? Yes Information not available 11/13/2024 Do You Use Sunscreen Routinely? No [email or web address] Information not available 07/29/2024 Has Tobacco Cessation Counseling Been Provided? No Information not available 11/13/2024 Have You Recently Traveled Abroad? No [email or web address] Information not available 07/29/2024 Do You Have Difficulty Walking Or Climbing Stairs? No [email or web address] Information not available 07/29/2024 Are You Currently In School? No Information not available 11/13/2024 What Contraceptive Method Was Reported At Start Of This Visit? Female Sterilization Information not available 11/13/2024 Do You Have Any Dietary Restrictions? No Information not available 11/13/2024 Sex: Female Functional Status Question Answer Note LastModified by [employer] Details LastModified Time Do you use any illicit or recreational drugs? No Information not available 11/13/2024 Do you or have you ever used any other forms of tobacco or nicotine? Yes Information not available 05/19/2025 Do you or have you ever used smokeless tobacco? Never used smokeless tobacco SocialHistor yQuestion: 'Tobacco/Alc ohol/Supplem ents'; SocialHistor yResponse: 'Current smokeless tobacco user (eg, chew, snuff) (PV)1'; Information not available 11/13/2024 Are you currently employed? No [email or web address] Information not available 07/29/2024 Do you have transportation difficulties? No Information not available 11/13/2024 Are you able to walk independently without assistance or assistive devices? [email or web address] Information not available 11/13/2024 Do you have difficulty doing errands alone? No [email or web address] Information not available 07/29/2024 Are you able to care for yourself independently? Yes [email or web address] Information not available 07/29/2024 Do you have difficulty dressing, bathing, grooming, or toileting? No Information not available 07/29/2024 Do you or have you ever used e-cigarettes or vape? Current user of electronic cigarettes [email or web address] Information not available 05/19/2025 What is your exercise level? None [email or web address] Information not available 07/29/2024 Mental Status Question Answer Note LastModified by [employer] Details LastModified Time Do you feel stressed (tense, restless, nervous, or anxious, or unable to sleep at night)? [id number] Information not available 11/13/2024 Do you have difficulty concentrating, remembering or making decisions? No [email or web address] Information no t available 07/29/2024 Are you or have you been involved with bullying? No Information not available 07/29/2024 Family History Relationship Description Onset Age of this Age Resolved Age Notes LastModified by Organization Details LastModified Time Unspecified Relation Family history of cirrhosis of liver Relati ve: ''; [email or web address] Not available 07/29/2024 08:52:15 Unspecified Relation Family history of diabetes mellitus type 2 Relati ve: ''; Not available 07/29/2024 08:52:15 Unspecified Relation Family history of alcoholism Relati ve: ''; [email or web address] Not available 07/29/2024 08:52:15 Unspecified Relation Family history of Hypertension Relati ve: ''; [email or web address] Not available 07/29/2024 08:52:15 Unspecified Relation Family history of Hypothyroidi sm Relati ve: ''; [email or web address] Not available 07/29/2024 08:52:15 Unspecified Relation Family history of Myocardial infarction Relati ve: ''; [email or web address] Not available 07/29/2024 08:52:15 Unspecified Relation Asthma Not available 024 08:52:15 Mother Arthritis [email or web address] Not availab le 07/29/2024 08:52:15 Brother Malignant neoplasm of colon [email or web address] Not available 2023 08:52:15 Brother Arthritis Not availa ble 07/29/2024 08:52:15 Father Arthritis [email or web address] Not availab le 07/29/2024 08:52:15 Father Heart disease [email or web address] Not available 2023 08:52:15 Notes:*Procedure Description : [...] ICD10 Code Diagnosis IMO Codes Diagnosis Note [id number] ANA M Sanchez Vladislav [address] [address] 07/29/2024 08:28:56 07/29/2024 09:39:18 Closed trimalleolar fracture of left ankle [id number] 4034646 S82.852A Patient sees ortho again later this week to schedule surgery. Order sent for wheelchair with elevated leg rest. Patient needs this to be mobile within the home and protect fracture pre and post surgery. Gastroesop hageal reflux disease 595166538 K21.9 Hyperlipidemia 05256640 E78.5 Constipation 50478303 K5 9.00 Vitamin D deficiency 347 10593 E55.9 Osteoarthritis 841089439 M19.90 Essential hypertension 42414370 I10 Type 2 zahra betes mellitus without complication 619554677 E11.9 Restless l egs syndrome 41607044 G25.81 Chronic ob structive pulmonary disease 99111803 J44.9 Spasm of back muscles 20 8486375 M62.830 Congestive heart failure 34541070 I50.9 Body mass index 30+ - obesity 145128727 Z68.30 Allergic rhinitis 012294 04 J30.9 Depressive disorder 3548 9007 F32.A [id number] ANA M Sanchez [address] [address] 08/15/2024 15:40:29 08/15/2024 16:24:36 Neuropathy 847490064 G62.9 [id number] ANA M Sanchez [address] [address] 11/13/2024 15:21:34 11/13/2024 17:18:17 Restless legs syndrome 60771908 G25.81 Neuropathy 972923673 G62 .9 Screening mammography 24 200476 Z12.31 Body mass index 30+ - obesity 047665513 Z68.30 Closed tri malleolar fracture of left ankle 3795930112 9537743 S82.852A Given handicap parking placard applicatio n [id number] ANA M Snachez [address] [address] 12/09/2024 10:06:10 12/09/2024 10:51:11 Pain of left ankle joint 2803506874 0322805 M25.572 s/p left trimalleol ar fracturePT previously ordered but on waiting list - will try [facility] instead Hyperglycemia 55716526 R 73.9 HgA1c 5.5 Body mass index 30+ - obesity 599051113 Z68.30 Snoring 20223650 R06.83 [id number] ANA M Sanchez [address] [place] [address] 02/09/2025 13:07:48 02/09/2025 13:48:35 Type 2 diabetes mellitus 95814182 E11.9 24057016 Long-term current use of drug therapy 056360129 Z79.899 80189305 Edema of l ower extremity 203499529 R60.0 47404 Trial Bumex instead of Lasix [id number] ANA M Sanchez [facility] [address] [facility] [place] [address] 05/19/2025 10:27:20 05/19/2025 10:57:53 Lymphedema of bilateral lower limbs 2770793032 4849025 I89.0 28517628 Type 2 zahra betes mellitus without complication 288646292 E11.9 Health Concerns Section Related Observation LastModified by Organization Detai ls LastModified Time None Recorded Concern Status LastModified by Organization Details LastModified Time None Recorded Advance Directives Directive N: Payers Insurance Date Sequence Insurance Name Policy Number Policy Schwartz Covered Member ID Schwartz Member ID Guarantor Name 07/18/2025 1 [facility] (MEDICAID REPLACEMENT - HMO) Kylah Hickman [id number] Kylah Hickman Notes Date Note Type Note Provider Name and Address Organization Details Recorded Time 08/15/2024 text/html Patient presents for followup. Due for refills on Gabapentin. History of neuropathy, DM, RLS.Recently had ORIF of the left ankle after falling down the steps of her RV ANA M Sanchez [address] [place] [address], [address], [place] [facility] [employer] 08/15/2024 16:48:51 11/13/2024 text/html ROS as noted in the HPI Patient presents for followup.History of neuropathy, RLS. Needs refills on Gabapentin. Had ORIF left ankle. Has surgery tomorrow to have some screws removed. Has started doing some ROM exercise.Has anxiety/depression related to the recent of her nephew. ANA M Sanchez [address] [place], [address], [employer] 11/13/2024 17:45:26 12/09/2024 text/html ROS as noted in the HPI Patient suffered trimalleolar fracture of the left ankle in July. Underwent ORIF. Has been trying to start weight bearing again. Has significant pain in her left ankle. Would like to start PT.Glucose was high last visit - needs [id number] c/o snoring, apneic episodes, fatigue. ANA M Sanchez [address] [place], [address], [employer], [employer] 12/09/2024 16:46:12 02/09/2025 text/html ROS as noted in the HPI Patient presents for followup. Suffered left ORIF several months ago. Has a lot of swelling in her left ankle. Going to PT and they recommended lymphedema therapy as well. Does not feel like furosemide is helping.Patient has history of diabetes. Previously on Metformin but it upset her stomach. ANA M Sanchez [address] [place], [address], [employer] 02/09/2025 16:49:32 05/19/2025 text/html ROS as noted [...] home to maintain. ANA M Sanchez [address] [place], [address], [employer], [employer] 05/21/2025 11:49:29 OBGyn Episode No OBEpisode recorded.
[2025-07-18 20:16] LABS: Hematocrit 39.3 % (37.0-47.0); Hemoglobin 13.0 g/dL (12.2-16.2); Immature Granulocytes % 0.2 %; Mean Corpuscular HGB Conc 33.1 g/dL (31.8-35.4); Mean Corpuscular Hemoglobin 27.6 pg (27.0-31.2); Mean Corpuscular Volume 83.4 fl (81-99); Nucleated Red Blood Cells % 0 %; Platelet Count 293 K/mm3 (142-424); Red Blood Count 4.71 M/mm3 (4.20-5.40); Red Cell Distribution Width-SD 46.3 fL; White Blood Count 12.6 K/mm3 (4.8-10.8)
[2025-07-18 20:21] LABS: Chloride 105 mmol/L (98-107)
[2025-07-18 20:22] LABS: Albumin Level 4.7 g/dl (3.5-5.0); Potassium 3.7 mmoL/L (3.5-5.1); Sodium 140 mmol/L (136-145)
[2025-07-18 20:24] LABS: Anion Gap 12.7 mEq/L (5-15); Blood Urea Nitrogen 19 mg/dl (7-17); Carbon Dioxide 26 mmol/L (22.0-30.0); Creatinine Clearance Estimated 84 mL/min (50-200); Creatinine,Serum 1.30 mg/dl (0.52-1.04); Estimated Glomerular Filt Rate 42 ml/min (>60); GFR (African American) 51 ML/MIN (>60)
[2025-07-18 20:25] LABS: Alanine Aminotransferase 34 U/L (12-78); Albumin/Globulin Ratio 1.9 (1.1-1.8); Alkaline Phosphatase 89 U/L (38-126); Aspartate Amino Transferase 35 U/L (14-36); Bilirubin,Total 0.6 mg/dl (0.2-1.3); Calcium 8.9 mg/dl (8.4-10.2); Globulin 2.5 g/dL (1.3-3.2); Glucose 83 mg/dl (74-100); Total Protein,Serum 7.2 g/dl (6.3-8.2)
[2025-07-18] MEDS: ONDANSETRON 4MG/2ML VIAL 4 MG IV (20:26)
[2025-07-18 20:28] LABS: Activated Partial Thrombo Time 24.5 seconds (22.8-30.6); INR 0.94 (0.9-1.1); Prothrombin Time 10.5 seconds (10.1-12.5)
[2025-07-18 20:34] LABS: NT Pro Brain Natriuretic Pep. 33.4 pg/mL (0-125)
[2025-07-18] MEDS: BELLADONNA ALKALOIDS 60 ML ML PO (20:34)
[2025-07-18] MEDS: ACETAMINOPHEN 500MG TAB 1000 MG PO (20:34)
[2025-07-18 20:36] LABS: D-Dimer 0.94 ug/mL (0.0-0.5)
[2025-07-18 20:50] LABS: Troponin I < 0.01 ng/ml (0.00-0.034)
--- NOTE | 2025-07-18 21:18 | CT_ITS ---
PROCEDURE INFORMATION: Exam: CT Chest With Contrast; Diagnostic Exam date and time: 07/18/2025 10:22 PM Age: 55 years old Clinical indication: Other: SOA cp elevated dimer TECHNIQUE: Imaging protocol: Diagnostic computed tomography of the chest with contrast. Radiation optimization: All CT scans at this facility use at least one of these dose optimization techniques: automated exposure control; mA and/or kV adjustment per patient size (includes targeted exams where dose is matched to clinical indication); or iterative reconstruction. Contrast material: ISOVUE; Contrast volume: 75 ml; Contrast route: IV; COMPARISON: CT LUNG SCREENING 01/16/2023 8:16 AM FINDINGS: Limitations: Evaluation is limited by suboptimal bolus timing. Lungs: Scattered pulmonary nodules largest measures 6 mm within the right lung apex. Pleural spaces: No pneumothorax. No pleural effusion. Heart: No cardiomegaly. No pericardial effusion. Lymph nodes: No enlarged lymph nodes. Vasculature: No aortic aneurysm. Liver: The liver is diffusely hypodense, consistent with steatosis. The spleen is enlarged. Bones/joints: Multilevel degenerative type changes of the spine. No acute osseous abnormality. Soft tissues: Unremarkable. IMPRESSION: 1. No aortic aneurysm. 2. No focal consolidation. 3. Scattered pulmonary nodules largest measuring 6 mm. As per Fleischner Society guidelines for follow-up and management of pulmonary nodules less than 6 mm: For patients at low risk (minimal or absent history of smoking and of other known risk factors), no follow-up needed. For patients at high risk (history of smoking or of other known risk factors), consider follow-up chest CT at 12 months.
[2025-07-18 22:26] LABS: Microscopic, Urine URINE MICROSCOPIC (MICROSCOPIC)
[2025-07-18 22:28] LABS: Bilirubin,Urine Negative (Negative); Color,Urine YELLOW (Yellow); Glucose,Urine (UA) Negative (Negative); Ketones,Urine Negative (Negative); Leukocyte Esterase,Urine 1+ (Negative); PH,Urine 5.5 (5.0-8.5); Protein,Urine Negative (Negative); Specific Gravity, Urine 1.010 (1.005-1.030); Urobilinogen,Urine 0.2 EU/dl (0.2)
[2025-07-18] MEDS: SODIUM CHLORIDE 0.9% 10ML SYR (RAD ONLY) 10 ML IV (22:30)
[2025-07-18] MEDS: IOPAMIDOL-370 (76%);100ML BOTTLE 75 ML IV (22:30)
[2025-07-18 22:36] LABS: Squamous Epithelial Cell,Urine Occasional #/hpf (0-5); WBC,Urine Occasional #/hpf (0-3)
[2025-07-18 23:32] LABS: Troponin I < 0.01 ng/ml (0.00-0.034)
--- NOTE | 2025-07-21 05:14 | PC.NURSE ---
Urine cx shows contamination. No urinary sx at this time. No need for recollection.
== END 2025-07-18 23:56 | disposition home or self-care (01) ==
PROVIDERS: Nurse Practitioner; Emergency Provider Emergency Medicine; PCP Physician Assistant
DX: R07.89 Other chest pain (principal); R91.1 Solitary pulmonary nodule; I10 Essential (primary) hypertension; E78.5 Hyperlipidemia, unspecified; J44.9 Chronic obstructive pulmonary disease, unspecified; Z87.891 Personal history of nicotine dependence; Z86.79 Personal history of other diseases of the circulatory system
CPT/HCPCS: 71045; 71260; 80053; 81001; 83880; 84484; 85025; 85378; 85610; 85730; 87086; 93005; 96374; 96375; 99285; J1200; J2405; Q9967